=== PATIENT | female | born 1935 | race Caucasian/White ===

== ENCOUNTER 2024-08-05 01:55 | Inpatient (IN) | payer MEDICARE, SELFPAY ==
[2024-08-04 21:26] VITALS: BP 129/70
[2024-08-04 21:41] LABS: Glucose - Point of Care 126 mg/dl (70-99)
[2024-08-04 21:51] VITALS: BP 115/63
[2024-08-04 22:00] VITALS: BP 122/52
--- NOTE | 2024-08-04 22:08 | ED.GENMED ---
History of Present Illness
General
Chief Complaint: Change in Mental Status
Source: patient
Exam Limitations: none
Time Seen by Provider: 08/04/24 21:53
History of Present Illness
History of Present Illness:
This is a 89 year old female that comes in with c/o pain in the left ankle. States that she had injections in the left akle yesterday and when she got home it was difficulty to walk. States that last night the pain continued to get worse and when
she got up this morning there was numbness and tingling in the ankle and the ankle was swollen. States that she also slid down from the tub to get to the front door. Friends with patient state that patient is normally more on the ball and they are
not sure if she fell. States that she has not been eating or drinking. Patient Denies any fall, fever, chills, chest pain, SOB, abd pain, nausea, vomiting, diarrhea, headache, dizziness, urianry burning.
Past History
Past History
ED Past Medical History: Cancer (Skin CA Melanoma), HTN, Hypercholesterolemia, Psychiatric (Depression) and Other (DVT, Diverticulosis, GI bleeding. 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 )
ED Past Surgical History: Appendectomy, Gynecological (Hysterectomy), Orthopedic (thumb sx dr ragland ), Tonsilectomy (and adenoids) and Other (Left thigh Z-plasty for skin Cancer)
Social History
Tobacco: Former smoker
Alcohol: Occasional
Drug: None
Personal:
Living: alone
Employment: Retired
Family History
Family History: Hypertension
Review of Systems
Review of Systems
All Other Systems: ROS reviewed and negative except as documented in HPI and ROS
Constitutional: Reports no symptoms; Denies fever or chills
EENT: Reports no symptoms
Respiratory: Reports no symptoms; Denies cough or trouble breathing
Cardiac: Reports no symptoms; Denies chest pain
ABD/GI: Reports no symptoms; Denies abdominal pain, nausea, vomiting or diarrhea
: Reports no symptoms; Denies dysuria, frequency or urgency
Musculoskeletal: Reports joint pain (Left ankle pain)
Skin: Reports no symptoms
Neurological: Reports no symptoms; Denies dizzy or headache
Psychiatric: Reports no symptoms
Phy Exam
General Physical Exam
General Presentation: no apparent distress
General age: appears stated age
General Skin: warm and dry
General Habitus: elderly
General Mental: alert
General Hydration: dry mucous membranes
ENT Exam
ENT Exam: TM's normal, pharynx normal and neck supple
Eye Exam
Eye Exam: EOMI
Cardiovascular Exam
Cardiovascular Exam: regular rate/rhythm, no edema and normal peripheral pulses
Pulmonary Exam
Pulmonary Exam: lungs clear, no respiratory distress, no rales, chest non tender, no crackles, no rhonchi, no wheezing and no cough
Gastrointestinal Exam
Gastrointestinal Exam: normal bowel sounds, non tender, soft, no organomegaly, no pulsatile mass and non distended
Musculoskeletal Exam
Musculoskeletal Exam: full ROM and other (Swelling of the left ankle. Tender to palpation on the lateral aspect. )
Skin Exam
Skin Exam: normal color, warm/dry, no rash and no petechia
Psychiatric Exam
Psychiatric Exam: normal mood/affect
Course
Orders/Labs/Results
Orders:
Orders
08/04/24 22:05
0.9% Sodium Chloride 1000 ml [Nss] 1,000 ml IV BOLUS
Ankle, left 3 view CR [CR Ankle - Left Min 3 Views ] Urgent
Comment:
Reason For Exam: Pain, swelliing
US Legs, Left [US Periph Venous LOWER Ext LT] Urgent
Comment: history of DVT
Reason For Exam: Swelling Left ankle
08/04/24 22:06
Urinalysis Reflex To Culture Urgent
Date Specimen was Collected: 08/04/24
Time Specimen was Collected: 22:08
08/04/24 22:07
CT Head W/o Iv Contrast Urgent
Comment:
Reason For Exam: Confused, possible fall
Nursing to Place Non Medication Order As Directed
Physician Order: Please feed patient
Above order entered?: Yes
08/04/24 22:14
CPK [Creatine Phosphokinase] Urgent
Complete Blood Count/With Diff Urgent
Comprehensive Metabolic Panel Urgent
Direct Bilirubin Urgent
Lipase Urgent
Comment: ADDED
Manual Differential Urgent
08/04/24 23:01
Add On- LAB Urgent
Tests Added?: Direct karuna
US Abdomen Complete/Upper Urgent
Comment:
Reason For Exam: Elevated liver enzymes.
08/04/24 23:18
Iohexol [Omnipaque] See Protocol PO NOW STA
08/04/24 23:54
0.9% Sodium Chloride 1000 ml [Nss] 1,000 ml IV BOLUS
08/04/24 23:57
Diaz Placement- Treatment ONCE
Reason for insertion: Acute Kidney Injury
08/05/24 00:07
Add On- LAB Urgent
Tests Added?: Lipase
08/05/24 00:30
CT Abd/pel (oral only)-DH Only Urgent
Comment: US concerning for mass
Reason For Exam: elevated liver enzymes.
08/05/24 00:44
Urine Microscopic Reflex Cult Urgent
Urine Culture Urgent
BRIANNE Source: U
Specimen Description:
Date Specimen was Collected: 08/04/24
Time Specimen was Collected: 22:08
08/05/24 01:09
Admit/Transfer Patient As Directed
Co-Sign Provider:
Level of Care: Inpatient admission
Assign to:: Medical/Surgical
Physician / Group: hospitalist
Diagnosis: acute kidney failure
Reason for Hospitalization: 2
Expected length of stay greater than two midnights?: Yes
ELOS- Estimated Length of Stay in days: 2
I certify the patient meets the requirements for IP care: Yes
PRN Pain Medication Management As Directed
May give lesser potent ordered pain med per pt: Yes
preference::
Protocol:: Medication orders for pain may be administered in a
manner that supports deferring to patient preference
when the pt is:
- Requesting an ordered lesser potent pain medication.
Least to most potent pain medications are defined
as: acetaminophen < NSAID < tramadol < opioids
(morphine, oxycodone, hydromorphone).
- Requesting a lesser dose of the same medication IF
ORDERED.
- Requesting a less intrusive route of administration
if both routes are prescribed by the provider (PO <
IV).
08/05/24 01:10
Code Status As Directed
Resuscitation Status: Full Code
08/05/24 08:00
Fluoxetine HCl [Prozac] 40 mg PO DAILY
Abnormal Lab Results
08/04/24 08/04/24 08/05/24
21:39 22:14 00:44
WBC 49.2 H* 10^3/uL
(4.8-10.8)
Hgb 8.7 L g/dL
(12.0-16.0)
Hct 25.7 L %
(37.0-47.0)
MCV 57.1 L fL
(81.0-99.0)
MCH 19.3 L pg
(27.0-31.0)
RDW 15.2 H %
(11.5-14.5)
Plt Count 712 H 10^3/uL
(130-400)
Abs Neuts (Manual) 47.2 H 10^3/uL
(1.4-6.5)
Band Neutrophils 28 H %
(0-3)
Lymphocytes (Manual) 2 L %
(20-51)
Sodium 134 L mmol/L
(135-145)
Chloride 97 L mmol/L
(98-107)
Carbon Dioxide 17 L mmol/L
(22-30)
BUN 116 H* mg/dl
(7-17)
Creatinine 3.9 H mg/dL
(0.6-1.0)
Glucose 104 H mg/dl
(70-99)
Direct Bilirubin 0.7 H mg/dl
(0.0-0.4)
AST 720 H* U/L
(14-36)
ALT 296 H U/L
(0-35)
Alkaline Phosphatase 381 H U/L
(38-126)
Creatine Kinase 5350 H U/L
(30-135)
Albumin 3.0 L g/dl
(3.5-5.0)
Ur Occult Blood Reflex 4+ A
(Negative)
Urine Bilirubin 1+ A
(Negative)
Leukocyte Esterase Rfl Trace A
(Negative)
Urine RBC 11-15 A /HPF
(0-2)
Urine Bacteria (Reflex) Moderate A
(Negative)
POC Glucose 126 H mg/dl
(70-99)
08/04/24 22:14
08/04/24 22:14
Leukocytosis, H/h is low, Thrombocytopenia. anemia, Bandemia, Carbon dioxide low, Acute renal failure, Hyperglycemia, Direct karuna elevation. AST/ALT elevation. Alk phos elevation. CPK elevation (rhabdo), Albumin low.
Vital Signs
Initial and Last Documented VS:
Initial Vital Signs
Temp Pulse Resp BP Pulse Ox
98.5 F 66 18 129/70 98
08/04/24 21:26 08/04/24 21:26 08/04/24 21:26 08/04/24 21:26 08/04/24 21:26
Last Documented Vital Signs
Temp Pulse Resp BP Pulse Ox
98.5 F 115 26 111/57 96
08/04/24 21:26 08/05/24 01:15 08/05/24 01:15 08/05/24 01:00 08/05/24 01:15
MDM/Problems Addressed
Differential Diagnosis Includes:
UTI, DVT, Dementia
MDM/Problems Addressed:
This is a 89 year old female that comes in with c/o left ankle pain. States that she got injections in the ankle yesterday and this was not her first time. States that this time it really hurt. States that she awoke with numbness and tingling in the
ankle. States that she also slid down from the tub to the floor so she could get to the Front door. Neighbors with patient feel that she is a little confused and normally is much more witty then this.
Will check labs, Urine. CT head and get US of the left leg. X-ray left ankle
Into see neighbors and explained that she would be admitted. They have been looking out after her as her brother is unable and there is no one else.
Back into see patient. Explained that she would be admitted as her liver enzymes are elevated, she is in renal failure and Rhabdo. Will also get CT scan. Hospitalist notified about admission.
US cont- Large lef renal cyst. Right kidney is unremarkable. Spleen is unremarkable.
CT report reviewed and given to Hospitalist. Questioned if antibiotic should be ordered and Dr. Friedman does not feel that antibiotics are needed at this time.
Chronic conditions affecting care:
history of DVT and UTI,
*Radiology
Radiology exam reviewed: radiology read reviewed (CT head- NO acute intracranial abnormality noted. Mild atrophy. Moderate periventricular small vessel disease seen. 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 Ankle -Bony demineralization. Postsurgical
change of the distal left fibula and tibia as described above. No evidence of acute osseous injury. ), all reviewed NAD by ED Provider (US- night hawk- There is a complex heterogeneous mass in the right upper quadrant involving the liver and region
of the pancreatic head Measuring up to roughly 8.5cm. There may be gas within the nondependent portion. Recommend contrast-enhanced CT for further characterization. Gallbladder contains ) and other (DVT- Negative left leg CT cont- gallstones. Mild
gallbladder wall thickening up to 5mm, may be related to the above described mass/liver disease or could be seen with mild cholecystitis. The common bile duct is not well visualized but appears to be mildly dilated up to approximately 10mm.)
*Pulse Oximetry
Patient hypoxic: no
*EKG
Interpreted by ED Provider?: NA
Rate: EKG- N/A
*Loading Unit Tool Setter Interpretation
Rate: normal
Heart Rate: 64
Rhythm: sinus
*Critical Care Note
Total Time (30-74mins, 75-104mins- exclusive of procedures): Not Applicable
ED Attending Note
-
Portions of this chart may have been created with voice recognition software.� Occasional wrong word or��sound alike� substitutions may have occurred due to the inherent limitations of voice recognition software.
Discharge Plan
Departure
Patient Disposition: Admit
Date of Disposition: 08/04/24
Time of Disposition: 23:59
Admit to: Telemetry
Presentation/result/management discussed w/ accepting MD/DO: Hospitalist
Patient with high blood pressure during this ER visit?: Yes
Condition: Good
Covid-19: Not Applicable
Discharge Problem:
Acute renal failure, Elevated liver enzymes, Rhabdomyolysis
Interventions
Interventions:
*Risk Screen - Suicide Last Done: 08/04/24 21:26
*General Assessment Last Done: 08/04/24 21:26
ED- Fall Risk Assessment Last Done: 08/04/24 21:51
*ED COVID-19 Vaccine History Last Done: 08/04/24 21:26
ED- Cardiac Assessment Last Done: 08/04/24 21:51
ED- Neurological Assessment Last Done: 08/04/24 21:51
ED- Pulmonary Assessment Last Done: 08/04/24 21:51
ED Swallowing Screen Last Done: 08/04/24 23:40
[2024-08-04] MEDS: NSS 1000 IV ×2 (22:14→23:58)
[2024-08-04 22:53] LABS: Hematocrit 25.7 % (37.0-47.0); Hemoglobin 8.7 g/dL (12.0-16.0); Mean Corp Hgb Conc. 33.9 g/dL (33.0-37.0); Mean Corpuscular Hgb 19.3 pg (27.0-31.0); Mean Corpuscular Volume 57.1 fL (81.0-99.0); Mean Platelet Volume 9.3 fL (7.4-10.4); Platelet Count 712 10^3/uL (130-400); Red Cell Dist. Width 15.2 % (11.5-14.5); White Blood Cell Count 49.2 10^3/uL (4.8-10.8)
[2024-08-04 22:56] LABS: ALT (SGPT) 296 U/L (0-35); AST (SGOT) 720 U/L (14-36); Alkaline Phosphatase 381 U/L (38-126); Blood Urea Nitrogen 116 mg/dl (7-17); Calcium 8.5 mg/dl (8.4-10.2); Carbon Dioxide 17 mmol/L (22-30); Chloride 97 mmol/L (98-107); Glucose 104 mg/dl (70-99); Potassium 5.1 mmol/L (3.5-5.1); Sodium 134 mmol/L (135-145); Total Bilirubin 0.9 mg/dl (0.2-1.3); Total Protein 6.4 g/dl (6.3-8.2)
[2024-08-04 22:59] LABS: Absolute Neutrophils -Man Diff 47.2 10^3/uL (1.4-6.5); Band Neutrophils 28 % (0-3); Segmented Neutrophils 68 % (42-75)
[2024-08-04 23:00] LABS: Anisocytosis 1+; Hypochromasia 1+; Lymphocytes 2 % (20-51); Macrocytosis 1+; Monocytes 2 % (2-9); Normal RBC Morphology No; Ovalocytes 2+; Platelets Checked Yes; Poikilocytosis 2+; Spherocytes 1+; Target Cells 2+
[2024-08-04 23:01] LABS: Total Cells Counted 100
[2024-08-04 23:04] LABS: Creatine Phosphokinase 5350 U/L (30-135); eGFR 10.65
[2024-08-04 23:37] LABS: Direct Bilirubin 0.7 mg/dl (0.0-0.4)
[2024-08-04] MEDS: OMNIPAQUE 50 ML PO (23:40)
[2024-08-04 23:42] VITALS: BP 102/44
[2024-08-05] VITALS (20 sets, daily range): BP systolic 92–152; BP diastolic 33–65; BMI 30.6
--- NOTE | 2024-08-05 00:40 | HPS.HSE ---
Family Physician
-
Family Physician: Noah Mary
Chief Complaint
-
Left ankle pain
History of Present Illness
This a 89-year-old female who endorses a past medical history of hypertension and hyperlipidemia presents to the emergency department after being brought in by neighbors for crawling to open her door and they thought that she was confused.
Patient endorsed a past medical history of hypertension, hyperlipidemia, status post hysterectomy and melanoma excision in 1981. She reported that yesterday she had ankle injection at [facility] by Dr. Artem Mcdonald. This was done for
chronic ankle osteoarthritis. She denied any redness. Patient returned home after the injection and was able to ambulate but did find that there was no improvement in her pain. She denied having any fevers or chills. The ankle had already had a
prior surgery and fusion many years ago. Patient reported that she only ate soup last night due to the loss of her pet. She had been grieving this loss for a few days now. In the morning feeling get out of the house. She mostly stayed on her
couch all day. In the afternoon she went to her bathroom and was sitting on the edge of her tub when she had the doorbell rang. She then lowered herself to the floor due to the pain in her ankle. she then remembered dozing off onto the Dr. Blanton
again. She was unable to get up to open the door so she crawled and neighbors found her in that position. She reported that she was unable to get up immediately due to the pain in her ankle and weakness. Patient reported that she last seen
physician Dr. Noah [facility] a month ago and had blood work and a physical exam without any acute abnormalities. She reported that a month ago she also noticed a decrease in her urine output. She reported
that she did have a urine output this morning that was scant and not dark-colored. She denies any nausea or vomiting. She denies diarrhea. She reports that she takes Tylenol 3 4 times a day. She denies any NSAID use. She denies any tobacco use.
She denies alcohol use. She denies any recent weight gain or weight loss. She denies any urinary frequency, dysuria or hematuria. She did remember past history of a mechanical fall many years ago.
In the emergency department the patient was normotensive with a blood pressure of 182/50 she was afebrile pulse was 69 she was satting 98% on room air. White count was 49 with 28% bands. Hemoglobin was 8.7, platelet count was 712. MCV was 57.
Sodium was 134 potassium 5.1 chloride 97 bicarb 17 with a BUN of 116 and a creatinine of 3.9. Glucose was 104. She had elevated AST of 720 ALT over 200 and elevated alk phos. CPK was also elevated at 5300. Ankle x-ray shows demineralization but
no other abnormality. Head CT was unremarkable. She had a ultrasound of the abdomen concerning for mass but official read is pending and a CT scan of the abdomen was ordered with oral contrast.
Medical History
Past Medical History
Past Medical History: Reports HTN and Hypercholesterolemia
Additional Past Medical History:
Skin melanoma 1981
Chronic osteoarthritis
Iron deficiency anemia
Past Surgical History: Reports Gynocological (Hysterectomy)
Social History
Tobacco: Non-smoker
Alcohol: None
Drug: None
Personal: Single
Living: Alone
Employment: Retired
Family History
Family History: Not pertinent
Allergies / Home Medications
Allergies reflects when Allergies were last updated in [employer].
Home Medications with original date entered in [employer]
Allergy/Medication List:
Allergies
Allergy/AdvReac Type Severity Reaction Status Date / Time
morphine Allergy head hurts Verified 08/04/24 21:33
zolpidem [From Ambien] Allergy Unknown Verified 08/04/24 21:34
Home Medications
Echinacea 350 MG take 1 capsule Orally once a day Jul, Active
Iron 325 (65 Fe) MG 1 tablet Orally Once a day Jul, Active
CoQ-10 1 capsule with a meal Orally Once a day Jul, Active
Centrum Silver Take one tablet by mouth daily Jul, Active
FLUoxetine HCl 40 mg TAKE 1 CAPSULE DAILY in THE MORNING Jul, Active
Atorvastatin Calcium 20 mg TAKE 1 TABLET DAILY Jul, Active
[employer] Lidocaine Pain Relief 4 % apply to affected area Externally Three times a day for 5 days Jul, Active
Mupirocin 2 % apply to affected area Externally three times a day for 5 days Jul, Active
Vitamin B12 1000 MCG 1 tablet Orally every other day prn Jul, Active
traZODone HCl 50 MG TAKE 1 TABLET BY MOUTH EVERY DAY AT BEDTIME NEEDED for 90 Jul, Active
Lisinopril-hydroCHLOROthiazide 10-12.5 mg TAKE 1 TABLET DAILY Jul, Active
Acetaminophen-Codeine #3 300-30 MG take 1 - 2 tablet by oral route every 4 - 6 hours as needed Oral q4 prn for 90 days prn Jul, Active
PreserVision AREDS - 1 Orally Twice a Day Jul, Active
LORazepam 0.5 MG 1 tablet bid as needed for anxiety Orally twice a day for 30 days prn Jul, Active
Celecoxib 100 mg TAKE 1 CAPSULE DAILY WITH FOOD for 90 days Jul, Active
amLODIPine Besylate 5 mg TAKE 1 TABLET DAILY Jul, Active
Review of Systems
-
History Source: Patient
Constitutional: Reports Fatigue
EENT: Reports No Symptoms
Respiratory: Reports No Symptoms
Cardiac: Reports No Symptoms
Abdomen/GI: Reports No Symptoms
: Reports No Symptoms
Musculoskeletal: Reports Joint Pain and Joint Swelling
Skin: Reports No Symptoms
Neurological: Reports Weakness
Endocrine: Reports No Symptoms
Hematologic/Lymphatic: Reports No Symptoms
Psych: Reports No Symptoms
Physical Exam
Vital Signs
Vital Signs
Temp Pulse Resp BP Pulse Ox
98.5 F 69 21 122/52 98
08/04/24 21:26 08/04/24 22:15 08/04/24 22:15 08/04/24 22:00 08/04/24 22:15
Physical Exam
General: Well Developed, Well Nourished, No Apparent Distress, Comfortable and Conversant
HEENT: NormoCephalic, Anicteric, Atraumatic and PERRLA
Respiratory: Clear
Cardiac: S1/S2 and Regular Rhythm
GI: Soft, Non Tender, Non Distended and Normal Bowel Sounds
Rectal: Deferred by Provider
Genito-urinary: Deferred by me
Musculoskeletal: No Clubbing, No Cyanosis and No Edema
Skin: Warm
Neuro: AO x 3
Hematologic/Lymphatic: No Lymphadenopathy
Psych: Calm
Laboratory Results
-
08/04/24 22:14
08/04/24 22:14
Laboratory Results
Total Bilirubin 0.9 mg/dl (0.2-1.3) 08/04/24 22:14
AST 720 U/L (14-36) H* 08/04/24 22:14
ALT 296 U/L (0-35) H 08/04/24 22:14
Alkaline Phosphatase 381 U/L (38-126) H 08/04/24 22:14
Impression/Plan
-
IMPRESSION:
This is a rather well-appearing 89-year-old female with history of ankle osteoarthritis status post joint injection yesterday who presents to the emergency department after being found crawling at home. Patient endorsed crawling due to leg pain and
some weakness. There were numerous incidental findings on her labs and imaging in the emergency department incongruent to the particular history in which she gave other than being on the floor for some time and having reduced p.o. intake over the
last couple of days. Patient endorses history of hypertension and hyperlipidemia but does not know the medications that she is currently on. She lives by herself.
PLAN:
1. LILIAN - Cr 116, BUN 3.9.BUN /Cr > 20. Non-anuric but cannot determine oliguria yet. K 5.1. bicarb 17. Hypovolemia/dehydration. No indicaton for emergent dialysis. Denies NSAIDs. +CPK/Rhabdo. No other insults. Unclear duration but states
bloodwork by Dr Mary was ok recently ( 1 -2 months). Large left renal cyst.
- admit to med/surg
- presumed LILIAN 2/2 rhabdomyolysis. If non-oliguric will give IV NS at 150 ml/hr for now
- trend cpk q 12 (unknown duration of tissue damage)
- monitor i/o, Cr and bicarb q 12
- obtain u/a for casts, rbc, protein, cells
- check phos level for chronicity
- check urine protein cr
- get esr, crp, nelda, RF, complement c3/c4
- nephrology consultation
2. Transaminitis/Liver Mass - Normal bili, elevated ast/alt and alkphos. Intraabdominal mass on u/s 8.5 cm involving the liver and region of the pancreatic head. CT ordered to examine further. Gallbladder with stones and mild gallbladder wall
thickening, poor visualization of cbd. CT a/p w/o contrast adds ill-defined hypodense mass in r u q within the liver, gallbladder distended and has stones. 'There is a small amount of gas that could indicate communication with bowel, necrosis or
infection'. Picture suggestive of malignancy of primary liver, metastatic liver, gall bladder or pancreatic mass
- gi consultation
- will get markers including ca19-9, cea, AFP
- no abdominal pain, tenderness, nausea or vomiting, history shows decreased appetite, hold off abx for possible cholecystitis versus abscess.
3. Rhabdomyolysis -
- management as above for LILIAN at this time
- hold statin
4. HTN
- holding lsinopril-hctz
- continue norvasc w/ hold parameters
- hold statin
5 Leukocytosis - WBC 49k, bands/immature cells. NO obvious signs of acute infection but possibly hepatic/pancreatic necrotic mass. Unlikely acute cholecystitis. Cannot rule out abscess. Possibly reactive due to liver mass/lymphoma vs leukemia.
Reports h/o bone marrow biopsy over 10 years ago. No recent CBC found [facility] 2010.
- check uric acid, ldh
- obtain records from Dr. Hudson
- peripheral smear
- oncology/hematology consultation
- iv fluids for now
6. Anemia - H/O gastritis s/p EGD/Roberts. No history of GI bleed. Known thalasemia. Hgb was around 8 - 10 14/15 yrs ago. MCV 61 at that time and now 50s.
- check iron panel, b12 folate
- type and screen in am
- oncology consult as above
DVT PPX - heparin sq
Code Status - full lary for now.
[2024-08-05 00:52] LABS: Lipase 102 U/L (23-300)
[2024-08-05 00:57] LABS: Urine Albumin Trace (Neg - Trace); Urine Bilirubin 1+ (Negative); Urine Character Slightly Cloudy (Clear); Urine Color Yellow; Urine Glucose Negative (Negative); Urine Ketone Negative (Negative); Urine Leukocyte Trace (Negative); Urine Nitrite Negative (Negative); Urine Occult Blood 4+ (Negative); Urine Urobilinogen Negative (Neg - 1+)
[2024-08-05 01:26] LABS: Urine Bacteria Moderate (Negative)
[2024-08-05] MEDS: NSS 1000 IV ×3 (07:31→21:04)
[2024-08-05 07:32] LABS: Procalcitonin 151.28 ng/ml (0.0-0.25)
[2024-08-05 07:50] LABS: Urine Albumin Trace (Neg - Trace); Urine Bilirubin Negative (Negative); Urine Character Slightly Cloudy (Clear); Urine Color Yellow; Urine Glucose Negative (Negative); Urine Ketone Negative (Negative); Urine Leukocyte Negative (Negative); Urine Nitrite Negative (Negative); Urine Occult Blood 3+ (Negative); Urine Specific Gravity 1.015 (<1.030); Urine Urobilinogen Negative (Neg - 1+)
[2024-08-05 08:16] LABS: Urine Bacteria Moderate (Negative)
[2024-08-05] MEDS: HEPARIN 5000 UNITS SC ×2 (08:16→19:59)
[2024-08-05] MEDS: PROZAC 40 MG PO (08:16)
[2024-08-05 08:17] LABS: Urine Red Blood Cell 0-2 /HPF (0-2)
--- NOTE | 2024-08-05 08:22 | CON.ONC ---
Impression
Impression
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
Rule out sepsis with elevated procalcitonin
Rhabdomyolysis
Acute renal failure
Dehydration
TME resolving
Reactive leukocytosis/thrombocytosis
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
Hypertension
Gastritis
Plan
Plan
Radiologically appears to have malignant neoplasm to the liver
Consider biopsy once stabilized if patient and family desire tissue diagnosis diagnosis
CEA and CA 19-9
Would initially begin with supportive care
Currently not a candidate for palliative systemic therapy given age, performance status, degree of renal and liver impairment
Will follow
Patient History
History of Present Illness
This a 89-year-old female who endorses a past medical history of hypertension and hyperlipidemia presents to the emergency department after being brought in by neighbors for crawling to open her door and they thought that she was confused.
Patient endorsed a past medical history of hypertension, hyperlipidemia, status post hysterectomy and melanoma excision in 1981. She reported that yesterday she had ankle injection at [facility] by Dr. Artem Mcdonald. This was done for
chronic ankle osteoarthritis. She denied any redness. Patient returned home after the injection and was able to ambulate but did find that there was no improvement in her pain. She denied having any fevers or chills. The ankle had already had a
prior surgery and fusion many years ago. Patient reported that she only ate soup last night due to the loss of her pet. She had been grieving this loss for a few days now. In the morning feeling get out of the house. She mostly stayed on her
couch all day. In the afternoon she went to her bathroom and was sitting on the edge of her tub when she had the doorbell rang. She then lowered herself to the floor due to the pain in her ankle. she then remembered dozing off onto the Dr. Blanton
again. She was unable to get up to open the door so she crawled and neighbors found her in that position. She reported that she was unable to get up immediately due to the pain in her ankle and weakness. Patient reported that she last seen
physician Dr. Noah [place] and [facility] about a month ago and had blood work and a physical exam without any acute abnormalities. She reported that a month ago she also noticed a decrease in her urine output. She reported
that she did have a urine output this morning that was scant and not dark-colored. She denies any nausea or vomiting. She denies diarrhea. She reports that she takes Tylenol 3 4 times a day. She denies any NSAID use. She denies any tobacco use.
She denies alcohol use. She denies any recent weight gain or weight loss. She denies any urinary frequency, dysuria or hematuria. She did remember past history of a mechanical fall many years ago.
In the emergency department the patient was normotensive with a blood pressure of 182/50 she was afebrile pulse was 69 she was satting 98% on room air. White count was 49 with 28% bands. Hemoglobin was 8.7, platelet count was 712. MCV was 57.
Sodium was 134 potassium 5.1 chloride 97 bicarb 17 with a BUN of 116 and a creatinine of 3.9. Glucose was 104. She had elevated AST of 720 ALT over 200 and elevated alk phos. CPK was also elevated at 5300. Ankle x-ray shows demineralization but
no other abnormality. Head CT was unremarkable. She had a ultrasound of the abdomen concerning for mass but official read is pending and a CT scan of the abdomen was ordered with oral contrast.
Past-Medical/Surgical History
Past Medical History
HTN
Hypercholesterolemia
Melanoma 1982
Chronic osteoarthritis
Iron deficiency anemia
Past Surgical History
Gynocological (Hysterectomy)
Social History
Tobacco: Non-smoker
Alcohol: None
Drug: None
Personal: Single
Living: Alone
Employment: Retired
Family History
Family History: Not pertinent
Patient Medication
�Medication �Instructions �Recorded �Confirmed �Last Taken �Type
fluoxetine 20 mg capsule 40 mg PO DAILY 03/13/10 08/05/24 07/05/12 08:00 History
atorvastatin 20 mg tablet 20 mg PO QPM 06/29/12 08/05/24 07/05/12 20:30 History
ferrous sulfate 325 mg (65 mg 325 mg PO DAILY 06/29/12 08/05/24 07/05/12 08:00 History
iron) tablet
kkpdtdnb-pjf-wyvxu acid 0.4 1 ea PO DAILY 06/29/12 08/05/24 07/05/12 20:30 History
mg-lycopene 300 mcg-lutein 250 mcg
tablet (Centrum Silver)
acetaminophen 300 mg-codeine 30 mg 1 tab PO QIDPRN PRN moderate pains 08/05/24 08/05/24 Unknown History
tablet
amlodipine 10 mg tablet (Norvasc) 5 mg PO DAILY 08/05/24 08/05/24 Unknown History
celecoxib 100 mg capsule 100 mg PO DAILY 08/05/24 08/05/24 Unknown History
chlorhexidine gluconate 0.12 % 15 ml buccal DAILY 08/05/24 08/05/24 Unknown History
mouthwash
coQ10 (ubiquinol) 100 mg capsule 100 mg PO DAILY 08/05/24 08/05/24 Unknown History
diphenoxylate-atropine 2.5 1 tab PO BIDPRN PRN diarrhea 08/05/24 08/05/24 Unknown History
mg-0.025 mg tablet (Lomotil)
lisinopril 10 1 tab PO DAILY 08/05/24 08/05/24 Unknown History
mg-hydrochlorothiazide 12.5 mg
tablet
propranolol 120 mg capsule,24 120 mg PO DAILY 08/05/24 08/05/24 Unknown History
hr,extended release
trazodone 50 mg tablet 50 mg PO HS 08/05/24 08/05/24 Unknown History
Active Medications
Generic Name Dose Route Start Last Admin
Trade Name Freq PRN Reason Stop Dose Admin
Acetaminophen 650 mg 08/05/24 06:52
Acetaminophen 325 Mg Tablet PO 09/02/24 06:51
Q4HPRN PRN
mild pain/MCQUEEN/temp> 100.4F
Bisacodyl 10 mg 08/05/24 06:52
Bisacodyl 10 Mg Rectal Suppository RECTAL 09/02/24 06:51
[id number] PRN
constipation
Fluoxetine HCl 40 mg 08/05/24 08:00 08/05/24 08:16
Fluoxetine 20 Mg Capsule PO 09/02/24 07:59 40 mg
DAILY CORNEL Administration
Heparin Sodium 5,000 units 08/05/24 08:00 08/05/24 08:16
Heparin 5,000 Units/Ml 1 Ml Vial SC 09/02/24 07:59 5,000 units
Q12 CORNEL Administration
Sodium Chloride 1,000 mls @ 150 mls/hr 08/05/24 06:52 08/05/24 07:31
Nss IV 1,000 mls
.Q6H40M CORNEL Administration
Ondansetron HCl 4 mg 08/05/24 06:52
Ondansetron 4 Mg/2 Ml Vial IV 09/02/24 06:51
Q6HPRN PRN
nausea and vomiting
Polyethylene Glycol 17 grams 08/05/24 06:52
Polyethylene Glycol Powder 17 Grams Packet PO 09/02/24 06:51
DAILYPRN PRN
constipation
Senna/Docusate Sodium 1 tablet 08/05/24 06:52
Docusate W/Senna (Sowmya-Colace) Tablet PO 09/02/24 06:51
BIDPRN PRN
constipation
Sodium Chloride 0 flush 08/05/24 03:00
Sodium Chloride 0.9% (Flush) Syringe IV 09/02/24 02:59
PER PROTOCOL CORNEL
Review of Systems
-
Patient appears appropriate in the emergency room without complaints of pain. She states that she may have been confused earlier.Additional review of systems fails elicit additional complaints other than those reviewed In the HPI.
Physical Exam
-
Physical Exam
General: Well Developed, Well Nourished, No Apparent Distress, Comfortable and Conversant
HEENT: Anicteric, Atraumatic and EOMI
Respiratory: Clear
Cardiac: S1/S2 and Regular Rhythm
GI: Soft, Non Tender, Non Distended and Normal Bowel Sounds
Musculoskeletal: No Clubbing, No Cyanosis and No Edema
Skin: Warm
Neuro: AO x 3
Hematologic/Lymphatic: No Lymphadenopathy
Psych: Calm
Labs
Lab Results
WBC 49.2 10^3/uL (4.8-10.8) H* 08/04/24 22:14
RBC 4.50 10^6/uL (4.20-5.40) 08/04/24 22:14
Hgb 8.7 g/dL (12.0-16.0) L 08/04/24 22:14
Hct 25.7 % (37.0-47.0) L 08/04/24 22:14
MCV 57.1 fL (81.0-99.0) L 08/04/24 22:14
MCH 19.3 pg (27.0-31.0) L 08/04/24 22:14
MCHC 33.9 g/dL (33.0-37.0) 08/04/24 22:14
RDW 15.2 % (11.5-14.5) H 08/04/24 22:14
Plt Count 712 10^3/uL (130-400) H 08/04/24 22:14
MPV 9.3 fL (7.4-10.4) 08/04/24 22:14
Creatinine 3.9 mg/dL (0.6-1.0) H 08/04/24 22:14
Vital Signs
Vital Signs
Temp Pulse Resp BP Pulse Ox
98.5 F 67 21 107/48 96
08/04/24 21:26 08/05/24 08:15 08/05/24 08:15 08/05/24 08:00 08/05/24 08:15
[2024-08-05 08:29] LABS: Protein/creatinine Ratio 0.4; Urine Protein 35 mg/dl; Urine Sodium 31 mmol/L (30-90)
--- NOTE | 2024-08-05 11:47 | W.CON.NEPH ---
Consultation
-
Date/Time Consultation Requested: 08/05/2024 9 AM
Date/Time Consultation Performed: 08/05/2024 12 PM
Requesting Provider: Dr. Friedman
Performing Provider: Dr. Evans
Reason for Consultation: LILIAN
Medical History
-
Chief Complaint: Confusion
History of Present Illness:
This this is an 89-year-old female who has hypertension on a multidrug regimen typically well-controlled, osteoarthritis on chronic Celebrex therapy who underwent recent injection by orthopedics. She has hyperlipidemia controlled with statin
therapy. She had actually seen her primary care physician on the end of June without issues. Over this past weekend she gone to gnosticism also without incident. In the last 2 days time however she has lost her appetite has been eating less.
She actually has no recollection of the last 36 hours. Reportedly she had been so weak she had been crawling on the floor. She was unable to answer the front door and allowed her neighbors to come into the garage. She was then sent to the
emergency room. Here she was noted to have an extremely high white count with acute kidney injury with a creatinine of 3.9.
Past Medical History
Hypertension, hyperlipidemia, melanoma, osteoarthritis, anemia, thalassemia, hysterectomy, left ankle surgery
Social History
Tobacco: Non-Smoker
Alcohol: None
Family History
Family History: Not Pertinent
Allergies / Home Medications
Allergy/AdvReac Type Severity Reaction Status Date / Time
morphine Allergy head hurts Verified 08/04/24 21:33
zolpidem [From Ambien] Allergy Unknown Verified 08/04/24 21:34
�Medication �Instructions �Recorded �Confirmed �Type
fluoxetine 20 mg capsule 40 mg PO DAILY depression/anxiety 03/13/10 08/05/24 History
atorvastatin 20 mg tablet 20 mg PO QPM High Cholesterol 06/29/12 08/05/24 History
ferrous sulfate 325 mg (65 mg 325 mg PO DAILY Supplement 06/29/12 08/05/24 History
iron) tablet
boczvbvt-yow-sqibd acid 0.4 1 ea PO DAILY Supplement 06/29/12 08/05/24 History
mg-lycopene 300 mcg-lutein 250 mcg
tablet (Centrum Silver)
acetaminophen 300 mg-codeine 30 mg 1 tab PO QIDPRN PRN moderate pain 08/05/24 08/05/24 History
tablet
amlodipine 10 mg tablet (Norvasc) 5 mg PO DAILY blood pressure 08/05/24 08/05/24 History
celecoxib 100 mg capsule 100 mg PO DAILY pain 08/05/24 08/05/24 History
chlorhexidine gluconate 0.12 % 15 ml buccal DAILY mouth care 08/05/24 08/05/24 History
mouthwash
coQ10 (ubiquinol) 100 mg capsule 100 mg PO DAILY Supplement 08/05/24 08/05/24 History
diphenoxylate-atropine 2.5 1 tab PO BIDPRN PRN diarrhea 08/05/24 08/05/24 History
mg-0.025 mg tablet (Lomotil)
lisinopril 10 1 tab PO DAILY Blood Pressure 08/05/24 08/05/24 History
mg-hydrochlorothiazide 12.5 mg
tablet
propranolol 120 mg capsule,24 120 mg PO DAILY Blood Pressure 08/05/24 08/05/24 History
hr,extended release
trazodone 50 mg tablet 50 mg PO HS sleep 08/05/24 08/05/24 History
Review of Systems
-
Decreased appetite. No nausea or vomiting. No pain. No shortness of breath. Decreased urine output. No diarrhea.
All other systems: Negative unless noted
Physical Exam
Vital Signs
Vital Signs
Temp Pulse Resp BP Pulse Ox
98.5 F 67 21 107/48 96
08/04/24 21:26 08/05/24 08:15 08/05/24 08:15 08/05/24 08:00 08/05/24 08:15
Lab Results
WBC 49.2 10^3/uL (4.8-10.8) H* 08/04/24 22:14
RBC 4.50 10^6/uL (4.20-5.40) 08/04/24 22:14
Hgb 8.7 g/dL (12.0-16.0) L 08/04/24 22:14
Hct 25.7 % (37.0-47.0) L 08/04/24 22:14
Plt Count 712 10^3/uL (130-400) H 08/04/24 22:14
Sodium 134 mmol/L (135-145) L 08/04/24 22:14
Potassium 5.1 mmol/L (3.5-5.1) 08/04/24 22:14
Chloride 97 mmol/L (98-107) L 08/04/24 22:14
Carbon Dioxide 17 mmol/L (22-30) L 08/04/24 22:14
BUN 116 mg/dl (7-17) H* 08/04/24 22:14
Creatinine 3.9 mg/dL (0.6-1.0) H 08/04/24 22:14
eGFR 10.65 08/04/24 22:14
Glucose 104 mg/dl (70-99) H 08/04/24 22:14
Calcium 8.5 mg/dl (8.4-10.2) 08/04/24 22:14
Albumin 3.0 g/dl (3.5-5.0) L 08/04/24 22:14
From 07/14/2024 WBC 16.3, hemoglobin 10.6, platelet 442, sodium 141, potassium 4.9, bicarb 24, BUN 36, creatinine 0.98, calcium 10, albumin 4.4, A1c 5.9, AST 24, ALT 26, bilirubin 0.5
Physical Exam
Patient is awake alert oriented and in no distress. Mood and affect were pleasant, insight and judgment were good. Pupils are equal round and reactive to light, extraocular movements are intact, sclera were anicteric. Hearing was normal, ears and
nose are intact. Oropharynx was clear. Neck was supple with trachea midline and no thyromegaly. Heart was regular rate and rhythm without rubs. Lower extremities with 2+ edema. Lungs were clear to auscultation bilaterally and with normal
excursion. Abdomen was soft, nontender, with normal active bowel sounds, and no hepatosplenomegaly. Skin was without rash and with normal turgor.
Data Reviewed
-
Radiology: Image Personally Visualized and interpreted (Ankle x-ray on 08/04/2024 by my reading only shows postsurgical changes with plate and pin)
CT Scan: Report Reviewed by me (CT abdomen pelvis on 08/05/2024 shows no hydronephrosis, 11 cm low-density right lobe liver mass)
Labs: Labs Reviewed by me
Old Records: Reviewed
Assessment/Plan
-
Assessment
Sepsis
Liver mass
LILIAN
Azotemia
Metabolic acidosis
Hyponatremia
Elevated LFTs
Rhabdomyolysis
Plan
Maintain Diaz
IV fluid normal saline fluid resuscitation
Follow BMP, CPK
Holding Celebrex, lisinopril HCTZ
Check lactate
Await cultures
Broad-spectrum antibiotics
--- NOTE | 2024-08-05 12:49 | W.PN.HOSP.TC ---
Today's Communication/Plan
-
Blood culture PICC
Empiric antibiotics.
Tumor markers
Interventional radiology/gastroenterology consultation for workup of the liver mass.
Diaz catheter P
IV fluids.
Avoid hypotension.
Assessment / Plan
Assessment / Plan
Impression:
Presentation with severe fatigue and weakness.
Acute kidney injury.
Rhabdomyolysis. Nontraumatic
Large necrotic hepatic mass.
Concern for sepsis
Other conditions:
Essential hypertension
Dyslipidemia.
Left ankle arthritis
History of melanoma removal remote.
Plan:
Concern for sepsis with significantly elevated WBC and left shift.
Most likely source intra-abdominal with necrotic liver mass
Afebrile
Does not appear toxic.
Lactic acid level is pending.
Check blood cultures
Empiric antibiotic Zosyn
Necrotic liver mass on CT scan and ultrasound.
Abnormal LFT
High suspicion for biliary/GI malignancy metastasizing to the liver.
? If abscess
Significantly elevated procalcitonin, although unreliable given abnormal renal function.
GI/interventional radiology consultation with plan for biopsy/drain (if abscess.
Tumor markers pending.
Oncology input appreciated
May require additional imaging either with enhanced CT scan if renal function allows for MRI of the abdomen.
Acute kidney injury.
Metabolic acidosis.
Nontraumatic rhabdomyolysis
Diaz catheter placed on admission (no documented retention while in ED.
Avoid NSAIDs.
Hold lisinopril/HCTZ.
IV fluids.
Avoid hypotension
Dyslipidemia
Hold statin given abnormal liver function test
Chronic microcytic anemia
Check iron panel, B12.
Check coagulation profile.
Type and screen.
Monitor hemoglobin.
Full code.
DVT prophylaxis heparin.
Anticipated Discharge: > 48 hours
Subjective/Interval History
-
Date of Service: August 05, 2024
Objective Data
-
Labs:
Laboratory Results
08/05/24
12:44
PT Pending
INR Pending
APTT Pending
Vital Signs:
Vital Signs
Temp Pulse Resp BP Pulse Ox
97.5 F 73 18 123/52 94
08/05/24 12:15 08/05/24 12:00 08/05/24 12:00 08/05/24 12:00 08/05/24 12:00
Physical Exam
-
General: Well Developed and No Apparent Distress
HEENT: Normocephalic, Atraumatic and Moist Mucous Membranes
Respiratory: Clear to Auscultation
Cardiac: Regular Rhythm and S1/S2; Negative Murmur, Rub or Gallop
GI: Soft, Nontender, Nondistended and Normal Bowel Sounds; Negative Organomegaly
Rectal: Deferred by Provider
Musculoskeletal: No Clubbing, No Cyanosis and No Edema
Skin: Negative Rash
Neuro: Nonfocal/Grossly Intact
--- NOTE | 2024-08-05 13:00 | CON.GI ---
Addendum entered and electronically signed by Sirisha Hallman Do, MD 08/05/24 16:39:
I saw and examined the patient.
The CORPORATE SCHEDULER's note was reviewed and I agree with the note.
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 She was found to have LILIAN and rhabdomyolysis. GI consulted for liver lesion. She denies h/o liver disease
or heavy ETOH use. VSS obese NTTP, NABS, spider angiomas over chests bilaterally. Labs reviewed elevated LFTs. CTAP without contrast showed liver mass vs abscess
Impression
- Liver lesion and leukocytosis
Concerning for liver abscess
Other consideration is metastatic lesion
- Elevated LFTs
- LILIAN
- Rhabdomyolysis
- Obesity
- HTN
- Hyperlipidemia
- Atrophic gastritis
Recommendations
- Agree with IR guided bx of liver lesion
- C/w abx
- BC pending
- If renal function improves and liver bx is not revealing consider MRI/MRCP with contrast
- Tolerating diet
Will follow with you
Recommendations
Original Note:
Consultation
-
Date/Time Consultation Requested: 08/05/24 1230
Date/Time Consultation Performed: 08/05/24 1300
Requesting Provider: Chicho Valadez MD
Performing Provider: LIEN Moreno, Sirisha Larkin MD
Reason for Consultation: liver mass
Medical History
Chief Complaint / HPI
Chief Complaint: confusion
History of Present Illness:
Pt is an 89yo with hx multiple medical problems including chronic anemia, thalassemia, asthma, HTN, hyperlipidemia,atrophic gastritis, duodenal adenoma, vascular ectasia, DVT, , malignant melanoma in present to ER with change in mental
status and weakness. On admission noted with multiple labs abnormality and concern for Rhabdomyolysis. WBC 49,200, hbg 8.7, platelets 712, Na 134, K 5.1, cl 97, Co2 17, BUN 116, creat 3.9, t bili 0.9, d bili 0.7, AST 720, ALT 296, alk phos 381,
CK 5350, albumin 3, procal 151.28. Imaging with concern for liver mass vs abscess, with noted air and concern for fistula connection to bowel. US with CBD dilation with concern for choledocholithiasis.
At this time patient admits to several lb wt loss, some forgetfulness and weakness for last few weeks bu denies fever, dysphagia, GERD, abdominal pain, diarrhea, constipation or rectal bleeding.
Past Medical History
Past Medical History: Asthma, Cancer (skin CA, malignant melanoma), HTN, Hypercholesterolemia, Psychiatric (depression) and Other (DVT, Diverticulosis, GI bleeding, Vascular ectasia in the bowel, Ovarian cyst, UTI, Migraines, Iron Def anemia,
Thalassemia Minor, B12 deficiency, osteopenia duodenal adenoma, hyperplastic gastric polyps, atrophic gastritis, DDD, diverticulosis )
Past Surgical History: Appendectomy, Orthopedic (ORIF ankle ), Tonsilectomy and Other (thumb surgery, mohs surgery )
Social History
Tobacco: Former Smoker
Alcohol: None
Drug: None
Living: Alone
Employment: Retired
Family History
Family History: Other (brother and nephew with thalassemia )
Allergies / Home Medications
Allergy/AdvReac Type Severity Reaction Status Date / Time
morphine Allergy head hurts Verified 08/04/24 21:33
zolpidem [From Ambien] Allergy Unknown Verified 08/04/24 21:34
�Medication �Instructions �Recorded
fluoxetine 20 mg capsule 40 mg PO DAILY depression/anxiety 03/13/10
atorvastatin 20 mg tablet 20 mg PO QPM High Cholesterol 06/29/12
ferrous sulfate 325 mg (65 mg 325 mg PO DAILY Supplement 06/29/12
iron) tablet
eiawzsbd-nmj-gjccr acid 0.4 1 ea PO DAILY Supplement 06/29/12
mg-lycopene 300 mcg-lutein 250 mcg
tablet (Centrum Silver)
acetaminophen 300 mg-codeine 30 mg 1 tab PO QIDPRN PRN moderate pain 08/05/24
tablet
amlodipine 10 mg tablet (Norvasc) 5 mg PO DAILY blood pressure 08/05/24
celecoxib 100 mg capsule 100 mg PO DAILY pain 08/05/24
chlorhexidine gluconate 0.12 % 15 ml buccal DAILY mouth care 08/05/24
mouthwash
coQ10 (ubiquinol) 100 mg capsule 100 mg PO DAILY Supplement 08/05/24
diphenoxylate-atropine 2.5 1 tab PO BIDPRN PRN diarrhea 08/05/24
mg-0.025 mg tablet (Lomotil)
lisinopril 10 1 tab PO DAILY Blood Pressure 08/05/24
mg-hydrochlorothiazide 12.5 mg
tablet
propranolol 120 mg capsule,24 120 mg PO DAILY Blood Pressure 08/05/24
hr,extended release
trazodone 50 mg tablet 50 mg PO HS sleep 08/05/24
Review of Systems
-
History Source: Patient and Family
Constitutional: Reports Weight Loss (few lbs )
EENT: Reports No Symptoms
Respiratory: Reports No Symptoms
Cardiac: Reports No Symptoms
: Reports No Symptoms
Musculoskeletal: Reports No Symptoms
Skin: Reports No Symptoms
Neurological: Reports Weakness and Other (forgetfulness )
Endocrine: Reports No Symptoms
Hematologic/Lymphatic: Reports No Symptoms
Vital Signs
Temp Pulse Resp BP Pulse Ox
97.5 F 73 18 123/52 94
08/05/24 12:15 08/05/24 12:00 08/05/24 12:00 08/05/24 12:00 08/05/24 12:00
Physical Exam
Exam
General: Well Developed, Well Nourished and No Apparent Distress
HEENT: Normocephalic and Anicteric
Respiratory: Clear
Cardiac: Regular Rhythm
GI: Soft, Non Tender and Non Distended
Musculoskeletal: No Clubbing and No Cyanosis
Skin: Warm and Dry
Neuro: Awake, Alert and Other (forgetful to some questions)
Psych: Calm
Results
WBC 49.2 10^3/uL (4.8-10.8) H* 08/04/24 22:14
Hgb 8.7 g/dL (12.0-16.0) L 08/04/24 22:14
Hct 25.7 % (37.0-47.0) L 08/04/24 22:14
MCV 57.1 fL (81.0-99.0) L 08/04/24 22:14
Plt Count 712 10^3/uL (130-400) H 08/04/24 22:14
Sodium 134 mmol/L (135-145) L 08/04/24 22:14
Potassium 5.1 mmol/L (3.5-5.1) 08/04/24 22:14
Chloride 97 mmol/L (98-107) L 08/04/24 22:14
Carbon Dioxide 17 mmol/L (22-30) L 08/04/24 22:14
BUN 116 mg/dl (7-17) H* 08/04/24 22:14
Creatinine 3.9 mg/dL (0.6-1.0) H 08/04/24 22:14
Calcium 8.5 mg/dl (8.4-10.2) 08/04/24 22:14
Total Bilirubin 0.9 mg/dl (0.2-1.3) 08/04/24 22:14
AST 720 U/L (14-36) H* 08/04/24 22:14
ALT 296 U/L (0-35) H 08/04/24 22:14
Alkaline Phosphatase 381 U/L (38-126) H 08/04/24 22:14
Lipase 102 U/L (23-300) 08/04/24 22:14
Diagnostic Image Results:
08/05/24 CT Abd/pel (oral only)-DH Only
1).There is a 9 cm heterogeneous mass in the right lobe of the liver with a small amount of gas within this lesion.
Differential diagnosis includes both benign and malignant hepatic neoplasm and less likely abscess.
Biopsy/drainage may be useful
2).There is cholelithiasis with thickening of the gallbladder wall to 6 mm suggesting possible cholecystitis and dilatation of the common bile duct to 10 mm suggesting possible choledocholithiasis
3). There is a 4 cm left parapelvic renal cyst
08/04/24 CT Head W/o Iv Contrast
No acute intracranial abnormality noted.
Mild atrophy.
Moderate periventricular small vessel seen disease.
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
08/04/24 US Periph Venous LOWER Ext LT
Normal. No evidence of deep venous thrombosis.
08/04/24 CR Ankle - Left Min 3 Views
IMPRESSION: Bony demineralization.
Postsurgical change of the distal left fibula and tibia as described above.
No evidence of acute osseous injury
Prior GI Procedures:
EGD: 06/2017- [place] - Normal duodenal bulb and second portion of the
duodenum. Biopsied.
- Erythematous mucosa in the antrum. Biopsied.
- Gastric mucosal atrophy. Biopsied.
- Normal cardia.
- Z-line regular, 39 cm from the incisors.
bx chronic atrophic gastritis , stomach bx with intestinal metaplasia
Colonoscopy: 03/2014 [place] - One 4 mm polyp at 20 cm proximal to the anus. Resected
and retrieved.
- One 4 mm polyp at 40 cm proximal to the anus. Resected
and retrieved.
- Two 3 to 4 mm polyps in the rectum. Resected and
retrieved.
- A single non-bleeding colonic angioectasia.
- Diverticulosis in the sigmoid colon.
- Non-bleeding external hemorrhoids.
- Four biopsies were obtained in the descending colon
and in the ascending colon.
bx hyperplastic polyps, neg colitis
Assessment / Plan
-
Pt is an 89yo with hx multiple medical problems including chronic anemia, thalassemia, asthma, HTN, hyperlipidemia,atrophic gastritis, duodenal adenoma, vascular ectasia, DVT, , malignant melanoma in present to ER with change in mental
status and weakness. On admission noted with multiple labs abnormality and concern for Rhabdomyolysis. WBC 49,200, hbg 8.7, platelets 712, Na 134, K 5.1, cl 97, Co2 17, BUN 116, creat 3.9, t bili 0.9, d bili 0.7, AST 720, ALT 296, alk phos 381,
CK 5350, albumin 3, procal 151.28. Imaging with concern for liver mass vs abscess, with noted air and concern for fistula connection to bowel. US with CBD dilation with concern for choledocholithiasis.
-weakness
-sepsis with marked elevated procal with TME
-liver mass vs abscess
-US with CBD dilation cannot excluded choledocholithiasis
-LILIAN
-rhabdomyolysis
-increased LFT's
-hyponatremia
-leukocytosis
-thrombocytosis
other med problems:
-HAZEL
-thalassemia
-asthma
-HTN
-atrophic gastritis
-duodenal adenoma
-malignant melanoma
-GI bleed with hx vascular ectasia
-DVT
PLAN:
etiology of liver mass related to tumor vs abscess
await IR bx
t/c MRI with CBD dilation and possible choledocholithiasis-- currently limited for contrast with LILIAN and Rhabdo-- no abdominal pain on exam
trend labs
blood, urine pending
cont abx
appreciate hematology and renal input
AFP, Ca 19-9, CEA, iron studies, b12, ammonia pending
updated family at bedside
-
-
Thank you for consultation and allowing me to participate in the patient's care. Please call the [facility] consultant GI physician during the after hours with any questions or concerns.
[2024-08-05 13:45] LABS: Lactic Acid 0.9 mmol/L (0.7-2.0)
[2024-08-05 13:46] LABS: INR 1.21; PT 15.4 Sec (11.4-14.6)
[2024-08-05 13:47] LABS: APTT 28.9 Sec (23.4-35.0)
[2024-08-05] MEDS: ZOSYN 50 IV ×2 (14:05→21:04)
[2024-08-05 14:16] LABS: CEA 6.13 ng/ml
--- NOTE | 2024-08-05 15:51 | CM ---
Patient seen at bedside in ED. Patient states that she goes by Gloria and she lives alone in a private home. Patient drives and is independent of ADL's. Patient uses the cane and has a walker that she does not use. Patient PCP is Dr. Mary.
Patient uses the [facility] in [place]. Patient has been at [facility] in the distant past following an ankle fracture and has no helpers or VN at this time. Patient stated that she does not anticipate any discharge needs at this time. CM will continue to
follow for discharge planning needs.
Plan; home with VN vs SNF pending PT/OT assessment
[2024-08-06] VITALS (11 sets, daily range): BP systolic 72–152; BP diastolic 43–81
[2024-08-06] MEDS: NSS 1000 IV ×2 (04:06→11:03)
[2024-08-06] MEDS: ZOSYN 50 IV ×3 (05:32→21:17)
[2024-08-06] MEDS: PROZAC 40 MG PO (08:38)
[2024-08-06] MEDS: HEPARIN 5000 UNITS SC ×2 (08:39→20:18)
[2024-08-06 10:03] LABS: Ammonia 22 umol/L (9-30)
[2024-08-06 10:17] LABS: Creatine Phosphokinase 473 U/L (30-135)
[2024-08-06 10:21] LABS: Blood Urea Nitrogen 93 mg/dl (7-17); Calcium 8.4 mg/dl (8.4-10.2); Carbon Dioxide 16 mmol/L (22-30); Chloride 107 mmol/L (98-107); Estimated Creatinine Clearance 16 ml/min; Glucose 83 mg/dl (70-99); Iron 37 ug/dl (37-170); LDH 333 U/L (120-246); Magnesium 1.8 mg/dl (1.6-2.3); Percent Saturation 18 % (20-50); Phosphorus 5.5 mg/dl (2.5-4.5); Potassium 4.2 mmol/L (3.5-5.1); Sodium 138 mmol/L (135-145); Total Iron Binding Capacity 202 ug/dl (265-497); Uric Acid 10.8 mg/dl (2.5-6.2); eGFR 17.32
[2024-08-06 10:38] LABS: Erythrocyte Sed Rate 86 mm/hour (0-20)
[2024-08-06 11:08] LABS: Hematocrit 21.9 % (37.0-47.0); Hemoglobin 7.6 g/dL (12.0-16.0); Mean Corp Hgb Conc. 34.7 g/dL (33.0-37.0); Mean Corpuscular Hgb 19.5 pg (27.0-31.0); Mean Corpuscular Volume 56.3 fL (81.0-99.0); Mean Platelet Volume 9.8 fL (7.4-10.4); Platelet Count 598 10^3/uL (130-400); Red Blood Cell Count 3.89 10^6/uL (4.20-5.40); Red Cell Dist. Width 14.9 % (11.5-14.5); White Blood Cell Count 34.2 10^3/uL (4.8-10.8)
[2024-08-06 11:40] LABS: ALT (SGPT) 160 U/L (0-35); AST (SGOT) 193 U/L (14-36); Albumin 2.4 g/dl (3.5-5.0); Alkaline Phosphatase 289 U/L (38-126); Total Bilirubin 0.5 mg/dl (0.2-1.3); Total Protein 5.4 g/dl (6.3-8.2)
[2024-08-06 12:02] LABS: Absolute Neutrophils -Man Diff 32.8 10^3/uL (1.4-6.5); Band Neutrophils 13 % (0-3); Lymphocytes 3 % (20-51); Monocytes 1 % (2-9); Segmented Neutrophils 83 % (42-75)
[2024-08-06 12:03] LABS: Anisocytosis 1+; Hypochromasia 2+; Normal RBC Morphology No; Ovalocytes 2+; Platelets Checked Yes; Polychromasia 2+; Target Cells 2+
[2024-08-06 12:04] LABS: Acanthocytes 2+; Total Cells Counted 100
--- NOTE | 2024-08-06 13:18 | IR.POSTOP ---
[facility] Post Procedure Note
-
Description of Findings:
Initial aspiration yielded purulent material. As such, a drainage catheter was placed. RUQ liver abscess drainage catheter successfully placed and connected to suction bulb. Can flush with 10 mL NS daily to ensure patency.
[2024-08-06 13:57] LABS: Rheumatoid Agglutinin Less Than 10 IU (<10 IU)
--- NOTE | 2024-08-06 14:22 | W.PN.NEPH.PH ---
Today's Communication / Plan
-
Maintain IV fluids another day maintain Diaz creatinine improved
Assessment/Plan
-
Assessment
Sepsis
Liver mass
LILIAN
Azotemia
Metabolic acidosis
Hyponatremia
Elevated LFTs
Rhabdomyolysis
Plan
Maintain Diaz, nonoliguric 1800 cc
Creatinine improved to 2,6
IV fluid normal saline fluid resuscitation
Follow BMP, CPK
Holding Celebrex, lisinopril HCTZ
Hemodynamically stable
Check lactate
Await cultures: negative
Broad-spectrum antibiotics
-
-
Date of Service: August 06, 2024
CC / HPI / ROS
-
Chief Complaint:
Acute kidney injury
History of Present Illness:
Hemodynamically stable
Creatinine down to 2.6
Status post drain placed for liver abscess
Review of Systems:
Nonoliguric via Diaz
No fever
Labs
-
Labs:
WBC Cancelled 08/06/24 10:44
RBC Cancelled 08/06/24 10:44
Hgb Cancelled 08/06/24 10:44
Hct Cancelled 08/06/24 10:44
Plt Count Cancelled 08/06/24 10:44
Sodium Cancelled 08/06/24 10:44
Potassium Cancelled 08/06/24 10:44
Chloride Cancelled 08/06/24 10:44
Carbon Dioxide Cancelled 08/06/24 10:44
BUN Cancelled 08/06/24 10:44
Creatinine Cancelled 08/06/24 10:44
eGFR Cancelled 08/06/24 10:44
Glucose Cancelled 08/06/24 10:44
Calcium Cancelled 08/06/24 10:44
Phosphorus 5.5 mg/dl (2.5-4.5) H 08/06/24 09:04
Albumin Cancelled 08/06/24 10:44
Physical Exam
-
Vital Signs:
Vital Signs
Temp Pulse Resp BP Pulse Ox
97.7 F 73 13 122/45 97
08/06/24 13:15 08/06/24 13:38 08/06/24 13:38 08/06/24 13:38 08/06/24 13:35
Cardiovascular:: Regular rate and rhythm
Respiratory:: Bilateral: Coarse
Lung Excursion:: Normal
Abdomen:: Nontender
Bowel Sounds:: Normal
Extremity Edema:: +1: Bilateral:
Diaz Catheter: Yes
Other Findings::
Right upper quadrant abdominal drain
--- NOTE | 2024-08-06 14:48 | W.PN.HOSP.TC ---
Today's Communication/Plan
-
Status post INR and hepatic abscess aspiration.
IV antibiotics
IV fluids
Monitor renal function
ID consultation
Assessment / Plan
Assessment / Plan
Impression:
Presentation with severe fatigue and weakness.
Acute kidney injury.
Rhabdomyolysis. Nontraumatic
Hepatic abscess
Other conditions:
Essential hypertension
Dyslipidemia.
Left ankle arthritis
History of melanoma removal remote.
Plan:
Concern for sepsis with significantly elevated WBC and left shift.
Most likely source intra-abdominal with necrotic liver mass
Status post interventional radiology aspiration on 08/06 with purulence.
KAIDEN drain in place
Cultures pending.
Continue antibiotics/Zosyn
ID consult
Tumor markers pending.
Oncology input appreciated
May require additional imaging either with enhanced CT scan if renal function allows for MRI of the abdomen.
Acute kidney injury.
Metabolic acidosis.
Nontraumatic rhabdomyolysis
Diaz catheter placed on admission (no documented retention while in ED.
Avoid NSAIDs.
Hold lisinopril/HCTZ.
Creatinine trending down
Continue IV fluids.
Avoid hypotension
Dyslipidemia
Hold statin given abnormal liver function test
Chronic microcytic anemia
Iron level with mild iron deficiency also mixed picture of inflammatory anemia
Check coagulation profile.
Type and screen.
Monitor hemoglobin.
Full code.
DVT prophylaxis heparin.
Anticipated Discharge: > 48 hours
Subjective/Interval History
-
Date of Service: August 06, 2024
Objective Data
-
Labs:
Laboratory Results
08/06/24 08/06/24 08/06/24
09:04 09:06 10:44
WBC 34.2 H Cancelled
Hgb 7.6 L Cancelled
Hct 21.9 L Cancelled
Plt Count 598 H Cancelled
PT 15.0 H
INR 1.20
Sodium 138 Cancelled
Potassium 4.2 Cancelled
Chloride 107 Cancelled
Carbon Dioxide 16 L Cancelled
BUN 93 H Cancelled
Creatinine 2.6 H Cancelled
Glucose 83 Cancelled
Calcium 8.4 Cancelled
Total Bilirubin 0.5 Cancelled
AST 193 H Cancelled
ALT 160 H Cancelled
Alkaline Phosphatase 289 H Cancelled
Vital Signs:
Vital Signs
Temp Pulse Resp BP Pulse Ox
97.7 F 73 13 122/45 97
08/06/24 13:15 08/06/24 13:38 08/06/24 13:38 08/06/24 13:38 08/06/24 13:35
I&O
08/05/24 08/06/24 08/07/24
06:59 06:59 06:59
Intake Total 1840 / 1840 160 / 160
Output Total 1800 / 1800
Balance 40 / 40 160 / 160
Physical Exam
-
General: Well Developed and No Apparent Distress
HEENT: Normocephalic, Atraumatic and Moist Mucous Membranes
Respiratory: Clear to Auscultation
Cardiac: Regular Rhythm and S1/S2; Negative Murmur, Rub or Gallop
GI: Soft, Nontender, Nondistended and Normal Bowel Sounds; Negative Organomegaly
Rectal: Deferred by Provider
Musculoskeletal: No Clubbing, No Cyanosis and No Edema
Skin: Negative Rash
Neuro: Nonfocal/Grossly Intact
--- NOTE | 2024-08-06 15:35 | W.PN.GI.CBS2 ---
Today's Communication / Plan
-
follow lfts, wbc
Assessment / Plan
-
Pt is an 89yo with hx multiple medical problems including chronic anemia, thalassemia, asthma, HTN, hyperlipidemia,atrophic gastritis, duodenal adenoma, vascular ectasia, DVT, , malignant melanoma in present to ER with change in mental
status and weakness. On admission noted with multiple labs abnormality and concern for Rhabdomyolysis. WBC 49,200, hbg 8.7, platelets 712, Na 134, K 5.1, cl 97, Co2 17, BUN 116, creat 3.9, t bili 0.9, d bili 0.7, AST 720, ALT 296, alk phos 381,
CK 5350, albumin 3, procal 151.28. Imaging with concern for liver mass vs abscess, with noted air and concern for fistula connection to bowel. US with CBD dilation with concern for choledocholithiasis.
-weakness
-sepsis with marked elevated procal with TME
-liver mass vs abscess
-US with CBD dilation cannot excluded choledocholithiasis
-LILIAN
-rhabdomyolysis
-increased LFT's
-hyponatremia
-leukocytosis
-thrombocytosis
other med problems:
-HAZEL
-thalassemia
-asthma
-HTN
-atrophic gastritis
-duodenal adenoma
-malignant melanoma
-GI bleed with hx vascular ectasia
-DVT
PLAN:
continue antibiotics
continue drainage
follow LFTs
Subjective
Subjective
Date of Service: August 06, 2024
Pt s/p liver biopsy with drain for presumed abscess. Denies pain
Objective
Data Reviewed
Laboratory Data:
Laboratory Results
08/06/24 10:44
08/06/24 10:44
Laboratory Results
PT 15.0 Sec (11.4-14.6) H 08/06/24 09:04
INR 1.20 08/06/24 09:04
APTT 28.9 Sec (23.4-35.0) 08/05/24 13:21
Phosphorus 5.5 mg/dl (2.5-4.5) H 08/06/24 09:04
Magnesium 1.8 mg/dl (1.6-2.3) 08/06/24 09:04
Total Bilirubin Cancelled 08/06/24 10:44
AST Cancelled 08/06/24 10:44
ALT Cancelled 08/06/24 10:44
Alkaline Phosphatase Cancelled 08/06/24 10:44
Lipase 102 U/L (23-300) 08/04/24 22:14
Vital Signs and I&O:
Vital Signs
Temp Pulse Resp BP Pulse Ox
97.7 F 73 13 122/45 97
08/06/24 13:15 08/06/24 13:38 08/06/24 13:38 08/06/24 13:38 08/06/24 13:35
I&O
08/05/24 08/06/24 08/07/24
06:59 06:59 06:59
Intake Total 1840 / 1840 160 / 160
Output Total 1800 / 1800
Balance 40 / 40 160 / 160
Physical Exam
Physical Exam
GI: Soft, Non Distended and Other (drain in place)
[2024-08-06 17:10] LABS: TSH 1.72 uIU/ml (0.47-4.68)
[2024-08-06 17:30] LABS: Vitamin B12 > 1000 pg/ml (239-931)
[2024-08-06] MEDS: TYLENOL 650 MG PO (20:21)
[2024-08-07] MEDS: NSS 1000 IV ×3 (01:49→17:30)
[2024-08-07] MEDS: ZOSYN 50 IV ×3 (06:06→21:33)
[2024-08-07 07:10] VITALS: BP 153/60
[2024-08-07] MEDS: PROZAC 40 MG PO (08:04)
[2024-08-07] MEDS: HEPARIN 5000 UNITS SC ×2 (08:05→20:03)
[2024-08-07] MEDS: TYLENOL 650 MG PO (08:06)
[2024-08-07 08:30] LABS: Hematocrit 22.3 % (37.0-47.0); Hemoglobin 7.5 g/dL (12.0-16.0); Mean Corp Hgb Conc. 33.6 g/dL (33.0-37.0); Mean Corpuscular Hgb 19.1 pg (27.0-31.0); Mean Corpuscular Volume 56.7 fL (81.0-99.0); Mean Platelet Volume 9.5 fL (7.4-10.4); Platelet Count 499 10^3/uL (130-400); Red Blood Cell Count 3.93 10^6/uL (4.20-5.40); Red Cell Dist. Width 14.8 % (11.5-14.5); White Blood Cell Count 23.4 10^3/uL (4.8-10.8)
[2024-08-07 09:12] LABS: ALT (SGPT) 110 U/L (0-35); AST (SGOT) 98 U/L (14-36); Albumin 2.1 g/dl (3.5-5.0); Alkaline Phosphatase 227 U/L (38-126); Blood Urea Nitrogen 61 mg/dl (7-17); Calcium 7.6 mg/dl (8.4-10.2); Carbon Dioxide 15 mmol/L (22-30); Chloride 116 mmol/L (98-107); Creatine Phosphokinase 158 U/L (30-135); Estimated Creatinine Clearance 30 ml/min; Glucose 73 mg/dl (70-99); Potassium 3.9 mmol/L (3.5-5.1); Sodium 144 mmol/L (135-145); Total Bilirubin 0.5 mg/dl (0.2-1.3); Total Protein 4.9 g/dl (6.3-8.2); eGFR 36.41
--- NOTE | 2024-08-07 09:25 | W.PN.GI.CBS2 ---
Today's Communication / Plan
-
continue antibiotics/drain
follow labs
Assessment / Plan
-
Pt is an 89yo with hx multiple medical problems including chronic anemia, thalassemia, asthma, HTN, hyperlipidemia,atrophic gastritis, duodenal adenoma, vascular ectasia, DVT, , malignant melanoma in present to ER with change in mental
status and weakness. On admission noted with multiple labs abnormality and concern for Rhabdomyolysis. WBC 49,200, hbg 8.7, platelets 712, Na 134, K 5.1, cl 97, Co2 17, BUN 116, creat 3.9, t bili 0.9, d bili 0.7, AST 720, ALT 296, alk phos 381,
CK 5350, albumin 3, procal 151.28. Imaging with concern for liver mass vs abscess, with noted air and concern for fistula connection to bowel. US with CBD dilation with concern for choledocholithiasis.
-weakness
-sepsis with marked elevated procal with TME
-liver mass vs abscess
-US with CBD dilation cannot excluded choledocholithiasis
-LILIAN
-rhabdomyolysis
-increased LFT's
-hyponatremia
-leukocytosis
-thrombocytosis
other med problems:
-HAZEL
-thalassemia
-asthma
-HTN
-atrophic gastritis
-duodenal adenoma
-malignant melanoma
-GI bleed with hx vascular ectasia
-DVT
PLAN:
continue antibiotics
continue drainage
follow LFTs
Creatinine and CK trending down
etiology of abscess unknown but based on the fact that there was questionable biliary disease on u/s would get MRI/MRCP once kidney function back to baseline
Subjective
Subjective
Date of Service: August 07, 2024
Pt w/o issues, drain in place
Objective
Data Reviewed
Laboratory Data:
Laboratory Results
08/07/24 07:39
08/07/24 07:40
Laboratory Results
PT 15.0 Sec (11.4-14.6) H 08/06/24 09:04
INR 1.20 08/06/24 09:04
APTT 28.9 Sec (23.4-35.0) 08/05/24 13:21
Phosphorus 5.5 mg/dl (2.5-4.5) H 08/06/24 09:04
Magnesium 1.8 mg/dl (1.6-2.3) 08/06/24 09:04
Total Bilirubin 0.5 mg/dl (0.2-1.3) 08/07/24 07:40
AST 98 U/L (14-36) H 08/07/24 07:40
ALT 110 U/L (0-35) H 08/07/24 07:40
Alkaline Phosphatase 227 U/L (38-126) H 08/07/24 07:40
Lipase 102 U/L (23-300) 08/04/24 22:14
Vital Signs and I&O:
Vital Signs
Temp Pulse Resp BP Pulse Ox
98.0 F 81 18 153/60 95
08/07/24 07:10 08/07/24 07:10 08/07/24 07:10 08/07/24 07:10 08/07/24 07:10
I&O
08/06/24 08/07/24 08/08/24
06:59 06:59 06:59
Intake Total 1840 / 1840 1430 / 1430
Output Total 1800 / 1800 1675 / 1675
Balance 40 / 40 -245 / -245
Physical Exam
Physical Exam
Cardiology: S1 and S2
GI: Soft, Non Tender and Other (drain in place)
[2024-08-07 09:42] LABS: % Basophils 0.6 % (0-2); % Eosinophils 0.1 % (0-6); % Immature Granulocytes 6.3 % (0-0.5); % Lymphocytes 3.1 % (20.5-51.1); % Monocytes 2.1 % (1.7-9.3); % Neutrophils 87.8 % (42.2-75.2); Absolute Basophils 0.1 10^3/uL (0-0.2); Absolute Immature Granulocytes 1.5 10^3/uL (0-0.05); Absolute Lymphocytes 0.7 10^3/uL (1.2-3.4); Absolute Monocytes 0.5 10^3/uL (0.1-0.6); Absolute Neutrophils 20.6 10^3/uL (1.4-6.5); Nucleated Red Blood Cells % 0.3 %
--- NOTE | 2024-08-07 09:52 | CON.ID ---
Consultation
-
Date/Time Consultation Requested: 08/06/24 14:47
Date/Time Consultation Performed: 08/07/24 11:19
Requesting Provider: Dr Valadez
Performing Provider: Dr Romero
Reason for Consultation: hepatic abscess
Chief Complaint / Past History
Chief Complaint
Left ankle pain
History of Present Illness
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
found her crawling to the door and brought her to the ER. Takes tylenol TID for pain no NSAIDs.
Since arrival here she has been afebrile, bp stable, wbc count initially 34 now 23, hgb 7.6, plt 598, L shift noted, esr 86, Cr 3.9 now 1.4, t bili initially 0.7 and ast 720, alt 296, alk phos 381, crp 204, procal 151, afp 1.9, CEA 6.1 (elevated),
ca19-9 pending, ua no pyruia moderate bacteria, 08/04 abd US: malignant hepatic neoplasm and less likely abscess, cholelithiasis possible choledocholithiasis, CT a/p '11 cm heterogeneous low density mass in the right lobe with a small volume
internal gas.
Differential diagnosis for this mass includes both benign and malignant neoplasm. The presence of gas within the lesion raises concern for fistulous communication with the adjacent bowel. Alternatively, this mass may be abscess collection.' s/p CT
guided drain placement, culture pending gram stain with rare GNR, single blood culture sent thus far, patient currently on zosyn, ID is consulted for assistance with management.
Past History
Additional Past Medical History:
HTN and Hypercholesterolemia
Skin melanoma 1981
Chronic osteoarthritis
Iron deficiency anemia
Additional Past Surgical History:
Hysterectomy
Allergy History:
morphine Allergy (Verified 08/04/24 21:33)
head hurts
zolpidem [From Ambien] Allergy (Verified 08/04/24 21:34)
Unknown
Medications Reviewed: Yes
Social History
Tobacco: Former Smoker ('for years')
Alcohol: None
Drug: None
Family History
Family History: Not Pertinent
Review of Systems
Review of Systems
General: Negative Fever or Chills
All systems: All other systems were reviewed and were negative
Vital Signs
Temp Pulse Resp BP Pulse Ox
98.0 F 81 18 153/60 95
08/07/24 07:10 08/07/24 07:10 08/07/24 07:10 08/07/24 07:10 08/07/24 07:10
Physical Exam
Physical Exam
Constitutional: No Acute Distress and Non-toxic
Cardiovascular: Regular Rate and S1/S2; Negative Murmur or Rub
Pulmonary: Clear, Symmetric, Wheezes and Non Labored; Negative Rales or Rhonchi
Gastrointestinal: Soft, Tender, Non Distended, Normal Bowel Sounds and Other (drain with purulent output)
Skin: Warm and Dry; Negative Rash or Jaundice
Lab / Diagnostic Study Results
08/07/24 07:39
08/07/24 07:40
Abs Immat Gran (auto) 1.5 10^3/uL (0-0.05) H 08/07/24 07:39
Absolute Neuts (auto) 20.6 10^3/uL (1.4-6.5) H 08/07/24 07:39
Absolute Lymphs (auto) 0.7 10^3/uL (1.2-3.4) L 08/07/24 07:39
Absolute Monos (auto) 0.5 10^3/uL (0.1-0.6) 08/07/24 07:39
Absolute Basos (auto) 0.1 10^3/uL (0-0.2) 08/07/24 07:39
Total Counted 100 08/06/24 09:06
Immature Gran % 6.3 % (0-0.5) H 08/07/24 07:39
Neutrophils % 87.8 % (42.2-75.2) H 08/07/24 07:39
Lymphocytes % 3.1 % (20.5-51.1) L 08/07/24 07:39
Monocytes % 2.1 % (1.7-9.3) 08/07/24 07:39
Eosinophils % 0.1 % (0-6) 08/07/24 07:39
Basophils % 0.6 % (0-2) 08/07/24 07:39
Abs Neuts (Manual) 32.8 10^3/uL (1.4-6.5) H 08/06/24 09:06
Segmented Neutrophils 83 % (42-75) H 08/06/24 09:06
Band Neutrophils 13 % (0-3) H D 08/06/24 09:06
Lymphocytes (Manual) 3 % (20-51) L 08/06/24 09:06
ESR 86 mm/hour (0-20) H 08/06/24 09:06
PT 15.0 Sec (11.4-14.6) H 08/06/24 09:04
INR 1.20 08/06/24 09:04
Lactic Acid 0.9 mmol/L (0.7-2.0) 08/05/24 13:21
C-Reactive Protein 204.20 mg/L (0.0-10.00) H 08/06/24 09:05
Procalcitonin 151.28 ng/ml (0.0-0.25) H* 08/05/24 06:50
Urine WBC 3-5 /HPF (0-5) 08/05/24 07:09
Ur Squamous Epith Cells 3-5 /LPF (Few) 08/05/24 07:09
Microbiology Results
Micro:
08/06/24 13:00 Wound Culture - Pending
Liver Gram Stain - Preliminary
08/05/24 13:21 Blood Culture - Preliminary
Blood/Venous No Growth in 24 hours- Final report to follow
08/05/24 00:44 Urine Culture - Final
Urine NO GROWTH
Assessment / Plan
Hepatic Abscess
LILIAN
Cholelithiasis and possible choledocolithiasis
- aspirate gram stain with GNR
- send second blood culture to complete the set
- agree with zosyn
- MRCP is planned
- colonoscopy could also be considered as there can be an association with colorectal cancer, acknowledge that risks/benefits will need to be considered
Diffuse wheezing
- former smoker
- management per IM service
--- NOTE | 2024-08-07 11:31 | W.PN.NEPH.PH ---
Today's Communication / Plan
-
Add sodium bicarbonate tablet
IV fluids now off
Creatinine improved to 1.4
Assessment/Plan
-
Assessment
Sepsis
Liver mass
LILIAN
Azotemia
Metabolic acidosis
Hyponatremia
Elevated LFTs
Rhabdomyolysis
Plan
Maintain Diaz, nonoliguric 1500 cc
Creatinine improved to 1.4 (IVFs off)
IV fluid normal saline fluid resuscitation
Follow BMP, CPK (158)
Holding Celebrex, lisinopril HCTZ
Hemodynamically stable
Metabolic acidosis worsening, will add sodium bicarbonate tablets
Await cultures: negative
Broad-spectrum antibiotics
-
-
Date of Service: August 07, 2024
CC / HPI / ROS
-
Chief Complaint:
Acute kidney injury
History of Present Illness:
Hemodynamically stable
Metabolic acidosis worsening
Creatinine down to 1.4
Status post drain placed for liver abscess
Review of Systems:
Nonoliguric via Diaz
No fever
Labs
-
Labs:
WBC 23.4 10^3/uL (4.8-10.8) H 08/07/24 07:39
RBC 3.93 10^6/uL (4.20-5.40) L 08/07/24 07:39
Hgb 7.5 g/dL (12.0-16.0) L 08/07/24 07:39
Hct 22.3 % (37.0-47.0) L 08/07/24 07:39
Plt Count 499 10^3/uL (130-400) H 08/07/24 07:39
Sodium 144 mmol/L (135-145) 08/07/24 07:40
Potassium 3.9 mmol/L (3.5-5.1) 08/07/24 07:40
Chloride 116 mmol/L (98-107) H 08/07/24 07:40
Carbon Dioxide 15 mmol/L (22-30) L 08/07/24 07:40
BUN 61 mg/dl (7-17) H 08/07/24 07:40
Creatinine 1.4 mg/dL (0.6-1.0) H 08/07/24 07:40
eGFR 36.41 08/07/24 07:40
Glucose 73 mg/dl (70-99) 08/07/24 07:40
Calcium 7.6 mg/dl (8.4-10.2) L 08/07/24 07:40
Phosphorus 5.5 mg/dl (2.5-4.5) H 08/06/24 09:04
Albumin 2.1 g/dl (3.5-5.0) L 08/07/24 07:40
Physical Exam
-
Vital Signs:
Vital Signs
Temp Pulse Resp BP Pulse Ox
98.0 F 81 18 153/60 95
08/07/24 07:10 08/07/24 07:10 08/07/24 07:10 08/07/24 07:10 08/07/24 07:10
Cardiovascular:: Regular rate and rhythm
Respiratory:: Bilateral: Coarse
Lung Excursion:: Normal
Abdomen:: Nontender
Bowel Sounds:: Normal
Extremity Edema:: +1: Bilateral:
Diaz Catheter: Yes
Other Findings::
Right upper quadrant abdominal drain
[2024-08-07 15:29] VITALS: BP 152/67
[2024-08-07] MEDS: SODIUM BICARBONATE 650 MG PO ×2 (15:35→21:33)
--- NOTE | 2024-08-07 15:51 | W.PN.HOSP.TC ---
Today's Communication/Plan
-
await results of liver mass bx
Assessment / Plan
Assessment / Plan
Impression:
Presentation with severe fatigue and weakness.
Acute kidney injury.
Rhabdomyolysis. Nontraumatic
Hepatic abscess
WBC 49.2-->34.2-->23.4
Other conditions:
Essential hypertension
Dyslipidemia.
Left ankle arthritis
History of melanoma removal remote.
Nursing reports sanz is leaking, will request change of sanz
Plan:
Concern for sepsis with significantly elevated WBC and left shift.
remains on Zosyn (renally adjusted)
Most likely source intra-abdominal with necrotic liver mass
CT scan of abd/pelvis: 1). There is an 11 cm heterogeneous low density mass in the right lobe with a small volume internal gas.
Differential diagnosis for this mass includes both benign and malignant neoplasm.
The presence of gas within the lesion raises concern for fistulous communication with the adjacent bowel.
Alternatively, this mass may be abscess collection.
Biopsy/drainage may be useful for further evaluation
2). Cholelithiasis
3). 4 cm left parapelvic renal cyst
Status post interventional radiology aspiration on 08/06 with purulence.
KAIDEN drain in place
Cultures pending.
Continue antibiotics/Zosyn
ID consult
Tumor markers pending.
Oncology input appreciated
May require additional imaging either with enhanced CT scan if renal function allows for MRI of the abdomen.
Acute kidney injury.
Metabolic acidosis.
Nontraumatic rhabdomyolysis
Sanz catheter placed on admission (no documented retention while in ED.
Avoid NSAIDs.
Hold lisinopril/HCTZ.
Creatinine trending down
Creat 3.9-->2.6-->1.4
Continue IV fluids.
Avoid hypotension
Dyslipidemia
Hold statin given abnormal liver function test
Chronic microcytic anemia
Hx of Thalassemia Minor (as per pt)
Iron level with mild iron deficiency also mixed picture of inflammatory anemia
Check coagulation profile.
Type and screen.
Monitor hemoglobin.
Hgb 7.5 (was 10.8 12/31/10)
Full code.
DVT prophylaxis heparin.
Anticipated Discharge: > 48 hours
Subjective/Interval History
-
Date of Service: August 07, 2024
Awake, alert
Objective Data
-
Labs:
Laboratory Results
08/07/24 08/07/24
07:39 07:40
WBC 23.4 H
Hgb 7.5 L
Hct 22.3 L
Plt Count 499 H
Sodium 144
Potassium 3.9
Chloride 116 H
Carbon Dioxide 15 L
BUN 61 H
Creatinine 1.4 H
Glucose 73
Calcium 7.6 L
Total Bilirubin 0.5
AST 98 H
ALT 110 H
Alkaline Phosphatase 227 H
Vital Signs:
Vital Signs
Temp Pulse Resp BP Pulse Ox
98.7 F 80 18 152/67 96
08/07/24 15:29 08/07/24 15:29 08/07/24 15:29 08/07/24 15:29 08/07/24 15:29
I&O
08/06/24 08/07/24 08/08/24
06:59 06:59 06:59
Intake Total 1840 / 1840 1430 / 1430
Output Total 1800 / 1800 1675 / 1675
Balance 40 / 40 -245 / -245
Review of Systems
-
History Source: Patient and Coordinated Provider
Constitutional: Denies Fever
EENT: Reports No Symptoms Reported
Respiratory: Reports No Symptoms and Wheezing; Denies Cough or Trouble Breathing
Cardiac: Reports No Symptoms; Denies Chest Pain
Abdomen/GI: Reports Abdominal Pain (RUQ, in area of bx)
Musculoskeletal: Reports No Symptoms
Physical Exam
-
General: Well Developed, Well Nourished, No Apparent Distress and Appears Chronically Ill
HEENT: Normocephalic, Atraumatic and Moist Mucous Membranes
Respiratory: Wheezes (end expiratory wheeze)
Cardiac: Regular Rhythm and S1/S2
GI: Soft, Nontender (slightly tender in RUQ, area of liver bx) and Nondistended
Musculoskeletal: No Clubbing, No Cyanosis and No Edema
Neuro: Awake, Alert and Oriented
[2024-08-07] MEDS: MELATONIN 5 MG PO (20:42)
[2024-08-07 23:00] VITALS: BP 129/56
[2024-08-08] MEDS: NSS 1000 IV (03:42)
[2024-08-08] MEDS: ZOSYN 50 IV ×3 (05:43→21:55)
[2024-08-08 07:00] VITALS: BP 152/78
[2024-08-08 07:28] LABS: Blood Urea Nitrogen 45 mg/dl (7-17); Carbon Dioxide 20 mmol/L (22-30); Chloride 113 mmol/L (98-107); Estimated Creatinine Clearance 38 ml/min; Glucose 91 mg/dl (70-99); Sodium 144 mmol/L (135-145); eGFR 48.63
[2024-08-08 07:38] LABS: ANA, IgG Reflex to HEp-2 None Detected (None Detected)
[2024-08-08] MEDS: HEPARIN 5000 UNITS SC ×2 (08:43→21:35)
[2024-08-08] MEDS: SODIUM BICARBONATE 650 MG PO ×3 (08:43→21:35)
[2024-08-08] MEDS: PROZAC 40 MG PO (08:44)
--- NOTE | 2024-08-08 10:47 | W.PN.GI.CBS2 ---
Today's Communication / Plan
-
check stool studies
continue antibiotics
Assessment / Plan
-
Pt is an 89yo with hx multiple medical problems including chronic anemia, thalassemia, asthma, HTN, hyperlipidemia,atrophic gastritis, duodenal adenoma, vascular ectasia, DVT, , malignant melanoma in present to ER with change in mental
status and weakness. On admission noted with multiple labs abnormality and concern for Rhabdomyolysis. WBC 49,200, hbg 8.7, platelets 712, Na 134, K 5.1, cl 97, Co2 17, BUN 116, creat 3.9, t bili 0.9, d bili 0.7, AST 720, ALT 296, alk phos 381,
CK 5350, albumin 3, procal 151.28. Imaging with concern for liver mass vs abscess, with noted air and concern for fistula connection to bowel. US with CBD dilation with concern for choledocholithiasis.
-weakness
-sepsis with marked elevated procal with TME
-liver mass vs abscess
-US with CBD dilation cannot excluded choledocholithiasis
-LILIAN
-rhabdomyolysis
-increased LFT's
-hyponatremia
-leukocytosis
-thrombocytosis
other med problems:
-HAZEL
-thalassemia
-asthma
-HTN
-atrophic gastritis
-duodenal adenoma
-malignant melanoma
-GI bleed with hx vascular ectasia
-DVT
PLAN:
antibiotics as per ID, klebsiella and strep viridans growing
continue drainage
follow LFTs
Creatinine and CK trending down
etiology of abscess unknown but based on the fact that there was questionable biliary disease on u/s would get MRI/MRCP once kidney function back to baseline
will check stool studies
Subjective
Subjective
Date of Service: August 08, 2024
Pt with urgency, some loose stool, minimally abdominal d/c
Objective
Data Reviewed
Laboratory Data:
Laboratory Results
08/07/24 07:39
08/08/24 06:27
Laboratory Results
PT 15.0 Sec (11.4-14.6) H 08/06/24 09:04
INR 1.20 08/06/24 09:04
APTT 28.9 Sec (23.4-35.0) 08/05/24 13:21
Phosphorus 5.5 mg/dl (2.5-4.5) H 08/06/24 09:04
Magnesium 1.8 mg/dl (1.6-2.3) 08/06/24 09:04
Total Bilirubin 0.5 mg/dl (0.2-1.3) 08/07/24 07:40
AST 98 U/L (14-36) H 08/07/24 07:40
ALT 110 U/L (0-35) H 08/07/24 07:40
Alkaline Phosphatase 227 U/L (38-126) H 08/07/24 07:40
Lipase 102 U/L (23-300) 08/04/24 22:14
Vital Signs and I&O:
Vital Signs
Temp Pulse Resp BP Pulse Ox
98.0 F 81 18 152/78 94
08/08/24 07:00 08/08/24 07:00 08/08/24 07:00 08/08/24 07:00 08/08/24 07:00
I&O
08/07/24 08/08/24 08/09/24
06:59 06:59 06:59
Intake Total 1430 / 1430 3550 / 3550
Output Total 1675 / 1675 2215 / 2215
Balance -245 / -245 1335 / 1335
Physical Exam
Physical Exam
GI: Soft, Non Distended and Other (drain in place)
[2024-08-08 12:39] LABS: CA 19-9 8 U/mL (<=35)
--- NOTE | 2024-08-08 14:32 | W.PN.NEPH.PH ---
Today's Communication / Plan
-
Sign off
Assessment/Plan
-
Assessment
Sepsis
Liver mass
LILIAN
Azotemia
Metabolic acidosis
Hyponatremia
Elevated LFTs
Rhabdomyolysis
Plan
Maintain Diaz, nonoliguric 1500 cc
Creatinine improved to 1.1 , non oliguric
IV fluid normal saline fluid resuscitation
Follow BMP, CPK (158)
Holding Celebrex, lisinopril HCTZ
Hemodynamically stable
Metabolic acidosis worsening, continue sodium bicarbonate tablets
Await cultures: negative
Broad-spectrum antibiotics
-
-
Date of Service: August 08, 2024
CC / HPI / ROS
-
Chief Complaint:
Acute kidney injury
History of Present Illness:
Hemodynamically stable
Metabolic acidosis improved on sodium bicarbonate tablet
Creatinine down to 1.1
Status post drain placed for liver abscess
Review of Systems:
Nonoliguric via Diaz
No fever
Labs
-
Labs:
WBC 23.4 10^3/uL (4.8-10.8) H 08/07/24 07:39
RBC 3.93 10^6/uL (4.20-5.40) L 08/07/24 07:39
Hgb 7.5 g/dL (12.0-16.0) L 08/07/24 07:39
Hct 22.3 % (37.0-47.0) L 08/07/24 07:39
Plt Count 499 10^3/uL (130-400) H 08/07/24 07:39
Sodium 144 mmol/L (135-145) 08/08/24 06:27
Potassium 4.0 mmol/L (3.5-5.1) 08/08/24 06:27
Chloride 113 mmol/L (98-107) H 08/08/24 06:27
Carbon Dioxide 20 mmol/L (22-30) L 08/08/24 06:27
BUN 45 mg/dl (7-17) H 08/08/24 06:27
Creatinine 1.1 mg/dL (0.6-1.0) H 08/08/24 06:27
eGFR 48.63 08/08/24 06:27
Glucose 91 mg/dl (70-99) 08/08/24 06:27
Calcium 8.0 mg/dl (8.4-10.2) L 08/08/24 06:27
Phosphorus 5.5 mg/dl (2.5-4.5) H 08/06/24 09:04
Albumin 2.1 g/dl (3.5-5.0) L 08/07/24 07:40
Physical Exam
-
Vital Signs:
Vital Signs
Temp Pulse Resp BP Pulse Ox
98.0 F 81 18 152/78 94
08/08/24 07:00 08/08/24 07:00 08/08/24 07:00 08/08/24 07:00 08/08/24 08:40
Cardiovascular:: Regular rate and rhythm
Respiratory:: Bilateral: Coarse
Lung Excursion:: Normal
Abdomen:: Nontender
Bowel Sounds:: Normal
Extremity Edema:: +1: Bilateral:
Diaz Catheter: Yes
Other Findings::
Right upper quadrant abdominal drain
--- NOTE | 2024-08-08 14:39 | W.PN.HOSP.TC ---
Addendum entered and electronically signed by Yevgeniy Mendoza MD 08/08/24 14:56:
Pt is requesting her Trazodone to be given on a scheduled basis qhs
will order
Original Note:
Today's Communication/Plan
-
recheck labs
Continue Zosyn
Assessment / Plan
Assessment / Plan
Impression:
Presentation with severe fatigue and weakness.
Acute kidney injury.
Rhabdomyolysis. Nontraumatic
Hepatic abscess
WBC 49.2-->34.2-->23.4
Other conditions:
Essential hypertension
Dyslipidemia.
Left ankle arthritis
History of melanoma removal remote.
Plan:
Concern for sepsis with significantly elevated WBC and left shift.
remains on Zosyn (renally adjusted)
Most likely source intra-abdominal with necrotic liver mass
CT scan of abd/pelvis: 1). There is an 11 cm heterogeneous low density mass in the right lobe with a small volume internal gas.
Differential diagnosis for this mass includes both benign and malignant neoplasm.
The presence of gas within the lesion raises concern for fistulous communication with the adjacent bowel.
Alternatively, this mass may be abscess collection.
Biopsy/drainage may be useful for further evaluation
2). Cholelithiasis
3). 4 cm left parapelvic renal cyst
Status post interventional radiology aspiration on 08/06 with purulence.
KAIDEN drain in place
Cultures Klebsiella/Viridans Strep.
Continue antibiotics/Zosyn
with marked improvement in Renal fxn BUN/Creat 116/3.9-->45/1.1, call placed to pharm to adjust dosing regiment
ID consult appreciated
Tumor markers pending/path results pending.
Oncology input appreciated
May require additional imaging either with enhanced CT scan if renal function allows for MRI of the abdomen.
Acute kidney injury.
Metabolic acidosis.
Nontraumatic rhabdomyolysis
Diaz catheter placed on admission (no documented retention while in ED.
Avoid NSAIDs.
Hold lisinopril/HCTZ.
Creatinine trending down
Creat 3.9-->2.6-->1.4-->1.1
Stopped IV fluids.
recheck BMP in AM, consider resumption of IVF based on follow up BMP
Avoid hypotension
Dyslipidemia
Hold statin given abnormal liver function test
Chronic microcytic anemia
Hx of Thalassemia Minor (as per pt)
Iron level with mild iron deficiency also mixed picture of inflammatory anemia
Check coagulation profile.
Type and screen.
Monitor hemoglobin.
Hgb 7.5 (was 10.8 12/31/10)
Full code.
DVT prophylaxis heparin.
Anticipated Discharge: > 48 hours
Subjective/Interval History
-
Date of Service: August 08, 2024
Awake, alert, appears more comfortable
Objective Data
-
Labs:
Laboratory Results
08/08/24
06:27
Sodium 144
Potassium 4.0
Chloride 113 H
Carbon Dioxide 20 L
BUN 45 H
Creatinine 1.1 H
Glucose 91
Calcium 8.0 L
Vital Signs:
Vital Signs
Temp Pulse Resp BP Pulse Ox
98.0 F 81 18 152/78 94
08/08/24 07:00 08/08/24 07:00 08/08/24 07:00 08/08/24 07:00 08/08/24 08:40
I&O
08/07/24 08/08/24 08/09/24
06:59 06:59 06:59
Intake Total 1430 / 1430 3550 / 3550
Output Total 1675 / 1675 2215 / 2215
Balance -245 / -245 1335 / 1335
Review of Systems
-
History Source: Patient and Coordinated Provider
Constitutional: Denies Fever
EENT: Reports No Symptoms Reported
Respiratory: Reports No Symptoms and Wheezing; Denies Cough or Trouble Breathing
Cardiac: Reports No Symptoms; Denies Chest Pain
Abdomen/GI: Reports Abdominal Pain (RUQ, in area of bx)
Musculoskeletal: Reports No Symptoms
Physical Exam
-
General: Well Developed, Well Nourished, No Apparent Distress and Appears Chronically Ill
HEENT: Normocephalic, Atraumatic and Moist Mucous Membranes
Respiratory: Wheezes (end expiratory wheeze has significantly decreased)
Cardiac: Regular Rhythm and S1/S2
GI: Soft, Nontender (slightly tender in RUQ, area of liver bx) and Nondistended
Musculoskeletal: No Clubbing, No Cyanosis and No Edema
Neuro: Awake, Alert and Oriented
[2024-08-08 15:00] VITALS: BP 160/74
[2024-08-08] MEDS: DESYREL 50 MG PO (21:35)
--- NOTE | 2024-08-08 22:28 | VATNOTE ---
Patient with infiltrate from 10-19 in left median cubital area measuring 22cm X 6cm. Patient denies pain at present time. Primary RN to continue warm compresses. Will continue to monitor.
[2024-08-08 22:50] VITALS: BP 157/65
[2024-08-09] MEDS: ZOSYN 50 IV ×3 (06:44→21:10)
[2024-08-09 07:33] LABS: Hematocrit 23.9 % (37.0-47.0); Hemoglobin 7.9 g/dL (12.0-16.0); Mean Corp Hgb Conc. 33.1 g/dL (33.0-37.0); Mean Corpuscular Volume 57.6 fL (81.0-99.0); Mean Platelet Volume 9.8 fL (7.4-10.4); Platelet Count 464 10^3/uL (130-400); Red Blood Cell Count 4.15 10^6/uL (4.20-5.40); Red Cell Dist. Width 15.3 % (11.5-14.5); White Blood Cell Count 23.4 10^3/uL (4.8-10.8)
[2024-08-09 07:36] LABS: Complement C3 145 mg/dl (88-165)
[2024-08-09 07:40] VITALS: BP 144/66
[2024-08-09 07:51] LABS: Blood Urea Nitrogen 30 mg/dl (7-17); Calcium 8.2 mg/dl (8.4-10.2); Carbon Dioxide 22 mmol/L (22-30); Chloride 108 mmol/L (98-107); Estimated Creatinine Clearance 47 ml/min; Glucose 76 mg/dl (70-99); Sodium 142 mmol/L (135-145); eGFR > 60.00
[2024-08-09] MEDS: HEPARIN 5000 UNITS SC ×2 (08:16→21:10)
[2024-08-09] MEDS: SODIUM BICARBONATE 650 MG PO ×3 (08:17→21:11)
[2024-08-09] MEDS: PROZAC 40 MG PO (08:17)
[2024-08-09 08:26] LABS: Absolute Neutrophils -Man Diff 19.1 10^3/uL (1.4-6.5); Anisocytosis 1+; Band Neutrophils 10 % (0-3); Eosinophils 1 % (0-6); Hypochromasia 1+; Lymphocytes 6 % (20-51); Metamyelocytes 5 % (-); Monocytes 3 % (2-9); Myelocytes 3 % (-); Normal RBC Morphology No; Nucleated Red Blood Cells 1 (-); Ovalocytes 2+; Platelets Checked Yes; Polychromasia 1+; Segmented Neutrophils 72 % (42-75); Target Cells 2+
[2024-08-09 08:27] LABS: Acanthocytes 1+; Schistocytes 1+; Total Cells Counted 100
--- NOTE | 2024-08-09 10:47 | W.PN.ID1 ---
Date of Service
Date of Service: August 09, 2024
Today's Communication
- continue with zosyn - will plan a long course of IV; would like to see further improvement in drain output, leukocytosis and completion of MRCP prior to planning the final duration
Assessment / Plan
Hepatic Abscess
LILIAN
Cholelithiasis and possible choledocolithiasis
- follow drain output - remains high may eventually need repositioning
- wound culture K oxytoca and VGS
- blood cultures x2 no growth to date
- continue with zosyn - will plan a long course of IV; would like to see further improvement in drain output, leukocytosis and completion of MRCP prior to planning the final duration
- MRCP is planned
- colonoscopy could also be considered as there can be an association with colorectal cancer, acknowledge that risks/benefits will need to be considered
AW
Chief Complaint
-: Other (hepatic abscess)
Subjective / Review of Systems
afebrile
bp stable
no events overnight
Drain output remains high
Vital Signs / Physical Exam
Vital Signs
Vital Signs
Temp Pulse Resp BP Pulse Ox
98.1 F 86 17 144/66 96
08/09/24 07:40 08/09/24 07:40 08/09/24 07:40 08/09/24 07:40 08/09/24 08:55
Physical Exam
Constitutional: No Acute Distress
Cardiovascular: Regular Rate and S1/S2; Negative Murmur or Rub
Pulmonary: Clear and Symmetric; Negative Wheezes or Rales
Gastrointestinal: Soft, Tender, Non Distended and Normal Bowel Sounds
Skin: Warm and Dry; Negative Rash or Jaundice
Lines: Other (drain - purulent fluid)
Objective Data
Lab Data
Lab Results
08/09/24 06:37
08/09/24 06:37
ESR 86 mm/hour (0-20) H 08/06/24 09:06
PT 15.0 Sec (11.4-14.6) H 08/06/24 09:04
INR 1.20 08/06/24 09:04
APTT 28.9 Sec (23.4-35.0) 08/05/24 13:21
Estimated Creat Clear 47 ml/min 08/09/24 06:37
Lactic Acid 0.9 mmol/L (0.7-2.0) 08/05/24 13:21
Total Bilirubin 0.5 mg/dl (0.2-1.3) 08/07/24 07:40
AST 98 U/L (14-36) H 08/07/24 07:40
ALT 110 U/L (0-35) H 08/07/24 07:40
Alkaline Phosphatase 227 U/L (38-126) H 08/07/24 07:40
C-Reactive Protein 204.20 mg/L (0.0-10.00) H 08/06/24 09:05
Most recent labs reviewed.
Micro Results:
08/08/24 13:32 Stool Leukocytes - Final
Feces/Stool
08/08/24 13:32 C. difficile GDH Antigen & Toxins - Final
Feces/Stool Negative for toxigenic C.difficile
08/05/24 13:21 Blood Culture - Preliminary
Blood/Venous No Growth in 72 hours- Final report to follow
08/07/24 12:03 Blood Culture - Preliminary
Blood/Venous No Growth in 24 hours- Final report to follow
08/06/24 13:00 Wound Culture - Final
Liver Klebsiella oxytoca
Viridans Streptococcus Group
Gram Stain - Final
08/05/24 00:44 Urine Culture - Final
Urine NO GROWTH
--- NOTE | 2024-08-09 11:22 | VATNOTE ---
Infiltrate to left AC area reported by previous shift; area pink with moderate swelling, no drainage. Patient denies pain and states area is improved.
--- NOTE | 2024-08-09 12:57 | CM ---
Patient seen bedside.
Patient OOB in chair.
Patient aware of CM availability should d/c needs arise.
Discussed possibility of home IV anbx.
Plan: home with possible IV anbx and VN.
--- NOTE | 2024-08-09 13:15 | W.PN.GI.CBS2 ---
Today's Communication / Plan
-
abdominal u/s
Assessment / Plan
-
Pt is an 89yo with hx multiple medical problems including chronic anemia, thalassemia, asthma, HTN, hyperlipidemia,atrophic gastritis, duodenal adenoma, vascular ectasia, DVT, , malignant melanoma in present to ER with change in mental
status and weakness. On admission noted with multiple labs abnormality and concern for Rhabdomyolysis. WBC 49,200, hbg 8.7, platelets 712, Na 134, K 5.1, cl 97, Co2 17, BUN 116, creat 3.9, t bili 0.9, d bili 0.7, AST 720, ALT 296, alk phos 381,
CK 5350, albumin 3, procal 151.28. Imaging with concern for liver mass vs abscess, with noted air and concern for fistula connection to bowel. US with CBD dilation with concern for choledocholithiasis.
-weakness
-sepsis with marked elevated procal with TME
-liver mass vs abscess
-US with CBD dilation cannot excluded choledocholithiasis
-LILIAN
-rhabdomyolysis
-increased LFT's
-hyponatremia
-leukocytosis
-thrombocytosis
other med problems:
-HAZEL
-thalassemia
-asthma
-HTN
-atrophic gastritis
-duodenal adenoma
-malignant melanoma
-GI bleed with hx vascular ectasia
-DVT
PLAN:
antibiotics as per ID, klebsiella and strep viridans growing
continue drainage
follow LFTs
Creatinine and CK trending down
etiology of abscess unknown but based on the fact that there was questionable biliary disease, unfortunately can't get MRI due to medtronics device. will reorder u/s as that is the imaging study that questioned an abnormal biliary tree.
stool studies normal. could consider colonoscopy if needed.
Subjective
Subjective
Date of Service: August 09, 2024
Pt feeling well. No abdominal pain, diarrhea has improved.
Objective
Data Reviewed
Laboratory Data:
Laboratory Results
08/09/24 06:37
08/09/24 06:37
Laboratory Results
PT 15.0 Sec (11.4-14.6) H 08/06/24 09:04
INR 1.20 08/06/24 09:04
APTT 28.9 Sec (23.4-35.0) 08/05/24 13:21
Phosphorus 5.5 mg/dl (2.5-4.5) H 08/06/24 09:04
Magnesium 1.8 mg/dl (1.6-2.3) 08/06/24 09:04
Total Bilirubin 0.5 mg/dl (0.2-1.3) 08/07/24 07:40
AST 98 U/L (14-36) H 08/07/24 07:40
ALT 110 U/L (0-35) H 08/07/24 07:40
Alkaline Phosphatase 227 U/L (38-126) H 08/07/24 07:40
Lipase 102 U/L (23-300) 08/04/24 22:14
Vital Signs and I&O:
Vital Signs
Temp Pulse Resp BP Pulse Ox
98.1 F 86 17 144/66 96
08/09/24 07:40 08/09/24 07:40 08/09/24 07:40 08/09/24 07:40 08/09/24 08:55
I&O
08/08/24 08/09/24 08/10/24
06:59 06:59 06:59
Intake Total 3550 / 3550 2200 / 2200
Output Total 2215 / 2215 1785 / 1785
Balance 1335 / 1335 415 / 415
Physical Exam
Physical Exam
Cardiology: S1 and S2
GI: Soft, Non Distended, Non Tender and Other (drain in place)
[2024-08-09 15:04] VITALS: BP 171/80
--- NOTE | 2024-08-09 15:41 | W.PN.HOSP.TC ---
Today's Communication/Plan
-
KAIDEN drain in place, monitor output.
Follow-up ultrasound.
Continue IV antibiotics per
Trial of voiding.
Assessment / Plan
Assessment / Plan
Impression:
Presentation with severe fatigue and weakness.
Acute kidney injury.
Rhabdomyolysis. Nontraumatic
Hepatic abscess
WBC 49.2-->34.2-->23.4
Other conditions:
Essential hypertension
Dyslipidemia.
Left ankle arthritis
History of melanoma removal remote.
Plan:
Concern for sepsis with significantly elevated WBC and left shift.
remains on Zosyn (renally adjusted)
Most likely source intra-abdominal with necrotic liver mass
CT scan of abd/pelvis: 1). There is an 11 cm heterogeneous low density mass in the right lobe with a small volume internal gas.
Differential diagnosis for this mass includes both benign and malignant neoplasm.
The presence of gas within the lesion raises concern for fistulous communication with the adjacent bowel.
Alternatively, this mass may be abscess collection.
Biopsy/drainage may be useful for further evaluation
2). Cholelithiasis
3). 4 cm left parapelvic renal cyst
Status post interventional radiology aspiration on 08/06 with purulence.
KAIDEN drain in place
Cultures Klebsiella/Viridans Strep.
Continue antibiotics/Zosyn
with marked improvement in Renal fxn BUN/Creat 116/3.9-->45/1.1, call placed to pharm to adjust dosing regiment
ID consult appreciated
Tumor markers with slightly elevated CEA and normal levels of CEA 199/AFP
Oncology input appreciated
May require additional imaging either with enhanced CT scan if renal function allows for MRI of the abdomen.
Unable to perform MRI/MRCP given Medtr[employer] device (spinal stimulator in place)
Follow-up imaging with ultrasound
Acute kidney injury.
Metabolic acidosis.
Nontraumatic rhabdomyolysis
Diaz catheter placed on admission (no documented retention while in ED.
Avoid NSAIDs.
Hold lisinopril/HCTZ.
Creatinine trending down
Creat 3.9-->2.6-->1.4-->1.1
Observe off IV fluids.
Voiding trial with Diaz catheter ordered to be removed on 08/09
Dyslipidemia
Hold statin given abnormal liver function test
Chronic microcytic anemia
Hx of Thalassemia Minor (as per pt)
Iron level with mild iron deficiency also mixed picture of inflammatory anemia
Check coagulation profile.
Type and screen.
Monitor hemoglobin.
Hgb 7.5 (was 10.8 12/31/10)
Full code.
DVT prophylaxis heparin.
Anticipated Discharge: > 48 hours
Subjective/Interval History
-
Date of Service: August 09, 2024
Objective Data
-
Labs:
Laboratory Results
08/09/24
06:37
WBC 23.4 H
Hgb 7.9 L
Hct 23.9 L
Plt Count 464 H
Sodium 142
Potassium 4.0
Chloride 108 H
Carbon Dioxide 22
BUN 30 H
Creatinine 0.9
Glucose 76
Calcium 8.2 L
Vital Signs:
Vital Signs
Temp Pulse Resp BP Pulse Ox
97.8 F 90 18 171/80 96
08/09/24 15:04 08/09/24 15:04 08/09/24 15:04 08/09/24 15:04 08/09/24 15:04
I&O
08/08/24 08/09/24 08/10/24
06:59 06:59 06:59
Intake Total 3550 / 3550 2200 / 2200
Output Total 2215 / 2215 1785 / 1785
Balance 1335 / 1335 415 / 415
Physical Exam
-
General: Well Developed, Well Nourished, No Apparent Distress and Appears Chronically Ill
HEENT: Normocephalic, Atraumatic and Moist Mucous Membranes
Respiratory: Wheezes (end expiratory wheeze has significantly decreased)
Cardiac: Regular Rhythm and S1/S2
GI: Soft, Nontender (slightly tender in RUQ, area of liver bx) and Nondistended
Musculoskeletal: No Clubbing, No Cyanosis and No Edema
Neuro: Awake, Alert and Oriented
[2024-08-09] MEDS: VISBIOME 2 CAP PO (15:43)
[2024-08-09] MEDS: DESYREL 50 MG PO (21:11)
[2024-08-09 23:30] VITALS: BP 152/75
[2024-08-10] MEDS: ZOSYN 50 IV ×2 (01:08→08:49)
[2024-08-10 07:53] VITALS: BP 162/74
[2024-08-10 08:17] LABS: ALT (SGPT) 66 U/L (0-35); AST (SGOT) 39 U/L (14-36); Albumin 2.6 g/dl (3.5-5.0); Alkaline Phosphatase 246 U/L (38-126); Blood Urea Nitrogen 19 mg/dl (7-17); Calcium 8.1 mg/dl (8.4-10.2); Carbon Dioxide 22 mmol/L (22-30); Chloride 106 mmol/L (98-107); Estimated Creatinine Clearance 42 ml/min; Glucose 85 mg/dl (70-99); Potassium 3.7 mmol/L (3.5-5.1); Sodium 142 mmol/L (135-145); Total Bilirubin 0.8 mg/dl (0.2-1.3); Total Protein 5.7 g/dl (6.3-8.2); eGFR 54.53
[2024-08-10 08:34] LABS: Hematocrit 24.8 % (37.0-47.0); Hemoglobin 8.3 g/dL (12.0-16.0); Mean Corp Hgb Conc. 33.5 g/dL (33.0-37.0); Mean Corpuscular Hgb 19.4 pg (27.0-31.0); Mean Corpuscular Volume 57.9 fL (81.0-99.0); Mean Platelet Volume 9.8 fL (7.4-10.4); Platelet Count 471 10^3/uL (130-400); Red Blood Cell Count 4.28 10^6/uL (4.20-5.40); Red Cell Dist. Width 15.7 % (11.5-14.5); White Blood Cell Count 20.8 10^3/uL (4.8-10.8)
[2024-08-10] MEDS: SODIUM BICARBONATE 650 MG PO ×3 (08:46→21:08)
[2024-08-10] MEDS: VISBIOME 2 CAP PO (08:46)
[2024-08-10] MEDS: PROZAC 40 MG PO (08:46)
[2024-08-10] MEDS: HEPARIN 5000 UNITS SC (08:47)
[2024-08-10] MEDS: FLUSH (NSS) 2 FLUSH IV (08:50)
[2024-08-10 08:52] LABS: Absolute Neutrophils -Man Diff 17.6 10^3/uL (1.4-6.5); Band Neutrophils 3 % (0-3); Segmented Neutrophils 82 % (42-75)
[2024-08-10 09:21] LABS: Eosinophils 1 % (0-6); Lymphocytes 5 % (20-51); Metamyelocytes 3 % (-); Monocytes 1 % (2-9); Myelocytes 5 % (-)
[2024-08-10 09:22] LABS: Normal RBC Morphology No; Platelets Checked YES
[2024-08-10 09:23] LABS: Anisocytosis Slight; Microcytosis Slight
--- NOTE | 2024-08-10 09:25 | VATNOTE ---
No swelling or discoloration noted to infiltrate site in pt's L antecubital fossa area. Pt denies pain or discomfort.
[2024-08-10 09:27] LABS: Tear Drop Red Blood Cells FEW
[2024-08-10 09:28] LABS: Total Cells Counted 100
--- NOTE | 2024-08-10 11:18 | W.PN.ID1 ---
Date of Service
Date of Service: August 10, 2024
Today's Communication
switched to CTX/metro
- await read on repeat US
Assessment / Plan
Hepatic Abscess
LILIAN
Cholelithiasis and possible choledocolithiasis
- follow drain output - remains high, may eventually need repositioning
- wound culture K oxytoca and VGS
- blood cultures x2 no growth to date
- switch to IV ceftriaxone and oral metronidazole; would like to see further improvement in drain output, leukocytosis and completion of MRCP prior to planning the final duration
- await read on repeat US
- colonoscopy could also be considered as there can be an association with colorectal cancer, acknowledge that risks/benefits will need to be considered
AW
Chief Complaint
-: Other (hepatic abscess)
Subjective / Review of Systems
afebrile
bp stable
c/o loose stools - C diff negative
drain output remains high over 100 ccs yesterday
Vital Signs / Physical Exam
Vital Signs
Vital Signs
Temp Pulse Resp BP Pulse Ox
98.7 F 88 18 162/74 95
08/10/24 07:53 08/10/24 07:53 08/10/24 07:53 08/10/24 07:53 08/10/24 07:53
Physical Exam
Constitutional: No Acute Distress
Cardiovascular: Regular Rate and S1/S2; Negative Murmur or Rub
Pulmonary: Clear and Symmetric; Negative Wheezes or Rales
Gastrointestinal: Soft, Non Tender, Non Distended and Normal Bowel Sounds
Skin: Warm and Dry; Negative Rash or Jaundice
Objective Data
Lab Data
Lab Results
08/10/24 06:12
08/10/24 06:12
ESR 86 mm/hour (0-20) H 08/06/24 09:06
PT 15.0 Sec (11.4-14.6) H 08/06/24 09:04
INR 1.20 08/06/24 09:04
APTT 28.9 Sec (23.4-35.0) 08/05/24 13:21
Estimated Creat Clear 42 ml/min 08/10/24 06:12
Lactic Acid 0.9 mmol/L (0.7-2.0) 08/05/24 13:21
Total Bilirubin 0.8 mg/dl (0.2-1.3) 08/10/24 06:12
AST 39 U/L (14-36) H 08/10/24 06:12
ALT 66 U/L (0-35) H 08/10/24 06:12
Alkaline Phosphatase 246 U/L (38-126) H 08/10/24 06:12
C-Reactive Protein 204.20 mg/L (0.0-10.00) H 08/06/24 09:05
Most recent labs reviewed.
Micro Results:
08/05/24 13:21 Blood Culture - Preliminary
Blood/Venous No Growth in 4 days- Final report to follow
08/07/24 12:03 Blood Culture - Preliminary
Blood/Venous No Growth in 48 hours- Final report to follow
08/08/24 13:32 Stool Leukocytes - Final
Feces/Stool
08/08/24 13:32 C. difficile GDH Antigen & Toxins - Final
Feces/Stool Negative for toxigenic C.difficile
08/06/24 13:00 Wound Culture - Final
Liver Klebsiella oxytoca
Viridans Streptococcus Group
Gram Stain - Final
08/05/24 00:44 Urine Culture - Final
Urine NO GROWTH
--- NOTE | 2024-08-10 11:20 | CM ---
US of abdomen today.
CM continues to follow for d/c plan.
Plan: home with possible IV anbx and VN.
--- NOTE | 2024-08-10 12:05 | W.PN.GI.CBS2 ---
Addendum entered and electronically signed by Real Alcala MD 08/10/24 15:37:
Discussed with Dr Vela-will plan ERCP tomorrow afternoon
Addendum entered and electronically signed by Real Alcala MD 08/10/24 15:32:
I saw and examined the patient.
The FIELD TAX AUDITOR or PA's note was reviewed and I agree with the note.
Comment: Pt denies abd pain.
ABD soft NTND. Hepatic drain contains green bile
US shows decrease in size of abscess. CBD still dilated. There is ovoid echogenic nonshadowing structure 1.3 x 0.9 x 1.2cm suspicious for compression of sludge in CBD
REC:
Cont abx
LFTs improving
I will discuss ERCP with partners who do ERCP to treat possible biliary sludge in CBD as cause for liver abscess since she cannot have MRI due to spinal stimulator
Original Note:
Today's Communication / Plan
-
antibiotics as per ID, klebsiella and strep viridans growing
continue drainage
follow LFTs trending down
Creatinine normalized
unable to Do MRI with pain stimulator
await US abdomen repeat with prior CBD dilation -- may need to consider EUS vs ERCP if stone present
will also need to consider eventual colonoscopy
stool studies normal. could consider colonoscopy if needed.
Assessment / Plan
-
Pt is an 89yo with hx multiple medical problems including chronic anemia, thalassemia, asthma, HTN, hyperlipidemia,atrophic gastritis, duodenal adenoma, vascular ectasia, DVT, , malignant melanoma in present to ER with change in mental
status and weakness. On admission noted with multiple labs abnormality and concern for Rhabdomyolysis. WBC 49,200, hbg 8.7, platelets 712, Na 134, K 5.1, cl 97, Co2 17, BUN 116, creat 3.9, t bili 0.9, d bili 0.7, AST 720, ALT 296, alk phos 381,
CK 5350, albumin 3, procal 151.28. Imaging with concern for liver mass vs abscess, with noted air and concern for fistula connection to bowel. US with CBD dilation with concern for choledocholithiasis.
-weakness
-sepsis with marked elevated procal with TME
-liver abscess with cx + Virdian strep an Klebsiella
-US with CBD dilation cannot excluded choledocholithiasis
-LILIAN on admission
-rhabdomyolysis
-increased LFT's
-hyponatremia
-leukocytosis
-thrombocytosis
other med problems:
-HAZEL
-thalassemia
-asthma
-HTN
-atrophic gastritis
-duodenal adenoma
-malignant melanoma
-GI bleed with hx vascular ectasia
-DVT
PLAN:
antibiotics as per ID, klebsiella and strep viridans growing
continue drainage
follow LFTs trending down
Creatinine normalized
unable to Do MRI with pain stimulator
await US abdomen repeat with prior CBD dilation -- may need to consider EUS vs ERCP if stone present
will also need to consider eventual colonoscopy
stool studies normal. could consider colonoscopy if needed.
Subjective
Subjective
Date of Service: August 10, 2024
08/08 brown stool on regular diet no abdominal pain , KAIDEN with yellowish output --390//85/60 yellow tinged output
Objective
Data Reviewed
Laboratory Data:
Laboratory Results
08/10/24 06:12
08/10/24 06:12
Laboratory Results
PT 15.0 Sec (11.4-14.6) H 08/06/24 09:04
INR 1.20 08/06/24 09:04
APTT 28.9 Sec (23.4-35.0) 08/05/24 13:21
Phosphorus 5.5 mg/dl (2.5-4.5) H 08/06/24 09:04
Magnesium 1.8 mg/dl (1.6-2.3) 08/06/24 09:04
Total Bilirubin 0.8 mg/dl (0.2-1.3) 08/10/24 06:12
AST 39 U/L (14-36) H 08/10/24 06:12
ALT 66 U/L (0-35) H 08/10/24 06:12
Alkaline Phosphatase 246 U/L (38-126) H 08/10/24 06:12
Lipase 102 U/L (23-300) 08/04/24 22:14
Vital Signs and I&O:
Vital Signs
Temp Pulse Resp BP Pulse Ox
98.7 F 88 18 162/74 95
08/10/24 07:53 08/10/24 07:53 08/10/24 07:53 08/10/24 07:53 08/10/24 07:53
I&O
08/09/24 08/10/24 08/11/24
06:59 06:59 06:59
Intake Total 2200 / 2200 480 / 480
Output Total 1785 / 1785 760 / 760
Balance 415 / 415 -280 / -280
Physical Exam
Physical Exam
HEENT: Anicteric and Moist mucous membranes
Cardiology: Normal Sinus Rhythm
Pulmonary: Clear
GI: Soft, Non Distended, Non Tender and Other (KAIDEN with yellow liquid output)
Extremities: No Edema
Neuro: Non Focal
--- NOTE | 2024-08-10 12:25 | W.PN.ONC2 ---
Today's Communication / Plan
-
medical oncology will sign-off while undergoing medical management of liver abscess. Please reach out if pt pursues tissue diagnosis to further evaluate for malignancy.
Impression
Impression
11 cm heterogeneous low density mass vs abscess, s/p CT guided liver abscess drain 08/06, improving transaminitis, cx kleb ox and viridans strep. normal AFP and Ca19.9. CEA slightly elevated 6.13
Rhabdomyolysis
Acute renal failure resolved
TME resolving
Reactive leukocytosis/thrombocytosis -improved
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
Hypertension
Gastritis
Improving performance status with for eventual discharge home with VN
Plan
Plan
GI to consider eventual additional liver imaging (spinal stimulator precludes MRI) and/or colonoscopy if patient and family desire tissue diagnosis
continue supportive care
Subjective/Objective
Chief Complaint
no new complaints
Subjective
afebrile, no hypoxia or hypotension
denies pain
Vital Signs:
Vital Signs
Temp Pulse Resp BP Pulse Ox
98.7 F 88 18 162/74 95
08/10/24 07:53 08/10/24 07:53 08/10/24 07:53 08/10/24 07:53 08/10/24 07:53
Lab Results:
Laboratory Data
WBC 20.8 10^3/uL (4.8-10.8) H 08/10/24 06:12
Hgb 8.3 g/dL (12.0-16.0) L 08/10/24 06:12
Plt Count 471 10^3/uL (130-400) H 08/10/24 06:12
PT 15.0 Sec (11.4-14.6) H 08/06/24 09:04
INR 1.20 08/06/24 09:04
APTT 28.9 Sec (23.4-35.0) 08/05/24 13:21
eGFR 54.53 08/10/24 06:12
Physical Exam
General: Well Developed, Well Nourished, No Apparent Distress, Comfortable and Conversant
HEENT: Anicteric, Atraumatic and EOMI
Respiratory: Clear
Cardiac: S1/S2 and Regular Rhythm
GI: Soft, Non Tender, Non Distended, KAIDEN drain
Musculoskeletal: No Clubbing, No Cyanosis and No Edema
Skin: Warm
Neuro: AO x 3
Hematologic/Lymphatic: No Lymphadenopathy
Psych: Calm
Review of Systems
Review of Systems
ROS notable for subjective, otherwise negative
[2024-08-10] MEDS: IMODIUM 2 MG PO ×2 (12:55→19:41)
[2024-08-10] MEDS: FLAGYL 500 MG PO ×2 (12:55→19:41)
[2024-08-10] MEDS: STERILE WATER FOR INJECTION 20 ML IV (12:55)
[2024-08-10] MEDS: ROCEPHIN 2000 MG IV (12:56)
[2024-08-10 15:21] VITALS: BP 160/70
--- NOTE | 2024-08-10 15:44 | W.PN.HOSP.TC ---
Today's Communication/Plan
-
ERCP 08/11 per
Continue KAIDEN drain per
Continue antibiotics
Monitor for recurrent retention
Assessment / Plan
Assessment / Plan
Impression:
Presentation with severe fatigue and weakness.
Acute kidney injury.
Rhabdomyolysis. Nontraumatic
Hepatic abscess
WBC 49.2-->34.2-->23.4
Other conditions:
Essential hypertension
Dyslipidemia.
Left ankle arthritis
History of melanoma removal remote.
Plan:
Concern for sepsis with significantly elevated WBC and left shift.
remains on Zosyn (renally adjusted)
Most likely source intra-abdominal with necrotic liver mass
CT scan of abd/pelvis: 1). There is an 11 cm heterogeneous low density mass in the right lobe with a small volume internal gas.
Differential diagnosis for this mass includes both benign and malignant neoplasm.
The presence of gas within the lesion raises concern for fistulous communication with the adjacent bowel.
Alternatively, this mass may be abscess collection.
Biopsy/drainage may be useful for further evaluation
2). Cholelithiasis
3). 4 cm left parapelvic renal cyst
Status post interventional radiology aspiration on 08/06 with purulence.
KAIDEN drain in place
Cultures Klebsiella/Viridans Strep.
Continue antibiotics/Zosyn
with marked improvement in Renal fxn BUN/Creat 116/3.9-->45/1.1, call placed to pharm to adjust dosing regiment
ID consult appreciated
Tumor markers with slightly elevated CEA and normal levels of CEA 199/AFP
Oncology input appreciated
May require additional imaging either with enhanced CT scan if renal function allows for MRI of the abdomen.
Unable to perform MRI/MRCP given Medtr[employer] device (spinal stimulator in place)
Follow-up imaging with ultrasound 08/10:
1. Interval decrease in size of the heterogeneous collection along the right lobe of the liver as above. The percutaneous drainage catheter is not well seen at sonography. No significant residual undrained anechoic collection is identified.
2. Persistent dilation of the common bile duct. Ovoid echogenic structure likely representing concretion of biliary sludge within the common bile duct as above.
3. Cholelithiasis. Negative for abnormal gallbladder dilation.
Plan is for ERCP tentatively on 08/11
Acute kidney injury.
Metabolic acidosis.
Nontraumatic rhabdomyolysis
Diaz catheter placed on admission (no documented retention while in ED.
Avoid NSAIDs.
Hold lisinopril/HCTZ.
Creatinine improved to normal
Observe off IV fluids.
Diaz catheter removed on 08/09
Dyslipidemia
Hold statin given abnormal liver function test
Chronic microcytic anemia
Hx of Thalassemia Minor (as per pt)
Iron level with mild iron deficiency also mixed picture of inflammatory anemia
Check coagulation profile.
Type and screen.
Monitor hemoglobin.
Hgb 7.5 (was 10.8 12/31/10)
Full code.
DVT prophylaxis heparin.
Anticipated Discharge: > 48 hours
Subjective/Interval History
-
Date of Service: August 10, 2024
Objective Data
-
Labs:
Laboratory Results
08/10/24
06:12
WBC 20.8 H
Hgb 8.3 L
Hct 24.8 L
Plt Count 471 H
Sodium 142
Potassium 3.7
Chloride 106
Carbon Dioxide 22
BUN 19 H
Creatinine 1.0
Glucose 85
Calcium 8.1 L
Total Bilirubin 0.8
AST 39 H
ALT 66 H
Alkaline Phosphatase 246 H
Vital Signs:
Vital Signs
Temp Pulse Resp BP Pulse Ox
98.2 F 91 17 160/70 97
08/10/24 15:21 08/10/24 15:21 08/10/24 15:21 08/10/24 15:21 08/10/24 15:21
I&O
08/09/24 08/10/24 08/11/24
06:59 06:59 06:59
Intake Total 2200 / 2200 480 / 480
Output Total 1785 / 1785 760 / 760
Balance 415 / 415 -280 / -280
Physical Exam
-
General: Well Developed, Well Nourished, No Apparent Distress and Appears Chronically Ill
HEENT: Normocephalic, Atraumatic and Moist Mucous Membranes
Respiratory: Wheezes (end expiratory wheeze has significantly decreased)
Cardiac: Regular Rhythm and S1/S2
GI: Soft, Nontender (slightly tender in RUQ, area of liver bx) and Nondistended
Musculoskeletal: No Clubbing, No Cyanosis and No Edema
Neuro: Awake, Alert and Oriented
[2024-08-10] MEDS: DESYREL 50 MG PO (21:08)
[2024-08-10 23:14] VITALS: BP 153/64
[2024-08-11] MEDS: TYLENOL 650 MG PO (01:23)
[2024-08-11 07:15] VITALS: BP 179/68
--- NOTE | 2024-08-11 08:54 | W.PN.ID1 ---
Date of Service
Date of Service: August 11, 2024
Today's Communication
- follow drain output - dropping off, may consider reevaluation in next several days
- c/w IV ceftriaxone and oral metronidazole
- await mrcp
Assessment / Plan
Hepatic Abscess
LILIAN
Cholelithiasis and possible choledocolithiasis
- follow drain output - dropping off, may consider reevaluation in next several days
- wound culture K oxytoca and VGS
- blood cultures x2 no growth to date
- switch to IV ceftriaxone and oral metronidazole; would like to see further improvement in drain output, leukocytosis and completion of MRCP prior to planning the final duration
- await read on repeat US
- colonoscopy could also be considered as there can be an association with colorectal cancer, acknowledge that risks/benefits will need to be considered
AW
Chief Complaint
-: Other (hepatic abscess)
Subjective / Review of Systems
afebrile
bp stable
labs pending
for ERCP today
Vital Signs / Physical Exam
Vital Signs
Vital Signs
Temp Pulse Resp BP Pulse Ox
98.2 F 89 17 179/68 97
08/11/24 07:15 08/11/24 07:15 08/11/24 07:15 08/11/24 07:15 08/11/24 07:15
Physical Exam
Constitutional: No Acute Distress
Cardiovascular: Regular Rate and S1/S2; Negative Murmur or Rub
Pulmonary: Clear and Symmetric; Negative Wheezes or Rales
Gastrointestinal: Soft, Non Tender, Non Distended and Normal Bowel Sounds
Skin: Warm and Dry; Negative Rash or Jaundice
Lines: Other (drain - minimal output)
Objective Data
Lab Data
ESR 86 mm/hour (0-20) H 08/06/24 09:06
PT 15.0 Sec (11.4-14.6) H 08/06/24 09:04
INR 1.20 08/06/24 09:04
APTT 28.9 Sec (23.4-35.0) 08/05/24 13:21
Estimated Creat Clear 42 ml/min 08/10/24 06:12
Lactic Acid 0.9 mmol/L (0.7-2.0) 08/05/24 13:21
Total Bilirubin 0.8 mg/dl (0.2-1.3) 08/10/24 06:12
AST 39 U/L (14-36) H 08/10/24 06:12
ALT 66 U/L (0-35) H 08/10/24 06:12
Alkaline Phosphatase 246 U/L (38-126) H 08/10/24 06:12
C-Reactive Protein 204.20 mg/L (0.0-10.00) H 08/06/24 09:05
Most recent labs reviewed.
Micro Results:
08/05/24 13:21 Blood Culture - Final
Blood/Venous No Growth - Final Report
08/07/24 12:03 Blood Culture - Preliminary
Blood/Venous No Growth in 72 hours- Final report to follow
08/08/24 13:32 Stool Leukocytes - Final
Feces/Stool
08/08/24 13:32 C. difficile GDH Antigen & Toxins - Final
Feces/Stool Negative for toxigenic C.difficile
08/06/24 13:00 Wound Culture - Final
Liver Klebsiella oxytoca
Viridans Streptococcus Group
Gram Stain - Final
08/05/24 00:44 Urine Culture - Final
Urine NO GROWTH
[2024-08-11] MEDS: FLAGYL 500 MG PO ×2 (09:17→20:24)
[2024-08-11] MEDS: PROZAC 40 MG PO (09:17)
[2024-08-11] MEDS: VISBIOME 2 CAP PO (09:18)
[2024-08-11] MEDS: SODIUM BICARBONATE 650 MG PO ×3 (09:18→21:36)
--- NOTE | 2024-08-11 09:29 | W.PN.GI.CBS2 ---
Addendum entered and electronically signed by Real Alcala MD 08/11/24 16:00:
I saw and examined the patient.
The [employer] or PA's note was reviewed and I agree with the note.
Comment: Denies abd pain
ABD soft NTND
REC:
Will plan ERCP tomorrow to look for sludge/stone in distal CBD to explain liver abscess, LFT elevation and US findings
Cont abx per ID for liver abscess and after d/c
Cannot have MRI due to pain stimulator
Original Note:
Today's Communication / Plan
-
antibiotics as per ID
continue drainage though output declining
LFT's trending down
unable to Do MRI with pain stimulator
repeat US with CBD dilation and ovoid structure with concern for sludge
plan for ERCP 08/12 -- review risk/benefits with patient and brother agreeable to proceed- NPO for AM
will also need to consider eventual colonoscopy
stool studies normal.
Assessment / Plan
-
Pt is an 89yo with hx multiple medical problems including chronic anemia, thalassemia, asthma, HTN, hyperlipidemia,atrophic gastritis, duodenal adenoma, vascular ectasia, DVT, , malignant melanoma in present to ER with change in mental
status and weakness. On admission noted with multiple labs abnormality and concern for Rhabdomyolysis. WBC 49,200, hbg 8.7, platelets 712, Na 134, K 5.1, cl 97, Co2 17, BUN 116, creat 3.9, t bili 0.9, d bili 0.7, AST 720, ALT 296, alk phos 381,
CK 5350, albumin 3, procal 151.28. Imaging on admission with concern for liver mass vs abscess, with noted air and concern for fistula connection to bowel. US with CBD dilation with concern for choledocholithiasis.
08/10 repeat US
1. Interval decrease in size of the heterogeneous collection along the right lobe of the liver as above. The percutaneous drainage catheter is not well seen at sonography. No significant residual undrained anechoic collection is identified.
2. Persistent dilation of the common bile duct. Ovoid echogenic structure likely representing concretion of biliary sludge within the common bile duct
3. Cholelithiasis. Negative for abnormal gallbladder dilation.
-weakness
-sepsis with marked elevated procal with TME
-liver abscess with cx + Virdian strep an Klebsiella
-US with CBD dilation cannot excluded choledocholithiasis- repeat US with persistent dilatation of CBD concern for sludge
-LILIAN on admission
-rhabdomyolysis
-increased LFT's
-hyponatremia
-leukocytosis
-thrombocytosis
other med problems:
-HAZEL
-thalassemia
-asthma
-HTN
-atrophic gastritis
-duodenal adenoma
-malignant melanoma
-GI bleed with hx vascular ectasia
-DVT
PLAN:
antibiotics as per ID
continue drainage though output declining
LFT's trending down
unable to Do MRI with pain stimulator
repeat US with CBD dilation and ovoid structure with concern for sludge
plan for ERCP 08/12 -- review risk/benefits with patient and brother agreeable to proceed- NPO for AM
will also need to consider eventual colonoscopy
stool studies normal.
Subjective
Subjective
Date of Service: August 11, 2024
Pt feeling anxious but did have breakfast this am, 60ml drainage 08/11 no current drainage in KAIDEN
Objective
Data Reviewed
Laboratory Data:
Laboratory Results
PT 15.0 Sec (11.4-14.6) H 08/06/24 09:04
INR 1.20 08/06/24 09:04
APTT 28.9 Sec (23.4-35.0) 08/05/24 13:21
Phosphorus 5.5 mg/dl (2.5-4.5) H 08/06/24 09:04
Magnesium 1.8 mg/dl (1.6-2.3) 08/06/24 09:04
Total Bilirubin 0.8 mg/dl (0.2-1.3) 08/10/24 06:12
AST 39 U/L (14-36) H 08/10/24 06:12
ALT 66 U/L (0-35) H 08/10/24 06:12
Alkaline Phosphatase 246 U/L (38-126) H 08/10/24 06:12
Lipase 102 U/L (23-300) 08/04/24 22:14
Vital Signs and I&O:
Vital Signs
Temp Pulse Resp BP Pulse Ox
98.2 F 89 17 179/68 97
08/11/24 07:15 08/11/24 07:15 08/11/24 07:15 08/11/24 07:15 08/11/24 07:15
I&O
08/10/24 08/11/24 08/12/24
06:59 06:59 06:59
Intake Total 480 / 480 650 / 650
Output Total 760 / 760 710 / 710
Balance -280 / -280 -60 / -60
Physical Exam
Physical Exam
HEENT: Anicteric and Moist mucous membranes
Cardiology: Normal Sinus Rhythm
Pulmonary: Clear
GI: Soft, Non Distended and Non Tender
Extremities: No Edema
Neuro: Non Focal
[2024-08-11 09:35] LABS: Hematocrit 24.6 % (37.0-47.0); Mean Corp Hgb Conc. 32.5 g/dL (33.0-37.0); Mean Corpuscular Hgb 19.1 pg (27.0-31.0); Mean Corpuscular Volume 58.7 fL (81.0-99.0); Mean Platelet Volume 9.5 fL (7.4-10.4); Platelet Count 414 10^3/uL (130-400); Red Blood Cell Count 4.19 10^6/uL (4.20-5.40); White Blood Cell Count 18.5 10^3/uL (4.8-10.8)
[2024-08-11 10:09] LABS: % Basophils 0.3 % (0-2); % Eosinophils 0.9 % (0-6); % Immature Granulocytes 9.1 % (0-0.5); % Lymphocytes 5.1 % (20.5-51.1); % Monocytes 3.8 % (1.7-9.3); % Neutrophils 80.8 % (42.2-75.2); Absolute Basophils 0.1 10^3/uL (0-0.2); Absolute Eosinophils 0.2 10^3/uL (0-0.7); Absolute Immature Granulocytes 1.7 10^3/uL (0-0.05); Absolute Monocytes 0.7 10^3/uL (0.1-0.6); Nucleated Red Blood Cells % 0.2 %
[2024-08-11 11:19] LABS: ALT (SGPT) 55 U/L (0-35); AST (SGOT) 41 U/L (14-36); Albumin 2.6 g/dl (3.5-5.0); Alkaline Phosphatase 236 U/L (38-126); Blood Urea Nitrogen 14 mg/dl (7-17); Calcium 7.8 mg/dl (8.4-10.2); Carbon Dioxide 25 mmol/L (22-30); Chloride 103 mmol/L (98-107); Estimated Creatinine Clearance 47 ml/min; Glucose 127 mg/dl (70-99); Potassium 3.4 mmol/L (3.5-5.1); Sodium 141 mmol/L (135-145); Total Bilirubin 0.5 mg/dl (0.2-1.3); Total Protein 5.6 g/dl (6.3-8.2); eGFR > 60.00
--- NOTE | 2024-08-11 11:56 | CM ---
Patient seen bedside.
Patient anxious and requesting medication. RN notified.
patient for ERCP tomorrow.
Continues with drain and IV anbx.
Plan: home when stable, watch for IV anbx and wound care needs.
[2024-08-11] MEDS: ATIVAN 0.5 MG PO (12:28)
[2024-08-11] MEDS: ROCEPHIN 2000 MG IV (12:49)
[2024-08-11] MEDS: STERILE WATER FOR INJECTION 20 ML IV (12:50)
[2024-08-11 15:07] VITALS: BP 157/71
--- NOTE | 2024-08-11 16:40 | W.PN.HOSP.TC ---
Today's Communication/Plan
-
KAIDEN drain in place.
ERCP tomorrow.
IV antibiotics.
Replete potassium
Follow BMP/LFT
Assessment / Plan
Assessment / Plan
Impression:
Presentation with severe fatigue and weakness.
Acute kidney injury.
Rhabdomyolysis. Nontraumatic
Hepatic abscess
Hypokalemia
Other conditions:
Essential hypertension
Dyslipidemia.
Left ankle arthritis
History of melanoma removal remote.
Plan:
Clinical sepsis on presentation with hepatobiliary source
Hepatic abscess
CT scan of abd/pelvis: 1). There is an 11 cm heterogeneous low density mass in the right lobe with a small volume internal gas.
Differential diagnosis for this mass includes both benign and malignant neoplasm.
The presence of gas within the lesion raises concern for fistulous communication with the adjacent bowel.
Alternatively, this mass may be abscess collection.
Biopsy/drainage may be useful for further evaluation
2). Cholelithiasis
3). 4 cm left parapelvic renal cyst
Status post interventional radiology aspiration on 08/06 with purulence.
KAIDEN drain in place
Cultures Klebsiella/Viridans Strep.
Antibiotics narrowed to ceftriaxone and Flagyl
Tumor markers with slightly elevated CEA and normal levels of CEA 199/AFP
Oncology input appreciated
May require additional imaging either with enhanced CT scan if renal function allows for MRI of the abdomen.
Unable to perform MRI/MRCP given Medtronic device (spinal stimulator in place)
Follow-up imaging with ultrasound 08/10:
1. Interval decrease in size of the heterogeneous collection along the right lobe of the liver as above. The percutaneous drainage catheter is not well seen at sonography. No significant residual undrained anechoic collection is identified.
2. Persistent dilation of the common bile duct. Ovoid echogenic structure likely representing concretion of biliary sludge within the common bile duct as above.
3. Cholelithiasis. Negative for abnormal gallbladder dilation.
Plan is for ERCP tentatively on 08/12
Acute kidney injury.
Metabolic acidosis.
Nontraumatic rhabdomyolysis
Diaz catheter placed on admission (no documented retention while in ED.
Avoid NSAIDs.
Hold lisinopril/HCTZ.
Creatinine improved to normal
Observe off IV fluids.
Diaz catheter removed on 08/09
Dyslipidemia
Hold statin given abnormal liver function test
Chronic microcytic anemia
Hx of Thalassemia Minor (as per pt)
Iron level with mild iron deficiency also mixed picture of inflammatory anemia
Check coagulation profile.
Type and screen.
Monitor hemoglobin.
Hgb 7.5 (was 10.8 12/31/10)
Full code.
DVT prophylaxis heparin.
Anticipated Discharge: > 48 hours
Subjective/Interval History
-
Date of Service: August 11, 2024
Objective Data
-
Labs:
Laboratory Results
08/11/24
09:01
WBC 18.5 H
Hgb 8.0 L
Hct 24.6 L
Plt Count 414 H
Sodium 141
Potassium 3.4 L
Chloride 103
Carbon Dioxide 25
BUN 14
Creatinine 0.9
Glucose 127 H
Calcium 7.8 L
Total Bilirubin 0.5
AST 41 H
ALT 55 H
Alkaline Phosphatase 236 H
Vital Signs:
Vital Signs
Temp Pulse Resp BP Pulse Ox
98.2 F 88 20 157/71 96
08/11/24 15:07 08/11/24 15:07 08/11/24 15:07 08/11/24 15:07 08/11/24 15:45
I&O
08/10/24 08/11/24 08/12/24
06:59 06:59 06:59
Intake Total 480 / 480 650 / 650
Output Total 760 / 760 710 / 710
Balance -280 / -280 -60 / -60
Physical Exam
-
General: Well Developed, Well Nourished, No Apparent Distress and Appears Chronically Ill
HEENT: Normocephalic, Atraumatic and Moist Mucous Membranes
Respiratory: Wheezes (end expiratory wheeze has significantly decreased)
Cardiac: Regular Rhythm and S1/S2
GI: Soft, Nontender (slightly tender in RUQ, area of liver bx) and Nondistended
Musculoskeletal: No Clubbing, No Cyanosis and No Edema
Neuro: Awake, Alert and Oriented
[2024-08-11] MEDS: KCL 40 MEQ PO (16:55)
[2024-08-11] MEDS: HEPARIN 5000 UNITS SC (20:25)
[2024-08-11] MEDS: DESYREL 50 MG PO (21:35)
[2024-08-11 23:00] VITALS: BP 125/90
[2024-08-12] VITALS (8 sets, daily range): BP systolic 125–157; BP diastolic 59–90
[2024-08-12 07:51] LABS: Hematocrit 21.9 % (37.0-47.0); Hemoglobin 7.4 g/dL (12.0-16.0); Mean Corp Hgb Conc. 33.8 g/dL (33.0-37.0); Mean Corpuscular Hgb 19.8 pg (27.0-31.0); Mean Corpuscular Volume 58.7 fL (81.0-99.0); Mean Platelet Volume 9.9 fL (7.4-10.4); Platelet Count 386 10^3/uL (130-400); Red Blood Cell Count 3.73 10^6/uL (4.20-5.40); Red Cell Dist. Width 15.3 % (11.5-14.5); White Blood Cell Count 17.9 10^3/uL (4.8-10.8)
[2024-08-12 08:07] LABS: ALT (SGPT) 46 U/L (0-35); AST (SGOT) 32 U/L (14-36); Albumin 2.2 g/dl (3.5-5.0); Alkaline Phosphatase 198 U/L (38-126); Blood Urea Nitrogen 12 mg/dl (7-17); Calcium 7.6 mg/dl (8.4-10.2); Carbon Dioxide 27 mmol/L (22-30); Chloride 105 mmol/L (98-107); Estimated Creatinine Clearance 53 ml/min; Glucose 96 mg/dl (70-99); Potassium 3.5 mmol/L (3.5-5.1); Sodium 140 mmol/L (135-145); Total Bilirubin 0.4 mg/dl (0.2-1.3); eGFR > 60.00
[2024-08-12] MEDS: VISBIOME 2 CAP PO (08:38)
[2024-08-12] MEDS: FLAGYL 500 MG PO ×2 (08:38→19:37)
[2024-08-12] MEDS: SODIUM BICARBONATE 650 MG PO ×2 (08:38→21:46)
[2024-08-12] MEDS: HEPARIN 5000 UNITS SC ×2 (08:38→19:37)
[2024-08-12] MEDS: PROZAC 40 MG PO (08:38)
[2024-08-12] MEDS: STERILE WATER FOR INJECTION 20 ML IV (12:32)
[2024-08-12] MEDS: ROCEPHIN 2000 MG IV (12:32)
--- NOTE | 2024-08-12 15:24 | W.PN.ID1 ---
Date of Service
Date of Service: August 12, 2024
Today's Communication
- follow drain output - repeat CT with IV contrast tomorrow, if residual abscess would ask IR to reposition the drain
- c/w IV ceftriaxone and oral metronidazole
Assessment / Plan
Hepatic Abscess
LILIAN
Cholelithiasis and possible choledocolithiasis
- follow drain output - repeat CT with IV contrast tomorrow, if residual abscess would ask IR to reposition the drain
- ERCP today
- wound culture K oxytoca and VGS
- blood cultures x2 no growth to date
- c/w IV ceftriaxone and oral metronidazole
- colonoscopy could also be considered if no cause found on ERCP as there can be an association with colorectal cancer, acknowledge that risks/benefits will need to be considered
AW
Chief Complaint
-: Other (hepatic abscess)
Subjective / Review of Systems
afebrile
no output from the drain x2 days
tolerating current therapies
for ERCP
Vital Signs / Physical Exam
Vital Signs
Vital Signs
Temp Pulse Resp BP Pulse Ox
98.4 F 92 18 157/72 95
08/12/24 15:06 08/12/24 15:06 08/12/24 15:06 08/12/24 15:06 08/12/24 15:06
Physical Exam
Constitutional: No Acute Distress
Cardiovascular: Regular Rate and S1/S2; Negative Murmur or Rub
Pulmonary: Clear and Symmetric; Negative Wheezes or Rales
Gastrointestinal: Soft, Non Tender, Non Distended and Normal Bowel Sounds
Skin: Warm and Dry; Negative Rash or Jaundice
Lines: Other (drain - no output)
Objective Data
Lab Data
Lab Results
08/12/24 07:12
08/12/24 07:12
ESR 86 mm/hour (0-20) H 08/06/24 09:06
PT 15.0 Sec (11.4-14.6) H 08/06/24 09:04
INR 1.20 08/06/24 09:04
APTT 28.9 Sec (23.4-35.0) 08/05/24 13:21
Estimated Creat Clear 53 ml/min 08/12/24 07:12
Lactic Acid 0.9 mmol/L (0.7-2.0) 08/05/24 13:21
Total Bilirubin 0.4 mg/dl (0.2-1.3) 08/12/24 07:12
AST 32 U/L (14-36) 08/12/24 07:12
ALT 46 U/L (0-35) H 08/12/24 07:12
Alkaline Phosphatase 198 U/L (38-126) H 08/12/24 07:12
C-Reactive Protein 204.20 mg/L (0.0-10.00) H 08/06/24 09:05
Most recent labs reviewed.
Micro Results:
08/07/24 12:03 Blood Culture - Final
Blood/Venous No Growth - Final Report
08/05/24 13:21 Blood Culture - Final
Blood/Venous No Growth - Final Report
08/08/24 13:32 Stool Leukocytes - Final
Feces/Stool
08/08/24 13:32 C. difficile GDH Antigen & Toxins - Final
Feces/Stool Negative for toxigenic C.difficile
08/06/24 13:00 Wound Culture - Final
Liver Klebsiella oxytoca
Viridans Streptococcus Group
Gram Stain - Final
08/05/24 00:44 Urine Culture - Final
Urine NO GROWTH
--- NOTE | 2024-08-12 15:31 | W.PN.HOSP.TC ---
Today's Communication/Plan
-
ERCP
IV antibiotics
Noted with no output to KAIDEN drain. Will need reassessment by IR at after ERCP likely on 08/13.
Assessment / Plan
Assessment / Plan
Impression:
Presentation with severe fatigue and weakness.
Acute kidney injury.
Rhabdomyolysis. Nontraumatic
Hepatic abscess
Hypokalemia
Other conditions:
Essential hypertension
Dyslipidemia.
Left ankle arthritis
History of melanoma removal remote.
Plan:
Clinical sepsis on presentation with hepatobiliary source
Hepatic abscess
CT scan of abd/pelvis: 1). There is an 11 cm heterogeneous low density mass in the right lobe with a small volume internal gas.
Differential diagnosis for this mass includes both benign and malignant neoplasm.
The presence of gas within the lesion raises concern for fistulous communication with the adjacent bowel.
Alternatively, this mass may be abscess collection.
Biopsy/drainage may be useful for further evaluation
2). Cholelithiasis
3). 4 cm left parapelvic renal cyst
Status post interventional radiology aspiration on 08/06 with purulence.
KAIDEN drain in place
Cultures Klebsiella/Viridans Strep.
Antibiotics narrowed to ceftriaxone and Flagyl
Tumor markers with slightly elevated CEA and normal levels of CEA 199/AFP
Oncology input appreciated
May require additional imaging either with enhanced CT scan if renal function allows for MRI of the abdomen.
Unable to perform MRI/MRCP given Medtronic device (spinal stimulator in place)
Follow-up imaging with ultrasound 08/10:
1. Interval decrease in size of the heterogeneous collection along the right lobe of the liver as above. The percutaneous drainage catheter is not well seen at sonography. No significant residual undrained anechoic collection is identified.
2. Persistent dilation of the common bile duct. Ovoid echogenic structure likely representing concretion of biliary sludge within the common bile duct as above.
3. Cholelithiasis. Negative for abnormal gallbladder dilation.
Plan is for ERCP tentatively on 08/12
Acute kidney injury.
Metabolic acidosis.
Nontraumatic rhabdomyolysis
Diaz catheter placed on admission (no documented retention while in ED.
Avoid NSAIDs.
Hold lisinopril/HCTZ.
Creatinine improved to normal
Observe off IV fluids.
Diaz catheter removed on 08/09
Dyslipidemia
Hold statin given abnormal liver function test
Chronic microcytic anemia
Hx of Thalassemia Minor (as per pt)
Iron level with mild iron deficiency also mixed picture of inflammatory anemia
Check coagulation profile.
Type and screen.
Monitor hemoglobin.
Hgb 7.5 (was 10.8 12/31/10)
Full code.
DVT prophylaxis heparin.
Anticipated Discharge: > 48 hours
Subjective/Interval History
-
Date of Service: August 12, 2024
Objective Data
-
Labs:
Laboratory Results
08/12/24
07:12
WBC 17.9 H
Hgb 7.4 L
Hct 21.9 L
Plt Count 386
Sodium 140
Potassium 3.5
Chloride 105
Carbon Dioxide 27
BUN 12
Creatinine 0.8
Glucose 96
Calcium 7.6 L
Total Bilirubin 0.4
AST 32
ALT 46 H
Alkaline Phosphatase 198 H
Vital Signs:
Vital Signs
Temp Pulse Resp BP Pulse Ox
98.4 F 92 18 157/72 95
08/12/24 15:06 08/12/24 15:06 08/12/24 15:06 08/12/24 15:06 08/12/24 15:06
I&O
08/11/24 08/12/24 08/13/24
06:59 06:59 06:59
Intake Total 650 / 650 2170 / 2170
Output Total 710 / 710 0 / 0
Balance -60 / -60 0 / 2169
Physical Exam
-
General: Well Developed, Well Nourished, No Apparent Distress and Appears Chronically Ill
HEENT: Normocephalic, Atraumatic and Moist Mucous Membranes
Respiratory: Wheezes (end expiratory wheeze has significantly decreased)
Cardiac: Regular Rhythm and S1/S2
GI: Soft, Nontender (slightly tender in RUQ, area of liver bx) and Nondistended
Musculoskeletal: No Clubbing, No Cyanosis and No Edema
Neuro: Awake, Alert and Oriented
--- NOTE | 2024-08-12 16:39 | CM ---
Patient seen bedside.
Plan ERCP today.
Continues with drain and IV anbx.
Plan: home possible IV anbx, VN.
[2024-08-12] MEDS: SODIUM BICARBONATE PO (17:22)
[2024-08-12] MEDS: DESYREL 50 MG PO (21:46)
[2024-08-13] VITALS (10 sets, daily range): BP systolic 95–164; BP diastolic 58–78
[2024-08-13 06:31] LABS: % Basophils 0.1 % (0-2); % Lymphocytes 4.2 % (20.5-51.1); % Monocytes 3.7 % (1.7-9.3); Absolute Immature Granulocytes 0.5 10^3/uL (0-0.05); Absolute Lymphocytes 0.7 10^3/uL (1.2-3.4); Absolute Monocytes 0.6 10^3/uL (0.1-0.6); Absolute Neutrophils 14.7 10^3/uL (1.4-6.5); Hematocrit 22.1 % (37.0-47.0); Hemoglobin 7.3 g/dL (12.0-16.0); Mean Corpuscular Hgb 19.4 pg (27.0-31.0); Mean Corpuscular Volume 58.6 fL (81.0-99.0); Mean Platelet Volume 10.2 fL (7.4-10.4); Nucleated Red Blood Cells % 0 %; Platelet Count 445 10^3/uL (130-400); Red Blood Cell Count 3.77 10^6/uL (4.20-5.40); Red Cell Dist. Width 15.9 % (11.5-14.5); White Blood Cell Count 16.6 10^3/uL (4.8-10.8)
[2024-08-13 06:51] LABS: ALT (SGPT) 45 U/L (0-35); AST (SGOT) 33 U/L (14-36); Albumin 2.4 g/dl (3.5-5.0); Alkaline Phosphatase 247 U/L (38-126); Blood Urea Nitrogen 15 mg/dl (7-17); Calcium 7.7 mg/dl (8.4-10.2); Carbon Dioxide 30 mmol/L (22-30); Chloride 103 mmol/L (98-107); Estimated Creatinine Clearance 53 ml/min; Glucose 125 mg/dl (70-99); Sodium 138 mmol/L (135-145); Total Bilirubin 0.4 mg/dl (0.2-1.3); Total Protein 5.2 g/dl (6.3-8.2); eGFR > 60.00
[2024-08-13] MEDS: FLAGYL 500 MG PO ×2 (08:34→19:24)
[2024-08-13] MEDS: PROZAC 40 MG PO (08:34)
[2024-08-13] MEDS: SODIUM BICARBONATE 650 MG PO ×3 (08:34→21:26)
[2024-08-13] MEDS: HEPARIN 5000 UNITS SC ×2 (08:34→19:24)
[2024-08-13] MEDS: VISBIOME 2 CAP PO (08:35)
--- NOTE | 2024-08-13 11:25 | W.PN.ID1 ---
Date of Service
Date of Service: August 13, 2024
Today's Communication
To reposition drain.
Continue ceftriaxone and metronidazole.
Assessment / Plan
Large hepatic Abscess
Duodenal fistula source
Leukocytosis
LILIAN
Cholelithiasis and possible choledocholithiasis
- 08/12 ERCP finding of duodenal fistula with copious pus
- abscess culture K oxytoca and VGS
- blood cultures x2 no growth to date
- Repeat CT shows current drain is retracted.
Requested IR Dr. Lynn to reposition drain; also if able, perc drain second 3.5 cm abscess
- c/w IV ceftriaxone and oral metronidazole
Chief Complaint
-: Leukocytosis and Other (hepatic abscess)
Subjective / Review of Systems
No abd pain. Feels OK.
Vital Signs / Physical Exam
Vital Signs
Vital Signs
Temp Pulse Resp BP Pulse Ox
97.7 F 106 20 105/72 96
08/13/24 07:00 08/13/24 07:00 08/13/24 07:00 08/13/24 07:00 08/13/24 07:00
Physical Exam
Constitutional: No Acute Distress and Comfortable
Gastrointestinal: Soft, Non Tender, Non Distended and Other (KAIDEN drain minimal fluid)
Extremities: Negative Edema
Objective Data
Lab Data
Lab Results
08/13/24 06:05
08/13/24 06:05
ESR 86 mm/hour (0-20) H 08/06/24 09:06
PT 15.0 Sec (11.4-14.6) H 08/06/24 09:04
INR 1.20 08/06/24 09:04
APTT 28.9 Sec (23.4-35.0) 08/05/24 13:21
Estimated Creat Clear 53 ml/min 08/13/24 06:05
Lactic Acid 0.9 mmol/L (0.7-2.0) 08/05/24 13:21
Total Bilirubin 0.4 mg/dl (0.2-1.3) 08/13/24 06:05
AST 33 U/L (14-36) 08/13/24 06:05
ALT 45 U/L (0-35) H 08/13/24 06:05
Alkaline Phosphatase 247 U/L (38-126) H 08/13/24 06:05
C-Reactive Protein 204.20 mg/L (0.0-10.00) H 08/06/24 09:05
Most recent labs reviewed.
Micro Results:
08/07/24 12:03 Blood Culture - Final
Blood/Venous No Growth - Final Report
08/05/24 13:21 Blood Culture - Final
Blood/Venous No Growth - Final Report
08/08/24 13:32 Stool Leukocytes - Final
Feces/Stool
08/08/24 13:32 C. difficile GDH Antigen & Toxins - Final
Feces/Stool Negative for toxigenic C.difficile
08/06/24 13:00 Wound Culture - Final
Liver Klebsiella oxytoca
Viridans Streptococcus Group
Gram Stain - Final
08/05/24 00:44 Urine Culture - Final
Urine NO GROWTH
08/13/24 CT a/p: Large hepatic abscess seen on prior CT dated 08/05/2024 has significantly improved. Previously placed drainage catheter has retracted out of the abscess, and is now located within the periphery of the liver.
2. Second collection is seen within the posterior right hepatic lobe, measuring 3.5 x 2.8 x 2.5 cm, with internal air, likely representing an undrained hepatic abscess.
3. Mild biliary ductal dilation, grossly unchanged compared to prior CT.
4. Pneumobilia, increased in amount compared to prior CT. Biliary ductal communication with the hepatic abscesses and/or cholangitis is not excluded. Biliary air may also be related to recent ERCP.
Care Review
Plan reviewed with: Physician (Drs. Valadez and Leah)
[2024-08-13] MEDS: STERILE WATER FOR INJECTION 20 ML IV (12:16)
[2024-08-13] MEDS: ROCEPHIN 2000 MG IV (12:16)
--- NOTE | 2024-08-13 12:54 | W.PN.HOSP.TC ---
Today's Communication/Plan
-
Continue IV antibiotics
Surgery consultation with new findings of duodenal fistula.
Interventional radiology consultation for repositioning or placement of a new percutaneous catheter.
Assessment / Plan
Assessment / Plan
Impression:
Presentation with severe fatigue and weakness.
Acute kidney injury, improved
Rhabdomyolysis. Nontraumatic, improved
Hepatic abscess.
Choledocholithiasis
Duodenal fistula
Hypokalemia
Other conditions:
Essential hypertension
Dyslipidemia.
Left ankle arthritis
History of melanoma removal remote.
Plan:
Clinical sepsis on presentation with hepatobiliary source
Hepatic abscess
CT scan of abd/pelvis: 1). There is an 11 cm heterogeneous low density mass in the right lobe with a small volume internal gas.
Differential diagnosis for this mass includes both benign and malignant neoplasm.
The presence of gas within the lesion raises concern for fistulous communication with the adjacent bowel.
Alternatively, this mass may be abscess collection.
Biopsy/drainage may be useful for further evaluation
2). Cholelithiasis
3). 4 cm left parapelvic renal cyst
Status post interventional radiology aspiration on 08/06 with purulence.
KAIDEN drain in place
Cultures Klebsiella/Viridans Strep.
Antibiotics narrowed to ceftriaxone and Flagyl
Tumor markers with slightly elevated CEA and normal levels of CEA 199/AFP
Oncology input appreciated
May require additional imaging either with enhanced CT scan if renal function allows for MRI of the abdomen.
Unable to perform MRI/MRCP given Medtronic device (spinal stimulator in place)
Follow-up imaging with ultrasound 08/10:
1. Interval decrease in size of the heterogeneous collection along the right lobe of the liver as above. The percutaneous drainage catheter is not well seen at sonography. No significant residual undrained anechoic collection is identified.
2. Persistent dilation of the common bile duct. Ovoid echogenic structure likely representing concretion of biliary sludge within the common bile duct as above.
3. Cholelithiasis. Negative for abnormal gallbladder dilation.
ERCP 08/12: Duodenal fistula draining copious amount of pus. Choledocholithiasis. Complete removal accomplished with biliary sphincterectomy and balloon extraction.
Follow-up CT scan 08/13 large hepatic abscess significantly improved. Previously placed catheter has retracted out of the abscess. Second collection noted measuring 3.5 x 2.8 x 2.5 cm with internal air, likely representing undrained hepatic
abscess.
Continue IV antibiotics
Surgery consultation with new findings of duodenal fistula.
Interventional radiology consultation for repositioning or placement of a new percutaneous catheter.
Acute kidney injury.
Metabolic acidosis.
Nontraumatic rhabdomyolysis
Diaz catheter placed on admission (no documented retention while in ED.
Avoid NSAIDs.
Hold lisinopril/HCTZ.
Creatinine improved to normal
Observe off IV fluids.
Diaz catheter removed on 08/09
Dyslipidemia
Hold statin given abnormal liver function test
Chronic microcytic anemia
Hx of Thalassemia Minor (as per pt)
Iron level with mild iron deficiency also mixed picture of inflammatory anemia
Check coagulation profile.
Type and screen.
Monitor hemoglobin.
Hgb 7.5 (was 10.8 12/31/10)
Full code.
DVT prophylaxis heparin.
Anticipated Discharge: > 48 hours
Subjective/Interval History
-
Date of Service: August 13, 2024
Objective Data
-
Labs:
Laboratory Results
08/13/24
06:05
WBC 16.6 H
Hgb 7.3 L
Hct 22.1 L
Plt Count 445 H
Sodium 138
Potassium 4.0
Chloride 103
Carbon Dioxide 30
BUN 15
Creatinine 0.8
Glucose 125 H
Calcium 7.7 L
Total Bilirubin 0.4
AST 33
ALT 45 H
Alkaline Phosphatase 247 H
Vital Signs:
Vital Signs
Temp Pulse Resp BP Pulse Ox
97.7 F 106 20 105/72 96
08/13/24 07:00 08/13/24 07:00 08/13/24 07:00 08/13/24 07:00 08/13/24 07:00
I&O
08/12/24 08/13/24 08/14/24
06:59 06:59 06:59
Intake Total 2170 / 2170 50 / 50
Output Total 0 / 0
Balance 2170 / 2170 50 / 50
Physical Exam
-
General: Well Developed, Well Nourished, No Apparent Distress and Appears Chronically Ill
HEENT: Normocephalic, Atraumatic and Moist Mucous Membranes
Respiratory: Wheezes (end expiratory wheeze has significantly decreased)
Cardiac: Regular Rhythm and S1/S2
GI: Soft, Nontender (slightly tender in RUQ, area of liver bx) and Nondistended
Musculoskeletal: No Clubbing, No Cyanosis and No Edema
Neuro: Awake, Alert and Oriented
[2024-08-13] MEDS: ATIVAN 0.5 MG PO ×2 (13:37→16:52)
--- NOTE | 2024-08-13 14:00 | CON.GS ---
Addendum entered and electronically signed by Gurvinder Jones MD 08/13/24 15:26:
Patient seen and examined. Agree with assessment plan as documented below.
Patient is an 89 yo F with a PMH of HTN, thalassemia, skin melanoma, h/o duodenal adenoma, s/p C-sections and s/p SHERRI. She was found by neighbors to be confused and brought to the ED with LILIAN and rhabdomyolysis noted. She reports increasing fatigue
over the past 6 months. Work-up with CT demonstrated a large liver abscess. She underwent CT guided liver abscess drainage in IR on 08/06 with cultures growing kleb ox and viridans strep. She subsequently underwent an ERCP on 08/12 for
choledocholithiasis. 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 No masses or biopsies obtained
She is alert and oriented today. She denies pain, nausea or vomiting. Drain is present with minimal bilious outputs. She denies n/v. She reports she is passing flatus and stools and occasionally her stools have been loose. She denies acholic stools.
Gen: NAD
Abd: soft, NT/ND, non-peritoneal, kathe thin light bilious fluid
Patient is an 89 yo F presenting with fatigue and confusion (resolved) with LILIAN and rhabdomyolysis with liver lesion and abscess present on admission now s/p IR drain placement 08/06 (path pending).
ERCP on 08/12 with choledocholithiasis and ?duodenal fistula.
Repeat CT from today reviewed with drain displacement noted. Large hepatic abscess and a smaller second collection seen. There is pneumobilia likely secondary to recent procedure. No cholecystitis present although there is cholelithiasis noted.
Leukocytosis still present and gradually trending down. AFVSS. OOB to chair and feeling much better overall. No pain, n/v. Passing stools/flatus.
Uncertain exact cause for liver abscess. Unlikely to be primary. Possible chronic choledocholithiasis with subsequent development of abscess. New findings of potential duodenal fistula service and additional possible source. Previous CT scans
demonstrated no evidence of fistulous connection with leakage of contrast or air from the duodenum. No role or plan for surgical intervention at this time. Plan for replacement of IR drain today. Continue with antibiotics. Following passage of
oral contrast from previous CT scans we will plan on UGI to help better assess potential fistulous connection. All questions answered.
--IR planned today to evaluate/reposition drain
--UGI study in radiology to establish if fistula present, d/w radiology. Will plan Friday once contrast cleared from biliary tract/bowel
--ABX as per ID
--No surgery planned at this time
--Medical management as per primary team
Original Note:
Consultation
-
Date/Time Consultation Requested: 08/12/241753
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
Medical History
-
Chief Complaint: fatigue
History of Present Illness:
Ms. Lopez is an 89 yo female with a h/o HTN, thalassemia, skin melanoma, duodenal adenoma, c-sections and SHERRI found by neighbors to be confused and brought to the ED with LILIAN and rhabdo noted. She reports increasing fatigue prior to this. Work up
with liver lesion and abscess present. She underwent CT guided liver abscess drainage in IR on 08/06 with cx growing kleb ox and viridans strep with ERCP preformed to evaluate GI tract further with ?duodenal fistula noted and draining pus as well as
choledocholithiasis present with biliary sphincterotomy preformed. She is alert and oriented today. She denies pain, nausea or vomiting. Drain is present with minimal outputs. She denies n/v. She reports she is passing flatus and stools and
occasionally her stools have been loose. She denies acholic stools.
Past Medical History
Past Medical History: Cancer (skin melanoma), HTN, Hypercholesterolemia and Other (chronic osteo, iron def anemia, thalassemia, asthma, duodenal adenoma)
Past Surgical History: and Gynecological (SHERRI)
Social History
Tobacco: Non-Smoker
Alcohol: None
Family History
Family History: Reviewed & Not Pertinent
Allergies / Home Medications
Allergy/AdvReac Type Severity Reaction Status Date / Time
morphine Allergy head hurts Verified 08/04/24 21:33
zolpidem [From Ambien] Allergy Unknown Verified 08/04/24 21:34
�Medication �Instructions �Recorded �Confirmed �Type
fluoxetine 20 mg capsule 40 mg PO DAILY depression/anxiety 03/13/10 08/05/24 History
atorvastatin 20 mg tablet 20 mg PO QPM High Cholesterol 06/29/12 08/05/24 History
ferrous sulfate 325 mg (65 mg 325 mg PO DAILY Supplement 06/29/12 08/05/24 History
iron) tablet
dgrwrtwz-yqh-zihfr acid 0.4 1 ea PO DAILY Supplement 06/29/12 08/05/24 History
mg-lycopene 300 mcg-lutein 250 mcg
tablet (Centrum Silver)
acetaminophen 300 mg-codeine 30 mg 1 tab PO QIDPRN PRN moderate pain 08/05/24 08/05/24 History
tablet
amlodipine 10 mg tablet (Norvasc) 5 mg PO DAILY blood pressure 08/05/24 08/05/24 History
celecoxib 100 mg capsule 100 mg PO DAILY pain 08/05/24 08/05/24 History
chlorhexidine gluconate 0.12 % 15 ml buccal DAILY mouth care 08/05/24 08/05/24 History
mouthwash
coQ10 (ubiquinol) 100 mg capsule 100 mg PO DAILY Supplement 08/05/24 08/05/24 History
diphenoxylate-atropine 2.5 1 tab PO BIDPRN PRN diarrhea 08/05/24 08/05/24 History
mg-0.025 mg tablet (Lomotil)
lisinopril 10 1 tab PO DAILY Blood Pressure 08/05/24 08/05/24 History
mg-hydrochlorothiazide 12.5 mg
tablet
propranolol 120 mg capsule,24 120 mg PO DAILY Blood Pressure 08/05/24 08/05/24 History
hr,extended release
trazodone 50 mg tablet 50 mg PO HS sleep 08/05/24 08/05/24 History
Review of Systems
-
History Source: Patient
All other systems: Negative unless noted
A 10 point review of systems was completed, and was negative except as per HPI.
Physical Exam
Vital Signs
Temp Pulse Resp BP Pulse Ox
97.7 F 106 20 105/72 96
08/13/24 07:00 08/13/24 07:00 08/13/24 07:00 08/13/24 07:00 08/13/24 07:00
Body Mass Index (BMI) 30.6
Lab Results
08/13/24 06:05
08/13/24 06:05
WBC 16.6 10^3/uL (4.8-10.8) H 08/13/24 06:05
Hgb 7.3 g/dL (12.0-16.0) L 08/13/24 06:05
Hct 22.1 % (37.0-47.0) L 08/13/24 06:05
Plt Count 445 10^3/uL (130-400) H 08/13/24 06:05
Abs Immat Gran (auto) 0.5 10^3/uL (0-0.05) H 08/13/24 06:05
Neutrophils % 89.0 % (42.2-75.2) H 08/13/24 06:05
Physical Exam
General: Well Developed and Well Nourished
HEENT: Moist Mucous Membranes
Respiratory: Non Labored Respirations
GI: Soft, Non Tender, Non Distended and Other (drain with bile tinged tubing, no drainage in bag)
Skin: Warm and Dry
Neuro: Awake, Alert and AO x 3
Psych: Calm
Data Reviewed
-
CT Scan: Image Personally Visualized and interpreted, Report Reviewed by me, Discussed with Physician and Discussed with Patient
Labs: Labs Reviewed by me, Discussed with Physician and Discussed with Patient
Old Records: Reviewed
Assessment / Plan
-
89 yo female presenting with fatigue and confusion (resolved) with LILIAN and rhabdomyolysis with liver lesion and abscess present on admission now s/p IR drain placement 08/06 (path pending).
ERCP on 08/12 with choledocholithiasis and ?duodenal fistula.
Leukocytosis still present and gradually trending down. AFVSS. OOB to chair and feeling much better overall. No pain, n/v. Passing stools/flatus.
Repeat CT from today reviewed with drain displacement noted. Large hepatic abscess and a smaller second collection seen. There is pneumobilia likely secondary to recent procedure. No cholecystitis present although there is cholelithiasis noted.
--IR planned today to evaluate/reposition drain
--UGI study in radiology to establish if fistula present, d/w radiology. Will plan Friday once contrast cleared from biliary tract/bowel
--ABX as per ID
--No emergent surgery planned at this time
--Medical management as per primary team
--- NOTE | 2024-08-13 17:09 | CM ---
Patient continues with liver drain and IV anbx.
CM continues to folow for possible IV anbx, VN needs.
Plan: home with possible needs.
--- NOTE | 2024-08-13 17:18 | W.PN.GI.CBS2 ---
Addendum entered and electronically signed by Sanjuanita Cortes MD 08/13/24 19:41:
I saw and examined the patient.
The GRADUATE NURSE or PA's note was reviewed and I agree with the note.
Comment: Patient currently feels well, some twinge of occasional pain in the right upper quadrant but otherwise doing well. No abdominal pain, nausea or vomiting. No heartburn or trouble swallowing.
No fevers or chills.
-Liver abscess, unclear etiology.
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
Subsequent upper endoscopies did not show any evidence of duodenal adenoma, last endoscopy was in [address]ena[address]-guided hepatic abscess drainage done by IR today. Previously placed drainage catheter retracted out of the abscess and was repositioned and a second collection noted as well representing undrained abscess. Cholelithiasis noted without any acute
cholecystitis.
Leukocytosis without fevers. Mild elevation in ALT with normal AST and bilirubin. Alkaline phosphatase elevated at 247.
Currently on ceftriaxone/Flagyl.
Noted plan for upper GI study on Friday evaluate the duodenal fistula better.
On regular diet. Will follow
Original Note:
Today's Communication / Plan
-
Pt underwent ERCP 08/12/24 identifying duodenal fistula draining copious pus, with choledocholithiasis s/p sphincterotomy and balloon extraction
-pt feeling well now
-per Surgery, no need for surgical intervention
-s/p IR drain replacement
-LFTs and WBC count trending down
Assessment / Plan
-
Pt is an 89yo with hx multiple medical problems including chronic anemia, thalassemia, asthma, HTN, hyperlipidemia,atrophic gastritis, duodenal adenoma, vascular ectasia, DVT, , malignant melanoma in present to ER with change in mental
status and weakness. On admission noted with multiple labs abnormality and concern for Rhabdomyolysis. WBC 49,200, hbg 8.7, platelets 712, Na 134, K 5.1, cl 97, Co2 17, BUN 116, creat 3.9, t bili 0.9, d bili 0.7, AST 720, ALT 296, alk phos 381,
CK 5350, albumin 3, procal 151.28. Imaging on admission with concern for liver mass vs abscess, with noted air and concern for fistula connection to bowel. US with CBD dilation with concern for choledocholithiasis.
08/10 repeat US
1. Interval decrease in size of the heterogeneous collection along the right lobe of the liver as above. The percutaneous drainage catheter is not well seen at sonography. No significant residual undrained anechoic collection is identified.
2. Persistent dilation of the common bile duct. Ovoid echogenic structure likely representing concretion of biliary sludge within the common bile duct
3. Cholelithiasis. Negative for abnormal gallbladder dilation.
08/12/25 ERCP: Dr Rodrigues
Duodenal fistula was noted draining copious amount
of pus .
- The common bile duct was dilated.
- Choledocholithiasis was found. Complete removal was
accomplished by biliary sphincterotomy and balloon
extraction.
Recommendation: - Return patient to [facility] for ongoing care.
- Clear liquid diet today.
- Findings discussed with - general surgery .
Surgery will evaluate in am
- continue antibiotics
- monitor LFT
-weakness
-sepsis with marked elevated procal with TME
-liver abscess with cx + Virdian strep an Klebsiella
-US with CBD dilation cannot excluded choledocholithiasis- repeat US with persistent dilatation of CBD concern for sludge
-LILIAN on admission
-rhabdomyolysis
-increased LFT's
-hyponatremia
-leukocytosis
-thrombocytosis
other med problems:
-HAZEL
-thalassemia
-asthma
-HTN
-atrophic gastritis
-duodenal adenoma
-malignant melanoma
-GI bleed with hx vascular ectasia
-DVT
PLAN:
-S/p ERCP 08/12/24 which showed duodenal fistula, draining copious amounts of pus, with choledocholithiasis s/p sphincterotomy with balloon extraction
-Surgical consultation today reviewed, with no plan for surgical intervention at this time
-Plan to replace IR drain per Surgery (done today, patient tolerated well)
-LFT's trending down
-to consider eventual colonoscopy
Subjective
Subjective
Date of Service: August 13, 2024
Feeling better. No fever, chills, n/v, abdominal pain.
-feels hungry, wants to advance her diet
Objective
Data Reviewed
Laboratory Data:
Laboratory Results
08/13/24 06:05
08/13/24 06:05
Laboratory Results
PT 15.0 Sec (11.4-14.6) H 08/06/24 09:04
INR 1.20 08/06/24 09:04
APTT 28.9 Sec (23.4-35.0) 08/05/24 13:21
Phosphorus 5.5 mg/dl (2.5-4.5) H 08/06/24 09:04
Magnesium 1.8 mg/dl (1.6-2.3) 08/06/24 09:04
Total Bilirubin 0.4 mg/dl (0.2-1.3) 08/13/24 06:05
AST 33 U/L (14-36) 08/13/24 06:05
ALT 45 U/L (0-35) H 08/13/24 06:05
Alkaline Phosphatase 247 U/L (38-126) H 08/13/24 06:05
Lipase 102 U/L (23-300) 08/04/24 22:14
Vital Signs and I&O:
Vital Signs
Temp Pulse Resp BP Pulse Ox
97.9 F 86 19 149/58 98
08/13/24 15:35 08/13/24 15:35 08/13/24 15:35 08/13/24 15:35 08/13/24 15:35
I&O
08/12/24 08/13/24 08/14/24
06:59 06:59 06:59
Intake Total 2170 / 2170 50 / 50 125 / 125
Output Total 0 / 0
Balance 2170 / 2170 50 / 50 125 / 125
Physical Exam
Physical Exam
GI: Soft, Non Distended, Non Tender and Normal Bowel Sounds
[2024-08-13] MEDS: DESYREL 50 MG PO (21:26)
[2024-08-14 03:32] VITALS: BP 165/79
[2024-08-14 07:00] VITALS: BP 149/69
--- NOTE | 2024-08-14 08:59 | W.PN.GI.CBS2 ---
Today's Communication / Plan
-
-Liver abscess, unclear etiology.
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
Subsequent upper endoscopies did not show any evidence of duodenal adenoma, last endoscopy was in [address] Tena.
KAIDEN drain with bilious material. CT-guided hepatic abscess drainage done by IR 08/13/2024- previously placed drainage catheter retracted out of the abscess and was repositioned and a second collection noted as well representing undrained abscess.
Cholelithiasis noted without any acute cholecystitis.
Leukocytosis without fevers. Mild elevation in ALT with normal AST and bilirubin. Alkaline phosphatase elevated at 247.
Currently on ceftriaxone/Flagyl.
Noted plan for upper GI study on Friday evaluate the duodenal fistula better.
On regular diet. Will follow
Assessment / Plan
-
Pt is an 89yo with hx multiple medical problems including chronic anemia, thalassemia, asthma, HTN, hyperlipidemia,atrophic gastritis, duodenal adenoma, vascular ectasia, DVT, , malignant melanoma in present to ER with change in mental
status and weakness. On admission noted with multiple labs abnormality and concern for Rhabdomyolysis. WBC 49,200, hbg 8.7, platelets 712, Na 134, K 5.1, cl 97, Co2 17, BUN 116, creat 3.9, t bili 0.9, d bili 0.7, AST 720, ALT 296, alk phos 381,
CK 5350, albumin 3, procal 151.28. Imaging on admission with concern for liver mass vs abscess, with noted air and concern for fistula connection to bowel. US with CBD dilation with concern for choledocholithiasis.
08/10 repeat US
1. Interval decrease in size of the heterogeneous collection along the right lobe of the liver as above. The percutaneous drainage catheter is not well seen at sonography. No significant residual undrained anechoic collection is identified.
2. Persistent dilation of the common bile duct. Ovoid echogenic structure likely representing concretion of biliary sludge within the common bile duct
3. Cholelithiasis. Negative for abnormal gallbladder dilation.
08/12/25 ERCP: Dr Rodrigues
Duodenal fistula was noted draining copious amount
of pus .
- The common bile duct was dilated.
- Choledocholithiasis was found. Complete removal was
accomplished by biliary sphincterotomy and balloon
extraction.
Recommendation: - Return patient to [facility] for ongoing care.
- Clear liquid diet today.
- Findings discussed with - general surgery .
Surgery will evaluate in am
- continue antibiotics
- monitor LFT
-weakness
-sepsis with marked elevated procal with TME
-liver abscess with cx + Virdian strep an Klebsiella
-US with CBD dilation cannot excluded choledocholithiasis- repeat US with persistent dilatation of CBD concern for sludge
-LILIAN on admission
-rhabdomyolysis
-increased LFT's
-hyponatremia
-leukocytosis
-thrombocytosis
other med problems:
-HAZEL
-thalassemia
-asthma
-HTN
-atrophic gastritis
-duodenal adenoma
-malignant melanoma
-GI bleed with hx vascular ectasia
-DVT
PLAN:
-Liver abscess, unclear etiology.
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
Subsequent upper endoscopies did not show any evidence of duodenal adenoma, last endoscopy was in [address] Tena.
Percutaneous KAIDEN drainage with bilious material.
CT-guided hepatic abscess drainage done by IR 08/13/2024- previously placed drainage catheter retracted out of the abscess and was repositioned and a second collection noted as well representing undrained abscess. Cholelithiasis noted without any
acute cholecystitis.
Leukocytosis without fevers. Mild elevation in ALT with normal AST and bilirubin. Alkaline phosphatase elevated at 247.
Currently on ceftriaxone/Flagyl.
Noted plan for upper GI study on Friday evaluate the duodenal fistula better.
On regular diet. Will follow
Subjective
Subjective
Date of Service: August 14, 2024
Denies any abdominal pain. Had a bowel movement today. Soft mushy stool. No blood.
No fevers or chills.
Tolerating regular diet.
Objective
Data Reviewed
Laboratory Data:
Laboratory Results
08/13/24 06:05
08/13/24 06:05
Laboratory Results
PT 15.0 Sec (11.4-14.6) H 08/06/24 09:04
INR 1.20 08/06/24 09:04
APTT 28.9 Sec (23.4-35.0) 08/05/24 13:21
Phosphorus 5.5 mg/dl (2.5-4.5) H 08/06/24 09:04
Magnesium 1.8 mg/dl (1.6-2.3) 08/06/24 09:04
Total Bilirubin 0.4 mg/dl (0.2-1.3) 08/13/24 06:05
AST 33 U/L (14-36) 08/13/24 06:05
ALT 45 U/L (0-35) H 08/13/24 06:05
Alkaline Phosphatase 247 U/L (38-126) H 08/13/24 06:05
Lipase 102 U/L (23-300) 08/04/24 22:14
Vital Signs and I&O:
Vital Signs
Temp Pulse Resp BP Pulse Ox
98.1 F 89 18 165/79 94
08/14/24 03:32 08/14/24 03:32 08/14/24 03:32 08/14/24 03:32 08/14/24 03:32
I&O
08/13/24 08/14/24 08/15/24
06:59 06:59 06:59
Intake Total 50 / 50 725 / 725
Output Total /
Balance 50 / 50 705 / 705
Physical Exam
Physical Exam
GI: Soft, Non Distended, Non Tender and Normal Bowel Sounds
[2024-08-14] MEDS: VISBIOME 2 CAP PO (09:32)
[2024-08-14] MEDS: HEPARIN 5000 UNITS SC ×2 (09:32→19:45)
[2024-08-14] MEDS: SODIUM BICARBONATE 650 MG PO ×3 (09:32→20:57)
[2024-08-14] MEDS: FLAGYL 500 MG PO ×2 (09:32→19:45)
[2024-08-14] MEDS: PROZAC 40 MG PO (09:32)
--- NOTE | 2024-08-14 11:10 | W.PN.ID1 ---
Date of Service
Date of Service: August 14, 2024
Today's Communication
Continue antibiotics.
Assessment / Plan
Large hepatic Abscess
Duodenal fistula source
Leukocytosis
LILIAN
Cholelithiasis and possible choledocholithiasis
- 08/12 ERCP finding of duodenal fistula with copious pus
- abscess culture K. oxytoca and VGS
- blood cultures x2 no growth to date
- c/w IV ceftriaxone and oral metronidazole
����������������������������������������������������������
Chief Complaint
-: Leukocytosis and Other (hepatic abscess)
Subjective / Review of Systems
Review of Systems: No Fever and No Chills
Vital Signs / Physical Exam
Vital Signs
Vital Signs
Temp Pulse Resp BP Pulse Ox
97.9 F 91 18 149/69 96
08/14/24 07:00 08/14/24 07:00 08/14/24 07:00 08/14/24 07:00 08/14/24 07:00
Physical Exam
Constitutional: No Acute Distress, Comfortable and Non-toxic
Eyes: Sclera Anicteric
Cardiovascular: S1/S2; Negative S3/S4
Pulmonary: Non Labored
Gastrointestinal: Soft, Non Tender, Non Distended and Other (KAIDEN drain with purulent fluid.)
Extremities: Negative Edema
Neurological: Awake and Alert
Psychological: Calm
Objective Data
Lab Data
ESR 86 mm/hour (0-20) H 08/06/24 09:06
PT 15.0 Sec (11.4-14.6) H 08/06/24 09:04
INR 1.20 08/06/24 09:04
APTT 28.9 Sec (23.4-35.0) 08/05/24 13:21
Estimated Creat Clear 53 ml/min 08/13/24 06:05
Lactic Acid 0.9 mmol/L (0.7-2.0) 08/05/24 13:21
Total Bilirubin 0.4 mg/dl (0.2-1.3) 08/13/24 06:05
AST 33 U/L (14-36) 08/13/24 06:05
ALT 45 U/L (0-35) H 08/13/24 06:05
Alkaline Phosphatase 247 U/L (38-126) H 08/13/24 06:05
C-Reactive Protein 204.20 mg/L (0.0-10.00) H 08/06/24 09:05
Most recent labs reviewed.
Micro Results:
08/13/24 15:54 Wound Culture - Preliminary
Abscess No growth
Gram Stain - Preliminary
08/07/24 12:03 Blood Culture - Final
Blood/Venous No Growth - Final Report
08/05/24 13:21 Blood Culture - Final
Blood/Venous No Growth - Final Report
08/08/24 13:32 Stool Leukocytes - Final
Feces/Stool
08/08/24 13:32 C. difficile GDH Antigen & Toxins - Final
Feces/Stool Negative for toxigenic C.difficile
08/06/24 13:00 Wound Culture - Final
Liver Klebsiella oxytoca
Viridans Streptococcus Group
Gram Stain - Final
08/05/24 00:44 Urine Culture - Final
Urine NO GROWTH
Imaging:
08/13/24 CT a/p: Large hepatic abscess seen on prior CT dated 08/05/2024 has significantly improved. Previously placed drainage catheter has retracted out of the abscess, and is now located within the periphery of the liver.
2. Second collection is seen within the posterior right hepatic lobe, measuring 3.5 x 2.8 x 2.5 cm, with internal air, likely representing an undrained hepatic abscess.
3. Mild biliary ductal dilation, grossly unchanged compared to prior CT.
4. Pneumobilia, increased in amount compared to prior CT. Biliary ductal communication with the hepatic abscesses and/or cholangitis is not excluded. Biliary air may also be related to recent ERCP.
[2024-08-14 11:14] LABS: ALT (SGPT) 37 U/L (0-35); AST (SGOT) 35 U/L (14-36); Albumin 2.4 g/dl (3.5-5.0); Alkaline Phosphatase 240 U/L (38-126); Blood Urea Nitrogen 14 mg/dl (7-17); Calcium 7.5 mg/dl (8.4-10.2); Carbon Dioxide 27 mmol/L (22-30); Chloride 100 mmol/L (98-107); Estimated Creatinine Clearance 47 ml/min; Glucose 100 mg/dl (70-99); Potassium 3.5 mmol/L (3.5-5.1); Sodium 138 mmol/L (135-145); Total Bilirubin 0.3 mg/dl (0.2-1.3); Total Protein 5.3 g/dl (6.3-8.2); eGFR > 60.00
[2024-08-14 11:33] LABS: Platelet Count 536 10^3/uL (130-400)
[2024-08-14 11:34] LABS: % Basophils 0.2 % (0-2); % Eosinophils 0.5 % (0-6); % Immature Granulocytes 1.8 % (0-0.5); % Lymphocytes 5.2 % (20.5-51.1); % Monocytes 6.4 % (1.7-9.3); % Neutrophils 85.9 % (42.2-75.2); Absolute Eosinophils 0.1 10^3/uL (0-0.7); Absolute Immature Granulocytes 0.3 10^3/uL (0-0.05); Absolute Lymphocytes 0.9 10^3/uL (1.2-3.4); Absolute Monocytes 1.1 10^3/uL (0.1-0.6); Absolute Neutrophils 14.5 10^3/uL (1.4-6.5); Hematocrit 23.1 % (37.0-47.0); Hemoglobin 7.4 g/dL (12.0-16.0); Mean Corpuscular Hgb 18.8 pg (27.0-31.0); Mean Corpuscular Volume 58.8 fL (81.0-99.0); Mean Platelet Volume 10.2 fL (7.4-10.4); Nucleated Red Blood Cells % 0.1 %; Red Blood Cell Count 3.93 10^6/uL (4.20-5.40); Red Cell Dist. Width 16.2 % (11.5-14.5); White Blood Cell Count 16.8 10^3/uL (4.8-10.8)
[2024-08-14] MEDS: STERILE WATER FOR INJECTION 20 ML IV (12:09)
[2024-08-14] MEDS: ROCEPHIN 2000 MG IV (12:09)
--- NOTE | 2024-08-14 12:13 | W.PN.HOSP.TC ---
Today's Communication/Plan
-
monitor vital signs
see plan
Continue regimen
Monitor KAIDEN drain
Upper GI study Friday
Continue abx
Assessment / Plan
Assessment / Plan
Impression:
Presentation with severe fatigue and weakness.
Acute kidney injury, improved
Rhabdomyolysis. Nontraumatic, improved
Hepatic abscess.
Choledocholithiasis
Duodenal fistula
Hypokalemia
Other conditions:
Essential hypertension
Dyslipidemia.
Left ankle arthritis
History of melanoma removal remote.
Plan:
Clinical sepsis on presentation with hepatobiliary source
Hepatic abscess
CT scan of abd/pelvis: 1). There is an 11 cm heterogeneous low density mass in the right lobe with a small volume internal gas.
Differential diagnosis for this mass includes both benign and malignant neoplasm.
The presence of gas within the lesion raises concern for fistulous communication with the adjacent bowel.
Alternatively, this mass may be abscess collection.
Biopsy/drainage may be useful for further evaluation
2). Cholelithiasis
3). 4 cm left parapelvic renal cyst
Status post interventional radiology aspiration on 08/06 with purulence.
KAIDEN drain in place
Cultures Klebsiella/Viridans Strep.
Antibiotics narrowed to ceftriaxone and Flagyl
Tumor markers with slightly elevated CEA and normal levels of CEA 199/AFP
Oncology input appreciated
May require additional imaging either with enhanced CT scan if renal function allows for MRI of the abdomen.
Unable to perform MRI/MRCP given Medtronic device (spinal stimulator in place)
Follow-up imaging with ultrasound 08/10:
1. Interval decrease in size of the heterogeneous collection along the right lobe of the liver as above. The percutaneous drainage catheter is not well seen at sonography. No significant residual undrained anechoic collection is identified.
2. Persistent dilation of the common bile duct. Ovoid echogenic structure likely representing concretion of biliary sludge within the common bile duct as above.
3. Cholelithiasis. Negative for abnormal gallbladder dilation.
ERCP 08/12: Duodenal fistula draining copious amount of pus. Choledocholithiasis. Complete removal accomplished with biliary sphincterectomy and balloon extraction.
Follow-up CT scan 08/13 large hepatic abscess significantly improved. Previously placed catheter has retracted out of the abscess. Second collection noted measuring 3.5 x 2.8 x 2.5 cm with internal air, likely representing undrained hepatic
abscess.
Continue IV antibiotics
Surgery consultation with new findings of duodenal fistula.
Interventional radiology consultation for repositioning or placement of a new percutaneous catheter.
Acute kidney injury.
Metabolic acidosis.
Nontraumatic rhabdomyolysis
Diaz catheter placed on admission (no documented retention while in ED.
Avoid NSAIDs.
Hold lisinopril/HCTZ.
Creatinine improved to normal
Observe off IV fluids.
Diaz catheter removed on 08/09
Dyslipidemia
Hold statin given abnormal liver function test
Chronic microcytic anemia
Hx of Thalassemia Minor (as per pt)
Iron level with mild iron deficiency also mixed picture of inflammatory anemia
Check coagulation profile.
Type and screen.
Monitor hemoglobin.
Hgb 7.4 today (was 10.8 12/31/10)
Full code.
DVT prophylaxis heparin.
General: Well Developed, Well Nourished, No Apparent Distress and Appears Chronically Ill
HEENT: Normocephalic, Atraumatic and Moist Mucous Membranes
Respiratory: Wheezes (end expiratory wheeze has significantly decreased)
Cardiac: Regular Rhythm and S1/S2
GI: Soft, Nontender (slightly tender in RUQ, area of liver bx) and Nondistended
Musculoskeletal: No Clubbing, No Cyanosis and No Edema
Neuro: Awake, Alert and Oriented
I spent a total of 53 minutes with the patient or on the floor. More than 50% of this time involved counseling and coordination of care.
Anticipated Discharge: > 48 hours
Subjective/Interval History
-
Date of Service: August 14, 2024
denies pain
Objective Data
-
Labs:
Laboratory Results
08/14/24
09:52
WBC 16.8 H
Hgb 7.4 L
Hct 23.1 L
Plt Count 536 H D
Sodium 138
Potassium 3.5
Chloride 100
Carbon Dioxide 27
BUN 14
Creatinine 0.9
Glucose 100 H
Calcium 7.5 L
Total Bilirubin 0.3
AST 35
ALT 37 H
Alkaline Phosphatase 240 H
Vital Signs:
Vital Signs
Temp Pulse Resp BP Pulse Ox
97.9 F 91 18 149/69 96
08/14/24 07:00 08/14/24 07:00 08/14/24 07:00 08/14/24 07:00 08/14/24 07:00
I&O
08/13/24 08/14/24 08/15/24
06:59 06:59 06:59
Intake Total 50 / 50 725 / 725
Output Total 20 / 20
Balance 50 / 50 705 / 705
[2024-08-14] MEDS: ATIVAN 0.5 MG PO ×2 (14:49→22:20)
[2024-08-14 15:00] VITALS: BP 147/60
[2024-08-14] MEDS: DESYREL 50 MG PO (20:57)
[2024-08-14 23:21] VITALS: BP 151/56
[2024-08-15 07:54] VITALS: BP 165/76
[2024-08-15 08:04] LABS: ALT (SGPT) 31 U/L (0-35); AST (SGOT) 27 U/L (14-36); Albumin 2.3 g/dl (3.5-5.0); Alkaline Phosphatase 209 U/L (38-126); Blood Urea Nitrogen 13 mg/dl (7-17); Calcium 7.5 mg/dl (8.4-10.2); Carbon Dioxide 32 mmol/L (22-30); Chloride 101 mmol/L (98-107); Estimated Creatinine Clearance 53 ml/min; Glucose 99 mg/dl (70-99); Potassium 3.5 mmol/L (3.5-5.1); Sodium 140 mmol/L (135-145); Total Bilirubin 0.4 mg/dl (0.2-1.3); eGFR > 60.00
--- NOTE | 2024-08-15 08:35 | CM ---
CM reviewed chart, patient for upper GI study Friday. Patient continues with drain, remains on IV antibiotics. CM will continue to follow for all discharge planning needs.
Plan; watch for VN needs.
[2024-08-15] MEDS: SODIUM BICARBONATE 650 MG PO ×3 (08:45→21:44)
[2024-08-15] MEDS: FLAGYL 500 MG PO ×2 (08:45→21:43)
[2024-08-15] MEDS: VISBIOME 2 CAP PO (08:45)
[2024-08-15] MEDS: HEPARIN 5000 UNITS SC ×2 (08:46→21:43)
[2024-08-15] MEDS: PROZAC 40 MG PO (08:46)
[2024-08-15] MEDS: IMODIUM 2 MG PO (10:47)
--- NOTE | 2024-08-15 11:21 | W.PN.HOSP.TC ---
Today's Communication/Plan
-
Monitor vital signs see plan
Plan for upper GI series tomorrow
Continue antibiotics
Labs pending today
Monitor LFT's
Assessment / Plan
Assessment / Plan
Impression:
Presentation with severe fatigue and weakness.
Acute kidney injury, improved
Rhabdomyolysis. Nontraumatic, improved
Hepatic abscess.
Choledocholithiasis
Duodenal fistula
Hypokalemia
Transaminitis
Other conditions:
Essential hypertension
Dyslipidemia.
Left ankle arthritis
History of melanoma removal remote.
Plan:
Clinical sepsis on presentation with hepatobiliary source
Hepatic abscess
CT scan of abd/pelvis: 1). There is an 11 cm heterogeneous low density mass in the right lobe with a small volume internal gas.
Differential diagnosis for this mass includes both benign and malignant neoplasm.
The presence of gas within the lesion raises concern for fistulous communication with the adjacent bowel.
Alternatively, this mass may be abscess collection.
Biopsy/drainage may be useful for further evaluation
2). Cholelithiasis
3). 4 cm left parapelvic renal cyst
Status post interventional radiology aspiration on 08/06 with purulence.
KAIDEN drain in place
Cultures Klebsiella/Viridans Strep.
Antibiotics narrowed to ceftriaxone and Flagyl
Tumor markers with slightly elevated CEA and normal levels of CEA 199/AFP
Oncology input appreciated
May require additional imaging either with enhanced CT scan if renal function allows for MRI of the abdomen.
Plan for upper GI series tomorrow
Unable to perform MRI/MRCP given Medtronic device (spinal stimulator in place)
Follow-up imaging with ultrasound 08/10:
1. Interval decrease in size of the heterogeneous collection along the right lobe of the liver as above. The percutaneous drainage catheter is not well seen at sonography. No significant residual undrained anechoic collection is identified.
2. Persistent dilation of the common bile duct. Ovoid echogenic structure likely representing concretion of biliary sludge within the common bile duct as above.
3. Cholelithiasis. Negative for abnormal gallbladder dilation.
ERCP 08/12: Duodenal fistula draining copious amount of pus. Choledocholithiasis. Complete removal accomplished with biliary sphincterectomy and balloon extraction.
Follow-up CT scan 08/13 large hepatic abscess significantly improved. Previously placed catheter has retracted out of the abscess. Second collection noted measuring 3.5 x 2.8 x 2.5 cm with internal air, likely representing undrained hepatic
abscess.
Continue IV antibiotics
Surgery consultation with new findings of duodenal fistula.
Interventional radiology consultation for repositioning or placement of a new percutaneous catheter.
Acute kidney injury.
Metabolic acidosis.
Nontraumatic rhabdomyolysis
Diaz catheter placed on admission (no documented retention while in ED.
Avoid NSAIDs.
Hold lisinopril/HCTZ.
Creatinine improved to normal
Observe off IV fluids.
Diaz catheter removed on 08/09
Dyslipidemia
Hold statin given abnormal liver function test
Chronic microcytic anemia
Hx of Thalassemia Minor (as per pt)
Iron level with mild iron deficiency also mixed picture of inflammatory anemia
Check coagulation profile.
Type and screen.
Monitor hemoglobin.
Hgb 7.4 yesterday, labs pending today (was 10.8 12/31/10)
Full code.
DVT prophylaxis heparin.
General: Well Developed, Well Nourished, No Apparent Distress and Appears Chronically Ill
HEENT: Normocephalic, Atraumatic and Moist Mucous Membranes
Respiratory: Wheezes (end expiratory wheeze has significantly decreased)
Cardiac: Regular Rhythm and S1/S2
GI: Soft, Nontender (slightly tender in RUQ, area of liver bx) and Nondistended
Musculoskeletal: No Clubbing, No Cyanosis and No Edema
Neuro: Awake, Alert and Oriented
I spent a total of 52 minutes with the patient or on the floor. More than 50% of this time involved counseling and coordination of care.
Anticipated Discharge: > 48 hours
Subjective/Interval History
-
Date of Service: August 15, 2024
denies pain
Objective Data
-
Labs:
Laboratory Results
08/15/24
07:28
WBC Pending
Hgb Pending
Hct Pending
Plt Count Pending
Sodium 140
Potassium 3.5
Chloride 101
Carbon Dioxide 32 H
BUN 13
Creatinine 0.8
Glucose 99
Calcium 7.5 L
Total Bilirubin 0.4
AST 27
ALT 31
Alkaline Phosphatase 209 H
Vital Signs:
Vital Signs
Temp Pulse Resp BP Pulse Ox
99.6 F 89 18 165/76 95
08/15/24 07:54 08/15/24 07:54 08/15/24 07:54 08/15/24 07:54 08/15/24 07:54
I&O
08/14/24 08/15/24 08/16/24
06:59 06:59 06:59
Intake Total 725 / 725 1205 / 1205 200 / 200
Output Total 20 / 20 25 / 25
Balance 705 / 705 1180 / 1180 200 / 200
--- NOTE | 2024-08-15 11:54 | W.PN.GI.CBS2 ---
Today's Communication / Plan
-
PLAN:
-Liver abscess, unclear etiology.
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
Subsequent upper endoscopies did not show any evidence of duodenal adenoma, last endoscopy was in [address] Tena.
Percutaneous KAIDEN drainage with bilious material.
CT-guided hepatic abscess drainage done by IR 08/13/2024- previously placed drainage catheter retracted out of the abscess and was repositioned and a second collection noted as well representing undrained abscess. Cholelithiasis noted without any
acute cholecystitis.
Leukocytosis without fevers. Mild elevation in ALT with normal AST and bilirubin. Alkaline phosphatase elevated at 247.
Currently on ceftriaxone/Flagyl.
Noted plan for upper GI study on Friday evaluate the duodenal fistula better.
-Diarrhea-chronic, C diff and wbc 08/08/24 neg but will order anotehr c diff
On regular diet.
Will follow
Assessment / Plan
-
Pt is an 89yo with hx multiple medical problems including chronic anemia, thalassemia, asthma, HTN, hyperlipidemia,atrophic gastritis, duodenal adenoma, vascular ectasia, DVT, , malignant melanoma in present to ER with change in mental
status and weakness. On admission noted with multiple labs abnormality and concern for Rhabdomyolysis. WBC 49,200, hbg 8.7, platelets 712, Na 134, K 5.1, cl 97, Co2 17, BUN 116, creat 3.9, t bili 0.9, d bili 0.7, AST 720, ALT 296, alk phos 381,
CK 5350, albumin 3, procal 151.28. Imaging on admission with concern for liver mass vs abscess, with noted air and concern for fistula connection to bowel. US with CBD dilation with concern for choledocholithiasis.
08/10 repeat US
1. Interval decrease in size of the heterogeneous collection along the right lobe of the liver as above. The percutaneous drainage catheter is not well seen at sonography. No significant residual undrained anechoic collection is identified.
2. Persistent dilation of the common bile duct. Ovoid echogenic structure likely representing concretion of biliary sludge within the common bile duct
3. Cholelithiasis. Negative for abnormal gallbladder dilation.
08/12/25 ERCP: Dr Rodrigues
Duodenal fistula was noted draining copious amount
of pus .
- The common bile duct was dilated.
- Choledocholithiasis was found. Complete removal was
accomplished by biliary sphincterotomy and balloon
extraction.
Recommendation: - [facility] care.
- Clear liquid diet today.
- Findings discussed with - general surgery .
Surgery will evaluate in am
- continue antibiotics
- monitor LFT
-weakness
-sepsis with marked elevated procal with TME
-liver abscess with cx + Virdian strep an Klebsiella
-US with CBD dilation cannot excluded choledocholithiasis- repeat US with persistent dilatation of CBD concern for sludge
-LILIAN on admission
-rhabdomyolysis
-increased LFT's
-hyponatremia
-leukocytosis
-thrombocytosis
other med problems:
-HAZEL
-thalassemia
-asthma
-HTN
-atrophic gastritis
-duodenal adenoma
-malignant melanoma
-GI bleed with hx vascular ectasia
-DVT
PLAN:
-Liver abscess, unclear etiology.
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
Subsequent upper endoscopies did not show any evidence of duodenal adenoma, last endoscopy was in [address] Tena.
Percutaneous KAIDEN drainage with bilious material.
CT-guided hepatic abscess drainage done by IR 08/13/2024- previously placed drainage catheter retracted out of the abscess and was repositioned and a second collection noted as well representing undrained abscess. Cholelithiasis noted without any
acute cholecystitis.
Leukocytosis without fevers. Mild elevation in ALT with normal AST and bilirubin. Alkaline phosphatase elevated at 247.
Currently on ceftriaxone/Flagyl.
Noted plan for upper GI study on Friday evaluate the duodenal fistula better.
-Diarrhea-chronic, C diff and wbc 08/08/24 neg but will order anotehr c diff
On regular diet.
Will follow
Subjective
Subjective
Date of Service: August 15, 2024
Twinge of pain inthe RUQ where the drain is, no nausea/vomiting, tolerating regular diet
3 loose stool this am
Objective
Data Reviewed
Laboratory Data:
Laboratory Results
08/15/24 07:28
Laboratory Results
PT 15.0 Sec (11.4-14.6) H 08/06/24 09:04
INR 1.20 08/06/24 09:04
APTT 28.9 Sec (23.4-35.0) 08/05/24 13:21
Phosphorus 5.5 mg/dl (2.5-4.5) H 08/06/24 09:04
Magnesium 1.8 mg/dl (1.6-2.3) 08/06/24 09:04
Total Bilirubin 0.4 mg/dl (0.2-1.3) 08/15/24 07:28
AST 27 U/L (14-36) 08/15/24 07:28
ALT 31 U/L (0-35) 08/15/24 07:28
Alkaline Phosphatase 209 U/L (38-126) H 08/15/24 07:28
Lipase 102 U/L (23-300) 08/04/24 22:14
Vital Signs and I&O:
Vital Signs
Temp Pulse Resp BP Pulse Ox
99.6 F 89 18 165/76 95
08/15/24 07:54 08/15/24 07:54 08/15/24 07:54 08/15/24 07:54 08/15/24 07:54
I&O
08/14/24 08/15/24 08/16/24
06:59 06:59 06:59
Intake Total 725 / 725 1205 / 1205
Output Total
Balance 705 / 705 1180 / 1180
Physical Exam
Physical Exam
GI: Soft, Non Distended, Non Tender and Other (KAIDEN drain with bilious material)
[2024-08-15] MEDS: STERILE WATER FOR INJECTION 20 ML IV (12:24)
[2024-08-15] MEDS: ROCEPHIN 2000 MG IV (12:24)
--- NOTE | 2024-08-15 12:47 | W.PN.ID1 ---
Date of Service
Date of Service: August 15, 2024
Today's Communication
Continue antibiotics. Add micafungin given recovery of Stephanie albicans.
Assessment / Plan
Large hepatic Abscess
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
Leukocytosis
LILIAN
Cholelithiasis and possible choledocholithiasis
- 08/12 ERCP finding of duodenal fistula with copious pus
- abscess culture K. oxytoca and VGS
- blood cultures x2 no growth to date
- c/w IV ceftriaxone and oral metronidazole. Given recovery of Stephanie albicans, will begin micafungin
����������������������������������������������������������
Chief Complaint
-: Leukocytosis and Other (hepatic abscess)
Subjective / Review of Systems
Review of Systems: No Fever and No Chills
Vital Signs / Physical Exam
Vital Signs
Vital Signs
Temp Pulse Resp BP Pulse Ox
99.6 F 89 18 165/76 95
08/15/24 07:54 08/15/24 07:54 08/15/24 07:54 08/15/24 07:54 08/15/24 07:54
Physical Exam
Constitutional: No Acute Distress, Comfortable and Non-toxic
Eyes: Sclera Anicteric
Cardiovascular: S1/S2; Negative S3/S4
Pulmonary: Non Labored
Gastrointestinal: Soft, Non Tender, Non Distended and Other (KAIDEN drain with dark fluid)
Extremities: Negative Edema
Neurological: Awake and Alert
Psychological: Calm
Objective Data
Lab Data
Lab Results
08/15/24 07:28
ESR 86 mm/hour (0-20) H 08/06/24 09:06
PT 15.0 Sec (11.4-14.6) H 08/06/24 09:04
INR 1.20 08/06/24 09:04
APTT 28.9 Sec (23.4-35.0) 08/05/24 13:21
Estimated Creat Clear 53 ml/min 08/15/24 07:28
Lactic Acid 0.9 mmol/L (0.7-2.0) 08/05/24 13:21
Total Bilirubin 0.4 mg/dl (0.2-1.3) 08/15/24 07:28
AST 27 U/L (14-36) 08/15/24 07:28
ALT 31 U/L (0-35) 08/15/24 07:28
Alkaline Phosphatase 209 U/L (38-126) H 08/15/24 07:28
C-Reactive Protein 204.20 mg/L (0.0-10.00) H 08/06/24 09:05
Most recent labs reviewed.
Micro Results:
08/13/24 15:54 Wound Culture - Final
Abscess Stephanie albicans
Gram Stain - Final
08/07/24 12:03 Blood Culture - Final
Blood/Venous No Growth - Final Report
08/05/24 13:21 Blood Culture - Final
Blood/Venous No Growth - Final Report
08/08/24 13:32 Stool Leukocytes - Final
Feces/Stool
08/08/24 13:32 C. difficile GDH Antigen & Toxins - Final
Feces/Stool Negative for toxigenic C.difficile
08/06/24 13:00 Wound Culture - Final
Liver Klebsiella oxytoca
Viridans Streptococcus Group
Gram Stain - Final
08/05/24 00:44 Urine Culture - Final
Urine NO GROWTH
Imaging:
08/13/24 CT a/p: Large hepatic abscess seen on prior CT dated 08/05/2024 has significantly improved. Previously placed drainage catheter has retracted out of the abscess, and is now located within the periphery of the liver.
2. Second collection is seen within the posterior right hepatic lobe, measuring 3.5 x 2.8 x 2.5 cm, with internal air, likely representing an undrained hepatic abscess.
3. Mild biliary ductal dilation, grossly unchanged compared to prior CT.
4. Pneumobilia, increased in amount compared to prior CT. Biliary ductal communication with the hepatic abscesses and/or cholangitis is not excluded. Biliary air may also be related to recent ERCP.
[2024-08-15] MEDS: MYCAMINE 105 MG IV (13:47)
[2024-08-15 14:42] LABS: % Basophils 0.2 % (0-2); % Eosinophils 0.8 % (0-6); % Immature Granulocytes 1.2 % (0-0.5); % Lymphocytes 5.6 % (20.5-51.1); % Monocytes 6.4 % (1.7-9.3); % Neutrophils 85.8 % (42.2-75.2); Absolute Eosinophils 0.1 10^3/uL (0-0.7); Absolute Immature Granulocytes 0.2 10^3/uL (0-0.05); Absolute Lymphocytes 0.7 10^3/uL (1.2-3.4); Absolute Monocytes 0.8 10^3/uL (0.1-0.6); Hematocrit 21.3 % (37.0-47.0); Hemoglobin 7.1 g/dL (12.0-16.0); Mean Corp Hgb Conc. 33.3 g/dL (33.0-37.0); Mean Corpuscular Hgb 19.8 pg (27.0-31.0); Mean Corpuscular Volume 59.5 fL (81.0-99.0); Mean Platelet Volume 9.8 fL (7.4-10.4); Nucleated Red Blood Cells % 0.2 %; Platelet Count 462 10^3/uL (130-400); Red Blood Cell Count 3.58 10^6/uL (4.20-5.40); Red Cell Dist. Width 15.9 % (11.5-14.5); White Blood Cell Count 12.8 10^3/uL (4.8-10.8)
[2024-08-15 15:29] VITALS: BP 143/62
[2024-08-15] MEDS: ATIVAN 0.5 MG PO (15:51)
[2024-08-15] MEDS: DESYREL 50 MG PO (21:44)
[2024-08-15 23:14] VITALS: BP 147/74
[2024-08-16] VITALS (18 sets, daily range): BP systolic 89–159; BP diastolic 53–74
[2024-08-16 04:34] LABS: % Basophils 0.4 % (0-2); % Eosinophils 1.7 % (0-6); % Immature Granulocytes 0.9 % (0-0.5); % Lymphocytes 7.8 % (20.5-51.1); % Monocytes 7.7 % (1.7-9.3); % Neutrophils 81.3 % (42.2-75.2); Absolute Basophils 0.1 10^3/uL (0-0.2); Absolute Eosinophils 0.2 10^3/uL (0-0.7); Absolute Immature Granulocytes 0.1 10^3/uL (0-0.05); Absolute Neutrophils 10.5 10^3/uL (1.4-6.5); Hematocrit 20.4 % (37.0-47.0); Hemoglobin 6.9 g/dL (12.0-16.0); Mean Corp Hgb Conc. 33.8 g/dL (33.0-37.0); Mean Corpuscular Hgb 19.8 pg (27.0-31.0); Mean Corpuscular Volume 58.6 fL (81.0-99.0); Mean Platelet Volume 9.3 fL (7.4-10.4); Nucleated Red Blood Cells % 0.2 %; Platelet Count 536 10^3/uL (130-400); Red Blood Cell Count 3.48 10^6/uL (4.20-5.40); Red Cell Dist. Width 16.5 % (11.5-14.5); White Blood Cell Count 12.9 10^3/uL (4.8-10.8)
[2024-08-16] MEDS: NSS 1000 IV (04:50)
[2024-08-16 04:51] LABS: ALT (SGPT) 27 U/L (0-35); AST (SGOT) 28 U/L (14-36); Albumin 2.3 g/dl (3.5-5.0); Alkaline Phosphatase 198 U/L (38-126); Blood Urea Nitrogen 9 mg/dl (7-17); Calcium 7.5 mg/dl (8.4-10.2); Carbon Dioxide 32 mmol/L (22-30); Chloride 101 mmol/L (98-107); Estimated Creatinine Clearance 60 ml/min; Glucose 110 mg/dl (70-99); Potassium 3.3 mmol/L (3.5-5.1); Sodium 138 mmol/L (135-145); Total Bilirubin 0.5 mg/dl (0.2-1.3); eGFR > 60.00
[2024-08-16] MEDS: ATIVAN 0.5 MG PO ×2 (04:51→16:57)
--- NOTE | 2024-08-16 05:00 | PTCARENOTE ---
Pt with 2 large BRBPR with clots. BP 154/78 HR 109. [facility] Liane Napier notified. Stat CT angio of abd pelvis ordered. AM labs and type and screen drawn. NSS 80mls/hr ordered. One unit PRBC's ordered for Hgb 6.9. KCl 40meq in NSS @67.5mls/hr ordered.
No further orders.
--- NOTE | 2024-08-16 05:07 | W.PN.UPDATE ---
Addendum entered and electronically signed by LIEN Chavarria 08/16/24 06:26:
One unit PRBC ordered. IR and GI services aware. If another episode of BRBPR Interventional Radiology will discuss with GI service about further treatment.
Original Note:
Update Note
Progress Note Update
Nursing reports 2 large episodes of BRBPR with clots in her bedpan. VSS. HGB 6.9, VSS. CT angio of abd pelvis stat. Signed blood consent on chart. Has HX of vascular ectasias with GI bleeds in 1980 and 1983.
[2024-08-16] MEDS: KCL 270 MEQ IV (06:08)
--- NOTE | 2024-08-16 09:06 | W.PN.GI.CBS2 ---
Addendum entered and electronically signed by Sanjuanita Cortes MD 08/16/24 17:48:
I saw and examined the patient.
The [employer] or PA's note was reviewed and I agree with the note.
Comment: Noted events overnight. Episode of significant rectal bleeding with this.
CT angiogram showing possible 6 mm enhancing focus in the distal transverse colon, high-grade stenosis of celiac axis and relative stenosis of the infrarenal aorta. Percutaneous drainage catheter on the right lobe abscess expected appearance.
Moderate intrahepatic biliary dilation, improved from before mild dilation of the common duct improved as well.
Mesenteric Angiogram done through IR did not show any evidence of active bleeding.
Currently hemodynamically stable. BUN in normal range.
-Likely cause of bright blood per rectum with clots could be colonic source, colonoscopy in 2013 showing angiectasia in the colon. Given significant bleeding, will plan for colonoscopy tomorrow.
Monitor H&H and transfuse as needed.
-LFT'S IN NORMAL RANGE
Original Note:
Today's Communication / Plan
-
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
now with rectal bleeding this am passing large amount of blood and clots with drop in hbg requiring transfusion as hbg 6.9 prior in 7 range (she has chronic anemia with hx thalassemia)
minimal drainage in KAIDEN with scant blood tinged serous fluid
CTA as noted -- Dr. Valadez reviewed with IR plan to attempted angio-- hx vascular ectasias in past-- noted in proximal transverse and distal Ascending in 2013
NPO
cont to trend hbg
hold UGI for today
stool studies neg
replete K
I reviewed with surgery - Dr. Rice and Dr. Valadez
I updated brother with bleeding
Assessment / Plan
-
Pt is an 89yo with hx multiple medical problems including chronic anemia, thalassemia, asthma, HTN, hyperlipidemia,atrophic gastritis, duodenal adenoma, vascular ectasia, DVT, , malignant melanoma in present to ER with change in mental
status and weakness. On admission noted with multiple labs abnormality and concern for Rhabdomyolysis. WBC 49,200, hbg 8.7, platelets 712, Na 134, K 5.1, cl 97, Co2 17, BUN 116, creat 3.9, t bili 0.9, d bili 0.7, AST 720, ALT 296, alk phos 381,
CK 5350, albumin 3, procal 151.28. Imaging on admission with concern for liver mass vs abscess, with noted air and concern for fistula connection to bowel. US with CBD dilation with concern for choledocholithiasis.
08/10 repeat US
1. Interval decrease in size of the heterogeneous collection along the right lobe of the liver as above. The percutaneous drainage catheter is not well seen at sonography. No significant residual undrained anechoic collection is identified.
2. Persistent dilation of the common bile duct. Ovoid echogenic structure likely representing concretion of biliary sludge within the common bile duct
3. Cholelithiasis. Negative for abnormal gallbladder dilation.
08/12/25 ERCP: Dr Rodrigues
Duodenal fistula was noted draining copious amount
of pus .
- The common bile duct was dilated.
- Choledocholithiasis was found. Complete removal was
accomplished by biliary sphincterotomy and balloon
extraction.
08/16/24 CT Abd/pelvis Angio W/wo Iv
1. Site of active hemorrhage is not definitively identified at CT. As above, there is 6 mm enhancing focus which appears intraluminal in the distal transverse colon. Pseudoaneurysm or some form of vascular malformation is possible, however there
is no pooling of contrast on delayed phase images to confirm active bleeding at this level. There are no filling defects within the biliary system to strongly suggest hemobilia.
2. Advanced aortic atherosclerotic changes as described. High-grade stenosis of the celiac axis. Relative stenosis of the infrarenal aorta.
3. Percutaneous drainage catheter in right lobe hepatic abscess, expected appearance. Minimal residual decreased attenuation adjacent to the catheter locking loop.
4. Moderate intrahepatic biliary dilation, improved as compared with prior. Mild dilation of the common bile duct, improved as compared with prior.
5. Cholelithiasis.
-sepsis with marked elevated procal with TME on admission
-liver abscess with cx + Virdian strep an Klebsiella with drain in place with 08/13/2024- previously placed drainage catheter retracted out of the abscess and was repositioned and a second collection noted as well representing undrained abscess
-08/12 ERCP with choledocholithiasis with removal with sphincterotomy and balloon extraction, duodenal fistula with pus
-CT 17 with noted abscess, with noted air and concern for fistula connection to bowel
-08/16 rectal bleeding with red blood with clots
-CBD dilation
-LILIAN on admission
-rhabdomyolysis
-increased LFT's- improving
-hyponatremia
-leukocytosis- improving
-thrombocytosis
-hypokalemia
-diarrhea
other med problems:
-HAZEL
-thalassemia
-asthma
-HTN
-atrophic gastritis
-duodenal adenoma
-malignant melanoma
-GI bleed with hx vascular ectasia
-DVT
PLAN:
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
now with rectal bleeding this am passing large amount of blood and clots with drop in hbg requiring transfusion as hbg 6.9 prior in 7 range (she has chronic anemia with hx thalassemia)
minimal drainage in KAIDEN with scant blood tinged serous fluid
CTA as noted -- Dr. Valadez reviewed with IR plan to attempted angio-- hx vascular ectasias in past-- noted in proximal transverse and distal Ascending in 2013
NPO
cont to trend hbg
hold UGI for today
stool studies neg
replete K
I reviewed with surgery - Dr. Rice and Dr. Valadez
I updated brother with bleeding
Subjective
Subjective
Date of Service: August 16, 2024
Pt with rectal bleeding overnight but feeling well
Objective
Data Reviewed
Laboratory Data:
Laboratory Results
08/16/24 04:19
Laboratory Results
PT 15.0 Sec (11.4-14.6) H 08/06/24 09:04
INR 1.20 08/06/24 09:04
APTT 28.9 Sec (23.4-35.0) 08/05/24 13:21
Phosphorus 5.5 mg/dl (2.5-4.5) H 08/06/24 09:04
Magnesium 1.8 mg/dl (1.6-2.3) 08/06/24 09:04
Total Bilirubin 0.5 mg/dl (0.2-1.3) 08/16/24 04:19
AST 28 U/L (14-36) 08/16/24 04:19
ALT 27 U/L (0-35) 08/16/24 04:19
Alkaline Phosphatase 198 U/L (38-126) H 08/16/24 04:19
Lipase 102 U/L (23-300) 08/04/24 22:14
Vital Signs and I&O:
Vital Signs
Temp Pulse Resp BP Pulse Ox
98.1 F 88 16 147/74 96
08/15/24 23:14 08/15/24 23:14 08/15/24 23:14 08/15/24 23:14 08/15/24 23:14
I&O
08/15/24 08/16/24 08/17/24
06:59 06:59 06:59
Intake Total 1205 / 1205 445 / 445
Output Total 110 / 110 40 / 40
Balance 1095 / 1095 405 / 405
Physical Exam
Physical Exam
HEENT: Anicteric and Moist mucous membranes
Cardiology: Normal Sinus Rhythm
Pulmonary: Clear
GI: Soft, Non Distended, Non Tender and Other (KAIDEN with scant amount of drainage in IR drain with some blood)
Extremities: No Edema
Neuro: Non Focal
--- NOTE | 2024-08-16 10:00 | PTCARENOTE ---
09:[address] Valadez and Juanita Toney [employer](GI), pt had bloody tinge bowel movement in toilet with 2 small clots. Started one unit of PRBC's as ordered. Stayed with pt first 15 mins, pt tolerating transfusion. VS stable, continue to monitor pt
closely.
[2024-08-16] MEDS: FLAGYL 500 MG PO ×2 (10:30→21:38)
[2024-08-16] MEDS: PROZAC 40 MG PO (10:31)
[2024-08-16] MEDS: SODIUM BICARBONATE PO (10:31)
[2024-08-16] MEDS: NSS (PRESERVATIVE FREE) 10 ML IV ×2 (10:31→21:38)
[2024-08-16] MEDS: VISBIOME 2 CAP PO (10:31)
[2024-08-16] MEDS: PROTONIX IV 40 MG IV ×2 (10:32→21:38)
--- NOTE | 2024-08-16 11:20 | W.PN.ID1 ---
Date of Service
Date of Service: August 16, 2024
Today's Communication
- check QTc pending this may transition micafungin to fluconazole
- c/w IV ceftriaxone and oral metronidazole, and micafungin - tentatively for 5 more days
Assessment / Plan
Large hepatic Abscess
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
Leukocytosis
LILIAN
Cholelithiasis and possible choledocholithiasis
- 08/12 ERCP finding of duodenal fistula with copious pus
- 08/16 CT angio - no definitive site of hemorrhage
- eventual UGI study to evaluate fistula
- follow drain output
- check QTc pending this may transition micafungin to fluconazole
- abscess culture K. oxytoca, VGS, C albicans
- blood cultures x2 finalized negative
- c/w IV ceftriaxone and oral metronidazole, and micafungin - tentatively for 5 more days
- will continue to follow closely
����������������������������������������������������������
Chief Complaint
-: Leukocytosis and Other (hepatic abscess)
Subjective / Review of Systems
afebrile
bp stable
GI bleeding - large amount of blood clots- possible IR directed angiography
new drain with high output yesterday 60 ccs
Vital Signs / Physical Exam
Vital Signs
Vital Signs
Temp Pulse Resp BP Pulse Ox
98.3 F 101 21 154/65 98
08/16/24 10:55 08/16/24 10:55 08/16/24 10:55 08/16/24 10:55 08/16/24 10:55
Physical Exam
Constitutional: No Acute Distress
Cardiovascular: Regular Rate and S1/S2; Negative Murmur or Rub
Pulmonary: Clear and Symmetric; Negative Wheezes or Rales
Gastrointestinal: Soft, Non Tender, Non Distended and Normal Bowel Sounds
Skin: Warm and Dry; Negative Rash or Jaundice
Objective Data
Lab Data
Lab Results
08/16/24 04:19
ESR 86 mm/hour (0-20) H 08/06/24 09:06
PT 15.0 Sec (11.4-14.6) H 08/06/24 09:04
INR 1.20 08/06/24 09:04
APTT 28.9 Sec (23.4-35.0) 08/05/24 13:21
Estimated Creat Clear 60 ml/min 08/16/24 04:19
Lactic Acid 0.9 mmol/L (0.7-2.0) 08/05/24 13:21
Total Bilirubin 0.5 mg/dl (0.2-1.3) 08/16/24 04:19
AST 28 U/L (14-36) 08/16/24 04:19
ALT 27 U/L (0-35) 08/16/24 04:19
Alkaline Phosphatase 198 U/L (38-126) H 08/16/24 04:19
C-Reactive Protein 204.20 mg/L (0.0-10.00) H 08/06/24 09:05
Most recent labs reviewed.
Micro Results:
08/13/24 15:54 Wound Culture - Final
Abscess Stephanie albicans
Gram Stain - Final
08/07/24 12:03 Blood Culture - Final
Blood/Venous No Growth - Final Report
08/05/24 13:21 Blood Culture - Final
Blood/Venous No Growth - Final Report
08/08/24 13:32 Stool Leukocytes - Final
Feces/Stool
08/08/24 13:32 C. difficile GDH Antigen & Toxins - Final
Feces/Stool Negative for toxigenic C.difficile
08/06/24 13:00 Wound Culture - Final
Liver Klebsiella oxytoca
Viridans Streptococcus Group
Gram Stain - Final
08/05/24 00:44 Urine Culture - Final
Urine NO GROWTH
Imaging:
08/13/24 CT a/p: Large hepatic abscess seen on prior CT dated 08/05/2024 has significantly improved. Previously placed drainage catheter has retracted out of the abscess, and is now located within the periphery of the liver.
2. Second collection is seen within the posterior right hepatic lobe, measuring 3.5 x 2.8 x 2.5 cm, with internal air, likely representing an undrained hepatic abscess.
3. Mild biliary ductal dilation, grossly unchanged compared to prior CT.
4. Pneumobilia, increased in amount compared to prior CT. Biliary ductal communication with the hepatic abscesses and/or cholangitis is not excluded. Biliary air may also be related to recent ERCP.
--- NOTE | 2024-08-16 12:57 | W.PN.GS2 ---
Today's Communication / Plan
-
Okay for clears if cleared by GI.
Upper GI when able, though anticipate endoscopic fistulogram is likely the next most useful diagnostic test.
General surgery will continue to follow
Assessment / Plan
-
This is an 89-year-old female with multiple medical problems who presented to the hospital with altered mental status and weakness found to have elevated leukocytosis, and transaminitis with concern for liver mass versus abscess and possible fistula
with the duodenum as well as cholelithiasis and possibly choledocholithiasis. On reviewing his original and subsequent CT scans it certainly appears as there is oral contrast in the lumen of the gallbladder suggesting that there is either direct or
indirect communication with the biliary tree and likely the liver. It is unclear what the inciting event was as this could be from the gallbladder forming cholecystoduodenal fistula versus a duodenal ulcer that has eroded into the biliary system.
Ultimately I think the patient will benefit from an endoscopic fistulogram. If this is an isolated fistula from the duodenum to the liver could consider endoscopic closure however if this is communicating directly with the gallbladder could
consider placement of an Axios stent to better drain the gallbladder.
It appears that her GI bleed has slowed down, continue holding anticoagulation. CTA reviewed, there is a lesion in the transverse colon and given the patient's history of AVMs this could be a source of bleeding versus artifact.
In the meantime, If no plan for endoscopic evaluation today okay for clears.
Continue IV antibiotics
Appreciate GI involvement.
General surgery will follow peripherally.
Time Spent
Total Time Spent with Patient (in minutes): 20
Subjective Data
-
Date of Service: August 16, 2024
Interval Events:
Bright red blood per rectum, seems to have slowed down. Hemoglobin relatively stable. 1 unit of blood going in.
Objective Data
-
Intake and Output
08/15/24 08/16/24 08/17/24
06:59 06:59 06:59
Intake Total 1205 / 1205 445 / 445 0 / 0
Output Total 110 / 110 40 / 40
Balance 1095 / 1095 405 / 405 0 / 0
Intake:
Oral fluids 1200 / 1200 440 / 440
Amount instilled into Drain (
Total)
Right Luiz-Hammer 5
Blood Product Amount Infused ( 0 0
mL)
Packed Rbc Leukoreduced Unit 0 / 0
[id number]
Output:
Drain Output (Total) 110 / 110 40 / 40
Right Luiz-Hammer 110 / 110 40 / 40
Other:
Number of approximated MODERATE 2 3
amounts of urine
Number of approximated LARGE 3
amounts of urine
Vital Signs
Temp Pulse Resp BP Pulse Ox
98.3 F 101 21 154/65 98
08/16/24 10:55 08/16/24 10:55 08/16/24 10:55 08/16/24 10:55 08/16/24 10:55
Lab Results
08/16/24 04:19
Calcium 7.5 mg/dl (8.4-10.2) L 08/16/24 04:19
Phosphorus 5.5 mg/dl (2.5-4.5) H 08/06/24 09:04
Magnesium 1.8 mg/dl (1.6-2.3) 08/06/24 09:04
Total Bilirubin 0.5 mg/dl (0.2-1.3) 08/16/24 04:19
Direct Bilirubin 0.7 mg/dl (0.0-0.4) H 08/04/24 22:14
AST 28 U/L (14-36) 08/16/24 04:19
ALT 27 U/L (0-35) 08/16/24 04:19
Alkaline Phosphatase 198 U/L (38-126) H 08/16/24 04:19
Total Protein 5.0 g/dl (6.3-8.2) L 08/16/24 04:19
Albumin 2.3 g/dl (3.5-5.0) L 08/16/24 04:19
Physical Exam
-
GENERAL/NEURO: Awake, Alert, no distress
CHEST: Unlabored breathing on RA
ABDOMEN: Soft, Non-Tender, Non-Distended, IR drain with minimal dark bloody output.
--- NOTE | 2024-08-16 14:41 | W.PN.IRAD.PR ---
Procedure Note
-
Tube study performed via hepatic abscess drainage catheter. No significant residual undrained collection. No opacification of bile ducts or vascular structures. Drainage catheter removed.
Mesenteric angio showed no active bleeding. Abnormality on prior CTA not identified. Extensive atherosclerotic changes, some hypertrophy SMA branches prob related to celiac stenosis.
[2024-08-16 14:54] LABS: Hemoglobin 6.8 g/dL (12.0-16.0)
[2024-08-16] MEDS: MYCAMINE 105 MG IV (16:03)
[2024-08-16] MEDS: STERILE WATER FOR INJECTION 20 ML IV (16:04)
[2024-08-16] MEDS: ROCEPHIN 2000 MG IV (16:04)
--- NOTE | 2024-08-16 17:08 | W.PN.HOSP.TC ---
Today's Communication/Plan
-
KAIDEN drain removed.
Continue antibiotics as per ID.
Transfuse to keep hemoglobin above 8.
Monitor for recurrent rectal bleeding.
Prep for colonoscopy as per GI.
Clear liquid diet
Assessment / Plan
Assessment / Plan
Impression:
Presentation with severe fatigue and weakness.
Acute kidney injury, improved
Rhabdomyolysis. Nontraumatic, improved
Hepatic abscess.
Choledocholithiasis
Duodenal fistula
Hypokalemia
Transaminitis
Other conditions:
Essential hypertension
Dyslipidemia.
Left ankle arthritis
History of melanoma removal remote.
Plan:
Clinical sepsis on presentation with hepatobiliary source
Hepatic abscess
CT scan of abd/pelvis: 1). There is an 11 cm heterogeneous low density mass in the right lobe with a small volume internal gas.
Differential diagnosis for this mass includes both benign and malignant neoplasm.
The presence of gas within the lesion raises concern for fistulous communication with the adjacent bowel.
Alternatively, this mass may be abscess collection.
Biopsy/drainage may be useful for further evaluation
2). Cholelithiasis
3). 4 cm left parapelvic renal cyst
Status post interventional radiology aspiration on 08/06 with purulence.
KAIDEN drain in place
Cultures Klebsiella/Viridans Strep.
Antibiotics narrowed to ceftriaxone and Flagyl
Tumor markers with slightly elevated CEA and normal levels of CEA 199/AFP
Oncology input appreciated
May require additional imaging either with enhanced CT scan if renal function allows for MRI of the abdomen.
Plan for upper GI series tomorrow
Unable to perform MRI/MRCP given Med[employer] device (spinal stimulator in place)
Follow-up imaging with ultrasound 08/10:
1. Interval decrease in size of the heterogeneous collection along the right lobe of the liver as above. The percutaneous drainage catheter is not well seen at sonography. No significant residual undrained anechoic collection is identified.
2. Persistent dilation of the common bile duct. Ovoid echogenic structure likely representing concretion of biliary sludge within the common bile duct as above.
3. Cholelithiasis. Negative for abnormal gallbladder dilation.
ERCP 08/12: Duodenal fistula draining copious amount of pus. Choledocholithiasis. Complete removal accomplished with biliary sphincterectomy and balloon extraction.
Follow-up CT scan 08/13 large hepatic abscess significantly improved. Previously placed catheter has retracted out of the abscess. Second collection noted measuring 3.5 x 2.8 x 2.5 cm with internal air, likely representing undrained hepatic
abscess.
iRad drain check on 08/16 with no residual collection.
The drain was removed on 08/16
Continue IV antibiotics per ID. Currently on ceftriaxone, metronidazole, micafungin
Acute rectal bleeding.
CT angiogram with no extravasation.
Emergent IR at mesenteric angio showed no active bleeding.
Additional evaluation with colonoscopy planned for tentatively 08/17
Clear liquid diet
Acute blood loss anemia with rectal bleeding.
Type and cross
Transfused 2 units of packed red blood cells per
Follow-up serial hemoglobin
Acute kidney injury.
Metabolic acidosis.
Nontraumatic rhabdomyolysis
Diaz catheter placed on admission (no documented retention while in ED.
Avoid NSAIDs.
Hold lisinopril/HCTZ.
Creatinine improved to normal
Observe off IV fluids.
Diaz catheter removed on 08/09
Dyslipidemia
Hold statin given abnormal liver function test
Chronic microcytic anemia
Hx of Thalassemia Minor (as per pt)
Iron level with mild iron deficiency also mixed picture of inflammatory anemia
Check coagulation profile.
Type and screen.
Monitor hemoglobin.
Hgb 7.4 yesterday, labs pending today (was 10.8 12/31/10)
Full code.
DVT prophylaxis heparin.
Anticipated Discharge: > 48 hours
Subjective/Interval History
-
Date of Service: August 16, 2024
Objective Data
-
Labs:
Laboratory Results
08/16/24 08/16/24
14:32 16:37
Hgb 6.8 L* Cancelled
Vital Signs:
Vital Signs
Temp Pulse Resp BP Pulse Ox
98.8 F 88 18 137/67 96
08/16/24 16:00 08/16/24 16:00 08/16/24 16:00 08/16/24 16:00 08/16/24 15:30
I&O
08/15/24 08/16/24 08/17/24
06:59 06:59 06:59
Intake Total 1205 / 1205 445 / 445 450 / 450
Output Total 110 / 110 40 / 40
Balance 1095 / 1095 405 / 405 450 / 450
Physical Exam
-
General: Well Developed, Well Nourished, No Apparent Distress and Appears Chronically Ill
HEENT: Normocephalic, Atraumatic and Moist Mucous Membranes
Respiratory: Wheezes (end expiratory wheeze has significantly decreased)
Cardiac: Regular Rhythm and S1/S2
GI: Soft, Nontender (slightly tender in RUQ, area of liver bx) and Nondistended
Musculoskeletal: No Clubbing, No Cyanosis and No Edema
Neuro: Awake, Alert and Oriented
[2024-08-16] MEDS: GAVILAX 238 GM PO (20:09)
[2024-08-17] VITALS (9 sets, daily range): BP systolic 121–178; BP diastolic 57–84; PULSE 107
[2024-08-17] MEDS: DESYREL 50 MG PO ×2 (00:07→22:12)
[2024-08-17 01:07] LABS: Hemoglobin 8.3 g/dL (12.0-16.0)
[2024-08-17 04:35] LABS: % Basophils 0.2 % (0-2); % Eosinophils 1.5 % (0-6); % Immature Granulocytes 0.9 % (0-0.5); % Lymphocytes 5.4 % (20.5-51.1); % Monocytes 6.4 % (1.7-9.3); % Neutrophils 85.6 % (42.2-75.2); Absolute Eosinophils 0.2 10^3/uL (0-0.7); Absolute Immature Granulocytes 0.1 10^3/uL (0-0.05); Absolute Lymphocytes 0.7 10^3/uL (1.2-3.4); Absolute Monocytes 0.8 10^3/uL (0.1-0.6); Absolute Neutrophils 10.5 10^3/uL (1.4-6.5); Hematocrit 23.2 % (37.0-47.0); Hemoglobin 8.2 g/dL (12.0-16.0); Mean Corp Hgb Conc. 35.3 g/dL (33.0-37.0); Mean Corpuscular Hgb 23.2 pg (27.0-31.0); Mean Corpuscular Volume 65.5 fL (81.0-99.0); Nucleated Red Blood Cells % 0.2 %; Platelet Count 384 10^3/uL (130-400); Red Blood Cell Count 3.54 10^6/uL (4.20-5.40); Red Cell Dist. Width 23.9 % (11.5-14.5); White Blood Cell Count 12.3 10^3/uL (4.8-10.8)
[2024-08-17 04:48] LABS: Blood Urea Nitrogen 12 mg/dl (7-17); Calcium 7.4 mg/dl (8.4-10.2); Carbon Dioxide 30 mmol/L (22-30); Chloride 102 mmol/L (98-107); Estimated Creatinine Clearance 53 ml/min; Glucose 105 mg/dl (70-99); Potassium 3.2 mmol/L (3.5-5.1); Sodium 138 mmol/L (135-145); eGFR > 60.00
[2024-08-17] MEDS: KCL 270 MEQ IV (06:02)
--- NOTE | 2024-08-17 07:39 | PTCARENOTE ---
Throughout the night, pt had very large and large episodes of bright red bloody/brownish liquid stool with small pieces of feces after starting bowel prep. Pt received one unit of blood in the morning of August 16 and one unit at night. Notified
LIEN Dumont. New orders placed. Pt asymptomatic throughout the night. Pt refused to finished bowel prep. Notified LIEN and on-call GI. Pt educated on the importance of finishing the bowel prep to have colonoscopy this morning. Pt continued
to refuse to complete bowel prep. Plan of care ongoing.
This RN just spoke again with the pt to complete the bowel prep. Pt agreed to finish the bowel prep. 'I want to have the colonoscopy today.' AM RN updated that pt is completing the bowel prep.
[2024-08-17] MEDS: PROTONIX IV 40 MG IV ×2 (07:54→19:40)
[2024-08-17] MEDS: FLAGYL 500 MG PO ×2 (07:54→19:38)
[2024-08-17] MEDS: NSS (PRESERVATIVE FREE) 10 ML IV ×2 (07:54→19:39)
[2024-08-17] MEDS: VISBIOME 2 CAP PO (07:54)
[2024-08-17] MEDS: PROZAC 40 MG PO (07:54)
[2024-08-17] MEDS: ATIVAN 0.5 MG PO ×3 (08:03→22:19)
--- NOTE | 2024-08-17 08:05 | W.PN.GENERIC ---
Assessment / Plan
-
89 yo female who had 2 bloody bowel movements yesterday. She underwent Agram in IR which was negative. She is scheduled for colonoscopy today
Continue to trend H&H
Hepatic Abscess-
Drain check yesterday showed resolution of collection. Drain removed
I spent over 35 minutes reviewing previous medical records, laboratory studies and relevant imaging as well as discussing the procedure and findings with the patient.
Physician Progress Note
Subjective
This is an 89 yo female with past medical history of hypertension, hyperlipidemia, status post hysterectomy and melanoma excision in 1981. She had 2 bloody bowel movements yesterady and underwent IR agram. No source of bleeding was found. She
reports feeling well today. She has had one bloody bowel movement sine the procedure. She denies fever or chills. She denies abdominal pain, nausea or vomiting.She is tolerating POs.
Past Medical History
HTN, Hypercholesterolemia, Skin melanoma 1981, osteoarthritis, Iron deficiency anemia
Past Surgical History:
SHERRI/BSO
Social History
Tobacco:
Non-smoker
Lives alone
Family History
Family History: Not pertinent
Allergies
Allergy/AdvReac Type Severity Reaction Status Date / Time
morphine Allergy head hurts Verified 08/04/24 21:33
zolpidem [From Ambien] Allergy Unknown Verified 08/04/24 21:34
Home Medications
Echinacea 350 MG, Iron 325 (65 Fe) MG, CoQ-10 1 capsule, Centrum Silver, FLUoxetine HCl 40 mg, Atorvastatin Calcium 20 mg, Lidocaine Pain Relief 4 %, Mupirocin 2 %, Vitamin B12 1000 MCG day, traZODone HCl 50 MG Lisinopril-hydroCHLOROthiazide
10-12.5 mg, Acetaminophen-Codeine #3 300-30 MG, PreserVision, LORazepam 0.5 MG, Celecoxib 100 mg, amLODIPine Besylate 5 mg
Objective
Vital Signs
Temp Pulse Resp BP Pulse Ox
97.9 F 87 18 157/70 95
08/17/24 03:09 08/17/24 03:09 08/17/24 03:09 08/17/24 03:09 08/17/24 03:09
Lab Results
08/17/24 03:59
Physical Exam:
This is a WNWD 89 yo female who appears younger than her stated age. She is AA&O in NAd. Color is good. Skin is warm and dry. Heart is regular. Lungs are CTA. Abdomen is soft and nontender with BS. Right groin dressing CDI. No hematoma.
Palpable inguinl and pedal pulses.
--- NOTE | 2024-08-17 09:15 | W.PN.UPDATE ---
Update Note
Progress Note Update
Pt for colonscopy today finished prep at 8 am-- reviewed with radiology unsure if UGI can be done today as needs colonoscopy first possible later today pending timing. K repleted this am.
--- NOTE | 2024-08-17 11:08 | CM ---
CM reviewed chart, drain removed, patient for colonoscopy today. Patient see bedside, requesting if PT can work with patient as she feels weaker, TT to Hospitalist for consult. Patient reports she has had [facility] in past, [facility] in past. CM will
continue to follow for all discharge planning needs.
Plan; home with [facility] vs SNF, watch PT evals when medically able.
--- NOTE | 2024-08-17 11:09 | W.PN.SURGUPD ---
Surgical Update
Surgical Update
No plans or indication for surgical intervention at this time. Continue with medical management. GI workup and management ongoing. Recommend UGI to evaluate for possible fistula. Could also consider repeat EGD with potential reevaluation or
fistulogram with injection of contrast intraluminally. Either way if a fistula is present it appears to be well-controlled without any diffuse leakage or contamination. Continue management and treatment of her liver abscess with IR drainage and
antibiotics.
[2024-08-17] MEDS: STERILE WATER FOR INJECTION 20 ML IV (12:36)
[2024-08-17] MEDS: ROCEPHIN 2000 MG IV (12:36)
[2024-08-17 12:57] LABS: Hemoglobin 8.3 g/dL (12.0-16.0)
--- NOTE | 2024-08-17 14:18 | W.PN.HOSP.TC ---
Today's Communication/Plan
-
Colonoscopy
Upper GI series to evaluate for fistula anatomy.
KAIDEN drain is out
Remains on antibiotics as per ID.
Monitor hemoglobin.
Extremely anxious, will increase as needed lorazepam. Add Lexapro.
Assessment / Plan
Assessment / Plan
Impression:
Presentation with severe fatigue and weakness.
Acute kidney injury, improved
Rhabdomyolysis. Nontraumatic, improved
Hepatic abscess.
Choledocholithiasis
Duodenal fistula
Hypokalemia
Transaminitis
Other conditions:
Essential hypertension
Dyslipidemia.
Left ankle arthritis
History of melanoma removal remote.
Plan:
Clinical sepsis on presentation with hepatobiliary source
Hepatic abscess
CT scan of abd/pelvis: 1). There is an 11 cm heterogeneous low density mass in the right lobe with a small volume internal gas.
Differential diagnosis for this mass includes both benign and malignant neoplasm.
The presence of gas within the lesion raises concern for fistulous communication with the adjacent bowel.
Alternatively, this mass may be abscess collection.
Biopsy/drainage may be useful for further evaluation
2). Cholelithiasis
3). 4 cm left parapelvic renal cyst
Status post interventional radiology aspiration on 08/06 with purulence.
KAIDEN drain in place
Cultures Klebsiella/Viridans Strep.
Antibiotics narrowed to ceftriaxone and Flagyl
Tumor markers with slightly elevated CEA and normal levels of CEA 199/AFP
Oncology input appreciated
May require additional imaging either with enhanced CT scan if renal function allows for MRI of the abdomen.
Plan for upper GI series tomorrow
Unable to perform MRI/MRCP given Medtronic device (spinal stimulator in place)
Follow-up imaging with ultrasound 08/10:
1. Interval decrease in size of the heterogeneous collection along the right lobe of the liver as above. The percutaneous drainage catheter is not well seen at sonography. No significant residual undrained anechoic collection is identified.
2. Persistent dilation of the common bile duct. Ovoid echogenic structure likely representing concretion of biliary sludge within the common bile duct as above.
3. Cholelithiasis. Negative for abnormal gallbladder dilation.
ERCP 08/12: Duodenal fistula draining copious amount of pus. Choledocholithiasis. Complete removal accomplished with biliary sphincterectomy and balloon extraction.
Follow-up CT scan 08/13 large hepatic abscess significantly improved. Previously placed catheter has retracted out of the abscess. Second collection noted measuring 3.5 x 2.8 x 2.5 cm with internal air, likely representing undrained hepatic
abscess.
iRad drain check on 08/16 with no residual collection.
The drain was removed on 08/16
Continue IV antibiotics per ID. Currently on ceftriaxone, metronidazole, micafungin
Acute rectal bleeding.
CT angiogram with no extravasation.
Emergent IR at mesenteric angio showed no active bleeding.
Additional evaluation with colonoscopy planned for tentatively 08/17
Acute blood loss anemia with rectal bleeding.
Type and cross
Transfused 2 units of packed red blood cells per
Follow-up serial hemoglobin
Acute kidney injury.
Metabolic acidosis.
Nontraumatic rhabdomyolysis
Diaz catheter placed on admission (no documented retention while in ED.
Avoid NSAIDs.
Hold lisinopril/HCTZ.
Creatinine improved to normal
Observe off IV fluids.
Diaz catheter removed on 08/09
Dyslipidemia
Hold statin given abnormal liver function test
Chronic microcytic anemia
Hx of Thalassemia Minor (as per pt)
Iron level with mild iron deficiency also mixed picture of inflammatory anemia
Check coagulation profile.
Type and screen.
Monitor hemoglobin.
Hgb 7.4 yesterday, labs pending today (was 10.8 12/31/10)
Full code.
DVT prophylaxis heparin.
Anticipated Discharge: > 48 hours
Subjective/Interval History
-
Date of Service: August 17, 2024
Objective Data
-
Labs:
Laboratory Results
08/17/24 08/17/24
03:59 12:04
WBC 12.3 H
Hgb 8.2 L 8.3 L
Hct 23.2 L 24.0 L
Plt Count 384 D
Sodium 138
Potassium 3.2 L
Chloride 102
Carbon Dioxide 30
BUN 12
Creatinine 0.8
Glucose 105 H
Calcium 7.4 L
Vital Signs:
Vital Signs
Temp Pulse Resp BP Pulse Ox
98.1 F 89 22 178/84 97
08/17/24 11:00 08/17/24 11:00 08/17/24 11:00 08/17/24 11:00 08/17/24 11:00
I&O
08/16/24 08/17/24 08/18/24
06:59 06:59 06:59
Intake Total 445 / 445 1180 / 1180
Output Total 40 / 40
Balance 405 / 405 1180 / 1180
Physical Exam
-
General: Well Developed, Well Nourished, No Apparent Distress and Appears Chronically Ill
HEENT: Normocephalic, Atraumatic and Moist Mucous Membranes
Respiratory: Wheezes (end expiratory wheeze has significantly decreased)
Cardiac: Regular Rhythm and S1/S2
GI: Soft, Nontender (slightly tender in RUQ, area of liver bx) and Nondistended
Musculoskeletal: No Clubbing, No Cyanosis and No Edema
Neuro: Awake, Alert and Oriented
[2024-08-17] MEDS: MYCAMINE 105 MG IV (14:32)
--- NOTE | 2024-08-17 15:40 | W.PN.UPDATE ---
Update Note
Progress Note Update
Poor prep today . will r/s her colonoscopy for tomorrow.
will give her mag citrate x 1 at 1800
clear liquid diet
NPO after MN
[2024-08-17] MEDS: CITROMA 300 ML PO (17:55)
[2024-08-18] VITALS (8 sets, daily range): BP systolic 120–153; BP diastolic 53–78
[2024-08-18 05:48] LABS: % Basophils 0.3 % (0-2); % Eosinophils 1.9 % (0-6); % Immature Granulocytes 1.4 % (0-0.5); % Lymphocytes 4.9 % (20.5-51.1); % Neutrophils 83.5 % (42.2-75.2); Absolute Eosinophils 0.2 10^3/uL (0-0.7); Absolute Immature Granulocytes 0.2 10^3/uL (0-0.05); Absolute Lymphocytes 0.6 10^3/uL (1.2-3.4); Absolute Monocytes 0.9 10^3/uL (0.1-0.6); Absolute Neutrophils 9.4 10^3/uL (1.4-6.5); Hematocrit 21.6 % (37.0-47.0); Hemoglobin 7.3 g/dL (12.0-16.0); Mean Corp Hgb Conc. 33.8 g/dL (33.0-37.0); Mean Corpuscular Hgb 22.1 pg (27.0-31.0); Mean Corpuscular Volume 65.5 fL (81.0-99.0); Mean Platelet Volume 9.9 fL (7.4-10.4); Nucleated Red Blood Cells % 0 %; Platelet Count 407 10^3/uL (130-400); Red Cell Dist. Width 24.5 % (11.5-14.5); White Blood Cell Count 11.2 10^3/uL (4.8-10.8)
[2024-08-18 06:02] LABS: Blood Urea Nitrogen 7 mg/dl (7-17); Calcium 7.5 mg/dl (8.4-10.2); Carbon Dioxide 26 mmol/L (22-30); Chloride 105 mmol/L (98-107); Estimated Creatinine Clearance 53 ml/min; Glucose 94 mg/dl (70-99); Potassium 3.4 mmol/L (3.5-5.1); Sodium 138 mmol/L (135-145); eGFR > 60.00
[2024-08-18] MEDS: CITROMA 300 ML PO (06:09)
[2024-08-18] MEDS: NSS (PRESERVATIVE FREE) 10 ML IV ×2 (07:22→20:17)
[2024-08-18] MEDS: PROTONIX IV 40 MG IV ×2 (07:22→20:17)
[2024-08-18] MEDS: PROZAC PO (09:14)
[2024-08-18] MEDS: VISBIOME PO (09:14)
[2024-08-18] MEDS: FLAGYL PO (09:14)
--- NOTE | 2024-08-18 12:00 | PTCARENOTE ---
Patient received back in room s/p colonoscopy, resting comfortably with no complaints. Patient is anxious to eat, low residue diet ordered, assisted patient to order lunch. Plan of care ongoing.
[2024-08-18] MEDS: KCL 40 MEQ PO (12:41)
[2024-08-18] MEDS: STERILE WATER FOR INJECTION 20 ML IV (12:41)
[2024-08-18] MEDS: ROCEPHIN 2000 MG IV (12:41)
[2024-08-18] MEDS: ATIVAN 0.5 MG PO ×2 (12:51→19:10)
[2024-08-18] MEDS: MYCAMINE 105 MG IV (14:26)
--- NOTE | 2024-08-18 15:49 | W.PN.ID1 ---
Date of Service
Date of Service: August 18, 2024
Today's Communication
cefdinir, metronidazole and fluconazole
check qtc in the am
Assessment / Plan
Large hepatic Abscess
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
Leukocytosis
LILIAN
Cholelithiasis and possible choledocholithiasis
- 08/12 ERCP finding of duodenal fistula with copious pus
- 08/16 CT angio - no definitive site of hemorrhage
- eventual UGI study to evaluate fistula
- drain removed
- check QTc 455
- abscess culture K. oxytoca, VGS, C albicans
- blood cultures x2 finalized negative
- start cefdinir, stop ceftriaxone; c/w metronidazole
- start fluconazole
- recheck qtc in the AM
- decreased trazodone dose to 25 mg qpm
- there appears to be a fair amount of undrained phlegmon; likely 4 more weeks of treatment, plan to complete course with orals
- will continue to follow closely
����������������������������������������������������������
Chief Complaint
-: Leukocytosis and Other (hepatic abscess)
Subjective / Review of Systems
afebrile
bp stable
colonoscopy with ischemic colitis
lexapro wasnt started - remains on prozac at this time
Vital Signs / Physical Exam
Vital Signs
Vital Signs
Temp Pulse Resp BP Pulse Ox
97.7 F 82 20 138/59 98
08/18/24 11:59 08/18/24 11:56 08/18/24 11:56 08/18/24 11:56 08/18/24 11:56
Physical Exam
Constitutional: No Acute Distress
Cardiovascular: Regular Rate and S1/S2; Negative Murmur or Rub
Pulmonary: Clear and Symmetric; Negative Wheezes or Rales
Gastrointestinal: Soft, Non Tender, Non Distended and Normal Bowel Sounds
Skin: Warm and Dry; Negative Rash or Jaundice
Objective Data
Lab Data
Lab Results
08/18/24 05:10
08/18/24 05:10
ESR 86 mm/hour (0-20) H 08/06/24 09:06
PT 15.0 Sec (11.4-14.6) H 08/06/24 09:04
INR 1.20 08/06/24 09:04
APTT 28.9 Sec (23.4-35.0) 08/05/24 13:21
Estimated Creat Clear 53 ml/min 08/18/24 05:10
Lactic Acid 0.9 mmol/L (0.7-2.0) 08/05/24 13:21
Total Bilirubin 0.5 mg/dl (0.2-1.3) 08/16/24 04:19
AST 28 U/L (14-36) 08/16/24 04:19
ALT 27 U/L (0-35) 08/16/24 04:19
Alkaline Phosphatase 198 U/L (38-126) H 08/16/24 04:19
C-Reactive Protein 204.20 mg/L (0.0-10.00) H 08/06/24 09:05
Most recent labs reviewed.
Micro Results:
08/13/24 15:54 Wound Culture - Final
Abscess Stephanie albicans
Gram Stain - Final
08/07/24 12:03 Blood Culture - Final
Blood/Venous No Growth - Final Report
08/05/24 13:21 Blood Culture - Final
Blood/Venous No Growth - Final Report
08/08/24 13:32 Stool Leukocytes - Final
Feces/Stool
08/08/24 13:32 C. difficile GDH Antigen & Toxins - Final
Feces/Stool Negative for toxigenic C.difficile
08/06/24 13:00 Wound Culture - Final
Liver Klebsiella oxytoca
Viridans Streptococcus Group
Gram Stain - Final
08/05/24 00:44 Urine Culture - Final
Urine NO GROWTH
Imaging:
08/13/24 CT a/p: Large hepatic abscess seen on prior CT dated 08/05/2024 has significantly improved. Previously placed drainage catheter has retracted out of the abscess, and is now located within the periphery of the liver.
2. Second collection is seen within the posterior right hepatic lobe, measuring 3.5 x 2.8 x 2.5 cm, with internal air, likely representing an undrained hepatic abscess.
3. Mild biliary ductal dilation, grossly unchanged compared to prior CT.
4. Pneumobilia, increased in amount compared to prior CT. Biliary ductal communication with the hepatic abscesses and/or cholangitis is not excluded. Biliary air may also be related to recent ERCP.
Care Review
Plan reviewed with: Physician (Dr Valadez - bharat - was not ordered and not planned to)
--- NOTE | 2024-08-18 16:22 | W.PN.HOSP.TC ---
Today's Communication/Plan
-
Continue antibiotics
Low residue diet
Monitor hemoglobin.
Assessment / Plan
Assessment / Plan
Impression:
Presentation with severe fatigue and weakness.
Acute kidney injury, improved
Rhabdomyolysis. Nontraumatic, improved
Hepatic abscess.
Choledocholithiasis
Duodenal fistula
Hypokalemia
Transaminitis
Acute lower gastrointestinal hemorrhage.
Acute blood loss anemia
Other conditions:
Essential hypertension
Dyslipidemia.
Left ankle arthritis
History of melanoma removal remote.
Plan:
Clinical sepsis on presentation with hepatobiliary source
Hepatic abscess
CT scan of abd/pelvis: 1). There is an 11 cm heterogeneous low density mass in the right lobe with a small volume internal gas.
Differential diagnosis for this mass includes both benign and malignant neoplasm.
The presence of gas within the lesion raises concern for fistulous communication with the adjacent bowel.
Alternatively, this mass may be abscess collection.
Biopsy/drainage may be useful for further evaluation
2). Cholelithiasis
3). 4 cm left parapelvic renal cyst
Status post interventional radiology aspiration on 08/06 with purulence.
KAIDEN drain in place
Cultures Klebsiella/Viridans Strep.
Antibiotics narrowed to ceftriaxone and Flagyl
Tumor markers with slightly elevated CEA and normal levels of CEA 199/AFP
Oncology input appreciated
May require additional imaging either with enhanced CT scan if renal function allows for MRI of the abdomen.
Plan for upper GI series tomorrow
Unable to perform MRI/MRCP given Medtronic device (spinal stimulator in place)
Follow-up imaging with ultrasound 08/10:
1. Interval decrease in size of the heterogeneous collection along the right lobe of the liver as above. The percutaneous drainage catheter is not well seen at sonography. No significant residual undrained anechoic collection is identified.
2. Persistent dilation of the common bile duct. Ovoid echogenic structure likely representing concretion of biliary sludge within the common bile duct as above.
3. Cholelithiasis. Negative for abnormal gallbladder dilation.
ERCP 08/12: Duodenal fistula draining copious amount of pus. Choledocholithiasis. Complete removal accomplished with biliary sphincterectomy and balloon extraction.
Follow-up CT scan 08/13 large hepatic abscess significantly improved. Previously placed catheter has retracted out of the abscess. Second collection noted measuring 3.5 x 2.8 x 2.5 cm with internal air, likely representing undrained hepatic
abscess.
iRad drain check on 08/16 with no residual collection.
The drain was removed on 08/16
Follow-up imaging with concern for phlegmon not amenable to drain
Continue IV antibiotics per ID. Currently on ceftriaxone, metronidazole, micafungin plan for additional 4 weeks of treatment
Acute rectal bleeding.
CT angiogram with no extravasation.
Emergent IR at mesenteric angio showed no active bleeding.
Colonoscopy 08/16 with single colonic angiectasia treated with argon plasma coagulation. 2 erosions superficial ulcers in the cecal biopsy. Mucosal ulceration with congestion in the sigmoid colon descending colon likely ischemic colitis biopsied.
Internal hemorrhoids.
Low residue diet
Acute blood loss anemia with rectal bleeding.
Type and cross
Bleeding subsided with appropriate response to transfusion. Monitor hemoglobin.
Acute kidney injury.
Metabolic acidosis.
Nontraumatic rhabdomyolysis
Diaz catheter placed on admission (no documented retention while in ED.
Avoid NSAIDs.
Hold lisinopril/HCTZ.
Creatinine improved to normal
Observe off IV fluids.
Diaz catheter removed on 08/09
Dyslipidemia
Hold statin given abnormal liver function test
Chronic microcytic anemia
Hx of Thalassemia Minor (as per pt)
Iron level with mild iron deficiency also mixed picture of inflammatory anemia
Check coagulation profile.
Type and screen.
Monitor hemoglobin.
Hgb 7.4 yesterday, labs pending today (was 10.8 12/31/10)
Full code.
DVT prophylaxis heparin.
Anticipated Discharge: 24 - 48 hours
Subjective/Interval History
-
Date of Service: August 18, 2024
Objective Data
-
Labs:
Laboratory Results
08/18/24
05:10
WBC 11.2 H
Hgb 7.3 L
Hct 21.6 L
Plt Count 407 H
Sodium 138
Potassium 3.4 L
Chloride 105
Carbon Dioxide 26
BUN 7
Creatinine 0.8
Glucose 94
Calcium 7.5 L
Vital Signs:
Vital Signs
Temp Pulse Resp BP Pulse Ox
98.0 F 87 20 142/54 97
08/18/24 15:50 08/18/24 15:50 08/18/24 15:50 08/18/24 15:50 08/18/24 15:50
I&O
08/17/24 08/18/24 08/19/24
06:59 06:59 06:59
Intake Total 1180 / 1180 0 / 0
Output Total 0 / 0
Balance 1180 / 1180 0 / 0
Physical Exam
-
General: Well Developed, Well Nourished, No Apparent Distress and Appears Chronically Ill
HEENT: Normocephalic, Atraumatic and Moist Mucous Membranes
Respiratory: Wheezes (end expiratory wheeze has significantly decreased)
Cardiac: Regular Rhythm and S1/S2
GI: Soft, Nontender (slightly tender in RUQ, area of liver bx) and Nondistended
Musculoskeletal: No Clubbing, No Cyanosis and No Edema
Neuro: Awake, Alert and Oriented
[2024-08-18] MEDS: FLAGYL 500 MG PO (20:17)
[2024-08-18] MEDS: DESYREL 25 MG PO (22:18)
[2024-08-19] VITALS (7 sets, daily range): BP systolic 146–171; BP diastolic 60–84; PULSE 102
[2024-08-19 04:55] LABS: Blood Urea Nitrogen 9 mg/dl (7-17); Calcium 7.5 mg/dl (8.4-10.2); Carbon Dioxide 20 mmol/L (22-30); Chloride 110 mmol/L (98-107); Estimated Creatinine Clearance 60 ml/min; Glucose 98 mg/dl (70-99); Potassium 3.6 mmol/L (3.5-5.1); Sodium 138 mmol/L (135-145); eGFR > 60.00
[2024-08-19] MEDS: ATIVAN 0.25 MG IV (06:07)
[2024-08-19] MEDS: NSS (PRESERVATIVE FREE) 1 ML IV (06:10)
[2024-08-19] MEDS: PROTONIX IV 40 MG IV ×2 (07:37→19:43)
[2024-08-19] MEDS: NSS (PRESERVATIVE FREE) 10 ML IV ×2 (07:37→19:43)
[2024-08-19 08:24] LABS: % Basophils 0.3 % (0-2); % Eosinophils 1.7 % (0-6); % Immature Granulocytes 0.9 % (0-0.5); % Lymphocytes 3.9 % (20.5-51.1); % Monocytes 7.8 % (1.7-9.3); % Neutrophils 85.4 % (42.2-75.2); Absolute Eosinophils 0.2 10^3/uL (0-0.7); Absolute Immature Granulocytes 0.1 10^3/uL (0-0.05); Absolute Lymphocytes 0.4 10^3/uL (1.2-3.4); Absolute Monocytes 0.8 10^3/uL (0.1-0.6); Absolute Neutrophils 8.4 10^3/uL (1.4-6.5); Hematocrit 22.3 % (37.0-47.0); Hemoglobin 7.4 g/dL (12.0-16.0); Mean Corp Hgb Conc. 33.2 g/dL (33.0-37.0); Mean Corpuscular Hgb 22.3 pg (27.0-31.0); Mean Corpuscular Volume 67.2 fL (81.0-99.0); Mean Platelet Volume 9.8 fL (7.4-10.4); Nucleated Red Blood Cells % 0 %; Platelet Count 420 10^3/uL (130-400); Red Blood Cell Count 3.32 10^6/uL (4.20-5.40); Red Cell Dist. Width 25.4 % (11.5-14.5); White Blood Cell Count 9.9 10^3/uL (4.8-10.8)
[2024-08-19] MEDS: VISBIOME 2 CAP PO (11:00)
[2024-08-19] MEDS: PROZAC 40 MG PO (11:00)
[2024-08-19] MEDS: DIFLUCAN 400 MG PO (11:00)
[2024-08-19] MEDS: OMNICEF 300 MG PO ×2 (11:01→19:43)
[2024-08-19] MEDS: FLAGYL 500 MG PO ×2 (11:01→19:33)
--- NOTE | 2024-08-19 11:31 | CM ---
CM reviewed chart, met with patient bedside. CM discussed PT recommendations of home health, patient agreeable to referral to [facility], TT sent to liaison for referral. CM will continue to follow for all discharge planning needs.
Plan; home with [facility] when medically stable.
[2024-08-19] MEDS: IMODIUM 2 MG PO (11:34)
--- NOTE | 2024-08-19 12:36 | W.PN.SURGUPD ---
Surgical Update
Surgical Update
Upper GI imaging study reviewed. Essentially unremarkable study gastric emptying and appearance of the duodenal bulb/sweep. No radiographic evidence of fistula present.
From a surgical standpoint the best study for reevaluation of possible duodenal-biliary fistula would be upper endoscopic procedure with endoscopic fistulogram as radiographic imaging with CT as well as upper GI have not confirmed endoscopic
findings.
If cholecysto - duodenal fistula identified treatment would preferentially be internal drainage via existing tract
If choledocho - duodenal fistula then would likely require internal biliary drainage with stenting
[2024-08-19] MEDS: ATIVAN 0.5 MG PO (12:56)
--- NOTE | 2024-08-19 13:54 | VNURNOTE ---
Home Health Liaison met with patient at bedside to discuss [facility] nurse/therapy, visits, schedule and homebound status. Patient is agreeable and understands that visits at home will be 2-3 x per week to assess and teach medical management.
[facility] brochure provided with contact information. Patient is aware that [facility] will contact them for start of care in 1-2 days after discharge from .
[facility] referral completed in [facility].
--- NOTE | 2024-08-19 15:22 | W.PN.GI.CBS2 ---
Today's Communication / Plan
-
Continue antibiotic
Repeat EGD with fistulogram with Dr. Mota next week
Assessment / Plan
-
Pt is an 89yo with hx multiple medical problems including chronic anemia, thalassemia, asthma, HTN, hyperlipidemia,atrophic gastritis, duodenal adenoma, vascular ectasia, DVT, , malignant melanoma in present to ER with change in mental
status and weakness. On admission noted with multiple labs abnormality and concern for Rhabdomyolysis. WBC 49,200, hbg 8.7, platelets 712, Na 134, K 5.1, cl 97, Co2 17, BUN 116, creat 3.9, t bili 0.9, d bili 0.7, AST 720, ALT 296, alk phos 381,
CK 5350, albumin 3, procal 151.28. Imaging on admission with concern for liver mass vs abscess, with noted air and concern for fistula connection to bowel. US with CBD dilation with concern for choledocholithiasis.
08/10 repeat US
1. Interval decrease in size of the heterogeneous collection along the right lobe of the liver as above. The percutaneous drainage catheter is not well seen at sonography. No significant residual undrained anechoic collection is identified.
2. Persistent dilation of the common bile duct. Ovoid echogenic structure likely representing concretion of biliary sludge within the common bile duct
3. Cholelithiasis. Negative for abnormal gallbladder dilation.
08/12/25 ERCP: Dr Rodrigues
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
- The common bile duct was dilated.
- Choledocholithiasis was found. Complete removal was accomplished by biliary sphincterotomy and balloon extraction.
08/16/24 CT Abd/pelvis Angio W/wo Iv
1. Site of active hemorrhage is not definitively identified at CT. As above, there is 6 mm enhancing focus which appears intraluminal in the distal transverse colon. Pseudoaneurysm or some form of vascular malformation is possible, however there
is no pooling of contrast on delayed phase images to confirm active bleeding at this level. There are no filling defects within the biliary system to strongly suggest hemobilia.
2. Advanced aortic atherosclerotic changes as described. High-grade stenosis of the celiac axis. Relative stenosis of the infrarenal aorta.
3. Percutaneous drainage catheter in right lobe hepatic abscess, expected appearance. Minimal residual decreased attenuation adjacent to the catheter locking loop.
4. Moderate intrahepatic biliary dilation, improved as compared with prior. Mild dilation of the common bile duct, improved as compared with prior.
5. Cholelithiasis.
Colonoscopy 08/18/2024
Impression: - The examined portion of the ileum was normal.
- A single colonic angioectasia. Treated with argon
plasma coagulation (APC).
- Two erosions/ superfical ulcers in the cecum.
Biopsied.
- Mucosal ulceration with congestion in the sigmoid
colon/ descending colon. Likely ischemic colitis.
Biopsied.
- Internal hemorrhoids.
- No active bleeding
-sepsis secondary to large liver abscess with cx + Virdian strep and Klebsiella . S/p IR drainage (currently drains were removed)
-08/12 ERCP with choledocholithiasis with removal with sphincterotomy and balloon extraction
-- Noted to have duodenal fistula in D1 during EGD/ERCP with bilious/purulent material. Upper GI series 08/19/2024-no definite fistula identified
CT abd with noted abscess, with noted air and concern for fistula connection to bowel
-08/16 rectal bleeding with red blood with clot . CTA -site of active bleeding not identified. Colonoscopy 08/18/2024-colonic AVM. Mucosal ulceration and congestion in the sigmoid/descending colon suggestive of ischemic colitis
PLAN:
Continue antibiotics as per ID
Discussed with patient/hospitalist/surgery. Patient requires repeat EGD with fistulogram +/- stenting . Will discuss with Dr. Mota on Friday when he returns back
Continue diet as tolerated
Monitor LFT
avoid NSAIDs
Total Time Spent with Patient (in minutes): 35
Subjective
Subjective
Date of Service: August 19, 2024
No GI complaints. Patient underwent upper GI series today. Tolerating diet well.
Objective
Data Reviewed
Laboratory Data:
Laboratory Results
08/19/24 06:57
08/19/24 04:36
Laboratory Results
PT 15.0 Sec (11.4-14.6) H 08/06/24 09:04
INR 1.20 08/06/24 09:04
APTT 28.9 Sec (23.4-35.0) 08/05/24 13:21
Phosphorus 5.5 mg/dl (2.5-4.5) H 08/06/24 09:04
Magnesium 1.8 mg/dl (1.6-2.3) 08/06/24 09:04
Total Bilirubin 0.5 mg/dl (0.2-1.3) 08/16/24 04:19
AST 28 U/L (14-36) 08/16/24 04:19
ALT 27 U/L (0-35) 08/16/24 04:19
Alkaline Phosphatase 198 U/L (38-126) H 08/16/24 04:19
Lipase 102 U/L (23-300) 08/04/24 22:14
Vital Signs and I&O:
Vital Signs
Temp Pulse Resp BP Pulse Ox
98.0 F 96 20 146/60 98
08/19/24 11:05 08/19/24 11:05 08/19/24 11:05 08/19/24 11:05 08/19/24 11:05
I&O
08/18/24 08/19/24 08/20/24
06:59 06:59 06:59
Intake Total 0 / 0 345 / 345
Output Total 0 / 0
Balance 0 / 0 345 / 345
Physical Exam
Physical Exam
GI: Soft, Non Distended and Non Tender
--- NOTE | 2024-08-19 16:33 | W.PN.HOSP.TC ---
Today's Communication/Plan
-
Continue oral antibiotics.
For repeat endoscopy early next week to evaluate duodenal fistula anatomy.
Starting Xanax for severe anxiety.
Assessment / Plan
Assessment / Plan
Impression:
Presentation with severe fatigue and weakness.
Acute kidney injury, improved
Rhabdomyolysis. Nontraumatic, improved
Hepatic abscess.
Choledocholithiasis
Duodenal fistula
Hypokalemia
Transaminitis
Acute lower gastrointestinal hemorrhage.
Acute blood loss anemia
Other conditions:
Essential hypertension
Dyslipidemia.
Left ankle arthritis
History of melanoma removal remote.
Plan:
Clinical sepsis on presentation with hepatobiliary source
Hepatic abscess
CT scan of abd/pelvis: 1). There is an 11 cm heterogeneous low density mass in the right lobe with a small volume internal gas.
Differential diagnosis for this mass includes both benign and malignant neoplasm.
The presence of gas within the lesion raises concern for fistulous communication with the adjacent bowel.
Alternatively, this mass may be abscess collection.
Biopsy/drainage may be useful for further evaluation
2). Cholelithiasis
3). 4 cm left parapelvic renal cyst
Status post interventional radiology aspiration on 08/06 with purulence.
KAIDEN drain in place
Cultures Klebsiella/Viridans Strep.
Antibiotics narrowed to ceftriaxone and Flagyl
Tumor markers with slightly elevated CEA and normal levels of CEA 199/AFP
Oncology input appreciated
May require additional imaging either with enhanced CT scan if renal function allows for MRI of the abdomen.
Plan for upper GI series tomorrow
Unable to perform MRI/MRCP given Medtronic device (spinal stimulator in place)
Follow-up imaging with ultrasound 08/10:
1. Interval decrease in size of the heterogeneous collection along the right lobe of the liver as above. The percutaneous drainage catheter is not well seen at sonography. No significant residual undrained anechoic collection is identified.
2. Persistent dilation of the common bile duct. Ovoid echogenic structure likely representing concretion of biliary sludge within the common bile duct as above.
3. Cholelithiasis. Negative for abnormal gallbladder dilation.
ERCP 08/12: Duodenal fistula draining copious amount of pus. Choledocholithiasis. Complete removal accomplished with biliary sphincterectomy and balloon extraction.
Follow-up CT scan 08/13 large hepatic abscess significantly improved. Previously placed catheter has retracted out of the abscess. Second collection noted measuring 3.5 x 2.8 x 2.5 cm with internal air, likely representing undrained hepatic
abscess.
iRad drain check on 08/16 with no residual collection.
The drain was removed on 08/16
Follow-up imaging with concern for phlegmon not amenable to drain
Continue IV antibiotics per ID. 08/18 transitioned to oral regimen with cefdinir, metronidazole, micafungin for additional 4 weeks. Through 09/18.
Duodenal fistula
Discussion with gastroenterology and surgery.
Need additional endoscopy with fistulogram to determine origin of drain either from the gallbladder versus common bile duct for determination of possible options of treatment. Plan for repeat advanced endoscopy early next week.
Acute rectal bleeding.
CT angiogram with no extravasation.
Emergent IR at mesenteric angio showed no active bleeding.
Colonoscopy 08/16 with single colonic angiectasia treated with argon plasma coagulation. 2 erosions superficial ulcers in the cecal biopsy. Mucosal ulceration with congestion in the sigmoid colon descending colon likely ischemic colitis biopsied.
Internal hemorrhoids.
Low residue diet
Acute blood loss anemia with rectal bleeding.
Type and cross
Bleeding subsided with appropriate response to transfusion. Monitor hemoglobin.
Acute kidney injury.
Metabolic acidosis.
Nontraumatic rhabdomyolysis
Diaz catheter placed on admission (no documented retention while in ED.
Avoid NSAIDs.
Hold lisinopril/HCTZ.
Creatinine improved to normal
Observe off IV fluids.
Diaz catheter removed on 08/09
Dyslipidemia
Hold statin given abnormal liver function test
Severe anxiety.
Stop lorazepam
Initiated on low-dose of Xanax
Full code.
DVT prophylaxis heparin.
Anticipated Discharge: > 48 hours
Subjective/Interval History
-
Date of Service: August 19, 2024
Objective Data
-
Labs:
Laboratory Results
08/19/24 08/19/24
04:36 06:57
WBC Cancelled 9.9
Hgb Cancelled 7.4 L
Hct Cancelled 22.3 L
Plt Count Cancelled 420 H
Sodium 138
Potassium 3.6
Chloride 110 H
Carbon Dioxide 20 L
BUN 9
Creatinine 0.7
Glucose 98
Calcium 7.5 L
Vital Signs:
Vital Signs
Temp Pulse Resp BP Pulse Ox
98.0 F 85 20 152/63 97
08/19/24 15:32 08/19/24 15:32 08/19/24 15:32 08/19/24 15:32 08/19/24 15:32
I&O
08/18/24 08/19/24 08/20/24
06:59 06:59 06:59
Intake Total 0 / 0 345 / 345
Output Total 0 / 0
Balance 0 / 0 345 / 345
Physical Exam
-
General: Well Developed, Well Nourished, No Apparent Distress and Appears Chronically Ill
HEENT: Normocephalic, Atraumatic and Moist Mucous Membranes
Respiratory: Wheezes (end expiratory wheeze has significantly decreased)
Cardiac: Regular Rhythm and S1/S2
GI: Soft, Nontender (slightly tender in RUQ, area of liver bx) and Nondistended
Musculoskeletal: No Clubbing, No Cyanosis and No Edema
Neuro: Awake, Alert and Oriented
--- NOTE | 2024-08-19 17:26 | W.PN.ID1 ---
Date of Service
Date of Service: August 19, 2024
Today's Communication
likely 4 more weeks of treatment, plan to complete course with orals
Assessment / Plan
Large hepatic Abscess
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
Leukocytosis
LILIAN
Cholelithiasis and possible choledocholithiasis
- 08/12 ERCP finding of duodenal fistula with copious pus
- 08/16 CT angio - no definitive site of hemorrhage
- UGI without evidence of fistula - plan for EGD next week
- abscess culture K. oxytoca, VGS, C albicans
- blood cultures x2 finalized negative
- c/w cefdinir, stop ceftriaxone; c/w metronidazole
- c/w fluconazole
- recheck qtc in the AM
- decreased trazodone dose to 25 mg qpm
- there appears to be a fair amount of undrained phlegmon; likely 4 more weeks of treatment, plan to complete course with orals
- will continue to follow closely
����������������������������������������������������������
Chief Complaint
-: Leukocytosis and Other (hepatic abscess)
Subjective / Review of Systems
afebrile
bp stable
in good spirits
Vital Signs / Physical Exam
Vital Signs
Vital Signs
Temp Pulse Resp BP Pulse Ox
98.0 F 85 20 152/63 97
08/19/24 15:32 08/19/24 15:32 08/19/24 15:32 08/19/24 15:32 08/19/24 15:32
Physical Exam
Constitutional: No Acute Distress
Cardiovascular: Regular Rate
Pulmonary: Non Labored
Gastrointestinal: Non Distended
Neurological: Awake
Objective Data
Lab Data
Lab Results
08/19/24 06:57
08/19/24 04:36
ESR 86 mm/hour (0-20) H 08/06/24 09:06
PT 15.0 Sec (11.4-14.6) H 08/06/24 09:04
INR 1.20 08/06/24 09:04
APTT 28.9 Sec (23.4-35.0) 08/05/24 13:21
Estimated Creat Clear 60 ml/min 08/19/24 04:36
Lactic Acid 0.9 mmol/L (0.7-2.0) 08/05/24 13:21
Total Bilirubin 0.5 mg/dl (0.2-1.3) 08/16/24 04:19
AST 28 U/L (14-36) 08/16/24 04:19
ALT 27 U/L (0-35) 08/16/24 04:19
Alkaline Phosphatase 198 U/L (38-126) H 08/16/24 04:19
C-Reactive Protein 204.20 mg/L (0.0-10.00) H 08/06/24 09:05
Most recent labs reviewed.
Micro Results:
08/13/24 15:54 Wound Culture - Final
Abscess Stephanie albicans
Gram Stain - Final
08/07/24 12:03 Blood Culture - Final
Blood/Venous No Growth - Final Report
08/05/24 13:21 Blood Culture - Final
Blood/Venous No Growth - Final Report
08/08/24 13:32 Stool Leukocytes - Final
Feces/Stool
08/08/24 13:32 C. difficile GDH Antigen & Toxins - Final
Feces/Stool Negative for toxigenic C.difficile
08/06/24 13:00 Wound Culture - Final
Liver Klebsiella oxytoca
Viridans Streptococcus Group
Gram Stain - Final
08/05/24 00:44 Urine Culture - Final
Urine NO GROWTH
Imaging:
08/13/24 CT a/p: Large hepatic abscess seen on prior CT dated 08/05/2024 has significantly improved. Previously placed drainage catheter has retracted out of the abscess, and is now located within the periphery of the liver.
2. Second collection is seen within the posterior right hepatic lobe, measuring 3.5 x 2.8 x 2.5 cm, with internal air, likely representing an undrained hepatic abscess.
3. Mild biliary ductal dilation, grossly unchanged compared to prior CT.
4. Pneumobilia, increased in amount compared to prior CT. Biliary ductal communication with the hepatic abscesses and/or cholangitis is not excluded. Biliary air may also be related to recent ERCP.
[2024-08-19] MEDS: XANAX 0.5 MG PO (19:33)
[2024-08-19] MEDS: FLUSH (NSS) 1 FLUSH IV (19:43)
[2024-08-19] MEDS: DESYREL 25 MG PO (22:03)
[2024-08-20] VITALS (8 sets, daily range): BP systolic 134–168; BP diastolic 58–75; PULSE 80
[2024-08-20] MEDS: TYLENOL 650 MG PO (08:28)
[2024-08-20] MEDS: DIFLUCAN 400 MG PO (08:29)
[2024-08-20] MEDS: XANAX 0.5 MG PO ×2 (08:29→21:12)
[2024-08-20] MEDS: PROTONIX IV 40 MG IV ×2 (08:29→21:12)
[2024-08-20] MEDS: OMNICEF 300 MG PO ×2 (08:29→21:12)
[2024-08-20] MEDS: VISBIOME 2 CAP PO (08:29)
[2024-08-20] MEDS: NSS (PRESERVATIVE FREE) 10 ML IV ×2 (08:31→21:12)
[2024-08-20] MEDS: PROZAC 40 MG PO (08:35)
[2024-08-20] MEDS: FLAGYL 500 MG PO ×2 (08:39→21:12)
--- NOTE | 2024-08-20 12:18 | W.PN.ID1 ---
Date of Service
Date of Service: August 20, 2024
Today's Communication
- c/w cefdinir, metronidazole, fluconazole
complete course with orals through 09/14
Assessment / Plan
Large hepatic Abscess
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
Leukocytosis
LILIAN
Cholelithiasis and possible choledocholithiasis
- 08/12 ERCP finding of duodenal fistula with copious pus
- 08/16 CT angio - no definitive site of hemorrhage
- UGI without evidence of fistula - plan for EGD next week
- abscess culture K. oxytoca, VGS, C albicans
- blood cultures x2 finalized negative
- c/w cefdinir, metronidazole, fluconazole
- qtc acceptable
- decreased trazodone dose to 25 mg qpm
- there appears to be a fair amount of undrained phlegmon; for 4 more weeks of treatment, plan to complete course with orals through 09/14
- will continue to follow closely
����������������������������������������������������������
Chief Complaint
-: Leukocytosis and Other (hepatic abscess)
Subjective / Review of Systems
afebrile
bp stable
no labs today and not needed from my perspective
Vital Signs / Physical Exam
Vital Signs
Vital Signs
Temp Pulse Resp BP Pulse Ox
98.4 F 88 18 134/58 95
08/20/24 11:15 08/20/24 11:15 08/20/24 11:15 08/20/24 11:15 08/20/24 11:22
Physical Exam
Constitutional: No Acute Distress
Cardiovascular: Regular Rate and S1/S2; Negative Murmur or Rub
Pulmonary: Clear and Symmetric; Negative Wheezes or Rales
Gastrointestinal: Soft, Non Tender, Non Distended and Normal Bowel Sounds
Skin: Warm and Dry; Negative Rash or Jaundice
Objective Data
Lab Data
Lab Results
08/19/24 06:57
08/19/24 04:36
ESR 86 mm/hour (0-20) H 08/06/24 09:06
PT 15.0 Sec (11.4-14.6) H 08/06/24 09:04
INR 1.20 08/06/24 09:04
APTT 28.9 Sec (23.4-35.0) 08/05/24 13:21
Estimated Creat Clear 60 ml/min 08/19/24 04:36
Lactic Acid 0.9 mmol/L (0.7-2.0) 08/05/24 13:21
Total Bilirubin 0.5 mg/dl (0.2-1.3) 08/16/24 04:19
AST 28 U/L (14-36) 08/16/24 04:19
ALT 27 U/L (0-35) 08/16/24 04:19
Alkaline Phosphatase 198 U/L (38-126) H 08/16/24 04:19
C-Reactive Protein 204.20 mg/L (0.0-10.00) H 08/06/24 09:05
Most recent labs reviewed.
Micro Results:
08/13/24 15:54 Wound Culture - Final
Abscess Stephanie albicans
Gram Stain - Final
08/07/24 12:03 Blood Culture - Final
Blood/Venous No Growth - Final Report
08/05/24 13:21 Blood Culture - Final
Blood/Venous No Growth - Final Report
08/08/24 13:32 Stool Leukocytes - Final
Feces/Stool
08/08/24 13:32 C. difficile GDH Antigen & Toxins - Final
Feces/Stool Negative for toxigenic C.difficile
08/06/24 13:00 Wound Culture - Final
Liver Klebsiella oxytoca
Viridans Streptococcus Group
Gram Stain - Final
08/05/24 00:44 Urine Culture - Final
Urine NO GROWTH
Imaging:
08/13/24 CT a/p: Large hepatic abscess seen on prior CT dated 08/05/2024 has significantly improved. Previously placed drainage catheter has retracted out of the abscess, and is now located within the periphery of the liver.
2. Second collection is seen within the posterior right hepatic lobe, measuring 3.5 x 2.8 x 2.5 cm, with internal air, likely representing an undrained hepatic abscess.
3. Mild biliary ductal dilation, grossly unchanged compared to prior CT.
4. Pneumobilia, increased in amount compared to prior CT. Biliary ductal communication with the hepatic abscesses and/or cholangitis is not excluded. Biliary air may also be related to recent ERCP.
--- NOTE | 2024-08-20 13:35 | W.PN.GI.CBS2 ---
Today's Communication / Plan
-
Plan for EGD with fistulogram next 08/23/2024, with Dr. Mota. Rest of care as outlined below.
Assessment / Plan
-
Pt is an 89yo with hx multiple medical problems including chronic anemia, thalassemia, asthma, HTN, hyperlipidemia,atrophic gastritis, duodenal adenoma, vascular ectasia, DVT, , malignant melanoma in present to ER with change in mental
status and weakness. On admission noted with multiple labs abnormality and concern for Rhabdomyolysis. WBC 49,200, hbg 8.7, platelets 712, Na 134, K 5.1, cl 97, Co2 17, BUN 116, creat 3.9, t bili 0.9, d bili 0.7, AST 720, ALT 296, alk phos 381,
CK 5350, albumin 3, procal 151.28. Imaging on admission with concern for liver mass vs abscess, with noted air and concern for fistula connection to bowel. US with CBD dilation with concern for choledocholithiasis.
08/10 repeat US
1. Interval decrease in size of the heterogeneous collection along the right lobe of the liver as above. The percutaneous drainage catheter is not well seen at sonography. No significant residual undrained anechoic collection is identified.
2. Persistent dilation of the common bile duct. Ovoid echogenic structure likely representing concretion of biliary sludge within the common bile duct
3. Cholelithiasis. Negative for abnormal gallbladder dilation.
08/12/25 ERCP: Dr Rodrigues
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
- The common bile duct was dilated.
- Choledocholithiasis was found. Complete removal was accomplished by biliary sphincterotomy and balloon extraction.
08/16/24 CT Abd/pelvis Angio W/wo Iv
1. Site of active hemorrhage is not definitively identified at CT. As above, there is 6 mm enhancing focus which appears intraluminal in the distal transverse colon. Pseudoaneurysm or some form of vascular malformation is possible, however there
is no pooling of contrast on delayed phase images to confirm active bleeding at this level. There are no filling defects within the biliary system to strongly suggest hemobilia.
2. Advanced aortic atherosclerotic changes as described. High-grade stenosis of the celiac axis. Relative stenosis of the infrarenal aorta.
3. Percutaneous drainage catheter in right lobe hepatic abscess, expected appearance. Minimal residual decreased attenuation adjacent to the catheter locking loop.
4. Moderate intrahepatic biliary dilation, improved as compared with prior. Mild dilation of the common bile duct, improved as compared with prior.
5. Cholelithiasis.
Colonoscopy 08/18/2024
Impression: - The examined portion of the ileum was normal.
- A single colonic angioectasia. Treated with argon
plasma coagulation (APC).
- Two erosions/ superfical ulcers in the cecum.
Biopsied.
- Mucosal ulceration with congestion in the sigmoid
colon/ descending colon. Likely ischemic colitis.
Biopsied.
- Internal hemorrhoids.
- No active bleeding
Pertinent Prior W/u / Hospital Course:
-sepsis secondary to large liver abscess with cx + Virdian strep and Klebsiella . S/p IR drainage (currently drains were removed)
-08/12 ERCP with choledocholithiasis with removal with sphincterotomy and balloon extraction
-- Noted to have duodenal fistula in D1 during EGD/ERCP with bilious/purulent material. Upper GI series 08/19/2024-no definite fistula identified
CT abd with noted abscess, with noted air and concern for fistula connection to bowel
-08/16 rectal bleeding with red blood with clot . CTA -site of active bleeding not identified. Colonoscopy 08/18/2024-colonic AVM. Mucosal ulceration and congestion in the sigmoid/descending colon suggestive of ischemic colitis
Plan:
- Diet as tolerated, keep NPO on Friday at [facility]
- Continue to trend serial LFTs
- Remains on IV antibiotics as per ID
- In discussions with Dr. Mota, plan for tentative EGD with fistulogram next week on 08/23/24
- Rest of care per primary team
GI team will continue to follow peripherally over weekend. Please reach out with any questions or concerns.
Subjective
Subjective
Date of Service: August 20, 2024
- No acute events overnight
Resting comfortably this AM without any abdominal pain, nausea/vomiting or other fevers/chills or constitutional symptoms. Discussed plan with patient at bedside regarding EGD with fistulogram next week.
Objective
Data Reviewed
Laboratory Data:
Laboratory Results
08/19/24 06:57
08/19/24 04:36
Laboratory Results
PT 15.0 Sec (11.4-14.6) H 08/06/24 09:04
INR 1.20 08/06/24 09:04
APTT 28.9 Sec (23.4-35.0) 08/05/24 13:21
Phosphorus 5.5 mg/dl (2.5-4.5) H 08/06/24 09:04
Magnesium 1.8 mg/dl (1.6-2.3) 08/06/24 09:04
Total Bilirubin 0.5 mg/dl (0.2-1.3) 08/16/24 04:19
AST 28 U/L (14-36) 08/16/24 04:19
ALT 27 U/L (0-35) 08/16/24 04:19
Alkaline Phosphatase 198 U/L (38-126) H 08/16/24 04:19
Lipase 102 U/L (23-300) 08/04/24 22:14
Vital Signs and I&O:
Vital Signs
Temp Pulse Resp BP Pulse Ox
98.4 F 88 18 134/58 95
08/20/24 11:15 08/20/24 11:15 08/20/24 11:15 08/20/24 11:15 08/20/24 11:22
I&O
08/19/24 08/20/24 08/21/24
06:59 06:59 06:59
Intake Total 345 / 345 1080 / 1080
Balance 345 / 345 1080 / 1080
Physical Exam
Physical Exam
HEENT: Anicteric and Moist mucous membranes
Cardiology: Normal Sinus Rhythm
Pulmonary: Clear
GI: Soft, Non Distended and Non Tender
Extremities: No Edema
Neuro: Non Focal
--- NOTE | 2024-08-20 15:25 | CM ---
CM reviewed chart, met with patient and family bedside. Patient for EGD on Friday, 08/23. Patient agreeable to [facility] upon discharge. CM will continue to follow for all discharge planning needs.
Plan; home with [facility] when stable.
--- NOTE | 2024-08-20 16:15 | W.PN.HOSP.TC ---
Today's Communication/Plan
-
Oral antibiotics per
For repeat endoscopy with fistulogram early next week.
Assessment / Plan
Assessment / Plan
Impression:
Presentation with severe fatigue and weakness.
Acute kidney injury, improved
Rhabdomyolysis. Nontraumatic, improved
Hepatic abscess.
Choledocholithiasis
Duodenal fistula
Hypokalemia
Transaminitis
Acute lower gastrointestinal hemorrhage.
Acute blood loss anemia
Other conditions:
Essential hypertension
Dyslipidemia.
Left ankle arthritis
History of melanoma removal remote.
Plan:
Clinical sepsis on presentation with hepatobiliary source
Hepatic abscess
CT scan of abd/pelvis: 1). There is an 11 cm heterogeneous low density mass in the right lobe with a small volume internal gas.
Differential diagnosis for this mass includes both benign and malignant neoplasm.
The presence of gas within the lesion raises concern for fistulous communication with the adjacent bowel.
Alternatively, this mass may be abscess collection.
Biopsy/drainage may be useful for further evaluation
2). Cholelithiasis
3). 4 cm left parapelvic renal cyst
Status post interventional radiology aspiration on 08/06 with purulence.
KAIDEN drain in place
Cultures Klebsiella/Viridans Strep.
Antibiotics narrowed to ceftriaxone and Flagyl
Tumor markers with slightly elevated CEA and normal levels of CEA 199/AFP
Oncology input appreciated
May require additional imaging either with enhanced CT scan if renal function allows for MRI of the abdomen.
Plan for upper GI series tomorrow
Unable to perform MRI/MRCP given Medtr[employer] device (spinal stimulator in place)
Follow-up imaging with ultrasound 08/10:
1. Interval decrease in size of the heterogeneous collection along the right lobe of the liver as above. The percutaneous drainage catheter is not well seen at sonography. No significant residual undrained anechoic collection is identified.
2. Persistent dilation of the common bile duct. Ovoid echogenic structure likely representing concretion of biliary sludge within the common bile duct as above.
3. Cholelithiasis. Negative for abnormal gallbladder dilation.
ERCP 08/12: Duodenal fistula draining copious amount of pus. Choledocholithiasis. Complete removal accomplished with biliary sphincterectomy and balloon extraction.
Follow-up CT scan 08/13 large hepatic abscess significantly improved. Previously placed catheter has retracted out of the abscess. Second collection noted measuring 3.5 x 2.8 x 2.5 cm with internal air, likely representing undrained hepatic
abscess.
iRad drain check on 08/16 with no residual collection.
The drain was removed on 08/16
Follow-up imaging with concern for phlegmon not amenable to drain
Continue IV antibiotics per ID. 08/18 transitioned to oral regimen with cefdinir, metronidazole, micafungin for additional 4 weeks. Through 09/14.
Duodenal fistula
Discussion with gastroenterology and surgery.
Need additional endoscopy with fistulogram to determine origin of drain either from the gallbladder versus common bile duct for determination of possible options of treatment. Plan for repeat advanced endoscopy early next week.
Acute rectal bleeding.
CT angiogram with no extravasation.
Emergent IR at mesenteric angio showed no active bleeding.
Colonoscopy 08/16 with single colonic angiectasia treated with argon plasma coagulation. 2 erosions superficial ulcers in the cecal biopsy. Mucosal ulceration with congestion in the sigmoid colon descending colon likely ischemic colitis biopsied.
Internal hemorrhoids.
Low residue diet
Acute blood loss anemia with rectal bleeding.
Type and cross
Bleeding subsided with appropriate response to transfusion. Monitor hemoglobin.
Acute kidney injury.
Metabolic acidosis.
Nontraumatic rhabdomyolysis
Diaz catheter placed on admission (no documented retention while in ED.
Avoid NSAIDs.
Hold lisinopril/HCTZ.
Creatinine improved to normal
Observe off IV fluids.
Diaz catheter removed on 08/09
Dyslipidemia
Hold statin given abnormal liver function test
Severe anxiety.
Better controlled with introduction of Xanax. Monitor for oversedation.
Full code.
DVT prophylaxis heparin.
Anticipated Discharge: > 48 hours
Subjective/Interval History
-
Date of Service: August 20, 2024
Objective Data
-
Vital Signs:
Vital Signs
Temp Pulse Resp BP Pulse Ox
98.4 F 93 22 146/72 98
08/20/24 15:37 08/20/24 15:37 08/20/24 15:37 08/20/24 15:37 08/20/24 15:37
I&O
08/19/24 08/20/24 08/21/24
06:59 06:59 06:59
Intake Total 345 / 345 1080 / 1080
Balance 345 / 345 1080 / 1080
Physical Exam
-
General: Well Developed, Well Nourished, No Apparent Distress and Appears Chronically Ill
HEENT: Normocephalic, Atraumatic and Moist Mucous Membranes
Respiratory: Wheezes (end expiratory wheeze has significantly decreased)
Cardiac: Regular Rhythm and S1/S2
GI: Soft, Nontender (slightly tender in RUQ, area of liver bx) and Nondistended
Musculoskeletal: No Clubbing, No Cyanosis and No Edema
Neuro: Awake, Alert and Oriented
[2024-08-20] MEDS: DESYREL 25 MG PO (21:12)
[2024-08-21 03:00] VITALS: BP 144/63
[2024-08-21 06:18] LABS: % Basophils 0.4 % (0-2); % Eosinophils 3.2 % (0-6); % Immature Granulocytes 0.9 % (0-0.5); % Lymphocytes 5.7 % (20.5-51.1); % Monocytes 10.2 % (1.7-9.3); % Neutrophils 79.6 % (42.2-75.2); Absolute Eosinophils 0.3 10^3/uL (0-0.7); Absolute Immature Granulocytes 0.1 10^3/uL (0-0.05); Absolute Lymphocytes 0.5 10^3/uL (1.2-3.4); Absolute Monocytes 0.9 10^3/uL (0.1-0.6); Absolute Neutrophils 6.7 10^3/uL (1.4-6.5); Hematocrit 21.5 % (37.0-47.0); Hemoglobin 7.1 g/dL (12.0-16.0); Mean Corpuscular Hgb 22.1 pg (27.0-31.0); Nucleated Red Blood Cells % 0 %; Platelet Count 375 10^3/uL (130-400); Red Blood Cell Count 3.21 10^6/uL (4.20-5.40); Red Cell Dist. Width 25.6 % (11.5-14.5); White Blood Cell Count 8.5 10^3/uL (4.8-10.8)
[2024-08-21 06:25] LABS: ALT (SGPT) 15 U/L (0-35); AST (SGOT) 19 U/L (14-36); Albumin 2.1 g/dl (3.5-5.0); Alkaline Phosphatase 152 U/L (38-126); Blood Urea Nitrogen 7 mg/dl (7-17); Calcium 7.6 mg/dl (8.4-10.2); Carbon Dioxide 26 mmol/L (22-30); Chloride 104 mmol/L (98-107); Estimated Creatinine Clearance 53 ml/min; Glucose 94 mg/dl (70-99); Potassium 3.1 mmol/L (3.5-5.1); Sodium 138 mmol/L (135-145); Total Bilirubin 0.6 mg/dl (0.2-1.3); Total Protein 4.7 g/dl (6.3-8.2); eGFR > 60.00
[2024-08-21 07:00] VITALS: BP 155/68
--- NOTE | 2024-08-21 09:41 | W.PN.HOSP.TC ---
Today's Communication/Plan
-
Replace potassium
Reduce Xanax dose if sedation noted
Assessment / Plan
Assessment / Plan
Physical Exam
-
General: Well Developed, Well Nourished, No Apparent Distress and Appears Chronically Ill
HEENT: Normocephalic, Atraumatic and Moist Mucous Membranes
Respiratory: no wheezes.
Cardiac: Regular Rhythm and S1/S2, + murmur
GI: Soft, Nontender, and Nondistended
Musculoskeletal: No Clubbing, No Cyanosis and No Edema
Neuro: Awake, Alert and Oriented to self and surroundings
Psych: calm.
Impression:
Presentation with severe fatigue and weakness.
Acute kidney injury, improved
Rhabdomyolysis. Nontraumatic, improved
Hepatic abscess.
Choledocholithiasis
Duodenal fistula
Hypokalemia
Transaminitis
Acute lower gastrointestinal hemorrhage.
Acute blood loss anemia
Other conditions:
Essential hypertension
Dyslipidemia.
Left ankle arthritis
History of melanoma removal remote.
Plan:
Clinical sepsis on presentation with hepatobiliary source
Hepatic abscess
CT scan of abd/pelvis: 1). There is an 11 cm heterogeneous low density mass in the right lobe with a small volume internal gas.
Differential diagnosis for this mass includes both benign and malignant neoplasm.
The presence of gas within the lesion raises concern for fistulous communication with the adjacent bowel.
Alternatively, this mass may be abscess collection.
Biopsy/drainage may be useful for further evaluation
2). Cholelithiasis
3). 4 cm left parapelvic renal cyst
Status post interventional radiology aspiration on 08/06 with purulence.
KAIDEN drain in place
Cultures Klebsiella/Viridans Strep.
Antibiotics narrowed to ceftriaxone and Flagyl
Tumor markers with slightly elevated CEA and normal levels of CEA 199/AFP
Oncology input appreciated
May require additional imaging either with enhanced CT scan if renal function allows for MRI of the abdomen.
Plan for upper GI series tomorrow
Unable to perform MRI/MRCP given [employer] device (spinal stimulator in place)
Follow-up imaging with ultrasound 08/10:
1. Interval decrease in size of the heterogeneous collection along the right lobe of the liver as above. The percutaneous drainage catheter is not well seen at sonography. No significant residual undrained anechoic collection is identified.
2. Persistent dilation of the common bile duct. Ovoid echogenic structure likely representing concretion of biliary sludge within the common bile duct as above.
3. Cholelithiasis. Negative for abnormal gallbladder dilation.
ERCP 08/12: Duodenal fistula draining copious amount of pus. Choledocholithiasis. Complete removal accomplished with biliary sphincterectomy and balloon extraction.
Follow-up CT scan 08/13 large hepatic abscess significantly improved. Previously placed catheter has retracted out of the abscess. Second collection noted measuring 3.5 x 2.8 x 2.5 cm with internal air, likely representing undrained hepatic
abscess.
iRad drain check on 08/16 with no residual collection.
The drain was removed on 08/16
Follow-up imaging with concern for phlegmon not amenable to drain. Plan per GI: EGD with fistulogram on Friday
Continue IV antibiotics per ID. 08/18 transitioned to oral regimen with cefdinir, metronidazole, micafungin for additional 4 weeks. Through 09/14.
#Duodenal fistula
Discussion with gastroenterology and surgery.
Need additional endoscopy with fistulogram to determine origin of drain either from the gallbladder versus common bile duct for determination of possible options of treatment. Plan for procedure with Dr Mota 08/23/24. endoscopy early next week.
#Acute rectal bleeding.
CT angiogram with no extravasation.
Emergent IR at mesenteric angio showed no active bleeding.
Colonoscopy 08/16 with single colonic angiectasia treated with argon plasma coagulation. 2 erosions superficial ulcers in the cecal biopsy. Mucosal ulceration with congestion in the sigmoid colon descending colon likely ischemic colitis biopsied.
Internal hemorrhoids.
Low residue diet
# Hypokalemia, replace
#Acute blood loss anemia with rectal bleeding.
Bleeding subsided with appropriate response to transfusion. s/p 2 units. Monitor hemoglobin.
#Acute kidney injury/ Metabolic acidosis: Resolved
Nontraumatic rhabdomyolysis
Diaz catheter placed on admission (no documented retention while in ED0,/ Diaz catheter removed on 08/09.
Avoid NSAIDs.
# Primary HTN, resume lisinopril/HCTZ.
# Dyslipidemia
Hold statin given abnormal liver function test
#Severe anxiety.
Better controlled with introduction of Xanax. Monitor for oversedation.
# Full code.
DVT prophylaxis heparin.
Total time spent to see the patient, examine the patient on the floor, review data and lab results, discuss treatment plan with patient, nursing staff around 55 minutes
Anticipated Discharge: > 48 hours
Subjective/Interval History
-
Date of Service: August 21, 2024
No chest pain
No sob
denies abdominal pain
Objective Data
-
Labs:
Laboratory Results
08/21/24
05:13
WBC 8.5
Hgb 7.1 L
Hct 21.5 L
Plt Count 375
Sodium 138
Potassium 3.1 L
Chloride 104
Carbon Dioxide 26
BUN 7
Creatinine 0.8
Glucose 94
Calcium 7.6 L
Total Bilirubin 0.6
AST 19
ALT 15
Alkaline Phosphatase 152 H
Vital Signs:
Vital Signs
Temp Pulse Resp BP Pulse Ox
98.7 F 84 18 144/63 94
08/21/24 03:00 08/21/24 03:00 08/21/24 03:00 08/21/24 03:00 08/21/24 03:00
I&O
08/20/24 08/21/24 08/22/24
06:59 06:59 05:59
Intake Total 1080 / 1080 840 / 840
Balance 1080 / 1080 840 / 840
[2024-08-21] MEDS: KCL 20 MEQ PO (10:41)
[2024-08-21] MEDS: OMNICEF 300 MG PO ×2 (10:41→19:52)
[2024-08-21] MEDS: VISBIOME 2 CAP PO (10:42)
[2024-08-21] MEDS: NSS (PRESERVATIVE FREE) 10 ML IV (10:43)
[2024-08-21] MEDS: PROTONIX IV 40 MG IV (10:43)
[2024-08-21] MEDS: FLUSH (NSS) 2 FLUSH IV (10:45)
[2024-08-21] MEDS: XANAX 0.5 MG PO ×2 (10:46→19:52)
[2024-08-21] MEDS: PROZAC 40 MG PO (10:53)
[2024-08-21] MEDS: FLAGYL 500 MG PO ×2 (10:54→19:52)
[2024-08-21] MEDS: ZESTRIL 10 MG PO (10:54)
[2024-08-21] MEDS: DIFLUCAN 400 MG PO (10:54)
[2024-08-21 11:00] VITALS: BP 149/65
[2024-08-21] MEDS: NORVASC 5 MG PO (11:03)
[2024-08-21 15:57] VITALS: BP 141/63
[2024-08-21 19:39] VITALS: BP 142/63
[2024-08-21] MEDS: NSS (PRESERVATIVE FREE) IV (20:34)
[2024-08-21] MEDS: PROTONIX IV IV (20:35)
[2024-08-21] MEDS: PROTONIX 40 MG PO (21:32)
[2024-08-21] MEDS: DESYREL 25 MG PO (21:33)
[2024-08-21 23:44] VITALS: BP 162/71
--- NOTE | 2024-08-22 00:02 | PTCARENOTE ---
During change of shift report, AM nurse informed this nurse of some slight RUE swelling and redness of pt. IV team had seen pt. during day and did reiterate to AM nurse that RUE was red and warm and slightly edematous. Provider notified by AM nurse.
This nurse notified PM provider and IV protonix was instead changed to PO so as to avoid use of RUE prior to US. US ordered by provider to r/o RUE DVT. VSS. Pt. resting at this time; plan of care continues.
--- NOTE | 2024-08-22 01:35 | W.PN.UPDATE ---
Update Note
Progress Note Update
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 Patient seen and evaluated, Right arm warm to touch, pink color and edema noted, + pulses, Denies any
numbness, tingling, Denies any pain at the site. Will order PO Protonix and US right arm to r/o DVT. Patient is on Heparin SQ at present.
[2024-08-22 03:12] VITALS: BP 157/71
[2024-08-22] MEDS: TYLENOL 650 MG PO ×2 (05:28→13:44)
[2024-08-22 08:02] VITALS: BP 143/69
--- NOTE | 2024-08-22 08:39 | W.PN.HOSP.TC ---
Addendum entered and electronically signed by Mikayla Paulino MD 08/22/24 14:14:
Addendum
Doppler US positive occlusive thrombus in the distal brachial vein, basilic vein and axillary vein. Small segment of non-occlusive thrombus in the cephalic vein near the antecubital fossa.
Will dc midline to avoid further swelling/ inflammation. Good pulse in radial artery. Will consult hematology ( done)/ It will be a challenging issue since pt has recent history of GI bleeding/ anemia.
End
Original Note:
Today's Communication/Plan
-
EGD with fistulogram on Friday
Resumed lisinopril/HCTZ.
Assessment / Plan
Assessment / Plan
Physical Exam
-
General: Well Developed, Well Nourished, No Apparent Distress and Appears Chronically Ill
HEENT: Normocephalic, Atraumatic and Moist Mucous Membranes
Respiratory: no wheezes.
Cardiac: Regular Rhythm and S1/S2, + murmur
GI: Soft, Nontender, and Nondistended
Musculoskeletal: No Clubbing, No Cyanosis and No Edema. Mild selling right upper extremity( good peripheral pulse)
Neuro: Awake, Alert and Oriented to self and surroundings
Psych: calm.
Impression:
Presentation with severe fatigue and weakness.
Acute kidney injury, improved
Rhabdomyolysis. Nontraumatic, improved
Hepatic abscess.
Choledocholithiasis
Duodenal fistula
Hypokalemia
Transaminitis
Acute lower gastrointestinal hemorrhage.
Acute blood loss anemia
Other conditions:
Essential hypertension
Dyslipidemia.
Left ankle arthritis
History of melanoma removal remote.
A/P:
# Swelling R upper extremity
Good peripheral pulse
US Doppler is ordered
Elevate the limb, c/w fingers movement to improve circulation
# Large hepatic Abscess
Clinical sepsis on presentation with hepatobiliary source
Hepatic abscess CT scan of abd/pelvis: 1). There is an 11 cm heterogeneous low density mass in the right lobe with a small volume internal gas.
Differential diagnosis for this mass includes both benign and malignant neoplasm.
The presence of gas within the lesion raises concern for fistulous communication with the adjacent bowel.
Alternatively, this mass may be abscess collection.
Biopsy/drainage may be useful for further evaluation
2). Cholelithiasis
3). 4 cm left parapelvic renal cyst
Status post interventional radiology aspiration on 08/06 with purulence.
KAIDEN drain in place
Cultures Klebsiella/Viridans Strep/sagrario.
Antibiotics narrowed to fluconazole, ceftriaxone and Flagyl
Tumor markers with slightly elevated CEA and normal levels of CEA 199/AFP
Unable to perform MRI/MRCP given [employer] device (spinal stimulator in place)
Follow-up imaging with ultrasound 08/10:
1. Interval decrease in size of the heterogeneous collection along the right lobe of the liver as above. The percutaneous drainage catheter is not well seen at sonography. No significant residual undrained anechoic collection is identified.
2. Persistent dilation of the common bile duct. Ovoid echogenic structure likely representing concretion of biliary sludge within the common bile duct as above.
3. Cholelithiasis. Negative for abnormal gallbladder dilation.
ERCP 08/12: Duodenal fistula draining copious amount of pus. Choledocholithiasis. Complete removal accomplished with biliary sphincterectomy and balloon extraction.
Follow-up CT scan 08/13 large hepatic abscess significantly improved. Previously placed catheter has retracted out of the abscess. Second collection noted measuring 3.5 x 2.8 x 2.5 cm with internal air, likely representing undrained hepatic
abscess.
iRad drain check on 08/16 with no residual collection.
The drain was removed on 08/16
Follow-up imaging with concern for phlegmon not amenable to drain. Plan per GI: EGD with fistulogram on Friday
Continue IV antibiotics per ID. 08/18 transitioned to oral regimen with cefdinir, metronidazole, micafungin for additional 4 weeks. Through 09/14.
#Duodenal fistula
Discussion with gastroenterology and surgery.
Need additional endoscopy with fistulogram to determine origin of drain either from the gallbladder versus common bile duct for determination of possible options of treatment. Plan for procedure with Dr Mota 08/23/24. endoscopy.
#Acute rectal bleeding.
CT angiogram with no extravasation.
Emergent IR at mesenteric angio showed no active bleeding.
Colonoscopy 08/16 with single colonic angiectasia treated with argon plasma coagulation. 2 erosions superficial ulcers in the cecal biopsy. Mucosal ulceration with congestion in the sigmoid colon descending colon likely ischemic colitis biopsied.
Internal hemorrhoids.
Low residue diet
# Hypokalemia, replaced
recheck BMP
#Acute blood loss anemia with rectal bleeding.
Bleeding subsided with appropriate response to transfusion. s/p 2 units. Monitored hemoglobin.
#Acute kidney injury/ Metabolic acidosis: Resolved
Nontraumatic rhabdomyolysis
Diaz catheter placed on admission (no documented retention while in ED0,/ Diaz catheter removed on 08/09.
Avoid NSAIDs.
# Primary HTN, resumed lisinopril/HCTZ.
# Dyslipidemia
Hold statin given abnormal liver function test
#Severe anxiety.
Better controlled with introduction of Xanax. Monitor for oversedation.
# Full code.
DVT prophylaxis heparin.
Total time spent to see the patient, examine the patient on the floor, review data and lab results, discuss treatment plan with patient, nursing staff around 55 minutes
Anticipated Discharge: 24 - 48 hours
Subjective/Interval History
-
Date of Service: August 22, 2024
No chest pain
No pain in right upper extremity
No chest pain
Objective Data
-
Vital Signs:
Vital Signs
Temp Pulse Resp BP Pulse Ox
98.7 F 89 18 143/69 96
08/22/24 08:02 08/22/24 08:02 08/22/24 08:02 08/22/24 08:02 08/22/24 08:02
I&O
08/21/24 08/22/24 08/23/24
07:59 06:59 06:59
Intake Total
Balance
[2024-08-22] MEDS: DIFLUCAN 400 MG PO (08:55)
[2024-08-22] MEDS: PROZAC 40 MG PO (08:55)
[2024-08-22] MEDS: OMNICEF 300 MG PO ×2 (08:55→20:50)
[2024-08-22] MEDS: FLAGYL 500 MG PO ×2 (08:55→20:50)
[2024-08-22] MEDS: ZESTRIL 10 MG PO (08:55)
[2024-08-22] MEDS: XANAX 0.5 MG PO ×2 (08:55→20:50)
[2024-08-22] MEDS: VISBIOME 2 CAP PO (08:55)
[2024-08-22] MEDS: NSS (PRESERVATIVE FREE) IV (08:58)
[2024-08-22] MEDS: ORETIC 12.5 MG PO (08:58)
[2024-08-22] MEDS: PROTONIX IV IV (08:58)
[2024-08-22 11:33] VITALS: BP 131/62
[2024-08-22] MEDS: IMODIUM 2 MG PO (13:52)
[2024-08-22 15:51] VITALS: BP 131/55
[2024-08-22 19:48] VITALS: BP 142/63
[2024-08-22] MEDS: DESYREL 25 MG PO (20:50)
[2024-08-22 23:30] VITALS: BP 146/65
[2024-08-23] VITALS (9 sets, daily range): BP systolic 16–149; BP diastolic 43–88
[2024-08-23 08:29] LABS: Hematocrit 24.6 % (37.0-47.0); Hemoglobin 8.2 g/dL (12.0-16.0); Mean Corp Hgb Conc. 33.3 g/dL (33.0-37.0); Mean Corpuscular Hgb 22.6 pg (27.0-31.0); Mean Corpuscular Volume 67.8 fL (81.0-99.0); Mean Platelet Volume 10.3 fL (7.4-10.4); Platelet Count 390 10^3/uL (130-400); Red Blood Cell Count 3.63 10^6/uL (4.20-5.40); Red Cell Dist. Width 25.7 % (11.5-14.5); White Blood Cell Count 7.4 10^3/uL (4.8-10.8)
[2024-08-23] MEDS: PROTONIX PO (08:40)
[2024-08-23] MEDS: VISBIOME PO (08:40)
[2024-08-23] MEDS: DIFLUCAN PO (08:40)
[2024-08-23] MEDS: ZESTRIL PO (08:40)
[2024-08-23] MEDS: PROZAC PO (08:40)
[2024-08-23] MEDS: XANAX 0.5 MG PO ×2 (08:40→20:38)
[2024-08-23 09:02] LABS: ALT (SGPT) 15 U/L (0-35); AST (SGOT) 23 U/L (14-36); Albumin 2.4 g/dl (3.5-5.0); Alkaline Phosphatase 178 U/L (38-126); Blood Urea Nitrogen 9 mg/dl (7-17); Carbon Dioxide 25 mmol/L (22-30); Chloride 101 mmol/L (98-107); Estimated Creatinine Clearance 53 ml/min; Glucose 97 mg/dl (70-99); Potassium 3.3 mmol/L (3.5-5.1); Sodium 137 mmol/L (135-145); Total Bilirubin 0.4 mg/dl (0.2-1.3); Total Protein 5.3 g/dl (6.3-8.2); eGFR > 60.00
[2024-08-23] MEDS: OMNICEF PO (11:57)
[2024-08-23] MEDS: FLAGYL PO (11:57)
--- NOTE | 2024-08-23 12:15 | CM ---
CM reviewed chart, patient see bedside with visitor. Patient for EGD with fistulogram today. Patient requesting PT/OT to work with patient when able, patient concerned about losing strength while in Hospital. CM will continue to follow for all
discharge planning needs.
Plan; home with VN, patient open to rehab if needed.
--- NOTE | 2024-08-23 15:23 | W.PN.HOSP.TC ---
Today's Communication/Plan
-
For repeat ERCP to evaluate duodenal fistula.
Continue oral antibiotics.
Assessment / Plan
Assessment / Plan
Impression:
Presentation with severe fatigue and weakness.
Acute kidney injury, improved
Rhabdomyolysis. Nontraumatic, improved
Hepatic abscess.
Choledocholithiasis
Duodenal fistula
Hypokalemia
Transaminitis
Acute lower gastrointestinal hemorrhage.
Acute blood loss anemia
Right upper extremity DVT secondary to PICC line
Other conditions
Essential hypertension
Dyslipidemia.
Left ankle arthritis
History of melanoma removal remote.
Plan
# Swelling R upper extremity
Good peripheral pulse
US Doppler is ordered
Elevate the limb, c/w fingers movement to improve circulation
# Large hepatic Abscess
Clinical sepsis on presentation with hepatobiliary source
Hepatic abscess CT scan of abd/pelvis: 1). There is an 11 cm heterogeneous low density mass in the right lobe with a small volume internal gas.
Differential diagnosis for this mass includes both benign and malignant neoplasm.
The presence of gas within the lesion raises concern for fistulous communication with the adjacent bowel.
Alternatively, this mass may be abscess collection.
Biopsy/drainage may be useful for further evaluation
2). Cholelithiasis
3). 4 cm left parapelvic renal cyst
Status post interventional radiology aspiration on 08/06 with purulence.
KAIDEN drain in place
Cultures Klebsiella/Viridans Strep/sagrario.
Antibiotics narrowed to fluconazole, ceftriaxone and Flagyl
Tumor markers with slightly elevated CEA and normal levels of CEA 199/AFP
Unable to perform MRI/MRCP given [employer]tr[employer] device (spinal stimulator in place)
Follow-up imaging with ultrasound 08/10:
1. Interval decrease in size of the heterogeneous collection along the right lobe of the liver as above. The percutaneous drainage catheter is not well seen at sonography. No significant residual undrained anechoic collection is identified.
2. Persistent dilation of the common bile duct. Ovoid echogenic structure likely representing concretion of biliary sludge within the common bile duct as above.
3. Cholelithiasis. Negative for abnormal gallbladder dilation.
ERCP 08/12: Duodenal fistula draining copious amount of pus. Choledocholithiasis. Complete removal accomplished with biliary sphincterectomy and balloon extraction.
Follow-up CT scan 08/13 large hepatic abscess significantly improved. Previously placed catheter has retracted out of the abscess. Second collection noted measuring 3.5 x 2.8 x 2.5 cm with internal air, likely representing undrained hepatic
abscess.
iRad drain check on 08/16 with no residual collection.
The drain was removed on 08/16
Follow-up imaging with concern for phlegmon not amenable to drain. Plan per GI: EGD with fistulogram on Friday
Continue IV antibiotics per ID. 08/18 transitioned to oral regimen with cefdinir, metronidazole, micafungin for additional 4 weeks. Through 09/14.
#Duodenal fistula
Discussion with gastroenterology and surgery.
Need additional endoscopy with fistulogram to determine origin of drain either from the gallbladder versus common bile duct for determination of possible options of treatment. Plan for procedure with Dr Mota 08/23/24. endoscopy.
#Acute rectal bleeding.
CT angiogram with no extravasation.
Emergent IR at mesenteric angio showed no active bleeding.
Colonoscopy 08/16 with single colonic angiectasia treated with argon plasma coagulation. 2 erosions superficial ulcers in the cecal biopsy. Mucosal ulceration with congestion in the sigmoid colon descending colon likely ischemic colitis biopsied.
Internal hemorrhoids.
Low residue diet
Right upper extremity DVT secondary to PICC line
PICC line removed.
Monitor closely.
# Hypokalemia, replaced
recheck BMP
#Acute blood loss anemia with rectal bleeding.
Bleeding subsided with appropriate response to transfusion. s/p 2 units. Monitored hemoglobin.
#Acute kidney injury/ Metabolic acidosis: Resolved
Nontraumatic rhabdomyolysis
Diaz catheter placed on admission (no documented retention while in ED0,/ Diaz catheter removed on 08/09.
Avoid NSAIDs.
# Primary HTN, resumed lisinopril/HCTZ.
# Dyslipidemia
Hold statin given abnormal liver function test
#Severe anxiety.
Better controlled with introduction of Xanax. Monitor for oversedation.
# Full code.
DVT prophylaxis heparin.
Anticipated Discharge: 24 - 48 hours
Subjective/Interval History
-
Date of Service: August 23, 2024
Objective Data
-
Labs:
Laboratory Results
08/23/24
06:46
WBC 7.4
Hgb 8.2 L
Hct 24.6 L
Plt Count 390
Sodium 137
Potassium 3.3 L
Chloride 101
Carbon Dioxide 25
BUN 9
Creatinine 0.8
Glucose 97
Calcium 8.0 L
Total Bilirubin 0.4
AST 23
ALT 15
Alkaline Phosphatase 178 H
Vital Signs:
Vital Signs
Temp Pulse Resp BP Pulse Ox
98.5 F 91 18 146/67 93
08/23/24 11:30 08/23/24 11:30 08/23/24 11:30 08/23/24 11:30 08/23/24 11:30
I&O
08/22/24 08/23/24 08/24/24
06:59 06:59 06:59
Intake Total
Balance
Physical Exam
-
General: Well Developed, Well Nourished, No Apparent Distress and Appears Chronically Ill
HEENT: Normocephalic, Atraumatic and Moist Mucous Membranes
Respiratory: Wheezes (end expiratory wheeze has significantly decreased)
Cardiac: Regular Rhythm and S1/S2
GI: Soft, Nontender (slightly tender in RUQ, area of liver bx) and Nondistended
Musculoskeletal: No Clubbing, No Cyanosis and No Edema
Neuro: Awake, Alert and Oriented
--- NOTE | 2024-08-23 16:41 | W.PN.ID1 ---
Date of Service
Date of Service: August 23, 2024
Today's Communication
- c/w cefdinir, metronidazole, fluconazole
- qtc acceptable
- decreased trazodone dose to 25 mg qpm
- to complete course with orals through 09/14
- stable for dc from ID perspective
Assessment / Plan
Large hepatic Abscess
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
Leukocytosis
LILIAN
Cholelithiasis and possible choledocholithiasis
- 08/12 ERCP finding of duodenal fistula with copious pus
- 08/16 CT angio - no definitive site of hemorrhage
- 08/23 EGD with probable fistula - hepatic vs gallbladder to dudoenal -
- abscess culture K. oxytoca, VGS, C albicans
- blood cultures x2 finalized negative
- c/w cefdinir, metronidazole, fluconazole
- qtc acceptable
- decreased trazodone dose to 25 mg qpm
- to complete course with orals through 09/14
- stable for dc from ID perspective
����������������������������������������������������������
Chief Complaint
-: Leukocytosis and Other (hepatic abscess)
Subjective / Review of Systems
EGD findings ' Duodenal fistula. Pus from fistula orifice' gallbladder vs hepatic
afebrile
bp stable
remains in good spirits
Vital Signs / Physical Exam
Vital Signs
Vital Signs
Temp Pulse Resp BP Pulse Ox
98.5 F 91 18 146/67 93
08/23/24 11:30 08/23/24 11:30 08/23/24 11:30 08/23/24 11:30 08/23/24 11:30
Physical Exam
Constitutional: No Acute Distress
Cardiovascular: Regular Rate and S1/S2; Negative Murmur or Rub
Pulmonary: Clear and Symmetric; Negative Wheezes or Rales
Gastrointestinal: Soft, Non Tender, Non Distended and Normal Bowel Sounds
Skin: Warm and Dry; Negative Rash or Jaundice
Objective Data
Lab Data
Lab Results
08/23/24 06:46
08/23/24 06:46
ESR 86 mm/hour (0-20) H 08/06/24 09:06
PT 15.0 Sec (11.4-14.6) H 08/06/24 09:04
INR 1.20 08/06/24 09:04
APTT 28.9 Sec (23.4-35.0) 08/05/24 13:21
Estimated Creat Clear 53 ml/min 08/23/24 06:46
Lactic Acid 0.9 mmol/L (0.7-2.0) 08/05/24 13:21
Total Bilirubin 0.4 mg/dl (0.2-1.3) 08/23/24 06:46
AST 23 U/L (14-36) 08/23/24 06:46
ALT 15 U/L (0-35) 08/23/24 06:46
Alkaline Phosphatase 178 U/L (38-126) H 08/23/24 06:46
C-Reactive Protein 204.20 mg/L (0.0-10.00) H 08/06/24 09:05
Most recent labs reviewed.
Micro Results:
08/13/24 15:54 Wound Culture - Final
Abscess Stephanie albicans
Gram Stain - Final
08/07/24 12:03 Blood Culture - Final
Blood/Venous No Growth - Final Report
08/05/24 13:21 Blood Culture - Final
Blood/Venous No Growth - Final Report
08/08/24 13:32 Stool Leukocytes - Final
Feces/Stool
08/08/24 13:32 C. difficile GDH Antigen & Toxins - Final
Feces/Stool Negative for toxigenic C.difficile
08/06/24 13:00 Wound Culture - Final
Liver Klebsiella oxytoca
Viridans Streptococcus Group
Gram Stain - Final
08/05/24 00:44 Urine Culture - Final
Urine NO GROWTH
Imaging:
08/13/24 CT a/p: Large hepatic abscess seen on prior CT dated 08/05/2024 has significantly improved. Previously placed drainage catheter has retracted out of the abscess, and is now located within the periphery of the liver.
2. Second collection is seen within the posterior right hepatic lobe, measuring 3.5 x 2.8 x 2.5 cm, with internal air, likely representing an undrained hepatic abscess.
3. Mild biliary ductal dilation, grossly unchanged compared to prior CT.
4. Pneumobilia, increased in amount compared to prior CT. Biliary ductal communication with the hepatic abscesses and/or cholangitis is not excluded. Biliary air may also be related to recent ERCP.
[2024-08-23] MEDS: FLAGYL 500 MG PO (20:39)
[2024-08-23] MEDS: OMNICEF 300 MG PO (20:39)
[2024-08-23] MEDS: DESYREL 25 MG PO (20:39)
--- NOTE | 2024-08-23 22:45 | W.PN.ONC2 ---
Today's Communication / Plan
-
No anticoagulation.
Impression
Impression
11 cm heterogeneous low density mass vs abscess, s/p CT guided liver abscess drain 08/06, improving transaminitis, cx kleb ox and viridans strep. normal AFP and Ca19.9. CEA slightly elevated 6.13
Rhabdomyolysis
Acute renal failure resolved
TME resolving
Reactive leukocytosis/thrombocytosis -improved
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
Hypertension
Gastritis
Improving performance status with for eventual discharge home with VN
New PICC-associated clot
Plan
Plan
Suggest warm compresses to R arm.
Would not suggest anticoagulation due to recent bleeding.
Risk of embolization low compared with bleeding risk.
Subjective/Objective
Chief Complaint
89 yo woman with malignant neoplasm to liver, now with PICC-associated upper extremity DVT
Subjective
Asked to see pt today for new issue, development of UE venous thrombosis associated with PICC line. Pt developed pain and swelling today with Dopplers showing PICC extending into the basilic vein with surrounding occlusive thrombus within basilic
and axillary veins, also within the cephalic vein. Pt states not bothering her very much. She would strongly prefer not to be on anticoagulation due to history of recent rectal bleeding.
Separately, she underwent ERCP today showing duodenal fistula
Vital Signs:
Vital Signs
Temp Pulse Resp BP Pulse Ox
98.2 F 82 16 140/64 93
08/23/24 19:17 08/23/24 19:17 08/23/24 19:17 08/23/24 19:17 08/23/24 19:17
Lab Results:
Laboratory Data
WBC 7.4 10^3/uL (4.8-10.8) 08/23/24 06:46
Hgb 8.2 g/dL (12.0-16.0) L 08/23/24 06:46
Plt Count 390 10^3/uL (130-400) 08/23/24 06:46
PT 15.0 Sec (11.4-14.6) H 08/06/24 09:04
INR 1.20 08/06/24 09:04
APTT 28.9 Sec (23.4-35.0) 08/05/24 13:21
eGFR > 60.00 08/23/24 06:46
Physical Exam
Awake, alert
HEENT: No Jaundice or Moist Mucous Membranes
Cardiology: Normal Sinus Rhythm, S1 and S2
Pulmonary: Clear
GI: Soft
Extremities: Other (Mild erythema R forearm and antecubital fossa)
Neuro: Non Focal
[2024-08-24] VITALS (7 sets, daily range): BP systolic 125–157; BP diastolic 60–72; PULSE 90; O2SAT 96
[2024-08-24] MEDS: OMNICEF 300 MG PO ×2 (08:26→20:23)
[2024-08-24] MEDS: FLAGYL 500 MG PO ×2 (08:26→20:23)
[2024-08-24] MEDS: ZESTRIL 10 MG PO (08:26)
[2024-08-24] MEDS: XANAX 0.5 MG PO ×2 (08:26→20:23)
[2024-08-24] MEDS: VISBIOME 2 CAP PO (08:26)
[2024-08-24] MEDS: DIFLUCAN 400 MG PO (08:26)
[2024-08-24] MEDS: PROTONIX 40 MG PO (08:26)
[2024-08-24] MEDS: PROZAC 40 MG PO (08:27)
[2024-08-24 08:42] LABS: % Basophils 0.6 % (0-2); % Eosinophils 6.9 % (0-6); % Immature Granulocytes 1.1 % (0-0.5); % Lymphocytes 8.8 % (20.5-51.1); % Monocytes 7.7 % (1.7-9.3); % Neutrophils 74.9 % (42.2-75.2); Absolute Eosinophils 0.4 10^3/uL (0-0.7); Absolute Immature Granulocytes 0.1 10^3/uL (0-0.05); Absolute Lymphocytes 0.5 10^3/uL (1.2-3.4); Absolute Monocytes 0.4 10^3/uL (0.1-0.6); Hematocrit 23.3 % (37.0-47.0); Hemoglobin 7.7 g/dL (12.0-16.0); Mean Corpuscular Hgb 22.7 pg (27.0-31.0); Mean Corpuscular Volume 68.7 fL (81.0-99.0); Mean Platelet Volume 9.5 fL (7.4-10.4); Nucleated Red Blood Cells % 0 %; Platelet Count 350 10^3/uL (130-400); Red Blood Cell Count 3.39 10^6/uL (4.20-5.40); Red Cell Dist. Width 25.8 % (11.5-14.5); White Blood Cell Count 5.3 10^3/uL (4.8-10.8)
[2024-08-24 09:09] LABS: ALT (SGPT) 14 U/L (0-35); AST (SGOT) 25 U/L (14-36); Albumin 2.2 g/dl (3.5-5.0); Alkaline Phosphatase 200 U/L (38-126); Blood Urea Nitrogen 9 mg/dl (7-17); Calcium 7.9 mg/dl (8.4-10.2); Carbon Dioxide 30 mmol/L (22-30); Chloride 102 mmol/L (98-107); Estimated Creatinine Clearance 53 ml/min; Glucose 82 mg/dl (70-99); Sodium 140 mmol/L (135-145); Total Bilirubin 0.4 mg/dl (0.2-1.3); Total Protein 4.8 g/dl (6.3-8.2); eGFR > 60.00
--- NOTE | 2024-08-24 09:14 | PN.CDI ---
CDI
- -
CDI:
Physician Documentation Request
Admit Date: 08/05/24 01:55
Dear Doctor Rory,
Please review the following and provide your response in the progress notes.
Clinical Indicators:
Selected Entries
08/05/24
17:45
Pressure injury stage [Present on admission Left Buttock] Stage 1
Physician documentation of the type and location of wounds is required for compliant documentation. Based on the above clinical findings and your assessment, please provide the following in your progress note:
Type (etiology) of ulcer/wound:
Pressure (decubitus) ulcer
Other
Unable to determine
For a pressure ulcer, please also include stage* of the ulcer:
Stage 1 - Skin intact, non-blanchable redness
Stage 2 - Partial thickness loss of dermis, includes intact or open blister
Stage 3 - Full thickness tissue not including bone, tendon or muscle
Stage 4 - Full thickness tissue loss, including exposed bone, tendon or muscle
Unstageable - Full thickness loss in which the base of the ulcer is covered by slough (yellow, petersen, patterson, green or brown) and/or eschar (petersen, brown or black) in the wound bed.
Unable to determine
Use of terms such as suspected, likely, concern for, or probable (associated with a specific diagnosis that is being evaluated, monitored, or treated as if it exists) are acceptable and can be coded in the inpatient setting, when documented at the
time of discharge.
Thank you,
Sushila Vallejo RN BSN CCDS
CDI Specialist
Please contact via tiger text
Please use your independent medical judgment in providing your response.
*Source: National Pressure Ulcer Advisory Panel (NPUAP)
--- NOTE | 2024-08-24 09:14 | W.PN.GI.CBS2 ---
Addendum entered and electronically signed by Brian Grey DO 08/24/24 15:05:
I saw and examined the patient.
The CONDITIONER TUMBLER's note was reviewed and I agree with the note.
Comment: Reviewed recent Abd US with biliary stent within CBD with biliary ductal dilatation (to be expected given stent placement). Continue IV abx as per ID. Will need Abd X-ray in 4 weeks as outpatient along with close follow-up with Dr. Mota in 6
weeks which we will coordinate. Rest of care as outlined below.
Original Note:
Today's Communication / Plan
-
as per plan
Assessment / Plan
-
Pt is an 89yo with hx multiple medical problems including chronic anemia, thalassemia, asthma, HTN, hyperlipidemia,atrophic gastritis, duodenal adenoma, vascular ectasia, DVT, , malignant melanoma in present to ER with change in mental
status and weakness. On admission noted with multiple labs abnormality and concern for Rhabdomyolysis. WBC 49,200, hbg 8.7, platelets 712, Na 134, K 5.1, cl 97, Co2 17, BUN 116, creat 3.9, t bili 0.9, d bili 0.7, AST 720, ALT 296, alk phos 381,
CK 5350, albumin 3, procal 151.28. Imaging on admission with concern for liver mass vs abscess, with noted air and concern for fistula connection to bowel. US with CBD dilation with concern for choledocholithiasis.
08/10 repeat US
1. Interval decrease in size of the heterogeneous collection along the right lobe of the liver as above. The percutaneous drainage catheter is not well seen at sonography. No significant residual undrained anechoic collection is identified.
2. Persistent dilation of the common bile duct. Ovoid echogenic structure likely representing concretion of biliary sludge within the common bile duct
3. Cholelithiasis. Negative for abnormal gallbladder dilation.
08/12/25 ERCP: Dr Rodrigues
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
- The common bile duct was dilated.
- Choledocholithiasis was found. Complete removal was accomplished by biliary sphincterotomy and balloon extraction.
08/16/24 CT Abd/pelvis Angio W/wo Iv
1. Site of active hemorrhage is not definitively identified at CT. As above, there is 6 mm enhancing focus which appears intraluminal in the distal transverse colon. Pseudoaneurysm or some form of vascular malformation is possible, however there
is no pooling of contrast on delayed phase images to confirm active bleeding at this level. There are no filling defects within the biliary system to strongly suggest hemobilia.
2. Advanced aortic atherosclerotic changes as described. High-grade stenosis of the celiac axis. Relative stenosis of the infrarenal aorta.
3. Percutaneous drainage catheter in right lobe hepatic abscess, expected appearance. Minimal residual decreased attenuation adjacent to the catheter locking loop.
4. Moderate intrahepatic biliary dilation, improved as compared with prior. Mild dilation of the common bile duct, improved as compared with prior.
5. Cholelithiasis.
Colonoscopy 08/18/2024
Impression: - The examined portion of the ileum was normal.
- A single colonic angioectasia. Treated with argon
plasma coagulation (APC).
- Two erosions/ superfical ulcers in the cecum.
Biopsied.
- Mucosal ulceration with congestion in the sigmoid
colon/ descending colon. Likely ischemic colitis.
Biopsied.
- Internal hemorrhoids.
- No active bleeding
Pertinent Prior W/u / Hospital Course:
-sepsis secondary to large liver abscess with cx + Virdian strep and Klebsiella . S/p IR drainage (currently drains were removed)
-08/12 ERCP with choledocholithiasis with removal with sphincterotomy and balloon extraction
-- Noted to have duodenal fistula in D1 during EGD/ERCP with bilious/purulent material. Upper GI series 08/19/2024-no definite fistula identified
CT abd with noted abscess, with noted air and concern for fistula connection to bowel
-08/16 rectal bleeding with red blood with clot . CTA -site of active bleeding not identified. Colonoscopy 08/18/2024-colonic AVM. Mucosal ulceration and congestion in the sigmoid/descending colon suggestive of ischemic colitis
08/23/24 ERCP (Dr. Mota):
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
- The opacified region from fistula appeared possibly
hepatic abscess cavity vs gallbladder.
- Prior biliary sphincterotomy appeared open.
- The major papilla appeared to be ulcerated.
- Biopsies were taken with a cold forceps for
histology in the ampulla.
- The left main hepatic duct, right main hepatic duct,
right intrahepatic branches, left intrahepatic
branches and common bile duct were moderately dilated.
- The biliary tree was swept and nothing was found.
- One plastic stent was placed into the opacified
region from duodenal fistula.
Recommendation: - [facility].
- Clear liquid diet today.
- Complete the course of broad spectrum antibiotics.
- Perform a RUQ ultrasound tomorrow to assess the
location of stent. If US does not elucidate the
location, then consider abdominal CT.
- Perform a flat plate abdominal x-ray in 4 weeks.
- Return to my office in 6 weeks.
Plan:
-US Abd today to identify plastic stent in place. IF cannot locate may require CT imaging
-Continue Abx as per ID recommendations
-Needs XR abd 4 weeks, Rx given to patient.
-Follow up obtained with Dr. Mota
GI team will continue to follow peripherally over weekend. Please reach out with any questions or concerns.
Subjective
Subjective
Date of Service: August 24, 2024
Patient feeling well, patient afebrile, normal WBC, being followed by ID. No abdominal pain. Patient s/p ERCP on 08/23/24 with duodenal fistula identified. Pus from orifice. Opacified region from fistula appeared possible hepatic abscess cavity vs
gallbladder. Plastic stent placed into the opacified region from the duodenal fistula. US ordered to assess the location of the stent. If US does not identify location then we would consider CT.
Objective
Data Reviewed
Laboratory Data:
Laboratory Results
08/24/24 06:57
08/24/24 06:57
Laboratory Results
PT 15.0 Sec (11.4-14.6) H 08/06/24 09:04
INR 1.20 08/06/24 09:04
APTT 28.9 Sec (23.4-35.0) 08/05/24 13:21
Phosphorus 5.5 mg/dl (2.5-4.5) H 08/06/24 09:04
Magnesium 1.8 mg/dl (1.6-2.3) 08/06/24 09:04
Total Bilirubin 0.4 mg/dl (0.2-1.3) 08/24/24 06:57
AST 25 U/L (14-36) 08/24/24 06:57
ALT 14 U/L (0-35) 08/24/24 06:57
Alkaline Phosphatase 200 U/L (38-126) H 08/24/24 06:57
Lipase 102 U/L (23-300) 08/04/24 22:14
Vital Signs and I&O:
Vital Signs
Temp Pulse Resp BP Pulse Ox
97.6 F 72 16 140/61 95
08/24/24 03:30 08/24/24 03:30 08/24/24 03:30 08/24/24 03:30 08/24/24 03:30
I&O
08/23/24 08/24/24 08/25/24
06:59 06:59 06:59
Intake Total 180 / 180
Balance 180 / 180
Physical Exam
Physical Exam
HEENT: Anicteric
Cardiology: Normal Sinus Rhythm
Pulmonary: Clear
GI: Soft, Non Distended, Non Tender and Normal Bowel Sounds
Neuro: Non Focal
--- NOTE | 2024-08-24 10:15 | W.PN.UPDATE ---
Update Note
Progress Note Update
No malignancy identified, hepatic mass appears to be abscess
Recommend against anticoagulation for PICC assoc. thrombus, supportive care only
heme/onc will sign off, please call w/ questions
--- NOTE | 2024-08-24 12:41 | CM ---
CM following re: discharge planning.
Reviewed pt's chart, met with pt and she preferred to be called 'Gloria'.
Pt reports she lives alone in a townhouse, has 2 children and they lives in [place] and [place]. Pt reports she has a walker and a cane and does not use them. Pt reports she has supportive neighbors, friends, nephew and nieces. Pt stated she will have [facility]
care upon the discharge.
A referral to [facility] noted.
Please fax discharge instructions to [facility] at [phone].
D/C plan: home with [facility] and family/friends support.
CM will follow with discharge plan updates as needed.
[2024-08-24] MEDS: KCL 40 MEQ PO (13:38)
--- NOTE | 2024-08-24 16:27 | W.PN.HOSP.TC ---
Today's Communication/Plan
-
Continue oral antibiotics
Outpatient follow-up with GI as well as imaging.
Physical therapy assessment
nursing home facility placement will require given deconditioning.
Assessment / Plan
Assessment / Plan
Impression:
Presentation with severe fatigue and weakness.
Acute kidney injury, improved
Rhabdomyolysis. Nontraumatic, improved
Hepatic abscess.
Choledocholithiasis
Duodenal fistula
Hypokalemia
Transaminitis
Acute lower gastrointestinal hemorrhage.
Acute blood loss anemia
Right upper extremity DVT secondary to PICC line
Other conditions
Essential hypertension
Dyslipidemia.
Left ankle arthritis
History of melanoma removal remote.
Plan
# Swelling R upper extremity
Good peripheral pulse
US Doppler is ordered
Elevate the limb, c/w fingers movement to improve circulation
# Large hepatic Abscess
Clinical sepsis on presentation with hepatobiliary source
Hepatic abscess CT scan of abd/pelvis: 1). There is an 11 cm heterogeneous low density mass in the right lobe with a small volume internal gas.
Differential diagnosis for this mass includes both benign and malignant neoplasm.
The presence of gas within the lesion raises concern for fistulous communication with the adjacent bowel.
Alternatively, this mass may be abscess collection.
Biopsy/drainage may be useful for further evaluation
2). Cholelithiasis
3). 4 cm left parapelvic renal cyst
Status post interventional radiology aspiration on 08/06 with purulence.
KAIDEN drain in place
Cultures Klebsiella/Viridans Strep/sagrario.
Antibiotics narrowed to fluconazole, ceftriaxone and Flagyl
Tumor markers with slightly elevated CEA and normal levels of CEA 199/AFP
Unable to perform MRI/MRCP given Medtronic device (spinal stimulator in place)
Follow-up imaging with ultrasound 08/10:
1. Interval decrease in size of the heterogeneous collection along the right lobe of the liver as above. The percutaneous drainage catheter is not well seen at sonography. No significant residual undrained anechoic collection is identified.
2. Persistent dilation of the common bile duct. Ovoid echogenic structure likely representing concretion of biliary sludge within the common bile duct as above.
3. Cholelithiasis. Negative for abnormal gallbladder dilation.
ERCP 08/12: Duodenal fistula draining copious amount of pus. Choledocholithiasis. Complete removal accomplished with biliary sphincterectomy and balloon extraction.
Follow-up CT scan 08/13 large hepatic abscess significantly improved. Previously placed catheter has retracted out of the abscess. Second collection noted measuring 3.5 x 2.8 x 2.5 cm with internal air, likely representing undrained hepatic
abscess.
iRad drain check on 08/16 with no residual collection.
The drain was removed on 08/16
Follow-up imaging with concern for phlegmon not amenable to drain. Plan per GI: EGD with fistulogram on Friday
Continue IV antibiotics per ID. 08/18 transitioned to oral regimen with cefdinir, metronidazole, micafungin for additional 4 weeks. Through 09/14.
#Duodenal fistula
Repeat ERCP 08/23 with stent placed. Follow-up ultrasound confirmed stent stent position in common bile duct
#Acute rectal bleeding.
CT angiogram with no extravasation.
Emergent IR at mesenteric angio showed no active bleeding.
Colonoscopy 08/16 with single colonic angiectasia treated with argon plasma coagulation. 2 erosions superficial ulcers in the cecal biopsy. Mucosal ulceration with congestion in the sigmoid colon descending colon likely ischemic colitis biopsied.
Internal hemorrhoids.
Low residue diet
Right upper extremity DVT secondary to PICC line
PICC line removed.
Monitor closely.
# Hypokalemia, replaced
recheck BMP
#Acute blood loss anemia with rectal bleeding.
Bleeding subsided with appropriate response to transfusion. s/p 2 units. Monitored hemoglobin.
#Acute kidney injury/ Metabolic acidosis: Resolved
Nontraumatic rhabdomyolysis
Diaz catheter placed on admission (no documented retention while in ED0,/ Diaz catheter removed on 08/09.
Avoid NSAIDs.
# Primary HTN, resumed lisinopril/HCTZ.
# Dyslipidemia
Hold statin given abnormal liver function test
#Severe anxiety.
Better controlled with introduction of Xanax. Monitor for oversedation.
# Full code.
DVT prophylaxis heparin.
Anticipated Discharge: 24 - 48 hours
Subjective/Interval History
-
Date of Service: August 24, 2024
Objective Data
-
Labs:
Laboratory Results
08/24/24
06:57
WBC 5.3
Hgb 7.7 L
Hct 23.3 L
Plt Count 350
Sodium 140
Potassium 3.0 L
Chloride 102
Carbon Dioxide 30
BUN 9
Creatinine 0.8
Glucose 82
Calcium 7.9 L
Total Bilirubin 0.4
AST 25
ALT 14
Alkaline Phosphatase 200 H
Vital Signs:
Vital Signs
Temp Pulse Resp BP Pulse Ox
98.1 F 87 20 125/60 95
08/24/24 11:00 08/24/24 11:00 08/24/24 11:00 08/24/24 11:00 08/24/24 11:00
I&O
08/23/24 08/24/24 08/25/24
06:59 06:59 06:59
Intake Total 180 / 180
Balance 180 / 180
Physical Exam
-
General: Well Developed, Well Nourished, No Apparent Distress and Appears Chronically Ill
HEENT: Normocephalic, Atraumatic and Moist Mucous Membranes
Respiratory: Wheezes (end expiratory wheeze has significantly decreased)
Cardiac: Regular Rhythm and S1/S2
GI: Soft, Nontender (slightly tender in RUQ, area of liver bx) and Nondistended
Musculoskeletal: No Clubbing, No Cyanosis and No Edema
Neuro: Awake, Alert and Oriented
[2024-08-24] MEDS: DESYREL 25 MG PO (21:31)
[2024-08-25] VITALS (7 sets, daily range): BP systolic 120–148; BP diastolic 62–82; PULSE 93–112; O2SAT 94
[2024-08-25] MEDS: TYLENOL 650 MG PO ×3 (03:31→16:21)
[2024-08-25] MEDS: LIDOCAINE 4% PATCH 1 PATCH TOPICAL (04:14)
[2024-08-25 08:17] LABS: % Basophils 0.5 % (0-2); % Eosinophils 5.6 % (0-6); % Immature Granulocytes 0.8 % (0-0.5); % Lymphocytes 8.4 % (20.5-51.1); % Monocytes 9.3 % (1.7-9.3); % Neutrophils 75.4 % (42.2-75.2); Absolute Eosinophils 0.4 10^3/uL (0-0.7); Absolute Immature Granulocytes 0.1 10^3/uL (0-0.05); Absolute Lymphocytes 0.6 10^3/uL (1.2-3.4); Absolute Monocytes 0.7 10^3/uL (0.1-0.6); Absolute Neutrophils 5.6 10^3/uL (1.4-6.5); Hematocrit 23.4 % (37.0-47.0); Hemoglobin 7.8 g/dL (12.0-16.0); Mean Corp Hgb Conc. 33.3 g/dL (33.0-37.0); Mean Corpuscular Hgb 22.5 pg (27.0-31.0); Mean Corpuscular Volume 67.6 fL (81.0-99.0); Mean Platelet Volume 9.9 fL (7.4-10.4); Nucleated Red Blood Cells % 0 %; Platelet Count 395 10^3/uL (130-400); Red Blood Cell Count 3.46 10^6/uL (4.20-5.40); Red Cell Dist. Width 24.9 % (11.5-14.5); White Blood Cell Count 7.4 10^3/uL (4.8-10.8)
[2024-08-25] MEDS: DIFLUCAN 400 MG PO (09:40)
[2024-08-25] MEDS: PROTONIX 40 MG PO (09:40)
[2024-08-25] MEDS: OMNICEF 300 MG PO ×2 (09:40→20:29)
[2024-08-25] MEDS: ZESTRIL 10 MG PO (09:41)
[2024-08-25] MEDS: FLAGYL 500 MG PO ×2 (09:41→20:29)
[2024-08-25] MEDS: XANAX 0.5 MG PO ×2 (09:41→20:29)
[2024-08-25] MEDS: VISBIOME 2 CAP PO (09:42)
[2024-08-25] MEDS: PROZAC 40 MG PO (09:42)
--- NOTE | 2024-08-25 13:51 | CM ---
Patient seen bedside with visitors, discussed PT recommendation of SNF. Patient reports she would prefer to return home with services, however, is willing to go to rehab to get back to her baseline. Patient requesting referrals to [facility] and
[facility] CM will continue to follow for all discharge planning needs.
Plan; SNF pending accepting facility, will need insurance auth.
--- NOTE | 2024-08-25 14:26 | W.PN.ID1 ---
Date of Service
Date of Service: August 25, 2024
Today's Communication
- c/w cefdinir, metronidazole, fluconazole
- qtc acceptable
- decreased trazodone dose to 25 mg qpm continue at this dose on dc
- to complete course with orals through 09/14
- stable for dc from ID perspective
Assessment / Plan
Large hepatic Abscess
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
Leukocytosis
LILIAN
Cholelithiasis and possible choledocholithiasis
- 08/12 ERCP finding of duodenal fistula with copious pus
- 08/16 CT angio - no definitive site of hemorrhage
- 08/23 EGD with probable fistula - hepatic vs gallbladder to dudoenal -
- abscess culture K. oxytoca, VGS, C albicans
- blood cultures x2 finalized negative
- c/w cefdinir, metronidazole, fluconazole
- qtc acceptable
- decreased trazodone dose to 25 mg qpm continue at this dose on dc
- to complete course with orals through 09/14
- stable for dc from ID perspective
����������������������������������������������������������
Chief Complaint
-: Leukocytosis and Other (hepatic abscess)
Subjective / Review of Systems
afebrile
did have sharp abdominal pain last evening that resolved
Vital Signs / Physical Exam
Vital Signs
Vital Signs
Temp Pulse Resp BP Pulse Ox
98.8 F 111 16 129/73 96
08/25/24 11:37 08/25/24 11:37 08/25/24 11:37 08/25/24 11:37 08/25/24 11:37
Physical Exam
Constitutional: No Acute Distress
Cardiovascular: Regular Rate and S1/S2; Negative Murmur or Rub
Pulmonary: Clear and Symmetric; Negative Wheezes or Rales
Gastrointestinal: Soft, Non Tender, Non Distended and Normal Bowel Sounds
Skin: Warm and Dry; Negative Rash or Jaundice
Objective Data
Lab Data
Lab Results
08/25/24 06:44
08/24/24 06:57
ESR 86 mm/hour (0-20) H 08/06/24 09:06
PT 15.0 Sec (11.4-14.6) H 08/06/24 09:04
INR 1.20 08/06/24 09:04
APTT 28.9 Sec (23.4-35.0) 08/05/24 13:21
Estimated Creat Clear 53 ml/min 08/24/24 06:57
Lactic Acid 0.9 mmol/L (0.7-2.0) 08/05/24 13:21
Total Bilirubin 0.4 mg/dl (0.2-1.3) 08/24/24 06:57
AST 25 U/L (14-36) 08/24/24 06:57
ALT 14 U/L (0-35) 08/24/24 06:57
Alkaline Phosphatase 200 U/L (38-126) H 08/24/24 06:57
C-Reactive Protein 204.20 mg/L (0.0-10.00) H 08/06/24 09:05
Most recent labs reviewed.
Micro Results:
08/13/24 15:54 Wound Culture - Final
Abscess Stephanie albicans
Gram Stain - Final
08/07/24 12:03 Blood Culture - Final
Blood/Venous No Growth - Final Report
08/05/24 13:21 Blood Culture - Final
Blood/Venous No Growth - Final Report
08/08/24 13:32 Stool Leukocytes - Final
Feces/Stool
08/08/24 13:32 C. difficile GDH Antigen & Toxins - Final
Feces/Stool Negative for toxigenic C.difficile
08/06/24 13:00 Wound Culture - Final
Liver Klebsiella oxytoca
Viridans Streptococcus Group
Gram Stain - Final
08/05/24 00:44 Urine Culture - Final
Urine NO GROWTH
Imaging:
08/13/24 CT a/p: Large hepatic abscess seen on prior CT dated 08/05/2024 has significantly improved. Previously placed drainage catheter has retracted out of the abscess, and is now located within the periphery of the liver.
2. Second collection is seen within the posterior right hepatic lobe, measuring 3.5 x 2.8 x 2.5 cm, with internal air, likely representing an undrained hepatic abscess.
3. Mild biliary ductal dilation, grossly unchanged compared to prior CT.
4. Pneumobilia, increased in amount compared to prior CT. Biliary ductal communication with the hepatic abscesses and/or cholangitis is not excluded. Biliary air may also be related to recent ERCP.
--- NOTE | 2024-08-25 16:17 | W.PN.HOSP.TC ---
Today's Communication/Plan
-
On oral antibiotics
Diet has been advanced
Hemoglobin has been stable
Medically optimized for discharge to halfway facility pending placement.
Assessment / Plan
Assessment / Plan
Impression:
Presentation with severe fatigue and weakness.
Acute kidney injury, improved
Rhabdomyolysis. Nontraumatic, improved
Hepatic abscess.
Choledocholithiasis
Duodenal fistula
Hypokalemia
Transaminitis
Acute lower gastrointestinal hemorrhage.
Acute blood loss anemia
Right upper extremity DVT secondary to PICC line
Other conditions
Essential hypertension
Dyslipidemia.
Left ankle arthritis
History of melanoma removal remote.
Plan
# Swelling R upper extremity
Good peripheral pulse
US Doppler is ordered
Elevate the limb, c/w fingers movement to improve circulation
# Large hepatic Abscess
Clinical sepsis on presentation with hepatobiliary source
Hepatic abscess CT scan of abd/pelvis: 1). There is an 11 cm heterogeneous low density mass in the right lobe with a small volume internal gas.
Differential diagnosis for this mass includes both benign and malignant neoplasm.
The presence of gas within the lesion raises concern for fistulous communication with the adjacent bowel.
Alternatively, this mass may be abscess collection.
Biopsy/drainage may be useful for further evaluation
2). Cholelithiasis
3). 4 cm left parapelvic renal cyst
Status post interventional radiology aspiration on 08/06 with purulence.
KAIDEN drain in place
Cultures Klebsiella/Viridans Strep/sagrario.
Antibiotics narrowed to fluconazole, ceftriaxone and Flagyl
Tumor markers with slightly elevated CEA and normal levels of CEA 199/AFP
Unable to perform MRI/MRCP given Medtronic device (spinal stimulator in place)
Follow-up imaging with ultrasound 08/10:
1. Interval decrease in size of the heterogeneous collection along the right lobe of the liver as above. The percutaneous drainage catheter is not well seen at sonography. No significant residual undrained anechoic collection is identified.
2. Persistent dilation of the common bile duct. Ovoid echogenic structure likely representing concretion of biliary sludge within the common bile duct as above.
3. Cholelithiasis. Negative for abnormal gallbladder dilation.
ERCP 08/12: Duodenal fistula draining copious amount of pus. Choledocholithiasis. Complete removal accomplished with biliary sphincterectomy and balloon extraction.
Follow-up CT scan 08/13 large hepatic abscess significantly improved. Previously placed catheter has retracted out of the abscess. Second collection noted measuring 3.5 x 2.8 x 2.5 cm with internal air, likely representing undrained hepatic
abscess.
iRad drain check on 08/16 with no residual collection.
The drain was removed on 08/16
Follow-up imaging with concern for phlegmon not amenable to drain. Plan per GI: EGD with fistulogram on Friday
Continue IV antibiotics per ID. 08/18 transitioned to oral regimen with cefdinir, metronidazole, micafungin for additional 4 weeks. Through 09/14.
#Duodenal fistula
Repeat ERCP 08/23 with stent placed. Follow-up ultrasound confirmed stent stent position in common bile duct
#Acute rectal bleeding.
CT angiogram with no extravasation.
Emergent IR at mesenteric angio showed no active bleeding.
Colonoscopy 08/16 with single colonic angiectasia treated with argon plasma coagulation. 2 erosions superficial ulcers in the cecal biopsy. Mucosal ulceration with congestion in the sigmoid colon descending colon likely ischemic colitis biopsied.
Internal hemorrhoids.
Low residue diet
Right upper extremity DVT secondary to PICC line
PICC line removed.
Monitor closely.
# Hypokalemia, replaced
recheck BMP
#Acute blood loss anemia with rectal bleeding.
Bleeding subsided with appropriate response to transfusion. s/p 2 units. Monitored hemoglobin.
#Acute kidney injury/ Metabolic acidosis: Resolved
Nontraumatic rhabdomyolysis
Diaz catheter placed on admission (no documented retention while in ED0,/ Diaz catheter removed on 08/09.
Avoid NSAIDs.
# Primary HTN, resumed lisinopril/HCTZ.
# Dyslipidemia
Hold statin given abnormal liver function test
#Severe anxiety.
Better controlled with introduction of Xanax. Monitor for oversedation.
# Full code.
DVT prophylaxis heparin.
Anticipated Discharge: Within 24 hours
Subjective/Interval History
-
Date of Service: August 25, 2024
Objective Data
-
Labs:
Laboratory Results
08/25/24
06:44
WBC 7.4
Hgb 7.8 L
Hct 23.4 L
Plt Count 395
Vital Signs:
Vital Signs
Temp Pulse Resp BP Pulse Ox
97.9 F 90 16 143/72 99
08/25/24 14:46 08/25/24 14:46 08/25/24 14:46 08/25/24 14:46 08/25/24 14:46
I&O
08/24/24 08/25/24 08/26/24
06:59 06:59 06:59
Intake Total 180 / 180 1440 / 1440 480 / 480
Balance 180 / 180 1440 / 1440 480 / 480
Physical Exam
-
General: Well Developed, Well Nourished, No Apparent Distress and Appears Chronically Ill
HEENT: Normocephalic, Atraumatic and Moist Mucous Membranes
Respiratory: Wheezes (end expiratory wheeze has significantly decreased)
Cardiac: Regular Rhythm and S1/S2
GI: Soft, Nontender (slightly tender in RUQ, area of liver bx) and Nondistended
Musculoskeletal: No Clubbing, No Cyanosis and No Edema
Neuro: Awake, Alert and Oriented
[2024-08-25] MEDS: DESYREL 25 MG PO (21:34)
[2024-08-26] MEDS: TYLENOL 650 MG PO ×2 (01:37→15:03)
[2024-08-26 03:00] VITALS: BP 143/61
[2024-08-26 07:40] VITALS: BP 133/72
[2024-08-26] MEDS: FLAGYL 500 MG PO ×2 (08:41→20:06)
[2024-08-26] MEDS: ZESTRIL 10 MG PO (08:41)
[2024-08-26] MEDS: PROTONIX 40 MG PO (08:41)
[2024-08-26] MEDS: DIFLUCAN 400 MG PO (08:41)
[2024-08-26] MEDS: PROZAC 40 MG PO (08:41)
[2024-08-26] MEDS: OMNICEF 300 MG PO ×2 (08:42→20:04)
[2024-08-26] MEDS: VISBIOME 2 CAP PO (08:43)
[2024-08-26] MEDS: XANAX 0.5 MG PO ×2 (08:43→20:04)
[2024-08-26] MEDS: IMODIUM 2 MG PO (10:11)
--- NOTE | 2024-08-26 10:49 | CM ---
Addendum entered by Elizabeth Sapp 08/26/24 14:56:
CM received call from Nirmala PT through [facility], requesting updated PT notes that show patient out of bed, transfers, and ambulation. TT to PT with request, will fax updated PT notes when assessed.
Original Note:
CM spoke with admissions at [facility], able to accept patient. Patient seen bedside, discussed [facility] able to offer bed, patient agreeable. IMM reviewed, signed, placed in chart, copy left for patient. Auth initiated through [facility]- pending reference #[id number], faxed to [phone]. CM will continue to follow for all discharge planning needs.
Plan; [facility] pending auth.
[2024-08-26 11:10] VITALS: BP 149/71
--- NOTE | 2024-08-26 11:36 | W.DS.TRANS ---
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
-
Discharge Instructions:
Discharge Diagnosis/Procedures Choledocholithiasis.
Hepatic abscess.
Diet Regular
Instructions:
Stand-Alone Forms:
Changes to Home Medications: Yes
Discharge Medications:
DC Medications w/original date entered in [employer]
fluoxetine 20 mg capsule 40 mg PO DAILY depression/anxiety 03/13/10
ferrous sulfate 325 mg (65 mg iron) tablet 325 mg PO DAILY Supplement 06/29/12
frxpqkbn-ces-hmsnq acid 0.4 mg-lycopene 300 mcg-lutein 250 mcg tablet (Centrum Silver) 1 ea PO DAILY Supplement 06/29/12
amlodipine 10 mg tablet (Norvasc) 5 mg PO DAILY blood pressure 08/05/24
propranolol 120 mg capsule,24 hr,extended release 120 mg PO DAILY Blood Pressure 08/05/24
acetaminophen 325 mg tablet 650 mg (2 x 325 mg) PO Q4HPRN PRN mild pain/MCQUEEN/temp> 100.4F #60 tabs 08/26/24
alprazolam 0.5 mg tablet 0.5 mg PO BIDPRN PRN anxiety #20 tabs 08/26/24
cefdinir 300 mg capsule 300 mg PO Q12 #40 caps 08/26/24
fluconazole 200 mg tablet 400 mg (2 x 200 mg) PO DAILY #19 tabs 08/26/24
lisinopril 10 mg tablet 10 mg PO DAILY #30 tabs 08/26/24
metronidazole 500 mg tablet 500 mg PO BID #40 tabs 08/26/24
pantoprazole 40 mg tablet,delayed release 40 mg PO DAILY #40 tabs 08/26/24
polyethylene glycol 3350 17 gram oral powder packet (HealthyLax) 17 g PO DAILYPRN PRN constipation #30 ea 08/26/24
trazodone 50 mg tablet 25 mg (1/2 x 50 mg) PO HS #30 tabs 08/26/24
Home Medication Changes
Trazodone dose reduced
HCTZ discontinued
Xanax initiated for severe anxiety
Antibiotic course through 09/14/2024
Pending Results: No
--- NOTE | 2024-08-26 14:30 | W.PN.HOSP.TC ---
Today's Communication/Plan
-
Continue oral antibiotics
Tolerate advanced diet
Hemoglobin stable.
Pending placement to [facility]
Assessment / Plan
Assessment / Plan
Impression:
Presentation with severe fatigue and weakness.
Acute kidney injury, improved
Rhabdomyolysis. Nontraumatic, improved
Hepatic abscess.
Choledocholithiasis
Duodenal fistula
Hypokalemia
Transaminitis
Acute lower gastrointestinal hemorrhage.
Acute blood loss anemia
Right upper extremity DVT secondary to PICC line
Other conditions
Essential hypertension
Dyslipidemia.
Left ankle arthritis
History of melanoma removal remote.
Plan
# Swelling R upper extremity
Good peripheral pulse
US Doppler is ordered
Elevate the limb, c/w fingers movement to improve circulation
# Large hepatic Abscess
Clinical sepsis on presentation with hepatobiliary source
Hepatic abscess CT scan of abd/pelvis: 1). There is an 11 cm heterogeneous low density mass in the right lobe with a small volume internal gas.
Differential diagnosis for this mass includes both benign and malignant neoplasm.
The presence of gas within the lesion raises concern for fistulous communication with the adjacent bowel.
Alternatively, this mass may be abscess collection.
Biopsy/drainage may be useful for further evaluation
2). Cholelithiasis
3). 4 cm left parapelvic renal cyst
Status post interventional radiology aspiration on 08/06 with purulence.
KAIDEN drain in place
Cultures Klebsiella/Viridans Strep/sagrario.
Antibiotics narrowed to fluconazole, ceftriaxone and Flagyl
Tumor markers with slightly elevated CEA and normal levels of CEA 199/AFP
Unable to perform MRI/MRCP given Amaru device (spinal stimulator in place)
Follow-up imaging with ultrasound 08/10:
1. Interval decrease in size of the heterogeneous collection along the right lobe of the liver as above. The percutaneous drainage catheter is not well seen at sonography. No significant residual undrained anechoic collection is identified.
2. Persistent dilation of the common bile duct. Ovoid echogenic structure likely representing concretion of biliary sludge within the common bile duct as above.
3. Cholelithiasis. Negative for abnormal gallbladder dilation.
ERCP 08/12: Duodenal fistula draining copious amount of pus. Choledocholithiasis. Complete removal accomplished with biliary sphincterectomy and balloon extraction.
Follow-up CT scan 08/13 large hepatic abscess significantly improved. Previously placed catheter has retracted out of the abscess. Second collection noted measuring 3.5 x 2.8 x 2.5 cm with internal air, likely representing undrained hepatic
abscess.
iRad drain check on 08/16 with no residual collection.
The drain was removed on 08/16
Follow-up imaging with concern for phlegmon not amenable to drain. Plan per GI: EGD with fistulogram on Friday
Continue IV antibiotics per ID. 08/18 transitioned to oral regimen with cefdinir, metronidazole, micafungin for additional 4 weeks. Through 09/14.
#Duodenal fistula
Repeat ERCP 08/23 with stent placed. Follow-up ultrasound confirmed stent stent position in common bile duct
#Acute rectal bleeding.
CT angiogram with no extravasation.
Emergent IR at [facility] showed no active bleeding.
Colonoscopy 08/16 with single colonic angiectasia treated with argon plasma coagulation. 2 erosions superficial ulcers in the cecal biopsy. Mucosal ulceration with congestion in the sigmoid colon descending colon likely ischemic colitis biopsied.
Internal hemorrhoids.
Low residue diet
Right upper extremity DVT secondary to PICC line
PICC line removed.
Monitor closely.
# Hypokalemia, replaced
recheck BMP
#Acute blood loss anemia with rectal bleeding.
Bleeding subsided with appropriate response to transfusion. s/p 2 units. Monitored hemoglobin.
#Acute kidney injury/ Metabolic acidosis: Resolved
Nontraumatic rhabdomyolysis
Diaz catheter placed on admission (no documented retention while in ED0,/ Diaz catheter removed on 08/09.
Avoid NSAIDs.
# Primary HTN, resumed lisinopril/HCTZ.
# Dyslipidemia
Hold statin given abnormal liver function test
#Severe anxiety.
Better controlled with introduction of Xanax. Monitor for oversedation.
# Full code.
DVT prophylaxis heparin.
Anticipated Discharge: 24 - 48 hours
Subjective/Interval History
-
Date of Service: August 26, 2024
Objective Data
-
Vital Signs:
Vital Signs
Temp Pulse Resp BP Pulse Ox
97.9 F 81 20 149/71 95
08/26/24 11:10 08/26/24 11:10 08/26/24 11:10 08/26/24 11:10 08/26/24 11:10
I&O
08/25/24 08/26/24 08/27/24
06:59 06:59 06:59
Intake Total 1440 / 1440 960 / 960
Balance 1440 / 1440 960 / 960
Physical Exam
-
General: Well Developed, Well Nourished, No Apparent Distress and Appears Chronically Ill
HEENT: Normocephalic, Atraumatic and Moist Mucous Membranes
Respiratory: Wheezes (end expiratory wheeze has significantly decreased)
Cardiac: Regular Rhythm and S1/S2
GI: Soft, Nontender (slightly tender in RUQ, area of liver bx) and Nondistended
Musculoskeletal: No Clubbing, No Cyanosis and No Edema
Neuro: Awake, Alert and Oriented
[2024-08-26 15:05] VITALS: BP 142/73
[2024-08-26 19:00] VITALS: BP 108/68
[2024-08-26] MEDS: DESYREL 25 MG PO (22:23)
[2024-08-26 23:12] VITALS: BP 154/68
[2024-08-27 03:26] VITALS: BP 135/82
[2024-08-27] MEDS: TYLENOL 650 MG PO ×2 (03:43→13:24)
[2024-08-27 07:00] VITALS: BP 142/68
[2024-08-27] MEDS: DIFLUCAN 400 MG PO (08:41)
[2024-08-27] MEDS: PROZAC 40 MG PO (08:41)
[2024-08-27] MEDS: VISBIOME 2 CAP PO (08:45)
[2024-08-27] MEDS: OMNICEF 300 MG PO (08:46)
[2024-08-27] MEDS: PROTONIX 40 MG PO (08:46)
[2024-08-27] MEDS: XANAX 0.5 MG PO (08:46)
[2024-08-27] MEDS: FLAGYL 500 MG PO (08:46)
[2024-08-27] MEDS: ZESTRIL 10 MG PO (08:58)
--- NOTE | 2024-08-27 09:17 | CM ---
Addendum entered by Elizabeth Sapp 08/27/24 11:21:
Patient rené bedside, called brother Catracho in room, Catracho will provide payment for WC Van transport. CM placed call to Catracho separately- provided contact number for [facility] to provide payment. Patient scheduled for 2:00 p.m. transport. Update to
[facility].
Original Note:
DANIEL received call from [facility]- patient auth approved 08/26-08/30, auth # [id number], fax updates to skilled nursing case manager Nicole at [phone], phone: [phone]. [facility] aware of jesusita, able to accept for today.
Plan; [facility]
Report: [phone]
[2024-08-27 11:00] VITALS: BP 125/77
== END 2024-08-27 15:02 | DRG 871 ==
LOC: 4 WEST ACU 01:55
PROVIDERS: Clinical Nurse Specialist Family Health; Internal Medicine; Internal Medicine Gastroenterology; Nurse Practitioner Adult Health; Nurse Practitioner Family; Radiology Diagnostic Radiology; Radiology Vascular & Interventional Radiology; Specialist; ADMITTING PHYSICIAN Internal Medicine; ATTENDING PHYSICIAN Internal Medicine; CONSULT PHYSICIAN Internal Medicine Gastroenterology; CONSULT PHYSICIAN Specialist; CONSULT PHYSICIAN Student in an Organized Health Care Education/Training Program; CONSULT PHYSICIAN Surgery; EMERGENCY PHYSICIAN Emergency Medicine; FAMILY PHYSICIAN Family Medicine; OTHER PHYSICIAN Internal Medicine Hematology & Oncology
PROC: 0FC98ZZ Extirpation of Matter from Common Bile Duct, Via Natural or Artificial Opening Endoscopic (ICD-10-PCS; 2024-08-05)
PROC: 0FD03ZX Extraction of Liver, Percutaneous Approach, Diagnostic (ICD-10-PCS; 2024-08-06)
PROC: 0F9030Z Drainage of Liver with Drainage Device, Percutaneous Approach (ICD-10-PCS; 2024-08-06)
PROC: 0F9130Z Drainage of Right Lobe Liver with Drainage Device, Percutaneous Approach (ICD-10-PCS; 2024-08-13)
PROC: 30233N1 Transfusion of Nonautologous Red Blood Cells into Peripheral Vein, Percutaneous Approach (ICD-10-PCS; 2024-08-16)
PROC: 0FP0X0Z Removal of Drainage Device from Liver, External Approach (ICD-10-PCS; 2024-08-16)
PROC: 0DBM8ZX Excision of Descending Colon, Via Natural or Artificial Opening Endoscopic, Diagnostic (ICD-10-PCS; 2024-08-18)
PROC: 0DBN8ZX Excision of Sigmoid Colon, Via Natural or Artificial Opening Endoscopic, Diagnostic (ICD-10-PCS; 2024-08-18)
PROC: 0DBH8ZX Excision of Cecum, Via Natural or Artificial Opening Endoscopic, Diagnostic (ICD-10-PCS; 2024-08-18)
PROC: 0W3P8ZZ Control Bleeding in Gastrointestinal Tract, Via Natural or Artificial Opening Endoscopic (ICD-10-PCS; 2024-08-18)
PROC: 0F7C8DZ Dilation of Ampulla of Vater with Intraluminal Device, Via Natural or Artificial Opening Endoscopic (ICD-10-PCS; 2024-08-23)
PROC: 0FBC8ZX Excision of Ampulla of Vater, Via Natural or Artificial Opening Endoscopic, Diagnostic (ICD-10-PCS; 2024-08-23)
DX: A41.9 Sepsis, unspecified organism (principal); G92.8 Other toxic encephalopathy; K75.0 Abscess of liver; K55.21 Angiodysplasia of colon with hemorrhage; D62 Acute posthemorrhagic anemia; M62.82 Rhabdomyolysis; N17.9 Acute kidney failure, unspecified; C78.7 Secondary malignant neoplasm of liver and intrahepatic bile duct; E87.1 Hypo-osmolality and hyponatremia; E87.20 Acidosis, unspecified; I82.621 Acute embolism and thrombosis of deep veins of right upper extremity; K31.6 Fistula of stomach and duodenum; K63.3 Ulcer of intestine; T82.868A Thrombosis due to vascular prosthetic devices, implants and grafts, initial encounter; B37.89 Other sites of candidiasis; D50.9 Iron deficiency anemia, unspecified; E66.9 Obesity, unspecified; F32.A Depression, unspecified; I10 Essential (primary) hypertension; I78.1 Nevus, non-neoplastic; J45.909 Unspecified asthma, uncomplicated; L89.321 Pressure ulcer of left buttock, stage 1; K80.50 Calculus of bile duct without cholangitis or cholecystitis without obstruction; K83.8 Other specified diseases of biliary tract; B96.89 Other specified bacterial agents as the cause of diseases classified elsewhere; B95.4 Other streptococcus as the cause of diseases classified elsewhere; D13.2 Benign neoplasm of duodenum; D75.839 Thrombocytosis, unspecified; E53.8 Deficiency of other specified B group vitamins; E78.00 Pure hypercholesterolemia, unspecified; E86.0 Dehydration; E86.1 Hypovolemia; E87.6 Hypokalemia; F43.22 Adjustment disorder with anxiety; G43.909 Migraine, unspecified, not intractable, without status migrainosus; K57.30 Diverticulosis of large intestine without perforation or abscess without bleeding; K59.00 Constipation, unspecified; K62.1 Rectal polyp; K64.4 Residual hemorrhoidal skin tags; K64.8 Other hemorrhoids; M19.072 Primary osteoarthritis, left ankle and foot; K29.40 Chronic atrophic gastritis without bleeding; M85.80 Other specified disorders of bone density and structure, unspecified site; N28.1 Cyst of kidney, acquired; Y84.8 Other medical procedures as the cause of abnormal reaction of the patient, or of later complication, without mention of misadventure at the time of the procedure; D56.3 Thalassemia minor; Z79.899 Other long term (current) drug therapy; Z86.718 Personal history of other venous thrombosis and embolism; Z86.73 Personal history of transient ischemic attack (TIA), and cerebral infarction without residual deficits; Z87.19 Personal history of other diseases of the digestive system; Z87.891 Personal history of nicotine dependence; Z85.820 Personal history of malignant melanoma of skin; Z87.440 Personal history of urinary (tract) infections; Z90.710 Acquired absence of both cervix and uterus; Z91.81 History of falling; Z88.5 Allergy status to narcotic agent; Z88.8 Allergy status to other drugs, medicaments and biological substances
CPT/HCPCS: 88305; 36245; 36247; 47000; 49406; 49424; 51702; 70450; 73610; 74174; 74176; 74177; 74240; 74330; 75726; 76000; 76080; 76700; 76705; 76937; 77012; 80048; 80053; 81003; 81015; 82105; 82140; 82248; 82378; 82550; 82570; 82607; 82728; 82962; 83540; 83550; 83605; 83615; 83690; 83735; 84100; 84145; 84156; 84300; 84443; 84550; 85014; 85018; 85025; 85027; 85610; 85652; 85730; 86038; 86140; 86160; 86301; 86430; 86850; 86900; 86901; 86920; 87040; 87070; 87077; 87086; 87186; 87205; 87324; 87449; 89055; 93005; 93971; 96360; 96361; 97110; 97116; 97162; 97167; 97530; 99152; 99153; 99285; C1769; C2617; P9016; Q9967

== ENCOUNTER → 2024-08-31 11:11 | Outpatient (REF) | payer MEDICARE, SELFPAY ==
[2024-08-31 11:37] LABS: % Basophils 0.6 % (0-2); % Eosinophils 6.6 % (0-6); % Immature Granulocytes 1.3 % (0-0.5); % Lymphocytes 8.9 % (20.5-51.1); % Monocytes 7.8 % (1.7-9.3); % Neutrophils 74.8 % (42.2-75.2); Absolute Basophils 0.1 10^3/uL (0-0.2); Absolute Eosinophils 0.6 10^3/uL (0-0.7); Absolute Immature Granulocytes 0.1 10^3/uL (0-0.05); Absolute Lymphocytes 0.8 10^3/uL (1.2-3.4); Absolute Monocytes 0.7 10^3/uL (0.1-0.6); Hematocrit 24.2 % (37.0-47.0); Hemoglobin 7.9 g/dL (12.0-16.0); Mean Corp Hgb Conc. 32.6 g/dL (33.0-37.0); Mean Corpuscular Hgb 21.8 pg (27.0-31.0); Mean Corpuscular Volume 66.9 fL (81.0-99.0); Mean Platelet Volume 9.3 fL (7.4-10.4); Nucleated Red Blood Cells % 0 %; Platelet Count 430 10^3/uL (130-400); Red Blood Cell Count 3.62 10^6/uL (4.20-5.40); Red Cell Dist. Width 24.3 % (11.5-14.5); White Blood Cell Count 9.4 10^3/uL (4.8-10.8)
[2024-08-31 12:03] LABS: ALT (SGPT) 14 U/L (0-35); AST (SGOT) 36 U/L (14-36); Albumin 2.4 g/dl (3.5-5.0); Alkaline Phosphatase 249 U/L (38-126); Blood Urea Nitrogen 10 mg/dl (7-17); Calcium 7.5 mg/dl (8.4-10.2); Carbon Dioxide 27 mmol/L (22-30); Chloride 101 mmol/L (98-107); Glucose 87 mg/dl (70-99); Potassium 3.1 mmol/L (3.5-5.1); Sodium 141 mmol/L (135-145); Total Bilirubin 0.4 mg/dl (0.2-1.3); Total Protein 5.2 g/dl (6.3-8.2); eGFR > 60.00
== END ==
LOC: OLABP 11:11
PROVIDERS: ATTENDING PHYSICIAN Family Medicine
DX: K92.2 Gastrointestinal hemorrhage, unspecified (principal); K75.0 Abscess of liver; D62 Acute posthemorrhagic anemia; I82.621 Acute embolism and thrombosis of deep veins of right upper extremity; K31.6 Fistula of stomach and duodenum; E87.6 Hypokalemia; R74.01 Elevation of levels of liver transaminase levels; I10 Essential (primary) hypertension; E78.5 Hyperlipidemia, unspecified; M13.872 Other specified arthritis, left ankle and foot; R26.2 Difficulty in walking, not elsewhere classified; Z85.820 Personal history of malignant melanoma of skin; F41.9 Anxiety disorder, unspecified
CPT/HCPCS: 36415; 80053; 85025

== ENCOUNTER → 2024-09-01 11:14 | Outpatient (REF) | payer OTHER, MEDICARE, SELFPAY ==
[2024-09-01 13:32] LABS: Blood Urea Nitrogen 9 mg/dl (7-17); Calcium 7.4 mg/dl (8.4-10.2); Carbon Dioxide 29 mmol/L (22-30); Chloride 102 mmol/L (98-107); Glucose 81 mg/dl (70-99); Potassium 3.5 mmol/L (3.5-5.1); Sodium 143 mmol/L (135-145); eGFR > 60.00
== END ==
LOC: OLABP 11:14
PROVIDERS: ATTENDING PHYSICIAN Family Medicine
DX: K75.0 Abscess of liver (principal); D62 Acute posthemorrhagic anemia; I82.621 Acute embolism and thrombosis of deep veins of right upper extremity; K80.80 Other cholelithiasis without obstruction; N17.9 Acute kidney failure, unspecified; K31.6 Fistula of stomach and duodenum; E87.6 Hypokalemia; R74.01 Elevation of levels of liver transaminase levels; I10 Essential (primary) hypertension; K92.2 Gastrointestinal hemorrhage, unspecified; K80.50 Calculus of bile duct without cholangitis or cholecystitis without obstruction; M62.81 Muscle weakness (generalized)
CPT/HCPCS: 36415; 80048

== ENCOUNTER → 2024-09-17 11:02 | Outpatient (REF) | payer OTHER, MEDICARE, SELFPAY ==
[2024-09-17 12:35] LABS: % Basophils 0.4 % (0-2); % Eosinophils 2.6 % (0-6); % Immature Granulocytes 0.6 % (0-0.5); % Lymphocytes 8.1 % (20.5-51.1); % Monocytes 8.1 % (1.7-9.3); % Neutrophils 80.2 % (42.2-75.2); Absolute Eosinophils 0.2 10^3/uL (0-0.7); Absolute Lymphocytes 0.6 10^3/uL (1.2-3.4); Absolute Monocytes 0.6 10^3/uL (0.1-0.6); Absolute Neutrophils 5.5 10^3/uL (1.4-6.5); Hematocrit 30.8 % (37.0-47.0); Hemoglobin 9.6 g/dL (12.0-16.0); Mean Corp Hgb Conc. 31.2 g/dL (33.0-37.0); Mean Corpuscular Hgb 21.4 pg (27.0-31.0); Mean Corpuscular Volume 68.8 fL (81.0-99.0); Mean Platelet Volume 10.2 fL (7.4-10.4); Nucleated Red Blood Cells % 0 %; Platelet Count 569 10^3/uL (130-400); Red Blood Cell Count 4.48 10^6/uL (4.20-5.40); Red Cell Dist. Width 22.5 % (11.5-14.5); White Blood Cell Count 6.8 10^3/uL (4.8-10.8)
[2024-09-17 12:54] LABS: Blood Urea Nitrogen 14 mg/dl (7-17); Calcium 8.7 mg/dl (8.4-10.2); Carbon Dioxide 24 mmol/L (22-30); Chloride 104 mmol/L (98-107); Glucose 124 mg/dl (70-99); Potassium 4.2 mmol/L (3.5-5.1); Sodium 141 mmol/L (135-145); eGFR > 60.00
[2024-09-17 13:47] LABS: Anisocytosis 1+; Hypochromasia 1+; Microcytosis 1+; Normal RBC Morphology No; Target Cells 1+
[2024-09-17 13:48] LABS: Acanthocytes 1+; Ovalocytes 1+
== END ==
LOC: OLABP 11:02
PROVIDERS: ATTENDING PHYSICIAN Family Medicine
DX: K75.0 Abscess of liver (principal); D62 Acute posthemorrhagic anemia; I82.621 Acute embolism and thrombosis of deep veins of right upper extremity; K80.80 Other cholelithiasis without obstruction; N17.9 Acute kidney failure, unspecified; K31.6 Fistula of stomach and duodenum; E87.6 Hypokalemia; R74.01 Elevation of levels of liver transaminase levels; I10 Essential (primary) hypertension; K92.2 Gastrointestinal hemorrhage, unspecified; K80.50 Calculus of bile duct without cholangitis or cholecystitis without obstruction; M62.81 Muscle weakness (generalized)
CPT/HCPCS: 36415; 80048; 85025

== ENCOUNTER → 2024-10-05 10:43 | Outpatient (REF) | payer MEDICARE, SELFPAY ==
[2024-10-05 16:32] LABS: % Basophils 0.3 % (0-2); % Eosinophils 3.6 % (0-6); % Immature Granulocytes 0.5 % (0-0.5); % Lymphocytes 10.4 % (20.5-51.1); % Monocytes 7.5 % (1.7-9.3); % Neutrophils 77.7 % (42.2-75.2); Absolute Eosinophils 0.3 10^3/uL (0-0.7); Absolute Immature Granulocytes 0.1 10^3/uL (0-0.05); Absolute Monocytes 0.7 10^3/uL (0.1-0.6); Absolute Neutrophils 7.2 10^3/uL (1.4-6.5); Hematocrit 27.5 % (37.0-47.0); Hemoglobin 8.6 g/dL (12.0-16.0); Mean Corp Hgb Conc. 31.3 g/dL (33.0-37.0); Mean Corpuscular Hgb 21.4 pg (27.0-31.0); Mean Corpuscular Volume 68.4 fL (81.0-99.0); Mean Platelet Volume 10.5 fL (7.4-10.4); Nucleated Red Blood Cells % 0 %; Platelet Count 366 10^3/uL (130-400); Red Blood Cell Count 4.02 10^6/uL (4.20-5.40); White Blood Cell Count 9.3 10^3/uL (4.8-10.8)
[2024-10-05 16:39] LABS: Blood Urea Nitrogen 22 mg/dl (7-17); Calcium 8.8 mg/dl (8.4-10.2); Carbon Dioxide 30 mmol/L (22-30); Chloride 104 mmol/L (98-107); Glucose 102 mg/dl (70-99); Potassium 3.5 mmol/L (3.5-5.1); Sodium 139 mmol/L (135-145); eGFR > 60.00
== END ==
LOC: HWLAB 10:43
PROVIDERS: ATTENDING PHYSICIAN Internal Medicine Gastroenterology; FAMILY PHYSICIAN Family Medicine; REFERRING PHYSICIAN Nurse Practitioner
DX: K31.6 Fistula of stomach and duodenum (principal)
CPT/HCPCS: 36415; 74019; 80048; 85025

== ENCOUNTER → 2024-10-21 13:06 | Outpatient (REF) | payer MEDICARE, SELFPAY | LOC: RAD 13:06 | PROVIDERS: ATTENDING PHYSICIAN Internal Medicine Gastroenterology; FAMILY PHYSICIAN Family Medicine | DX: K75.0 Abscess of liver (principal) | CPT/HCPCS: 74170; Q9967 ==

== ENCOUNTER 2024-11-10 06:18 | Day surgery (SDC) | payer MEDICARE, SELFPAY ==
[2024-11-10 12:55] VITALS: BP 138/63
[2024-11-10 13:15] VITALS: BMI 25.9
[2024-11-10 13:26] VITALS: BMI 25.9
[2024-11-10 15:08] VITALS: BP 136/51; BP 138/63
[2024-11-10 15:15] VITALS: BP 126/47
[2024-11-10 15:32] VITALS: BP 120/50
[2024-11-10 15:48] VITALS: BP 128/56
[2024-11-10 16:00] VITALS: BP 144/66
== END 2024-11-10 16:13 | disposition home or self-care (01) ==
LOC: GI 06:18
PROVIDERS: ATTENDING PHYSICIAN Internal Medicine Gastroenterology
DX: K83.8 Other specified diseases of biliary tract (principal); K21.00 Gastro-esophageal reflux disease with esophagitis, without bleeding; K31.6 Fistula of stomach and duodenum; K80.20 Calculus of gallbladder without cholecystitis without obstruction; R93.3 Abnormal findings on diagnostic imaging of other parts of digestive tract
CPT/HCPCS: 43237; 43239; 88305

== ENCOUNTER → 2024-12-03 15:42 | Outpatient (REF) | payer MEDICARE, SELFPAY | LOC: HWRCS 15:42 | PROVIDERS: ATTENDING PHYSICIAN Family Medicine | DX: R01.1 Cardiac murmur, unspecified (principal) | CPT/HCPCS: 93306 ==

== ENCOUNTER 2025-01-17 17:08 | Inpatient (IN) | payer MEDICARE, SELFPAY ==
[2025-01-17] VITALS (11 sets, daily range): BP systolic 161–182; BP diastolic 61–84; BMI 25.7
[2025-01-17 11:54] LABS: % Basophils 0.2 % (0-2); % Eosinophils 0.8 % (0-6); % Immature Granulocytes 0.5 % (0-0.5); % Lymphocytes 5.3 % (20.5-51.1); % Monocytes 8.1 % (1.7-9.3); % Neutrophils 85.1 % (42.2-75.2); Absolute Eosinophils 0.1 10^3/uL (0-0.7); Absolute Immature Granulocytes 0.1 10^3/uL (0-0.05); Absolute Lymphocytes 0.7 10^3/uL (1.2-3.4); Absolute Monocytes 1.1 10^3/uL (0.1-0.6); Absolute Neutrophils 11.1 10^3/uL (1.4-6.5); Hematocrit 30.3 % (37.0-47.0); Mean Corpuscular Hgb 21.2 pg (27.0-31.0); Mean Corpuscular Volume 64.3 fL (81.0-99.0); Nucleated Red Blood Cells % 0 %; Platelet Count 362 10^3/uL (130-400); Red Blood Cell Count 4.71 10^6/uL (4.20-5.40); Red Cell Dist. Width 15.1 % (11.5-14.5); White Blood Cell Count 13.1 10^3/uL (4.8-10.8)
[2025-01-17 12:05] LABS: ALT (SGPT) 26 U/L (0-35); AST (SGOT) 38 U/L (14-36); Albumin 3.6 g/dl (3.5-5.0); Alkaline Phosphatase 115 U/L (38-126); Blood Urea Nitrogen 33 mg/dl (7-17); Calcium 9.3 mg/dl (8.4-10.2); Carbon Dioxide 26 mmol/L (22-30); Chloride 104 mmol/L (98-107); Glucose 144 mg/dl (70-99); Sodium 137 mmol/L (135-145); Total Bilirubin 0.8 mg/dl (0.2-1.3); Total Protein 6.4 g/dl (6.3-8.2); eGFR > 60.00
--- NOTE | 2025-01-17 13:24 | ED.GENMED ---
History of Present Illness
General
Chief Complaint: Fall
Source: patient
Exam Limitations: none
Time Seen by Provider: 01/17/25 13:07
Nursing documentation reviewed up to this point in time: agreed with
History of Present Illness
History of Present Illness:
Patient is a 89-year-old female presents to the ER for evaluation.
Patient is awake alert she does report that she has had difficulty with walking and balance issues. This is not necessarily new for it. Family reports patient had a gradual decline however over the past 1 and half week she has fallen multiple
times and has hit her head. She is not on blood thinners. She now complains of pain to the left leg region hip area.
She denies any headache. She recently has been treated for UTI and has either 1 or 2 pills left. This was diagnosed at urgent care. She reports she never had any UTI symptoms. She denies any UTI symptoms now. Denies any recent illness fever
chills.
She does not feel weak so reports she does feel that her walking started with balance issues first although now she has pain since she has fallen.
She does use a walker to walk.
Past History
Past History
ED Past Medical History: Cancer (Skin CA Melanoma), HTN, Hypercholesterolemia, Psychiatric (Depression) and Other (DVT, Diverticulosis, GI bleeding. 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 )
ED Past Surgical History: Appendectomy, Gynecological (Hysterectomy), Orthopedic (thumb sx dr ragland ), Tonsilectomy (and adenoids) and Other (Left thigh Z-plasty for skin Cancer)
Social History
Tobacco: Former smoker
Alcohol: Occasional
Drug: None
Personal:
Living: alone
Employment: Retired
Family History
Family History: Hypertension
Review of Systems
Review of Systems
Allergies reviewed?: Yes
Other source history: family
All Other Systems: ROS reviewed and negative except as documented in HPI and ROS
Constitutional: Reports no symptoms; Denies fever, fatigue or chills
EENT: Reports no symptoms
Respiratory: Reports no symptoms
Cardiac: Reports no symptoms
ABD/GI: Reports no symptoms; Denies abdominal pain, nausea or vomiting
: Reports no symptoms
Musculoskeletal: Reports other (pain to left leg )
Skin: Reports no symptoms
Neurological: Reports other (difficulty with balance ); Denies headache
Hematologic/Lymphatic: Reports no symptoms
Psychiatric: Reports no symptoms
Phy Exam
General Physical Exam
General Presentation: no apparent distress
General age: appears stated age
General Skin: warm and dry
General Habitus: normal
General Mental: alert
General Hydration: dry mucous membranes
Cardiovascular Exam
Cardiovascular Exam: regular rate/rhythm, no murmur and normal peripheral pulses
Pulmonary Exam
Pulmonary Exam: lungs clear and no respiratory distress
Gastrointestinal Exam
Gastrointestinal Exam: normal bowel sounds, non tender and soft
Neurological Exam
Neurological Exam: alert, oriented x3, no motor deficits and no sensory deficits
Giuseppe Coma Scale
Eye Opening: Spontaneous
Verbal Response: Oriented
Motor Response: Obeys Commands
GCS Total Score: 15
Cerebellar
Cerebellar Function: normal finger to nose
Musculoskeletal Exam
Musculoskeletal Exam: other (slight decreased ROM to left leg due to discomfort ; full internal /external rotation of left hip )
Skin Exam
Skin Exam: normal color and warm/dry
Psychiatric Exam
Psychiatric Exam: normal mood/affect
Course
Orders/Labs/Results
Orders:
Orders
01/17/25 11:43
CMP [Comprehensive Metabolic Panel] Urgent
Complete Blood Count/With Diff Urgent
01/17/25 13:21
CT Cervical Spine W/o Iv Contr Urgent
Comment:
Reason For Exam: trauma
CT Head W/o Iv Contrast Urgent
Comment:
Reason For Exam: trauma/diff walking
Straight cath- Treatment ONCE
01/17/25 13:23
Femur, Left 2 View [CR Femur - Left Min 2 Vw] Urgent
Comment:
Reason For Exam: trauma
Hip, Left 2-3 Views [CR Hip - LT w/wo Pel 2-3 Vw*] Urgent
Comment:
Reason For Exam: trauma
Include a pelvis x-ray?: Yes
01/17/25 13:26
0.9% Sodium Chloride 1000 ml [Nss] 1,000 ml IV BOLUS
01/17/25 13:32
UA Reflex to Culture [Urinalysis Reflex To Culture] Urgent
Date Specimen was Collected: 01/17/25
Time Specimen was Collected: 13:31
Urine Microscopic Reflex Cult Urgent
01/17/25 15:41
COVID-19 Antigen Urgent
Source: Nasal Swab
01/17/25 15:42
Influenza A+B Rapid Molecular Urgent
BRIANNE Source: Nasal Swab
Specimen Description:
01/17/25 15:44
Electrocardiogram (*1) Stat
Reason for Study: Other
Other Reason for Exam: chest pain
EKG- Treatment ONCE
Chest [CR Chest - 2 Views ] Urgent
Comment:
Reason For Exam: admission mildly elevated wbc
Abnormal Lab Results
01/17/25 01/17/25
11:43 13:32
WBC 13.1 H 10^3/uL
(4.8-10.8)
Hgb 10.0 L g/dL
(12.0-16.0)
Hct 30.3 L %
(37.0-47.0)
MCV 64.3 L fL
(81.0-99.0)
MCH 21.2 L pg
(27.0-31.0)
RDW 15.1 H %
(11.5-14.5)
Abs Immat Gran (auto) 0.1 H 10^3/uL
(0-0.05)
Absolute Neuts (auto) 11.1 H 10^3/uL
(1.4-6.5)
Absolute Lymphs (auto) 0.7 L 10^3/uL
(1.2-3.4)
Absolute Monos (auto) 1.1 H 10^3/uL
(0.1-0.6)
Neutrophils % 85.1 H %
(42.2-75.2)
Lymphocytes % 5.3 L %
(20.5-51.1)
BUN 33 H mg/dl
(7-17)
Glucose 144 H mg/dl
(70-99)
AST 38 H U/L
(14-36)
Urine Bacteria (Reflex) Few A
(Negative)
Urine Albumin (Reflex) 2+ A
(Neg - Trace)
01/17/25 11:43
01/17/25 11:43
Vital Signs
Initial and Last Documented VS:
Initial Vital Signs
Pulse Resp BP Pulse Ox
83 20 165/74 96
01/17/25 11:34 01/17/25 11:34 01/17/25 11:34 01/17/25 11:34
Last Documented Vital Signs
Temp Pulse Resp BP Pulse Ox
99 F 77 15 164/69 97
01/17/25 11:38 01/17/25 14:00 01/17/25 14:00 01/17/25 14:00 01/17/25 14:15
Setter Machine consulted with Physician
Setter Machine consulted with physician?: Yes
Name of Physician Consulted: Raymond
MDM/Problems Addressed
MDM/Problems Addressed:
As documented patient is an 89-year-old female has had increasing falls several falls last week and has had gradual balance issues. Patient does complain of pain to the left hip leg region and has an obvious left pelvic fracture on x-ray. She does
have strong pulses. She is not on blood thinners CT head and cervical spine were done and negative. Family at bedside. Patient denies any fever chills white count is mildly elevated likely reactive temp is 99 will check covid/flu however will
need admission as patient is unable to bear weight on this left leg due to pain. Pt appears mildly dehydrated here bun elevated at 33 , given fluids. Ua neg for infection.
Case discussed with orthopedics will admit to the hospital service. Dr. Beltran does recommend CAT scan of the pelvis to see if there is any displacement of posterior ring or sacral region.
Chronic conditions affecting care:
Hypertension hyperlipidemia
*Radiology
Radiology exam reviewed: radiology read reviewed
*Pulse Oximetry
Patient hypoxic: no
*Critical Care Note
Total Time (30-74mins, 75-104mins- exclusive of procedures): Not Applicable
Patient Management
Discussion with other providers: Nanny Babysitter (ortho: DR Beltran )
ED Attending Note
-
Portions of this chart may have been created with voice recognition software.� Occasional wrong word or��sound alike� substitutions may have occurred due to the inherent limitations of voice recognition software.
Discharge Plan
Departure
Patient Disposition: Admit
Date of Disposition: 01/17/25
Time of Disposition: 16:14
Admit to: Med/Surg
Admit to doctor: hospitalist
Presentation/result/management discussed w/ accepting MD/DO: Hospitalist
Patient with high blood pressure during this ER visit?: Yes
Condition: Fair
Covid-19: Not Applicable
Discharge Problem:
Closed fracture of left pelvis
Prescriptions:
No Action
atorvastatin 20 mg Tablet
20 mg PO QPM
pantoprazole 40 mg Tablet,Delayed Release (Dr/Ec)
40 mg PO DAILY
ferrous sulfate [iron] 325 mg (65 mg iron) Tablet
325 mg PO DAILY
lisinopril 10 mg Tablet
10 mg PO DAILY
propranolol 120 mg Capsule,Extended Release 24hr
120 mg PO DAILY
PreserVision AREDS 4,296 mcg-226 mg-90 mg Capsule
1 cap PO BID
echinacea
1 tab PO DAILY
cholestyramine (with sugar)
1 packet PO DAILY
diphenoxylate-atropine [Lomotil] 2.5-0.025 mg Tablet
1 tab PO QID PRN (Reason: diarrhea)
Centrum Silver Women
1 tab PO DAILY
Tylenol #3
1 tab PO QID PRN (Reason: pain)
CoQ-10
1 tab PO DAILY
vitamin T76-[id number] acid
1 tab PO DAILY
Referrals:
Noah Mary MD [Family Provider] -
Interventions
Interventions:
*Risk Screen - Suicide Last Done: 01/17/25 11:34
*General Assessment Last Done: 01/17/25 11:34
*Neglect/Abuse Screening Last Done: 01/17/25 11:34
*ED- Fall Risk Assessment Last Done: 01/17/25 12:56
*ED COVID-19 Vaccine History Last Done: 01/17/25 12:56
ED-Musculoskeletal Assessment Last Done: 01/17/25 12:57
ED- Neurological Assessment Last Done: 01/17/25 12:57
Discharge Date and Time
Print Language: KAZAKH
[2025-01-17] MEDS: NSS 1000 IV (13:37)
[2025-01-17 13:57] LABS: Urine Albumin 2+ (Neg - Trace); Urine Bilirubin Negative (Negative); Urine Character Clear (Clear); Urine Color Yellow; Urine Glucose Negative (Negative); Urine Ketone Negative (Negative); Urine Leukocyte Negative (Negative); Urine Nitrite Negative (Negative); Urine Occult Blood Negative (Negative); Urine Urobilinogen Negative (Neg - 1+)
[2025-01-17 15:16] LABS: Urine Bacteria Few (Negative); Urine Red Blood Cell 0-2 /HPF (0-2); Urine Squamous Cell 0-2 /LPF (Few); Urine White Cell 0-2 /HPF (0-5)
[2025-01-17] MEDS: OFIRMEV 100 IV (16:24)
--- NOTE | 2025-01-17 17:05 | HPS.HSE ---
Family Physician
-
Family Physician: Noah Mary
Chief Complaint
-
Fall, weakness, pelvic pain
History of Present Illness
89-year-old female here complaining of left pelvic pain after a fall. Has had increasing weakness and ambulatory dysfunction since being diagnosed with a hepatic abscess and choledocholithiasis August 2024.
She lives alone. Ambulates with a walker.
She is unsure of why she fell. Denies loss of consciousness.
She went to urgent care last week after a fall and was diagnosed with UTI and started on oral antibiotics. However, she denies any UTI symptoms and did not have a fever or chills at the time. Last day of antibiotic is today.
Medical History
Past Medical History
Past Medical History: Reports Other
Additional Past Medical History:
Essential hypertension
Hyperlipidemia
Melanoma
Left ankle fracture
Choledocholithiasis, hepatic abscess
Past Surgical History: Reports Other
Additional Past Surgical History:
Melanoma resection
Left ankle fusion
Hysterectomy
Social History
Tobacco: Non-smoker
Alcohol: None
Drug: None
Living: Alone
Employment: Not Employed
Family History
Family History: Not pertinent
Allergies / Home Medications
Allergies reflects when Allergies were last updated in [employer].
Home Medications with original date entered in [employer]
Allergy/Medication List:
Allergies
Allergy/AdvReac Type Severity Reaction Status Date / Time
morphine Allergy head hurts Verified 01/17/25 11:35
zolpidem [From Ambien] Allergy Unknown Verified 01/17/25 11:35
Home Medications
acetaminophen 300 mg-codeine 30 mg tablet 1 tab PO Q6HPRN PRN severe pain 11/10/24
atorvastatin 20 mg tablet 20 mg PO HS 11/10/24
coenzyme Q10 100 mg capsule (CoQ-10) 100 mg PO HS 11/10/24
diphenoxylate-atropine 2.5 mg-0.025 mg tablet (Lomotil) 1 tab PO QIDPRN PRN diarrhea 11/10/24
echinacea 1 tab PO DAILY 11/10/24
ferrous sulfate 325 mg (65 mg iron) tablet (iron) 325 mg PO DAILY 11/10/24
lisinopril 10 mg tablet 10 mg PO DAILY 11/10/24
wemydudp-ttad-xxkz 8 mg-folic 400 mcg-K 50 mcg-lutein 300 mcg tablet (Centrum Silver Women) 1 tab PO HS 11/10/24
pantoprazole 40 mg tablet,delayed release 40 mg PO DAILY 11/10/24
propranolol 120 mg capsule,24 hr,extended release 120 mg PO DAILY 11/10/24
vitamins A,C,C-xgdb-rvczvy 4,296 mcg-226 mg-90 mg capsule (PreserVision AREDS) 1 cap PO BID 11/10/24
amlodipine 5 mg tablet 5 mg PO DAILY 01/17/25
cefuroxime axetil 250 mg tablet 250 mg PO BID 01/17/25
colestipol 5 gram oral granules 5 g PO DAILY 01/17/25
fluoxetine 40 mg capsule 40 mg PO DAILY 01/17/25
trazodone 50 mg tablet 50 mg PO HSPRN PRN sleep 01/17/25
Review of Systems
-
History Source: Patient
A 12 point ROS was completed and negative except as noted: Yes
Physical Exam
Vital Signs
Vital Signs
Temp Pulse Resp BP Pulse Ox
97.8 F 77 18 177/66 97
01/17/25 16:19 01/17/25 16:19 01/17/25 16:19 01/17/25 16:19 01/17/25 16:19
Physical Exam
General: Well Developed, Well Nourished, No Apparent Distress and Comfortable
HEENT: NormoCephalic, Anicteric and Moist mucous membranes
Respiratory: Clear
Cardiac: S1/S2 and Regular Rhythm
Breast: Deferred by me
GI: Soft, Non Tender and Non Distended
Genito-urinary: Deferred by me
Musculoskeletal: No Clubbing, No Cyanosis, Edema, Left Lower Extremity and Edema, Right Lower Extremity
Skin: Warm and Dry
Neuro: AO x 3
Hematologic/Lymphatic: No Lymphadenopathy
Psych: Calm
Laboratory Results
-
01/17/25 11:43
01/17/25 11:43
Laboratory Results
Total Bilirubin 0.8 mg/dl (0.2-1.3) 01/17/25 11:43
AST 38 U/L (14-36) H 01/17/25 11:43
ALT 26 U/L (0-35) 01/17/25 11:43
Alkaline Phosphatase 115 U/L (38-126) 01/17/25 11:43
Impression/Plan
-
Acute traumatic left pelvic fracture -due to fall, osteoporosis. Admit to MedSurg, continue analgesics, consult PT/OT. Anticipate discharge to SNF. Baseline uses a walker.
Discussed with patient and family importance of addressing osteoporosis after discharge with PCP.
Essential hypertension -blood pressure now elevated, suspect due to pain. She also missed her doses of antihypertensives this morning.
Resume home meds.
Hyperlipidemia -atorvastatin.
Full code
No indication to continue further antibiotics. Clinically doubt UTI. Discussed with patient and family.
[2025-01-17 17:19] LABS: COVID-19 Antigen Negative (Negative)
[2025-01-17] MEDS: LIPITOR 20 MG PO (21:21)
[2025-01-17] MEDS: NORVASC 5 MG PO (21:21)
[2025-01-17] MEDS: LOVENOX 40 MG SC (21:21)
[2025-01-17] MEDS: DESYREL 50 MG PO (21:21)
--- NOTE | 2025-01-17 22:09 | PTCARENOTE ---
rec'd pt from ER at 2100. pt transferred over in to the bed. Pain 6/10 in left leg but did want pain medication at that time. she just wanted her sleeping pill. Oriented to room. Call narvaez in reach.
[2025-01-18] VITALS (7 sets, daily range): BP systolic 146–187; BP diastolic 59–77; PULSE 72–73; O2SAT 97
--- NOTE | 2025-01-18 07:36 | CON.ORTHO ---
Consultation
-
Date/Time Consultation Requested: 1600 01/17/2025
Date/Time Consultation Performed: 0630 01/18/2025
Requesting Provider: ED
Performing Provider: Gia
Reason for Consultation: L pelvic ring injury
Consultation - Orthopedics
History
Orthopedic Surgery Note
CC: L hip pain
HPI: 89-year-old female presents to outside hospital after sustaining a fall at home. She has been having falls at home for the last month. She lives alone. She reports pain in the left hip. She had difficulty weightbearing due to pain and was
brought to the emergency department. She denies distal numbness or tingling.
PMH/PSH: HTN, HL, h/o melanoma
Medications: reviewed
Family History: Family history was reviewed. Noncontributory
Social history: Nonsmoker, no illicit drugs
Exam
General appearance: Pleasant. No acute distress.
Head: Normocephalic/atraumatic
Nose: No lesions or discharge.
Skin: No obvious rashes or open wounds
Lungs: No audible wheezing, no cough or sputum production
Musculoskeletal:
LLE:
painful active leg motion about anterior pelvic region
skin intact without open wounds
fires ehl/fhl/ta/gs
sensation intact to light touch distally s/s/sp/dp/t
Toes wwp, 1+ DP
No tenderness over bony prominences or with passive joint ROM
Imaging:
Pelvis and left hip x-rays show signs of a minimally displaced superior pubic ramus fracture. No signs of proximal femur fracture.
CT pelvis with reviewed by me which shows no signs of sacral or posterior ring fracture. There is signs of an inferior pubic ramus fracture as well as superior pubic ramus fracture.
Assessment and plan:
89-year-old female with a minimally displaced superior and inferior pubic ramus fracture after sustaining a fall yesterday. I reviewed the CT scan which shows no signs of posterior ring instability. I recommend touchdown weightbearing on the left
lower extremity with a walker. Plan will be for follow-up as an outpatient in 4 weeks for repeat x-rays at which time she may advance to weightbearing as tolerated if no interval displacement of the fractures. We discussed pain control and fall
precations. All questions were answered.
> 75 minutes was spent reviewing the clinical information, evaluating the patient, and formulating clinical plan.
Allergies / Home Medications
Allergy/AdvReac Type Severity Reaction Status Date / Time
morphine Allergy head hurts Verified 01/17/25 11:35
zolpidem [From Ambien] Allergy Unknown Verified 01/17/25 11:35
�Medication �Instructions �Recorded
acetaminophen 300 mg-codeine 30 mg 1 tab PO Q6HPRN PRN severe pain 11/10/24
tablet
atorvastatin 20 mg tablet 20 mg PO HS 11/10/24
coenzyme Q10 100 mg capsule 100 mg PO HS 11/10/24
(CoQ-10)
diphenoxylate-atropine 2.5 1 tab PO QIDPRN PRN diarrhea 11/10/24
mg-0.025 mg tablet (Lomotil)
echinacea 1 tab PO DAILY 11/10/24
ferrous sulfate 325 mg (65 mg 325 mg PO DAILY 11/10/24
iron) tablet (iron)
lisinopril 10 mg tablet 10 mg PO DAILY 11/10/24
qejsmplq-nzru-pbmn 8 mg-folic 400 1 tab PO HS 11/10/24
mcg-K 50 mcg-lutein 300 mcg tablet
(Centrum Silver Women)
pantoprazole 40 mg tablet,delayed 40 mg PO DAILY 11/10/24
release
propranolol 120 mg capsule,24 120 mg PO DAILY 11/10/24
hr,extended release
vitamins A,C,O-ggwx-wfpzlp 4,296 1 cap PO BID 11/10/24
mcg-226 mg-90 mg capsule
(PreserVision AREDS)
amlodipine 5 mg tablet 5 mg PO DAILY 01/17/25
cefuroxime axetil 250 mg tablet 250 mg PO BID 01/17/25
colestipol 5 gram oral granules 5 g PO DAILY 01/17/25
fluoxetine 40 mg capsule 40 mg PO DAILY 01/17/25
trazodone 50 mg tablet 50 mg PO HSPRN PRN sleep 01/17/25
Vital Signs / Lab Results
Temp Pulse Resp BP Pulse Ox
98.2 F 81 18 162/59 98
01/17/25 21:09 01/17/25 21:09 01/17/25 21:09 01/18/25 01:00 01/17/25 21:09
01/17/25 11:43
01/17/25 11:43
[2025-01-18] MEDS: PROZAC 40 MG PO (07:51)
[2025-01-18] MEDS: FEOSOL 325 MG PO (07:51)
[2025-01-18] MEDS: PROTONIX 40 MG PO (07:51)
[2025-01-18] MEDS: INDERAL LA 120 MG PO (07:52)
[2025-01-18] MEDS: ZESTRIL 10 MG PO (07:52)
[2025-01-18] MEDS: NORVASC 5 MG PO (07:52)
--- NOTE | 2025-01-18 12:08 | CM ---
Addendum entered by Elizabeth Sapp 01/18/25 15:49:
Patient seen bedside with family, discussed VN consult, agreeable to VN, will TT liaison with consult. Patient aware likely for discharge tomorrow.
Plan; home with [facility]
Original Note:
CM reviewed chart, patient seen bedside, initial assessment completed. Patient resides independently in a one story home, full basement, two steps to enter home. Patient has a stair glide to basement. Patient has a rolling walker, currently driving.
Patient reports VN in past, unsure of agency, [facility] in past. Patient PCP Noah Mary, pharmacy [facility], confirms prescription coverage ([facility]). CM discussed PT recommendations of SNF, patient reports she did not have a good
experience at SNF and is not agreeable to return. CM reviewed with Physician who also discussed recommendation of SNF, patient not agreeable. CM will offer VN services to patient. CM will continue to follow for all discharge planning needs.
Plan; patient declining SNF, will discuss VN
--- NOTE | 2025-01-18 12:19 | W.PN.HOSP.TC ---
Today's Communication/Plan
-
Continue current care
Assessment / Plan
Assessment / Plan
Gen-AAOx3, NAD
HEENT-NC, AT, anicteric, clear oral mm
Neck-supple
CV-reg, no M, +S1/S2
Lungs-clear B/L
Abd-soft, NT, ND
Ext-no edema
Musculoskeletal-no cyanosis, clubbing
Skin-warm and dry
Neuro-grossly non-focal
Psych-calm, cooperative
Acute traumatic left pelvic fracture -due to fall, osteoporosis. Admit to MedSurg, continue analgesics, consult PT/OT. Anticipate discharge to SNF. Baseline uses a walker.
Discussed with patient and family importance of addressing osteoporosis after discharge with PCP.
Seen by orthopedics, recommend outpatient follow-up.
Toe-touch weightbearing on left lower extremity with a walker, repeat x-rays in 4 weeks with orthopedics and advance to weightbearing as tolerated if no interval displacement of the fractures on x-ray.
Essential hypertension -elevated blood pressure noted. Continue amlodipine, lisinopril. If blood pressure remains high can increase doses.
Hyperlipidemia -atorvastatin.
Chronic anemia -microcytic. Hemoglobin appears to be at baseline. Will need to be addressed as an outpatient with her primary care doctor.
Full code
Dispo -PT/OT recommending SNF but patient prefers to go home with home care. She understands that she has a high risk for readmission and further falls as well as further fractures.
She has had prior bad experiences with SNF in the past.
Can discharge home with VNA and home PT when arrangements made. Discussed with case management.
Anticipated Discharge: Within 24 hours
Subjective/Interval History
-
Date of Service: January 18, 2025
Patient seen and examined. No complaints currently.
Objective Data
-
Vital Signs:
Vital Signs
Temp Pulse Resp BP Pulse Ox
97.8 F 81 18 172/77 94
01/18/25 07:03 01/18/25 07:52 01/18/25 07:03 01/18/25 07:52 01/18/25 07:03
Review of Systems
-
History Source: Patient
All other systems: Reviewed and negative
[2025-01-18] MEDS: LOVENOX 40 MG SC (17:14)
[2025-01-18] MEDS: LIPITOR 20 MG PO (20:48)
[2025-01-18] MEDS: ROXICODONE 5 MG PO (20:48)
[2025-01-19 03:00] VITALS: BP 169/70
[2025-01-19] MEDS: ROXICODONE 5 MG PO ×2 (05:49→17:21)
[2025-01-19] MEDS: PROZAC 40 MG PO (07:23)
[2025-01-19] MEDS: FEOSOL 325 MG PO (07:23)
[2025-01-19] MEDS: PROTONIX 40 MG PO (07:23)
[2025-01-19] MEDS: ZESTRIL 10 MG PO (07:24)
[2025-01-19] MEDS: INDERAL LA 120 MG PO (07:26)
[2025-01-19] MEDS: NORVASC 5 MG PO ×2 (07:26→09:38)
[2025-01-19 07:28] VITALS: BP 180/71
--- NOTE | 2025-01-19 09:19 | W.PN.HOSP.TC ---
Addendum entered and electronically signed by Gabe Mccall DO 01/19/25 14:50:
Nurse updated me and stated that patient now wants to go to SNF. I updated case management.
Original Note:
Today's Communication/Plan
-
Discharge
Assessment / Plan
Assessment / Plan
Gen-AAOx3, NAD
HEENT-NC, AT, anicteric, clear oral mm
Neck-supple
CV-reg, no M, +S1/S2
Lungs-clear B/L
Abd-soft, NT, ND
Ext-no edema
Musculoskeletal-no cyanosis, clubbing
Skin-warm and dry
Neuro-grossly non-focal
Psych-calm, cooperative
Acute traumatic left pelvic fracture -due to fall, osteoporosis. Continue PT/OT. Baseline uses a walker.
Discussed with patient and family importance of addressing osteoporosis after discharge with PCP.
Seen by orthopedics, recommend outpatient follow-up.
Toe-touch weightbearing on left lower extremity with a walker, repeat x-rays in 4 weeks with orthopedics and advance to weightbearing as tolerated if no interval displacement of the fractures on x-ray.
Essential hypertension -elevated blood pressure noted. Continue amlodipine, lisinopril. Will increase amlodipine dose to 10 mg daily given elevated blood pressure.
Hyperlipidemia -atorvastatin.
Chronic anemia -microcytic. Hemoglobin appears to be at baseline. Will need to be addressed as an outpatient with her primary care doctor.
Full code
Dispo -medically stable for discharge home with VN, PT. Patient not interested in SNF.
Follow-up as outpatient.
32 minutes spent in discharge process.
Anticipated Discharge: Today
Subjective/Interval History
-
Date of Service: January 19, 2025
Patient seen and examined. No complaints.
Objective Data
-
Vital Signs:
Vital Signs
Temp Pulse Resp BP Pulse Ox
98.1 F 71 18 180/71 97
01/19/25 07:28 01/19/25 07:28 01/19/25 07:28 01/19/25 07:28 01/19/25 07:28
I&O
01/18/25 01/19/25 01/20/25
06:59 06:59 06:59
Intake Total 1440 / 1440
Output Total 650 / 650
Balance 790 / 790
Review of Systems
-
History Source: Patient
All other systems: Reviewed and negative
--- NOTE | 2025-01-19 09:21 | W.DS.TRANS ---
DC Summary - Search Developer
-
Discharge Instructions:
Discharge Diagnosis/Procedures Pelvic fracture, osteoporosis, ambulatory
dysfunction, anemia
Diet Regular
Activity With assistance,As tolerated
Driving Restrictions No driving
Bathing Restrictions None
Other Services VN,PT
Instructions:
Stand-Alone Forms:
Changes to Home Medications: Yes
Discharge Medications:
DC Medications w/original date entered in CoNarrative
atorvastatin 20 mg tablet 20 mg PO HS High Cholesterol 11/10/24
coenzyme Q10 100 mg capsule (CoQ-10) 100 mg PO HS Supplement 11/10/24
diphenoxylate-atropine 2.5 mg-0.025 mg tablet (Lomotil) 1 tab PO QIDPRN PRN diarrhea 11/10/24
echinacea 1 tab PO DAILY Supplement 11/10/24
ferrous sulfate 325 mg (65 mg iron) tablet (iron) 325 mg PO DAILY Supplement 11/10/24
lisinopril 10 mg tablet 10 mg PO DAILY Blood Pressure 11/10/24
chqnmjom-dapo-zbwy 8 mg-folic 400 mcg-K 50 mcg-lutein 300 mcg tablet (Centrum Silver Women) 1 tab PO HS Supplement 11/10/24
pantoprazole 40 mg tablet,delayed release 40 mg PO DAILY Gastrointestinal Issue 11/10/24
propranolol 120 mg capsule,24 hr,extended release 120 mg PO DAILY Blood Pressure 11/10/24
vitamins A,C,J-zqcl-ycdrrs 4,296 mcg-226 mg-90 mg capsule (PreserVision AREDS) 1 cap PO BID Supplement 11/10/24
colestipol 5 gram oral granules 5 g PO DAILY Supplement 01/17/25
fluoxetine 40 mg capsule 40 mg PO DAILY Mental Health/Anxiety 01/17/25
trazodone 50 mg tablet 50 mg PO HSPRN PRN sleep 01/17/25
oxycodone 5 mg tablet 5 mg PO Q4HPRN PRN severe pain #20 tabs 01/18/25
amlodipine 10 mg tablet 10 mg PO DAILY #30 tabs 01/19/25
Home Medication Changes
Amlodipine increased to 10 mg daily.
Pending Results: No
[2025-01-19 09:32] VITALS: BP 165/93
[2025-01-19 09:36] VITALS: BP 165/93
--- NOTE | 2025-01-19 11:03 | CM ---
Addendum entered by Elizabeth Sapp 01/19/25 15:05:
Patient seen, agreeable to rehab, will place referrals to [facility]. Will need auth once bed found.
Original Note:
CM reviewed chart, patient seen bedside, for discharge today. Patient agreeable to [facility]. IMM reviewed, signed, placed in chart, patient provided with copy. Patient reports her brother will provide transportation home, confirmed she is comfortable
transporting in families car. CM will continue to follow for all discharge planning needs.
Plan; home with [facility], refusing SNF
--- NOTE | 2025-01-19 12:56 | VNURNOTE ---
Plate Grainer Apprentice met with patient to discuss [facility] nurse/therapy, visits, schedule and homebound status. Patient is agreeable and understands that visits at home will be 2-3 x per week to assess and teach medical management.
[facility] brochure provided with contact information. Patient is aware that [facility] will contact them for start of care in 1-2 days after discharge from .
[facility] referral completed in Care Port.
--- NOTE | 2025-01-19 12:58 | VNURNOTE ---
Publicity Consultant met with patient to discuss [facility] nurse/therapy, visits, schedule and homebound status. Patient is agreeable and understands that visits at home will be 2-3 x per week to assess and teach medical management.
[facility] contact information provided. Patient is aware that [facility] will contact them for start of care after discharge from .
[facility] referral completed in Care Port.
--- NOTE | 2025-01-19 13:04 | PTCARENOTE ---
patient having difficulty transporting from bed to chair, patient unable to stand, requiring x2 assist to stand with RW into chair. Patient agrees to go to rehab. MD Mccall notified. chair alarm in place will continue to monitor.
[2025-01-19 15:00] VITALS: BP 158/83
[2025-01-19] MEDS: LOVENOX 40 MG SC (17:08)
[2025-01-19] MEDS: LIPITOR 20 MG PO (22:16)
[2025-01-19 23:56] VITALS: BP 151/70
[2025-01-20 07:30] VITALS: BP 166/64
[2025-01-20] MEDS: INDERAL LA 120 MG PO (08:35)
[2025-01-20] MEDS: PROZAC 40 MG PO (08:35)
[2025-01-20] MEDS: ZESTRIL 10 MG PO (08:35)
[2025-01-20] MEDS: NORVASC 10 MG PO (08:36)
[2025-01-20] MEDS: PROTONIX 40 MG PO (08:36)
[2025-01-20] MEDS: FEOSOL 325 MG PO (08:39)
--- NOTE | 2025-01-20 09:33 | W.PN.HOSP.TC ---
Today's Communication/Plan
-
Bowel regimen
Discharge planning
Assessment / Plan
Assessment / Plan
Gen-AAOx3, NAD
HEENT-NC, AT, anicteric, clear oral mm
Neck-supple
CV-reg, no M, +S1/S2
Lungs-clear B/L
Abd-soft, NT, ND
Ext-no edema
Musculoskeletal-no cyanosis, clubbing
Skin-warm and dry
Neuro-grossly non-focal
Psych-calm, cooperative
Acute traumatic left pelvic fracture -due to fall, osteoporosis. Continue PT/OT. Baseline uses a walker.
Discussed with patient and family importance of addressing osteoporosis after discharge with PCP.
Seen by orthopedics, recommend outpatient follow-up.
Toe-touch weightbearing on left lower extremity with a walker, repeat x-rays in 4 weeks with orthopedics and advance to weightbearing as tolerated if no interval displacement of the fractures on x-ray.
Essential hypertension -amlodipine dose increased this hospitalization to 10 mg daily. Continue lisinopril. Outpatient follow-up with PCP.
Constipation - bowel regimen ordered. Discussed with patient.
Hyperlipidemia -atorvastatin.
Chronic anemia -microcytic. Hemoglobin appears to be at baseline. Will need to be addressed as an outpatient with her primary care doctor.
Full code
Dispo -medically stable for discharge to SNF. Case management aware.
Anticipated Discharge: Today
Subjective/Interval History
-
Date of Service: January 20, 2025
Patient seen and examined. No complaints.
Objective Data
-
Vital Signs:
Vital Signs
Temp Pulse Resp BP Pulse Ox
97.8 F 74 18 166/64 96
01/20/25 07:30 01/20/25 07:30 01/20/25 07:30 01/20/25 07:30 01/20/25 07:30
I&O
01/19/25 01/20/2525
06:59 06:59 06:59
Intake Total 1440 / 1440 840 / 840
Output Total 650 / 650 300 / 300
Balance 790 / 790 540 / 540
Review of Systems
-
History Source: Patient
All other systems: Reviewed and negative
[2025-01-20] MEDS: COLACE 100 MG PO ×2 (10:12→19:50)
[2025-01-20] MEDS: MIRALAX 17 GRAMS PO (10:12)
--- NOTE | 2025-01-20 10:44 | CM ---
Addendum entered by Dora Fernandez 01/20/25 15:55:
Patient's family are requesting [facility], [facility] [place] is out of network.
Original Note:
Chart reviewed and patient is now agreeable to skilled placement, referrals sent to [facility] and [facility] [place], will follow up with referrals.
Plan; Skilled placement needs Auth.
[2025-01-20] MEDS: ROXICODONE 5 MG PO (12:13)
[2025-01-20 13:13] VITALS: BP 151/63; BP 152/55; PULSE 77
[2025-01-20 13:36] VITALS: BP 151/63; BP 152/55; PULSE 73; O2SAT 97
[2025-01-20 15:00] VITALS: BP 168/69
[2025-01-20] MEDS: LOVENOX 40 MG SC (17:23)
[2025-01-20] MEDS: LIPITOR 20 MG PO (19:50)
[2025-01-20 23:00] VITALS: BP 132/58
[2025-01-21 07:30] VITALS: BP 164/60
[2025-01-21] MEDS: PROTONIX 40 MG PO (08:20)
[2025-01-21] MEDS: COLACE 100 MG PO ×2 (08:20→20:07)
[2025-01-21] MEDS: INDERAL LA 120 MG PO (08:20)
[2025-01-21] MEDS: MIRALAX 17 GRAMS PO (08:20)
[2025-01-21] MEDS: ZESTRIL 10 MG PO ×2 (08:20→09:21)
[2025-01-21] MEDS: PROZAC 40 MG PO (08:20)
[2025-01-21] MEDS: FEOSOL 325 MG PO (08:20)
[2025-01-21] MEDS: NORVASC 10 MG PO (08:20)
--- NOTE | 2025-01-21 09:04 | W.PN.HOSP.TC ---
Today's Communication/Plan
-
Increase lisinopril
Discharge planning
Assessment / Plan
Assessment / Plan
Gen-AAOx3, NAD
HEENT-NC, AT, anicteric, clear oral mm
Neck-supple
CV-reg, no M, +S1/S2
Lungs-clear B/L
Abd-soft, NT, ND
Ext-no edema
Musculoskeletal-no cyanosis, clubbing
Skin-warm and dry
Neuro-grossly non-focal
Psych-calm, cooperative
Acute traumatic left pelvic fracture -due to fall, osteoporosis. Continue PT/OT. Baseline uses a walker.
Discussed with patient and family importance of addressing osteoporosis after discharge with PCP.
Seen by orthopedics, recommend outpatient follow-up.
Toe-touch weightbearing on left lower extremity with a walker, repeat x-rays in 4 weeks with orthopedics and advance to weightbearing as tolerated if no interval displacement of the fractures on x-ray.
Essential hypertension -amlodipine dose increased this hospitalization to 10 mg daily. Will increase lisinopril to 20 mg daily. Outpatient follow-up with PCP.
Constipation -had a bowel movement on 01/20. Continue bowel regimen.
Hyperlipidemia -atorvastatin.
Chronic anemia -microcytic. Hemoglobin appears to be at baseline. Will need to be addressed as an outpatient with her primary care doctor.
Full code
Dispo -medically stable for discharge to SNF. Case management aware.
Anticipated Discharge: Within 24 hours
Subjective/Interval History
-
Date of Service: January 21, 2025
Patient seen and examined. No complaints.
Objective Data
-
Vital Signs:
Vital Signs
Temp Pulse Resp BP Pulse Ox
98.5 F 76 20 164/60 95
01/21/25 07:30 01/21/25 07:30 01/21/25 07:30 01/21/25 07:30 01/21/25 07:30
I&O
01/20/25 01/21/25 01/22/25
06:59 06:59 06:59
Intake Total 840 / 840 1200 / 1200
Output Total 300 / 300 450 / 450
Balance 540 / 540 750 / 750
Review of Systems
-
History Source: Patient
All other systems: Reviewed and negative
--- NOTE | 2025-01-21 11:13 | CM ---
CM reviewed chart, patient seen bedside with family, discussed [facility] able to offer patient a bed, agreeable to [facility]. IMM verbally reviewed, provided with copy, placed in chart. Auth submitted through [place] [facility],
reference number [id number]. Patient will require ambulance transport, forms on chart. Patient aware auth may come through today versus over weekend. CM will continue to follow for all discharge planning needs.
Plan; [facility], auth pending, will require ambulance transport.
[facility]:
Report: [phone]
[2025-01-21 11:19] VITALS: BP 144/87; PULSE 82; O2SAT 95
[2025-01-21] MEDS: ROXICODONE 5 MG PO (12:14)
[2025-01-21] MEDS: TYLENOL 650 MG PO (12:14)
[2025-01-21 15:00] VITALS: BP 138/59
[2025-01-21] MEDS: LOVENOX SC (17:13)
[2025-01-21] MEDS: LIPITOR 20 MG PO (20:07)
[2025-01-21 23:35] VITALS: BP 145/61
[2025-01-22] MEDS: PROTONIX 40 MG PO (07:51)
[2025-01-22 07:52] VITALS: BP 150/60
[2025-01-22] MEDS: ZESTRIL 20 MG PO (07:52)
[2025-01-22] MEDS: FEOSOL 325 MG PO (07:52)
[2025-01-22] MEDS: NORVASC 10 MG PO (07:52)
[2025-01-22] MEDS: COLACE 100 MG PO (07:52)
[2025-01-22] MEDS: INDERAL LA 120 MG PO (07:52)
[2025-01-22] MEDS: PROZAC 40 MG PO (07:52)
[2025-01-22] MEDS: MIRALAX 17 GRAMS PO (07:53)
[2025-01-22] MEDS: ROXICODONE 5 MG PO (07:54)
[2025-01-22] MEDS: TYLENOL 650 MG PO (07:55)
--- NOTE | 2025-01-22 09:34 | W.PN.HOSP.TC ---
Today's Communication/Plan
-
Discharge
Assessment / Plan
Assessment / Plan
Gen-AAOx3, NAD
HEENT-NC, AT, anicteric, clear oral mm
Neck-supple
CV-reg, no M, +S1/S2
Lungs-clear B/L
Abd-soft, NT, ND
Ext-no edema
Musculoskeletal-no cyanosis, clubbing
Skin-warm and dry
Neuro-grossly non-focal
Psych-calm, cooperative
Acute traumatic left pelvic fracture -due to fall, osteoporosis. Continue PT/OT. Baseline uses a walker.
Discussed with patient and family importance of addressing osteoporosis after discharge with PCP.
Seen by orthopedics, recommend outpatient follow-up.
Toe-touch weightbearing on left lower extremity with a walker, repeat x-rays in 4 weeks with orthopedics and advance to weightbearing as tolerated if no interval displacement of the fractures on x-ray.
Essential hypertension -amlodipine dose increased this hospitalization to 10 mg daily, lisinopril increased to 20 mg daily. Outpatient follow-up with PCP. Blood pressure overall improved.
Constipation -resolved.
Hyperlipidemia -atorvastatin.
Chronic anemia -microcytic. Hemoglobin appears to be at baseline. Will need to be addressed as an outpatient with her primary care doctor.
Full code
Dispo -medically stable for discharge to SNF. Case management aware.
Anticipated Discharge: Today
Subjective/Interval History
-
Date of Service: January 22, 2025
Patient seen and examined. No complaints.
Objective Data
-
Vital Signs:
Vital Signs
Temp Pulse Resp BP Pulse Ox
98.7 F 71 15 150/60 95
01/22/25 07:52 01/22/25 07:52 01/22/25 07:52 01/22/25 07:52 01/22/25 07:52
I&O
01/21/25 01/22/25 01/23/25
06:59 06:59 06:59
Intake Total 1200 / 1200 1080 / 1080
Output Total 450 / 450
Balance 750 / 750 1080 / 1080
Review of Systems
-
History Source: Patient
All other systems: Reviewed and negative
--- NOTE | 2025-01-22 11:02 | CM ---
Addendum entered by Elizabeth Spap 01/22/25 11:10:
Call to patients brotherCatracho, to provide update. Family will meet patient over at facility.
Original Note:
CM reviewed chart, auth received through [place] [facility], auth #[id number], reference #[id number], approved 01/21-01/25, director critical care Brianne Navarro, fax updates to [phone]. Update to Rupa at [facility], patient scheduled for 2:00
p.m. ambulance transport. CM will continue to follow for all discharge planning needs.
Plan; [facility], 2:00 p.m. ambulance transport
[facility]:
Report: [phone]
== END 2025-01-22 14:15 | DRG 536 ==
LOC: 4 WEST ACU 17:08
PROVIDERS: Nurse Practitioner; ADMITTING PHYSICIAN Hospitalist; EMERGENCY PHYSICIAN Student in an Organized Health Care Education/Training Program; FAMILY PHYSICIAN Family Medicine; OTHER PHYSICIAN Orthopaedic Surgery
DX: S32.82XA Multiple fractures of pelvis without disruption of pelvic ring, initial encounter for closed fracture (principal); M80.0B2A Age-related osteoporosis with current pathological fracture, left pelvis, initial encounter for fracture; Z87.891 Personal history of nicotine dependence; Z11.52 Encounter for screening for COVID-19; I10 Essential (primary) hypertension; W19.XXXA Unspecified fall, initial encounter; E78.00 Pure hypercholesterolemia, unspecified; K59.00 Constipation, unspecified; D50.9 Iron deficiency anemia, unspecified; Z85.820 Personal history of malignant melanoma of skin; Z87.440 Personal history of urinary (tract) infections; Z98.1 Arthrodesis status
CPT/HCPCS: 51701; 70450; 71046; 72125; 72192; 73502; 73552; 80053; 81003; 81015; 85025; 87502; 87811; 93005; 96374; 97116; 97163; 97167; 97530; 97535; 99285

== ENCOUNTER 2025-04-12 09:38 | Emergency (ER) | payer MEDICARE, SELFPAY ==
[2025-04-12 09:40] VITALS: BP 163/81
--- NOTE | 2025-04-12 15:02 | ED.MUSCINJ ---
HPI-Injury
General
Chief Complaint: Fall
Source: patient and field care advocate
Exam Limitations: none
Nursing documentation reviewed up to this point in time: agreed with
History of Present Illness-Injury
Initial Injury comments:
The patient is an 89-year-old female presenting with skin wounds after falling onto the garage floor before 9 AM today. She reports descending one step with walker and losing her balance. There was no loss of consciousness, visual changes, neck
pain, headache, chest pain, dyspnea, abdominal pain, numbness, tingling, or weakness in extremities following the incident. A neighbor helped her up. She was able to ambulate from the garage into her home under her own power. She denies any
significant bony pain. EMS assisted at the scene. She states her PCP keeps her UTD with Tdap.
Medications:
- Fluoxetine 40 mg
- Lisinopril 20 mg once daily
- Propranolol 120 mg
- Pantoprazole 40 mg
- Colestipol hydrochloride
- Ferrous sulfate
- Vitamin C
- Coenzyme Q10
- Multivitamin
- Echinacea
Past History
Past History
ED Past Medical History: Cancer (Skin CA Melanoma), HTN, Hypercholesterolemia, Psychiatric (Depression) and Other (DVT, Diverticulosis, GI bleeding. 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 )
ED Past Surgical History: Appendectomy, Gynecological (Hysterectomy), Orthopedic (thumb sx dr ragland ), Tonsilectomy (and adenoids) and Other (Left thigh Z-plasty for skin Cancer)
Social History
Tobacco: Former smoker
Alcohol: Occasional
Drug: None
Personal:
Living: alone (The patient lives alone in a townhouse but has daily help in the mornings and supportive neighbors. She has a brother who resides nearby and is supportive.)
Employment: Retired
Family History
Family History: Hypertension
Review of Systems
Review of Systems
All Other Systems: ROS reviewed and negative except as documented in HPI and ROS
Constitutional: Denies fever or fatigue
Respiratory: Denies trouble breathing
Cardiac: Denies chest pain, palpitations or syncope
ABD/GI: Denies abdominal pain, nausea or vomiting
: Denies incontinence
Musculoskeletal: Denies edema, neck pain or back pain
Skin: Reports other (mutiple abrasions)
Neurological: Reports no symptoms
Phy Exam
Physical Exam
Physical Exam:
GENERAL: No acute distress. A&Ox3.
CONSTITUTIONAL: Afebrile.
EYES: clear, conjunctivae normal, PERRL, EOMs intact, Mild swelling, ecchymosis, deep clean abrasion tender lateral left orbit
ENMT: moist mucus membranes, Pharynx nl
RESPIRATORY: Regular respirations, nonlabored, lungs clear.
CARDIOVASCULAR: Regular rate and rhythm, no murmurs, no rubs.
GI: Soft, nontender, normal BS
MUSCULOSKELETAL: No spinal bony tenderness, no neck tenderness. Patient is able to bend the knees without significant bony pain. No significant bony pain to palpation of lower extremities. Full range of motion of upper extremities. Distal
neurovascular intact.
SKIN: Warm, dry, pink. Deep clean abrasions left knee and left lower leg, 1 cm round skin tear on right knee.
PSYCH: Normal mood and affect. Well kept, interactive and appropriate
NEUROLOGIC: Awake, alert and oriented. Speech clear, CN 2-12 intact. Strength equal throughout. No focal neurological deficits
MDM/Problems Addressed
Differential Diagnosis Includes:
The Differential Diagnosis includes, in no particular order and is not limited to:
- Contusion
- Abrasion
- Fracture
MDM/Problems Addressed:
The patient is an 89-year-old female presenting with skin wounds after falling onto the garage floor before 9 AM today. She reports descending one step with walker and losing her balance. There was no loss of consciousness, visual changes, neck
pain, headache, chest pain, dyspnea, abdominal pain, numbness, tingling, or weakness in extremities following the incident. A neighbor helped her up. She was able to ambulate from the garage into her home under her own power. She denies any
significant bony pain. EMS assisted at the scene. She states her PCP keeps her UTD with Tdap.
Patient is alert oriented pleasant, NAD.
EOMs intact, no significant periorbital tenderness, no indication for imaging of the orbits
Not anticoagulated, no significant head injury
Plan:
Address the skin wounds by cleaning, applying antibiotic ointment, and dressing with bandages. Wound glue applied to the skin tear on right knee, skin adhesive and Steri-Strips applied, Band-Aid applied. Recommend no need for X-rays.
All wounds cleansed and dressed
Patient out of bed and ambulating at her baseline with walker
Discharged to care of caregiver
*Pulse Oximetry
SaO2: 97
Oxygen Mode of Delivery: Room air
Patient hypoxic: not evaluated
*Critical Care Note
Total Time (30-74mins, 75-104mins- exclusive of procedures): Not Applicable
ED Attending Note
-
Portions of this chart may have been created with voice recognition software.� Occasional wrong word or��sound alike� substitutions may have occurred due to the inherent limitations of voice recognition software.
Discharge Plan
Departure
Patient Disposition: Home (Routine Discharge)
Date of Disposition: 04/12/25
Time of Disposition: 11:54
Patient with high blood pressure during this ER visit?: No
Condition: Good
Discharge Problem:
Fall from slip, trip, or stumble, Contusion of left orbit, Abrasion of left orbit, Abrasion of both knees, Abrasion of left lower leg
Instructions: Laceration Repair With Glue (DC), Head Injury in Adults (DC), Preventing falls in adults, Skin Abrasions (DC)
Prescriptions:
No Action
atorvastatin 20 mg Tablet
20 mg PO HS
pantoprazole 40 mg Tablet,Delayed Release (Dr/Ec)
40 mg PO DAILY
ferrous sulfate [iron] 325 mg (65 mg iron) Tablet
325 mg PO DAILY
lisinopril 10 mg Tablet
10 mg PO DAILY
propranolol 120 mg Capsule,Extended Release 24hr
120 mg PO DAILY
PreserVision AREDS 4,296 mcg-226 mg-90 mg Capsule
1 cap PO BID
echinacea
1 tab PO DAILY
diphenoxylate-atropine [Lomotil] 2.5-0.025 mg Tablet
1 tab PO QIDPRN PRN (Reason: diarrhea)
Centrum Silver Women 8 mg iron-400 mcg-50 mcg Tablet
1 tab PO HS
coenzyme Q10 [CoQ-10] 100 mg Capsule
100 mg PO HS
fluoxetine 40 mg Capsule
40 mg PO DAILY
trazodone 50 mg Tablet
50 mg PO HSPRN PRN (Reason: sleep)
colestipol 5 gram Granules
5 g PO DAILY
oxycodone 5 mg Tablet
5 mg PO Q4HPRN PRN (Reason: severe pain) Qty: 20 0RF
amlodipine 10 mg Tablet
10 mg PO DAILY Qty: 30 0RF
Referrals:
Noah Mary MD [Family Provider, Family Practice] - As needed
Activity Restrictions/Additional Instructions:
As we discussed, you may wet the right knee wound during showering, afterwards pat the area dry and allow the strips to air dry or blow them dry with a blow dryer. Then replace large Band-Aid. Do this daily until wounds are well-healed.
Seek medical care immediately for signs of infection of any other wounds which may include increasing redness, swelling, pus drainage, fever.
Interventions
Interventions:
*Risk Screen - Suicide Last Done: 04/12/25 09:41
*Neglect/Abuse Screening Last Done: 04/12/25 09:41
*Nursing Disposition Last Done: 04/12/25 12:01
ED-Musculoskeletal Assessment Last Done: 04/12/25 10:22
ED- Neurological Assessment Last Done: 04/12/25 10:22
ED-Skin Assessment Last Done: 04/12/25 10:22
Discharge Date and Time
Discharge Date/Time: 04/12/25 12:01
Print Language: ICELANDIC
== END 2025-04-12 12:01 | disposition home or self-care (01) ==
LOC: EMR 09:38
PROVIDERS: EMERGENCY PHYSICIAN Emergency Medicine; FAMILY PHYSICIAN Family Medicine
DX: S00.212A Abrasion of left eyelid and periocular area, initial encounter (principal); S80.212A Abrasion, left knee, initial encounter; S80.211A Abrasion, right knee, initial encounter; S80.812A Abrasion, left lower leg, initial encounter; W10.9XXA Fall (on) (from) unspecified stairs and steps, initial encounter; I10 Essential (primary) hypertension; E78.00 Pure hypercholesterolemia, unspecified; F32.A Depression, unspecified; K57.90 Diverticulosis of intestine, part unspecified, without perforation or abscess without bleeding; G43.909 Migraine, unspecified, not intractable, without status migrainosus; D50.9 Iron deficiency anemia, unspecified; D56.3 Thalassemia minor; M19.90 Unspecified osteoarthritis, unspecified site; B02.9 Zoster without complications; Z79.899 Other long term (current) drug therapy; Z85.820 Personal history of malignant melanoma of skin; Z86.718 Personal history of other venous thrombosis and embolism; Z87.440 Personal history of urinary (tract) infections; Z87.891 Personal history of nicotine dependence; Z88.5 Allergy status to narcotic agent; Z88.8 Allergy status to other drugs, medicaments and biological substances
CPT/HCPCS: 99283

== ENCOUNTER → 2025-06-07 07:54 | Outpatient (REF) | payer MEDICARE, SELFPAY ==
[2025-06-07 10:19] LABS: ALT (SGPT) 26 U/L (0-35); AST (SGOT) 26 U/L (14-36); Albumin 3.9 g/dl (3.5-5.0); Alkaline Phosphatase 113 U/L (38-126); Total Protein 6.5 g/dl (6.3-8.2)
== END ==
LOC: HWLAB 07:54
PROVIDERS: ATTENDING PHYSICIAN Internal Medicine Gastroenterology; FAMILY PHYSICIAN Family Medicine
DX: K31.6 Fistula of stomach and duodenum (principal)
CPT/HCPCS: 36415; 80076

== ENCOUNTER 2025-06-12 08:29 | Emergency (ER) | payer MEDICARE, SELFPAY ==
[2025-06-12 08:32] VITALS: BP 179/74; BMI 27.5
--- NOTE | 2025-06-12 08:52 | ED.GENMED ---
History of Present Illness
General
Chief Complaint: Fall
Source: patient and ambulance crew
Exam Limitations: none
Time Seen by Provider: 06/12/25 08:50
Nursing documentation reviewed up to this point in time: agreed with
History of Present Illness
History of Present Illness:
Note:
CHIEF COMPLAINT(S)
Fall with left knee discomfort.
HISTORY OF PRESENT ILLNESS
The patient is a 89-year-old female who experienced a fall while in the kitchen. According to the patient, the fall occurred while she was using her walker. She was unable to get up on her own and called a neighbor for assistance. The patient
reports discomfort in the left knee following the fall. There was no head injury reported and the patient denied hitting her head. The patient is not on any blood thinners. She is capable of bending her left knee with the foot towards the jacqueline. There
is concern for potential injury, prompting a clinical assessment to ascertain the presence of any fractures.
PAST MEDICAL AND SURIGICAL HISTORY
The patient has a spinal cord stimulator in place, previously implanted. No other specific surgeries were mentioned for her back.
PHYSICAL EXAM
General: Alert, oriented to situation.
Neurological: The patient is oriented to place but incorrectly states the year.
Musculoskeletal: Left knee discomfort without obvious inability to perform range of motion exercises.
PLAN
1. Perform an x-ray of the patients head to rule out any fracture or injury.
2. Evaluate further based on x-ray findings for the presence of any skeletal injuries or abnormalities.
DIFFERENTIAL DIAGNOSIS
The Differential Diagnosis includes, in no particular order and is not limited to:
1. Contusion
2. Knee sprain
3. Fracture
4. Ligamentous injury
5. Meniscal tear
6. Muscle strain
7. Femoral neck fracture
8. Osteoarthritis exacerbation
9. Patellar fracture
10. Subdural hematoma (given the fall, even in the absence of a reported head strike)
Disposition:
SUMMARY OF ENCOUNTER
The patient, an 89-year-old female, presented to the emergency department following a fall in her kitchen. She reported discomfort in her left knee but did not sustain a head injury. An x-ray was conducted to rule out fractures or skeletal injuries
due to her fall. The x-ray revealed no acute fracture, permitting her discharge. However, an old fracture was noted in the left superior pubic rami.
DISPOSITION
Discharged home.
ASSESSMENT
No acute fracture following the fall. An old fracture of the left superior pubic rami was seen.
PLAN
The patient is to monitor her symptoms and follow up as needed for any worsening or new issues, especially concerning her knee discomfort.
INDEPENDENT REVIEW OF LABS AND INTERPRETATION OF TESTS
My independent interpretation of the x-ray reveals no acute fracture, but there is evidence of an old fracture in the left superior pubic rami.
MEDICAL DECISION MAKING
-Complexity of Data Reviewed: Chronic conditions affecting care include the patients spinal cord stimulator placement. Differential Diagnosis includes contusion, knee sprain, fracture, ligamentous injury, meniscal tear, muscle strain, femoral neck
fracture, osteoarthritis exacerbation, patellar fracture, subdural hematoma.
-Data:
Category 1: Tests and documents
My independent interpretation of the x-ray reveals no acute fracture, old fracture present.
Category 2: N/A
Category 3: N/A
-Risk: Consideration of Admission/Observation: Escalation of care, including admission/observation, was considered given the complexity and risk of the patients presenting complaint, exam findings, and/or underlying comorbidities. However,
ultimately, I feel the patient is safe for outpatient management with close follow-up. Reasoning: Work-up reassuring, does not reveal any acute life/organ-threatening processes, patients symptoms well controlled upon reevaluation, reexamination is
reassuring, vitals are stable, patient agreeable with discharge, reliable for follow-up.
DIAGNOSIS
W19.XXXA - Fall, initial encounter
Left hip pain
Past History
Past History
ED Past Medical History: Cancer (Skin CA Melanoma), HTN, Hypercholesterolemia, Psychiatric (Depression) and Other (DVT, Diverticulosis, GI bleeding. 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 )
ED Past Surgical History: Appendectomy, Gynecological (Hysterectomy), Orthopedic (thumb sx dr ragland ), Tonsilectomy (and adenoids) and Other (Left thigh Z-plasty for skin Cancer)
Social History
Tobacco: Former smoker
Alcohol: Occasional
Drug: None
Personal:
Living: alone (The patient lives alone in a townhouse but has daily help in the mornings and supportive neighbors. She has a brother who resides nearby and is supportive.)
Employment: Retired
Family History
Family History: Hypertension
Phy Exam
Physical Exam
Physical Exam:
.
Course
Orders/Labs/Results
Orders:
Orders
06/12/25 08:51
Hip, Left 2-3 Views [CR Hip - LT w/wo Pel 2-3 Vw*] Urgent
Comment:
Reason For Exam: left hip pain after fall
Include a pelvis x-ray?: Yes
Vital Signs
Initial and Last Documented VS:
Initial Vital Signs
Temp Pulse Resp BP Pulse Ox
98.6 F 53 18 179/74 100
06/12/25 08:32 06/12/25 08:32 06/12/25 08:32 06/12/25 08:32 06/12/25 08:32
Last Documented Vital Signs
Temp Pulse Resp BP Pulse Ox
98.6 F 63 18 176/71 96
06/12/25 08:32 06/12/25 09:37 06/12/25 08:32 06/12/25 09:37 06/12/25 09:37
*Pulse Oximetry
SaO2: 100
Oxygen Mode of Delivery: Room air
Patient hypoxic: no
*Critical Care Note
Total Time (30-74mins, 75-104mins- exclusive of procedures): Not Applicable
ED Attending Note
-
Portions of this chart may have been created with voice recognition software.� Occasional wrong word or��sound alike� substitutions may have occurred due to the inherent limitations of voice recognition software.
Discharge Plan
Departure
Patient Disposition: Home (Routine Discharge)
Date of Disposition: 06/12/25
Time of Disposition: 09:21
Patient with high blood pressure during this ER visit?: Yes
Condition: Good
Discharge Problem:
Fall, Acute pain of left hip
Instructions: Preventing falls in adults, BLOOD PRESSURE
Prescriptions:
No Action
atorvastatin 20 mg Tablet
20 mg PO HS
pantoprazole 40 mg Tablet,Delayed Release (Dr/Ec)
40 mg PO DAILY
ferrous sulfate [iron] 325 mg (65 mg iron) Tablet
325 mg PO DAILY
lisinopril 10 mg Tablet
10 mg PO DAILY
propranolol 120 mg Capsule,Extended Release 24hr
120 mg PO DAILY
PreserVision AREDS 4,296 mcg-226 mg-90 mg Capsule
1 cap PO BID
echinacea
1 tab PO DAILY
diphenoxylate-atropine [Lomotil] 2.5-0.025 mg Tablet
1 tab PO QIDPRN PRN (Reason: diarrhea)
Centrum Silver Women 8 mg iron-400 mcg-50 mcg Tablet
1 tab PO HS
coenzyme Q10 [CoQ-10] 100 mg Capsule
100 mg PO HS
fluoxetine 40 mg Capsule
40 mg PO DAILY
trazodone 50 mg Tablet
50 mg PO HSPRN PRN (Reason: sleep)
colestipol 5 gram Granules
5 g PO DAILY
oxycodone 5 mg Tablet
5 mg PO Q4HPRN PRN (Reason: severe pain) Qty: 20 0RF
amlodipine 10 mg Tablet
10 mg PO DAILY Qty: 30 0RF
Activity Restrictions/Additional Instructions:
Follow up with primary care. Return for any concerns.
Interventions
Interventions:
*Risk Screen - Suicide Last Done: 06/12/25 08:32
*General Assessment Last Done: 06/12/25 08:32
*Neglect/Abuse Screening Last Done: 06/12/25 08:32
*ED- Fall Risk Assessment Last Done: 06/12/25 08:32
*ED COVID-19 Vaccine History Last Done: 06/12/25 08:32
*Nursing Disposition Last Done: 06/12/25 09:32
ED-Musculoskeletal Assessment Last Done: 06/12/25 08:55
ED- Neurological Assessment Last Done: 06/12/25 08:43
Discharge Date and Time
Discharge Date/Time: 06/12/25 09:44
Print Language: SAO TOMEAN
[2025-06-12 09:37] VITALS: BP 176/71
== END 2025-06-12 09:44 | disposition home or self-care (01) ==
LOC: EMR 08:29
PROVIDERS: EMERGENCY PHYSICIAN Emergency Medicine; FAMILY PHYSICIAN Family Medicine
DX: M25.552 Pain in left hip (principal); M25.562 Pain in left knee; S32.512A Fracture of superior rim of left pubis, initial encounter for closed fracture; W18.39XA Other fall on same level, initial encounter; Y92.000 Kitchen of unspecified non-institutional (private) residence as the place of occurrence of the external cause; I10 Essential (primary) hypertension; E78.00 Pure hypercholesterolemia, unspecified; K57.90 Diverticulosis of intestine, part unspecified, without perforation or abscess without bleeding; G43.909 Migraine, unspecified, not intractable, without status migrainosus; D50.9 Iron deficiency anemia, unspecified; D56.3 Thalassemia minor; F32.A Depression, unspecified; M19.90 Unspecified osteoarthritis, unspecified site; Z85.820 Personal history of malignant melanoma of skin; Z86.718 Personal history of other venous thrombosis and embolism; Z87.891 Personal history of nicotine dependence; Z87.440 Personal history of urinary (tract) infections
CPT/HCPCS: 99283; 73502

== ENCOUNTER 2025-06-14 12:51 | Emergency (ER) | payer MEDICARE, SELFPAY ==
[2025-06-14 12:53] VITALS: BP 165/60
[2025-06-14 13:01] VITALS: BMI 26.5
[2025-06-14 13:07] VITALS: BP 151/55
--- NOTE | 2025-06-14 13:40 | ED.GENMED ---
History of Present Illness
<Jean Page MD - Last Filed: 06/14/25 13:43>
General
Chief Complaint: Fall
Source: patient
Exam Limitations: none
Time Seen by Provider: 06/14/25 13:08
Nursing documentation reviewed up to this point in time: agreed with
History of Present Illness
History of Present Illness:
Patient diagnosed with probable subacute left hip/pelvic fracture after fall 2 days ago via x-ray, presents to ED secondary to worsening pain after another fall, after she lost balance. Denies head injury. Denies preceding dizziness or
palpitations. Denies any pain at rest, but worse with any weightbearing. Denies loss of sensation or weakness. Patient does not take any blood thinning medications.
Past History
<Jean Page MD - Last Filed: 06/14/25 13:43>
Past History
ED Past Medical History: Cancer (Skin CA Melanoma), HTN, Hypercholesterolemia, Psychiatric (Depression) and Other (DVT, Diverticulosis, GI bleeding. 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 )
ED Past Surgical History: Appendectomy, Gynecological (Hysterectomy), Orthopedic (thumb sx dr ragland ), Tonsilectomy (and adenoids) and Other (Left thigh Z-plasty for skin Cancer)
Social History
Tobacco: Former smoker
Alcohol: Occasional
Drug: None
Personal:
Living: alone (The patient lives alone in a townhouse but has daily help in the mornings and supportive neighbors. She has a brother who resides nearby and is supportive.)
Employment: Retired
Family History
Family History: Hypertension
Review of Systems
<Jean Page MD - Last Filed: 06/14/25 13:43>
Review of Systems
Allergies reviewed?: Yes
All Other Systems: ROS reviewed and negative except as documented in HPI and ROS
Constitutional: Reports no symptoms
Cardiac: Reports no symptoms; Denies palpitations
ABD/GI: Reports no symptoms
Musculoskeletal: Reports other (hip pain); Denies neck pain or back pain
Skin: Reports no symptoms
Neurological: Reports no symptoms; Denies dizzy, headache or weakness
Phy Exam
<Jean Page MD - Last Filed: 06/14/25 13:43>
Physical Exam
Physical Exam:
Physical Exam
General: no apparent distress, not acutely ill. afebrile
Head: nc/at. eomi
Neck: supple. normal range of motion
Abdomen: normal bowel sounds. not tender.
Neuro: alert and oriented x 3. no focal neurological deficits
Skin: no rash
Psychiatric: well kept. interactive and cooperative
Extremities: moderate left hip tenderness to palpation without obvious deformity
Course
<Jean Page MD - Last Filed: 06/14/25 13:43>
Orders/Labs/Results
Orders:
Orders
06/14/25 13:36
CT Pelvis W/o Iv Contrast Urgent
Comment:
Reason For Exam: hip/pelvic pain after fall
06/14/25 13:39
Acetaminophen with Codeine [Tylenol #3] 1 tablet PO NOW STA
06/14/25 15:33
Physical Therapy Consult [Pt Eval And Treat] Urgent
Activity Level: As Tolerated
06/14/25 15:35
Case Management Consult ONCE
Case Management Consult: Discharge Planning
06/14/25 16:03
BMP [Basic Metabolic Panel] Urgent
CBC/No Diff [Complete Blood Count/No Diff] Urgent
Abnormal Lab Results
06/14/25
16:03
Hgb 9.0 L g/dL
(12.0-16.0)
Hct 28.0 L %
(37.0-47.0)
MCV 65.7 L fL
(81.0-99.0)
MCH 21.1 L pg
(27.0-31.0)
MCHC 32.1 L g/dL
(33.0-37.0)
RDW 16.0 H %
(11.5-14.5)
MPV 10.5 H fL
(7.4-10.4)
Chloride 108 H mmol/L
(98-107)
BUN 35 H mg/dl
(7-17)
Glucose 112 H mg/dl
(70-99)
06/14/25 16:03
06/14/25 16:03
Vital Signs
Initial and Last Documented VS:
Initial Vital Signs
Temp Pulse Resp BP Pulse Ox
98.3 F 63 18 165/60 95
06/14/25 12:53 06/14/25 12:53 06/14/25 12:53 06/14/25 12:53 06/14/25 12:53
Last Documented Vital Signs
Temp Pulse Resp BP Pulse Ox
98.3 F 63 18 192/75 95
06/14/25 12:53 06/14/25 12:53 06/14/25 12:53 06/14/25 16:09 06/14/25 16:30
Tremainelt;Armando Blanca, DO - Last Filed: 06/14/25 17:02>
Orders/Labs/Results
Orders:
Orders
06/14/25 13:36
CT Pelvis W/o Iv Contrast Urgent
Comment:
Reason For Exam: hip/pelvic pain after fall
06/14/25 13:39
Acetaminophen with Codeine [Tylenol #3] 1 tablet PO NOW STA
06/14/25 15:33
Physical Therapy Consult [Pt Eval And Treat] Urgent
Activity Level: As Tolerated
06/14/25 15:35
Case Management Consult ONCE
Case Management Consult: Discharge Planning
06/14/25 16:03
BMP [Basic Metabolic Panel] Urgent
CBC/No Diff [Complete Blood Count/No Diff] Urgent
Abnormal Lab Results
06/14/25
16:03
Hgb 9.0 L g/dL
(12.0-16.0)
Hct 28.0 L %
(37.0-47.0)
MCV 65.7 L fL
(81.0-99.0)
MCH 21.1 L pg
(27.0-31.0)
MCHC 32.1 L g/dL
(33.0-37.0)
RDW 16.0 H %
(11.5-14.5)
MPV 10.5 H fL
(7.4-10.4)
Chloride 108 H mmol/L
(98-107)
BUN 35 H mg/dl
(7-17)
Glucose 112 H mg/dl
(70-99)
06/14/25 16:03
06/14/25 16:03
Vital Signs
Initial and Last Documented VS:
Initial Vital Signs
Temp Pulse Resp BP Pulse Ox
98.3 F 63 18 165/60 95
06/14/25 12:53 06/14/25 12:53 06/14/25 12:53 06/14/25 12:53 06/14/25 12:53
Last Documented Vital Signs
Temp Pulse Resp BP Pulse Ox
98.3 F 63 18 192/75 95
06/14/25 12:53 06/14/25 12:53 06/14/25 12:53 06/14/25 16:09 06/14/25 16:30
<Jean Page MD - Last Filed: 06/14/25 13:43>
*Pulse Oximetry
SaO2: 94
Oxygen Mode of Delivery: Room air
<Armando Blanca DO - Last Filed: 06/14/25 17:02>
*Pulse Oximetry
Patient hypoxic: no
*Critical Care Note
Total Time (30-74mins, 75-104mins- exclusive of procedures): Not Applicable
<Armando Blanca DO - Last Filed: 06/14/25 17:02>
Update Note
Update Note:
5 PM signout pending PT and case management evaluation patient adamant about going home discussed with case management, go home
ED Attending Note
<Jean Page MD - Last Filed: 06/14/25 13:43>
-
Portions of this chart may have been created with voice recognition software.� Occasional wrong word or��sound alike� substitutions may have occurred due to the inherent limitations of voice recognition software.
Discharge Plan
Departure
Patient Disposition: Home (Routine Discharge)
Date of Disposition: 06/14/25
Time of Disposition: 17:01
Patient with high blood pressure during this ER visit?: No
Condition: Good
Discharge Problem:
Closed fracture of left pelvis
Instructions: Preventing falls in adults
Prescriptions:
No Action
atorvastatin 20 mg Tablet
20 mg PO HS
pantoprazole 40 mg Tablet,Delayed Release (Dr/Ec)
40 mg PO DAILY
ferrous sulfate [iron] 325 mg (65 mg iron) Tablet
325 mg PO DAILY
lisinopril 10 mg Tablet
10 mg PO DAILY
propranolol 120 mg Capsule,Extended Release 24hr
120 mg PO DAILY
PreserVision AREDS 4,296 mcg-226 mg-90 mg Capsule
1 cap PO BID
echinacea
1 tab PO DAILY
diphenoxylate-atropine [Lomotil] 2.5-0.025 mg Tablet
1 tab PO QIDPRN PRN (Reason: diarrhea)
Centrum Silver Women 8 mg iron-400 mcg-50 mcg Tablet
1 tab PO HS
coenzyme Q10 [CoQ-10] 100 mg Capsule
100 mg PO HS
fluoxetine 40 mg Capsule
40 mg PO DAILY
trazodone 50 mg Tablet
50 mg PO HSPRN PRN (Reason: sleep)
colestipol 5 gram Granules
5 g PO DAILY
oxycodone 5 mg Tablet
5 mg PO Q4HPRN PRN (Reason: severe pain) Qty: 20 0RF
amlodipine 10 mg Tablet
10 mg PO DAILY Qty: 30 0RF
Referrals:
Noah Mary MD [Family Provider, Family Practice]
Interventions
Interventions:
*Risk Screen - Suicide Last Done: 06/14/25 12:53
*General Assessment Last Done: 06/14/25 13:01
*Neglect/Abuse Screening Last Done: 06/14/25 13:01
*ED- Fall Risk Assessment Last Done: 06/14/25 13:01
*ED COVID-19 Vaccine History Last Done: 06/14/25 13:01
ED-Musculoskeletal Assessment Last Done: 06/14/25 13:01
ED- Neurological Assessment Last Done: 06/14/25 13:01
ED-Skin Assessment Last Done: 06/14/25 13:01
Discharge Date and Time
Print Language: FRENCH
[2025-06-14] MEDS: TYLENOL #3 1 TABLET PO (13:51)
[2025-06-14 14:00] VITALS: BP 153/58
[2025-06-14 15:00] VITALS: BP 158/53
[2025-06-14 16:09] VITALS: BP 192/75
[2025-06-14 16:16] LABS: Hematocrit 28.0 % (37.0-47.0); Hemoglobin 9.0 g/dL (12.0-16.0); Mean Corp Hgb Conc. 32.1 g/dL (33.0-37.0); Mean Corpuscular Volume 65.7 fL (81.0-99.0); Platelet Count 303 10^3/uL (130-400); Red Cell Dist. Width 16.0 % (11.5-14.5)
[2025-06-14 16:31] LABS: Blood Urea Nitrogen 35 mg/dl (7-17); Calcium 9.0 mg/dl (8.4-10.2); Carbon Dioxide 28 mmol/L (22-30); Chloride 108 mmol/L (98-107); Estimated Creatinine Clearance 40 ml/min; Glucose 112 mg/dl (70-99); Potassium 3.7 mmol/L (3.5-5.1); Sodium 141 mmol/L (135-145); eGFR > 60.00
--- NOTE | 2025-06-14 17:12 | CM ---
Received CM consult. I met with pt and her neighbor bedside in ED. Pt lives alone in 1 story home with full basement, [address],
has stair glide to basement. Ambulates with RW.
Needs assistance for ADLs, has private pay SENIOR CLIMATE ADVISOR through [employer] from 8-12 M-F. Pt's brother Catracho lives nearby and provides assistance; her neighbor checks on her several times a day. Pt is current with [facility] for PT.
Pt is planning to move to [facility] in [place] next Friday. Pt states her room will not be ready until then, she has ordered furniture and is waiting for delivery.
Pt does not want 24 hour aide, 'I don't want someone sitting there staring at me'. We discussed getting additional help through [employer], pt states she goes to bed around 8pm. Discussed getting additional SENIOR CLIMATE ADVISOR hours from 12n until 8pm. Also discussed
with her neighbor that she could come over when pt needs to be up and moving and assist her. Both are agreeable that pt will call her when she needs to get up and move around. Pt normally gets up around 5am but is willing to stay in bed until SENIOR CLIMATE ADVISOR
gets there. She does have a commode she will place at bedside. Pt states she spends most of her day sitting in her chair watching TV. There are also several other neighbors that are willing to assist.
Pt's brother was not able to come to the phone when we called but pt assured me he can also help and will contact [employer] requesting more SENIOR CLIMATE ADVISOR hours. Pt and neighbor will follow up with him this evening.
Her neighbor will transport her home. Dr Blanca aware of plan.
== END 2025-06-14 17:09 | disposition home or self-care (01) ==
LOC: EMR 12:51
PROVIDERS: Physician Assistant Medical; EMERGENCY PHYSICIAN Emergency Medicine; FAMILY PHYSICIAN Family Medicine
DX: S32.592A Other specified fracture of left pubis, initial encounter for closed fracture (principal); W19.XXXA Unspecified fall, initial encounter; R29.6 Repeated falls; D56.3 Thalassemia minor; E78.00 Pure hypercholesterolemia, unspecified; I10 Essential (primary) hypertension; Z86.718 Personal history of other venous thrombosis and embolism; Z87.891 Personal history of nicotine dependence
CPT/HCPCS: 99284; 72192; 80048; 85027